=== PATIENT | male | born 1935 | race Caucasian/White ===

== ENCOUNTER 2017-07-21 12:06 | Emergency (ER) | payer MEDICARE, OTHER ==
[2017-07-21 12:19] VITALS: RESP 18
[2017-07-21] MEDS ORDERED: hydrALAZINE HCL 20 MG/ML 1 ML VIAL IVP STA (13:50)
[2017-07-21 14:04] LABS: Basophils % (A) 1 %; Eosinophils # (A) 0.1 k/uL (0-0.7); Eosinophils % (A) 2 %; HGB 14.9 gm/dL (13.0-17.5); Lymphocytes # (A) 2.1 k/uL (1.0-4.8); Lymphocytes % (A) 34 %; MCH 32.5 pg (25.0-35.0); MCHC 34.6 g/dL (31.0-37.0); MCV 94.1 fL (80.0-100.0); Mean Platelet Volume 6.5; Monocytes # (A) 0.4 k/uL (0-1.0); Monocytes % (A) 7 %; Neutrophils # (A) 3.2 k/uL (1.3-7.7); Neutrophils % (A) 52 %; Platelet Count 203 k/uL (150-450); RBC 4.57 m/uL (4.30-5.90); RDW 13.6 % (11.5-15.5); WBC 6.2 k/uL (3.8-10.6)
[2017-07-21 14:16] LABS: Anion Gap 11 mmol/L; Blood Urea Nitrogen 19 mg/dL (9-20); Calcium 9.4 mg/dL (8.4-10.2); Carbon Dioxide 26 mmol/L (22-30); Chloride 101 mmol/L (98-107); Glucose 150 mg/dL (74-99); Potassium 4.1 mmol/L (3.5-5.1); Sodium 138 mmol/L (137-145)
--- NOTE | 2017-07-21 15:14 | ED ---
General Adult HPI - General Chief complaint: Recheck/Abnormal Lab/Rx Stated complaint: High Blood Pressure Time Seen by Provider: 07/21/17 13:27 Source: patient Mode of arrival: ambulatory Limitations: no limitations - History of Present Illness Initial comments: This 82-year-old white male presents with a complaint of high blood pressure. He states that he noticed it being high this morning. He took it on several occasions with the highest being 200/104. He essentially has been asymptomatic otherwise. He does have a history of long-standing hypertension. He did take an extra Norvasc this morning. He states that he has been under a fair amount of stress recently due to his 's illnesses. He denies any other complaints or modifying factors. There is no chest pain, shortness of breath, lower extremity edema, or fevers. He called his primary care physician's office and they sent him to the ER. - Related Data Home Medications Medication Instructions Recorded Confirmed Wolsey-3 Fatty Acids/Fish Oil [Fish 1,000 mg PO DAILY 02/18/15 07/21/17 Oil 1,000 mg Softgel] amLODIPine BESYLATE [Norvasc] 5 mg PO BID 02/18/15 07/21/17 ALPRAZolam [Xanax] 0.25 mg PO DAILY PRN 05/22/16 07/21/17 Levothyroxine Sodium [Synthroid] 88 mcg PO DAILY 05/22/16 07/21/17 Acetaminophen Tab [Tylenol Tab] 500 mg PO HS 07/21/17 07/21/17 Ascorbic Acid [Vitamin C] 500 mg PO DAILY 07/21/17 07/21/17 Aspirin EC [Ecotrin Low Dose] 81 mg PO DAILY 07/21/17 07/21/17 Mirabegron [Myrbetriq] 50 mg PO DAILY 07/21/17 07/21/17 Multivit-Min/FA/Lycopen/Lutein 1 tab PO DAILY 07/21/17 07/21/17 [Centrum Silver Tablet] hydrOXYzine PAMOATE 25 mg PO BID 07/21/17 07/21/17 Previous Rx's Medication Instructions Recorded cloNIDine HCL [Catapres] 0.1 mg PO BID #60 tab 07/21/17 Allergies Allergy/AdvReac Type Severity Reaction Status Date / Time Frupifo-Mqg-Ali Reductase Allergy Unknown Verified 07/21/17 13:35 Inhibitor Review of Systems ROS Statement: Those systems with pertinent positive or pertinent negative responses have been documented in the HPI. ROS Other: All systems not noted in ROS Statement are negative. Past Medical History Past Medical History: Hypertension History of Any Multi-Drug Resistant Organisms: None Reported Past Surgical History: Appendectomy, Cholecystectomy, Tonsillectomy Additional Past Surgical History / Comment(s): shoulder Past Psychological History: No Psychological Hx Reported Smoking Status: Never smoker Past Alcohol Use History: None Reported Past Drug Use History: None Reported General Exam - General Exam Comments Initial Comments: GENERAL: The patient is well nourished and well hydrated. VITAL SIGNS: Heart rate, blood pressure, respiratory rate reviewed as recorded in nurse's notes. EYES: Pupils are round and reactive. Extraocular movements are intact. No conjunctival / lid redness or swelling. ENT: No external evidence of injury, swelling, or ecchymosis. Airway is patent. Throat is clear. NECK: Nontender. No swelling or evidence of injury. No subcutaneous emphysema. Trachea is midline. No thyroid mass. HEART: Regular rate and rhythm. Good peripheral pulses. LUNGS/CHEST: Breath sounds clear and equal bilaterally. No rales, rhonchi, or wheezes. No ecchymosis, subcutaneous emphysema, or tenderness. ABDOMEN: Abdomen soft without tenderness. No palpable masses or organomegaly. No peritoneal signs. No abdominal wall swelling or ecchymosis. EXTREMITIES: No extremity tenderness. Normal muscle tone and function. No thoracolumbar tenderness. NEUROLOGIC: Sensation is grossly intact. Cranial nerve exam reveals face is symmetrical, tongue is midline, speech is clear. SKIN: No abrasions or ecchymosis is noted. No induration or masses noted. PSYCHIATRIC: Alert and oriented. Appropriate behavior and judgment. Limitations: no limitations Course Vital Signs 07/21/17 07/21/17 07/21/17 12:14 13:49 14:52 Temperature 97.0 F L Pulse Rate 63 73 Respiratory 18 18 Rate Blood Pressure 164/77 178/85 141/91 O2 Sat by Pulse 94 L 100 Oximetry Medical Decision Making - Medical Decision Making The patient was seen and examined. All diagnostics were reviewed. EKG shows a normal sinus rhythm at a rate of 61 with a first-degree AV block. There is diffuse T-wave inversion noted throughout EKG. The OH intervals 220, QRS duration is 144, and the QTc interval is 426. The old EKG does show similar T- wave inversions. Patient also has a right bundle-branch block which is been persistent. An IV is started and he has a dose of hydralazine given intravenously. His blood pressure is only minimally elevated initially and this improved on recheck. It is felt as though he is stable for discharge. He does show me his blood pressure log over the last 5 days and it appears to be persistently elevated. It is felt as though he would benefit from another blood pressure medication being added. - Lab Data Result diagrams: 07/21/17 13:54 07/21/17 13:54 Lab Results 07/21/17 07/21/17 Range/Units 13:54 13:54 WBC 6.2 (3.8-10.6) k/uL RBC 4.57 (4.30-5.90) m/uL Hgb 14.9 (13.0-17.5) gm/dL Hct 43.0 (39.0-53.0) % MCV 94.1 (80.0-100.0) fL MCH 32.5 (25.0-35.0) pg MCHC 34.6 (31.0-37.0) g/dL RDW 13.6 (11.5-15.5) % Plt Count 203 (150-450) k/uL Neutrophils % 52 % Lymphocytes % 34 % Monocytes % 7 % Eosinophils % 2 % Basophils % 1 % Neutrophils # 3.2 (1.3-7.7) k/uL Lymphocytes # 2.1 (1.0-4.8) k/uL Monocytes # 0.4 (0-1.0) k/uL Eosinophils # 0.1 (0-0.7) k/uL Basophils # 0.0 (0-0.2) k/uL Sodium 138 (137-145) mmol/L Potassium 4.1 (3.5-5.1) mmol/L Chloride 101 (98-107) mmol/L Carbon Dioxide 26 (22-30) mmol/L Anion Gap 11 mmol/L BUN 19 (9-20) mg/dL Creatinine 0.70 (0.66-1.25) mg/dL Est GFR (MDRD) Af Amer >60 (>60 ml/min/1.73 sqM) Est GFR (MDRD) Non-Af >60 (>60 ml/min/1.73 sqM) Glucose 150 H (74-99) mg/dL Calcium 9.4 (8.4-10.2) mg/dL Disposition Clinical Impression: Hypertension Disposition: HOME SELF-CARE Condition: Good Instructions: Hypertension (ED) Prescriptions: cloNIDine HCL [Catapres] 0.1 mg PO BID #60 tab Referrals: Maggie Joya MD [Primary Care Provider] - 1-2 days Time of Disposition: 15:32
[2017-07-21 15:58] VITALS: BP 167/82; PULSE 66; TEMP 97.4
== END 2017-07-21 15:58 | disposition home or self-care (01) ==
LOC: EC 12:06
DX: I10 Essential (primary) hypertension (principal); I44.0 Atrioventricular block, first degree; I45.10 Unspecified right bundle-branch block; Z79.82 Long term (current) use of aspirin; Z79.899 Other long term (current) drug therapy; Z88.8 Allergy status to other drugs, medicaments and biological substances
CPT/HCPCS: 36415; 93005; 80048; 85025; 99283; 96374; J0360

== ENCOUNTER 2017-12-12 22:55 | Emergency (ER) | payer MEDICARE ==
[2017-12-12 23:01] VITALS: RESP 18; TEMP 97
[2017-12-12] MEDS ORDERED: METOCLOPRAMIDE 5 MG/ML 2 ML VIAL IVP STA (23:20)
[2017-12-12] MEDS ORDERED: HYDROmorphone 0.5 MG/0.5 ML SYRINGE IVP STA (23:20)
[2017-12-12] MEDS ORDERED: SODIUM CHLORIDE 0.9% 1,000 ML IV STA (23:20)
[2017-12-12] MEDS ORDERED: DEXAMETHASONE SOD PHOSPHATE 4 MG/ML 1 ML VIAL IV STA (23:21)
--- NOTE | 2017-12-12 23:36 | ED ---
Headache HPI - General Chief Complaint: Headache Stated Complaint: Headache Time Seen by Provider: 12/12/17 23:04 Mode of arrival: EMS Limitations: no limitations - History of Present Illness Initial Comments: 82 years old male presents with a headache ongoing for 2 days he's had headaches gets worse when he lays flat it was called yesterday but then he came back also complaining about discomfort over the frontal sinuses and over the right temporal area as well his vision is fine he denies any fever no chills he denies any signs of meningitis or meningeal irritation. Has headache no neck stiffness no chest pain or shortness of breath no abdominal pain no frequency urgency dysuria - Related Data Home Medications Medication Instructions Recorded Confirmed [place]-3 Fatty Acids/Fish Oil [Fish 1,000 mg PO DAILY 02/18/15 07/21/17 Oil 1,000 mg Softgel] amLODIPine BESYLATE [Norvasc] 5 mg PO BID 02/18/15 07/21/17 ALPRAZolam [Xanax] 0.25 mg PO DAILY PRN 05/22/16 07/21/17 Levothyroxine Sodium [Synthroid] 88 mcg PO DAILY 05/22/16 07/21/17 Acetaminophen Tab [Tylenol Tab] 500 mg PO HS 07/21/17 07/21/17 Ascorbic Acid [Vitamin C] 500 mg PO DAILY 07/21/17 07/21/17 Aspirin EC [Ecotrin Low Dose] 81 mg PO DAILY 07/21/17 07/21/17 Mirabegron [Myrbetriq] 50 mg PO DAILY 07/21/17 07/21/17 Multivit-Min/FA/Lycopen/Lutein 1 tab PO DAILY 07/21/17 07/21/17 [Centrum Silver Tablet] hydrOXYzine PAMOATE 25 mg PO BID 07/21/17 07/21/17 Previous Rx's Medication Instructions Recorded cloNIDine HCL [Catapres] 0.1 mg PO BID #60 tab 07/21/17 Allergies Allergy/AdvReac Type Severity Reaction Status Date / Time Pogvpva-Wsg-Jqi Reductase Allergy Unknown Verified 12/12/17 23:01 Inhibitor Review of Systems ROS Statement: Those systems with pertinent positive or pertinent negative responses have been documented in the HPI. ROS Other: All systems not noted in ROS Statement are negative. Past Medical History Past Medical History: GERD/Reflux, Hypertension, Thyroid Disorder History of Any Multi-Drug Resistant Organisms: None Reported Past Surgical History: Appendectomy, Cholecystectomy, Tonsillectomy Additional Past Surgical History / Comment(s): shoulder Past Psychological History: No Psychological Hx Reported Smoking Status: Never smoker Past Alcohol Use History: None Reported Past Drug Use History: None Reported General Exam - General Exam Comments Initial Comments: General: The patient is awake and alert, in no distress, and does not appear acutely ill. GCS is 15 Skin: Skin is warm and dry and no rashes or lesions are noted. Eye: Pupils are equal, round and reactive to light, extra-ocular movements are intact; there is normal conjunctiva bilaterally. Ears, nose, mouth and throat: There are moist mucous membranes and no oral lesions. Neck: The neck is supple, there is no tenderness , no signs of meningitis Cardiovascular: There is a regular rate and rhythm. No murmur, rub or gallop is appreciated. Respiratory: To auscultation bilateral decreased breath sounds bilateral Gastrointestinal: Soft, non-distended, non-tender abdomen without masses or organomegaly noted. There is no rebound or guarding present. Bowel sounds are unremarkable. Back: There is no tenderness to palpation in the midline. There is no obvious deformity. Musculoskeletal: Normal ROM, no tenderness, There is no pedal edema. There is no calf tenderness or swelling. No cords were appreciated. Neurological: CN II-XII intact, Cranial nerves III through XII are intact. There are no obvious motor or sensory deficits. Coordination appears grossly intact. Speech is normal. Psychiatric: Cooperative, appropriate mood & affect, normal judgment. Limitations: no limitations Course Vital Signs 12/12/17 12/12/17 12/13/17 22:56 23:09 00:32 Temperature 97.0 F L Pulse Rate 60 62 Pulse Rate [ 54 L Application Support Intern ] Respiratory 18 18 Rate Blood Pressure 174/83 183/76 O2 Sat by Pulse 93 L 96 Oximetry EKG is sinus bradycardia ventricular rate is 59 MT interval interval is to 46 QRS duration is 144 QT/QTc is 476/471 review of this EKG reveals right bundle branch block noticed some mom T-wave inversions in now lead V3 this EKG was compared with the old EKG no significant changes were noticed CT of the head and then numb sinuses were reviewed noticed a large tumor probably arising from the staff noted sinus with extension into cellular region or suprasellar region into the nasopharynx and the right maxillary sinus him at this large tumor at the skull base involving the sesamoid bone and SL C, 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 these findings were discussed with the patient, recommended we need to transfer him to the [facility] where they have a more advanced neurosurgical as well as ENT team patient [facility] to [facility] was contacted to [facility] accepted him in their care Medical Decision Making - Lab Data Result diagrams: 12/12/17 23:10 12/12/17 23:10 Lab Results 12/12/17 12/12/17 12/12/17 Range/Units 23:10 23:10 23:10 WBC 5.7 (3.8-10.6) k/uL RBC 4.71 (4.30-5.90) m/uL Hgb 14.8 (13.0-17.5) gm/dL Hct 42.1 (39.0-53.0) % MCV 89.5 (80.0-100.0) fL MCH 31.4 (25.0-35.0) pg MCHC 35.1 (31.0-37.0) g/dL RDW 13.4 (11.5-15.5) % Plt Count 200 (150-450) k/uL Neutrophils % 44 % Lymphocytes % 41 % Monocytes % 8 % Eosinophils % 3 % Basophils % 1 % Neutrophils # 2.5 (1.3-7.7) k/uL Lymphocytes # 2.3 (1.0-4.8) k/uL Monocytes # 0.4 (0-1.0) k/uL Eosinophils # 0.2 (0-0.7) k/uL Basophils # 0.0 (0-0.2) k/uL ESR 77 H (0-15) mm/hr Sodium 138 (137-145) mmol/L Potassium 3.8 (3.5-5.1) mmol/L Chloride 99 (98-107) mmol/L Carbon Dioxide 26 (22-30) mmol/L Anion Gap 13 mmol/L BUN 16 (9-20) mg/dL Creatinine 0.70 (0.66-1.25) mg/dL Est GFR (CKD-EPI)AfAm >90 (>60 ml/min/1.73 sqM) Est GFR (CKD-EPI)NonAf 89 (>60 ml/min/1.73 sqM) Glucose 120 H (74-99) mg/dL Calcium 9.1 (8.4-10.2) mg/dL Total Bilirubin 0.5 (0.2-1.3) mg/dL AST 47 (17-59) U/L ALT 40 (21-72) U/L Alkaline Phosphatase 91 (38-126) U/L Troponin I <0.012 (0.000-0.034) ng/mL Total Protein 7.4 (6.3-8.2) g/dL Albumin 4.4 (3.5-5.0) g/dL 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 Specs Out of Hospital Transfer - Requested Specifics: Other Emergency Center (Dr. grider accepted his care and transfer)
[2017-12-12 23:45] LABS: Basophils % (A) 1 %; Eosinophils # (A) 0.2 k/uL (0-0.7); Eosinophils % (A) 3 %; HCT 42.1 % (39.0-53.0); HGB 14.8 gm/dL (13.0-17.5); Lymphocytes # (A) 2.3 k/uL (1.0-4.8); Lymphocytes % (A) 41 %; MCH 31.4 pg (25.0-35.0); MCHC 35.1 g/dL (31.0-37.0); MCV 89.5 fL (80.0-100.0); Mean Platelet Volume 7.2; Monocytes # (A) 0.4 k/uL (0-1.0); Monocytes % (A) 8 %; Neutrophils # (A) 2.5 k/uL (1.3-7.7); Neutrophils % (A) 44 %; Platelet Count 200 k/uL (150-450); RBC 4.71 m/uL (4.30-5.90); RDW 13.4 % (11.5-15.5); WBC 5.7 k/uL (3.8-10.6)
[2017-12-12 23:56] LABS: ALT 40 U/L (21-72); AST 47 U/L (17-59); Albumin 4.4 g/dL (3.5-5.0); Alkaline Phosphatase 91 U/L (38-126); Anion Gap 13 mmol/L; Blood Urea Nitrogen 16 mg/dL (9-20); Calcium 9.1 mg/dL (8.4-10.2); Carbon Dioxide 26 mmol/L (22-30); Chloride 99 mmol/L (98-107); Glucose 120 mg/dL (74-99); Potassium 3.8 mmol/L (3.5-5.1); Sodium 138 mmol/L (137-145); Total Bilirubin 0.5 mg/dL (0.2-1.3); Total Protein 7.4 g/dL (6.3-8.2)
[2017-12-13 00:21] LABS: Erythrocyte Sedimentation Rate 77 mm/hr (0-15)
--- NOTE | 2017-12-13 00:28 | CT ---
EXAMINATION TYPE: CT brain wo con DATE OF EXAM: 12/13/2017 COMPARISON: NONE HISTORY: pt. c/o severe headache X2 days. CT DLP: 1405 mGycm Automated exposure control for dose reduction was used. FINDINGS: There is a mixed density mass involving the sphenoid bone and sphenoid sinus extending into the sella turcica and suprasellar region. This measures overall 4.6 x 6.1 x 3.9 cm. There is expansion through the floor of the sphenoid sinus into the posterior nasopharynx. There is significant displacement of the optic chiasm. There is superior extension of the mass 2 cm above the clinoid process.. There is no midline shift. There is no intracranial hemorrhage. There is cerebral cortical atrophy. IMPRESSION: LARGE TUMOR MASS AT THE SKULL BASE INVOLVING SPHENOID BONE AND SELLA TURCICA. 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
--- NOTE | 2017-12-13 00:32 | CT ---
EXAMINATION TYPE: CT sinus wo con DATE OF EXAM: 12/13/2017 COMPARISON: NONE HISTORY: pt. c/o severe headache X2 days. CT DLP: 1405 mGycm. Automated Exposure Control for Dose Reduction was Utilized. TECHNIQUE: CT scan of the sinuses is performed without contrast, axial images are obtained, coronal r eformatted images are also reviewed. FINDINGS: There is a large 5 x 6 cm mass centered at the sella turcica and sphenoid sinus. This measu res 6 x 5 cm. Mass has intermediate to high density. There is adjacent bone destruction. Mass extends through the floor of the sphenoid sinus into the nasopharynx. There is 1.5 cm area of mu cosal thickening in the right anterior ethmoid sinus. There is no evidence of orbital mass. Frontal s inuses appear normal. There is tumor mass extension into the posterior right maxillary sinus. 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
[2017-12-13 02:30] VITALS: BP 174/76; PULSE 61
== END 2017-12-13 02:55 | disposition other institution (70) ==
LOC: EC 22:55
DX: D49.1 Neoplasm of unspecified behavior of respiratory system (principal); I10 Essential (primary) hypertension; Z79.899 Other long term (current) drug therapy; Z79.82 Long term (current) use of aspirin; Z79.891 Long term (current) use of opiate analgesic; Z88.8 Allergy status to other drugs, medicaments and biological substances; Z90.49 Acquired absence of other specified parts of digestive tract; Z90.89 Acquired absence of other organs
CPT/HCPCS: 36415; 93005; 80053; 85652; 84484; 85025; 70450; 70486; 99285; 96374; 96375 ×2; 96361 ×3; J1100; J2765; J1170

== ENCOUNTER → 2017-12-21 | Outpatient (CLI) | payer MEDICARE ==
[2017-12-21 16:17] LABS: Basophils # (A) 0.1 k/uL (0-0.2); Basophils % (A) 1 %; Eosinophils # (A) 0.3 k/uL (0-0.7); Eosinophils % (A) 4 %; HCT 43.5 % (39.0-53.0); Lymphocytes # (A) 2.2 k/uL (1.0-4.8); Lymphocytes % (A) 30 %; MCH 31.1 pg (25.0-35.0); MCHC 34.6 g/dL (31.0-37.0); MCV 89.8 fL (80.0-100.0); Mean Platelet Volume 6.2; Monocytes # (A) 0.5 k/uL (0-1.0); Monocytes % (A) 7 %; Neutrophils # (A) 4.1 k/uL (1.3-7.7); Neutrophils % (A) 57 %; Platelet Count 236 k/uL (150-450); RBC 4.84 m/uL (4.30-5.90); RDW 13.9 % (11.5-15.5); WBC 7.3 k/uL (3.8-10.6)
[2017-12-21 16:35] LABS: ALT 55 U/L (21-72); AST 48 U/L (17-59); Albumin 4.1 g/dL (3.5-5.0); Alkaline Phosphatase 80 U/L (38-126); Anion Gap 12 mmol/L; Blood Urea Nitrogen 19 mg/dL (9-20); Carbon Dioxide 25 mmol/L (22-30); Chloride 98 mmol/L (98-107); Glucose 90 mg/dL (74-99); Potassium 4.1 mmol/L (3.5-5.1); Sodium 135 mmol/L (137-145); Total Bilirubin 0.6 mg/dL (0.2-1.3); Total Protein 6.9 g/dL (6.3-8.2)
== END | disposition home or self-care (01) ==
LOC: LABWHC1 15:54
PROVIDERS: ATTEND Internal Medicine
DX: I10 Essential (primary) hypertension (principal); R22.0 Localized swelling, mass and lump, head
CPT/HCPCS: 36415; 80053; 85025

== ENCOUNTER → 2018-01-25 | Outpatient (CLI) | payer MEDICARE ==
[~2018-01-25] MED LIST: REGADENOSON 0.4 MG/5 ML SYRINGE IV ONE
--- NOTE | 2018-01-25 08:45 | XR ---
EXAMINATION TYPE: XR chest 2V DATE OF EXAM: 01/25/2018 COMPARISON: 05/22/2016 HISTORY: Shortness of breath TECHNIQUE: Frontal and lateral views of the chest are obtained. FINDINGS: Scattered senescent parenchymal changes noted. Hyperinflation compatible with COPD. No evidence for infiltrate. No evidence for atelectasis. Heart size is stable. Mediastinal structures are stable and grossly unremarkable. No evidence for hilar prominence. Degenerative changes dorsal spine. IMPRESSION: 1. No evidence for acute pulmonary disease.
--- NOTE | 2018-01-25 11:34 | EST ---
EXERCISE STRESS DATE OF SERVICE: 01/25/2018 AGE: 82 SEX: Male HT: 6'1" WT: 220 pounds PROTOCOL: Lexiscan Cardiolite STAGE: DURATION OF EXERCISE: HEART RATE REST: 61 BLOOD PRESSURE REST: 135/72 MAXIMUM HEART RATE ACHIEVED: 71 MAXIMUM BLOOD PRESSURE: 135/72 85% MPHR: 100% MPHR: METS: INDICATIONS: Chest pain. CLINICAL INFORMATION: STRESS DATA: Pretesting physical examination showed a heart rate of 61, pressure is 135/72 mmHg. Baseline EKG showed sinus rhythm. A 0.4 mg of Lexiscan was given over 15 seconds per protocol. The max heart rate was 71 beats per minute and maximum pressure was 135/72. Clinically the patient did not have any symptoms of chest pain or discomfort. The EKG did not show any significant ST or T-wave abnormalities. CONCLUSION: 1. Nondiagnostic electrocardiogram stress testing in response to Lexiscan. 2. Please follow up on the Cardiolite portion on a separate report from the radiology department. MMODL / IJN: [id number] /
--- NOTE | 2018-01-25 11:36 | NM ---
EXAMINATION TYPE: NM stress lexiscan cardiolite DATE OF EXAM: 01/25/2018 COMPARISON: NONE HISTORY: Precordial chest pain and EKG TECHNIQUE: After the intravenous administration of 10.4 mCi Tc 99m Sestamibi - Cardiolite resting SP ECT images acquired 40 minutes post injection. The patient received 0.4mg Lexiscan, 24.7 mCi Tc 99m Sestamibi - Stress images obtained [address] injection FINDINGS: Review of stress and rest SPECT images demonstrates no distinct perfusion abnormality. Gated analysi s shows normal wall motion with an estimated left ventricular ejection fraction of 67 %. IMPRESSION: No scintigraphic evidence for reversible ischemia.
== END | disposition home or self-care (01) ==
LOC: RADNMMAIN 07:46
PROVIDERS: ATTEND Internal Medicine
DX: Z01.818 Encounter for other preprocedural examination (principal); D43.2 Neoplasm of uncertain behavior of brain, unspecified
CPT/HCPCS: 93017; 71046; 78452; A9500; J2785

== ENCOUNTER 2018-02-15 10:59 | Observation (INO) | payer MEDICARE ==
--- NOTE | 2018-02-15 11:31 | ED ---
General Adult HPI - General Stated complaint: Fatigue Time Seen by Provider: 02/15/18 11:16 Source: patient, RN notes reviewed Limitations: no limitations - History of Present Illness Initial comments: Patient is a pleasant 82-year-old male presenting to the emergency department with fatigue. Onset of symptoms was around 3 days ago. Symptoms have progressed since that time. Patient is fatigued and having difficulty sleeping as well. Patient feels weak all over however there is no isolated area of weakness. No confusion. No speech problems. No visual changes. 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 Patient states he has been urinating more than normal. - Related Data Home Medications Medication Instructions Recorded Confirmed amLODIPine BESYLATE [Norvasc] 5 mg PO DAILY 02/18/15 02/15/18 ALPRAZolam [Xanax] 0.25 mg PO DAILY PRN 05/22/16 02/15/18 Ascorbic Acid [Vitamin C] 500 mg PO DAILY 07/21/17 02/15/18 Aspirin EC [Ecotrin Low Dose] 81 mg PO DAILY 07/21/17 02/15/18 Latanoprost [Xalatan 0.005%] 1 drop BOTH EYES HS 02/15/18 02/15/18 Levothyroxine Sodium [Synthroid] 100 mcg PO DAILY 02/15/18 02/15/18 Lisinopril [Prinivil] 10 mg PO DAILY 02/15/18 02/15/18 Tamsulosin [Flomax] 0.4 mg PO DAILY 02/15/18 02/15/18 traZODone HCL 50 mg PO HS 02/15/18 02/15/18 Allergies Allergy/AdvReac Type Severity Reaction Status Date / Time [id number] Reductase Allergy Unknown Verified 02/15/18 12:05 Inhibitor Review of Systems ROS Statement: Those systems with pertinent positive or pertinent negative responses have been documented in the HPI. ROS Other: All systems not noted in ROS Statement are negative. Constitutional: Denies: fever Eyes: Denies: eye pain ENT: Denies: ear pain Respiratory: Denies: cough, dyspnea Cardiovascular: Denies: chest pain Endocrine: Reports: fatigue Gastrointestinal: Denies: vomiting Genitourinary: Reports: frequency. Denies: dysuria, hematuria Musculoskeletal: Denies: back pain Skin: Denies: rash Neurological: Denies: headache, confusion Past Medical History Past Medical History: GERD/Reflux, Hypertension, Thyroid Disorder History of Any Multi-Drug Resistant Organisms: None Reported Past Surgical History: Appendectomy, Cholecystectomy, Tonsillectomy Additional Past Surgical History / Comment(s): shoulder Past Psychological History: No Psychological Hx Reported Smoking Status: Never smoker Past Alcohol Use History: None Reported Past Drug Use History: None Reported General Exam Limitations: no limitations General appearance: alert, in no apparent distress Head exam: Present: atraumatic Eye exam: Present: normal appearance, PERRL, EOMI ENT exam: Present: normal oropharynx Neck exam: Present: normal inspection Respiratory exam: Present: normal lung sounds bilaterally Cardiovascular Exam: Present: regular rate, normal rhythm GI/Abdominal exam: Present: soft. Absent: tenderness Extremities exam: Present: normal inspection. Absent: pedal edema, calf tenderness Neurological exam: Present: alert, CN II-XII intact. Absent: motor sensory deficit Expanded Neurological exam: Present: protecting the airway Speech: Present: fluid speech Cranial nerves: EOM's Intact: Normal, Facial Sensation: Normal Sensory exam: Upper Extremity Light Touch: Normal, Lower Extremity Light Touch: Normal Motor strength exam: RUE: 5, LUE: 5, RLE: 5, LLE: 5 Eye Response: (4) open spontaneously Motor Response: (6) obeys commands Verbal Response: (5) oriented Psychiatric exam: Present: normal affect, normal mood Skin exam: Present: normal color Course Vital Signs 02/15/18 02/15/18 02/15/18 11:34 12:20 13:18 Temperature 98.5 F 97.3 F L Pulse Rate 77 62 72 Respiratory 16 17 18 Rate Blood Pressure 117/55 113/56 110/50 O2 Sat by Pulse 98 97 97 Oximetry 02/15/18 14:15 Temperature Pulse Rate 76 Respiratory 18 Rate Blood Pressure 125/81 O2 Sat by Pulse 96 Oximetry EKG Findings - EKG Comments: EKG Findings:: Sinus rhythm at 70. First 3 AV block OR of 220. QRS 138. QT 444. QTC 479. Right axis. Right bundle branch block. No acute ST change. Medical Decision Making - Medical Decision Making Patient reevaluated and resting comfortably in bed. Case was discussed in detail with Dr. March, who did talk with Dr. Joya. Secondary to rapid drop in lobe and they do request patient to be admitted. They do request consult with GI or EGD as well as tonics and repeat hemoglobin. - Lab Data Result diagrams: 02/15/18 11:15 02/15/18 11:15 Lab Results 02/15/18 02/15/18 02/15/18 Range/Units 11:15 11:15 11:15 WBC 5.2 (3.8-10.6) k/uL RBC 2.45 L (4.30-5.90) m/uL Hgb 7.7 L D (13.0-17.5) gm/dL Hct 22.9 L (39.0-53.0) % MCV 93.3 (80.0-100.0) fL MCH 31.3 (25.0-35.0) pg MCHC 33.6 (31.0-37.0) g/dL RDW 13.7 (11.5-15.5) % Plt Count 213 (150-450) k/uL Neutrophils % 41 % Lymphocytes % 41 % Monocytes % 9 % Eosinophils % 5 % Basophils % 1 % Neutrophils # 2.1 (1.3-7.7) k/uL Lymphocytes # 2.1 (1.0-4.8) k/uL Monocytes # 0.5 (0-1.0) k/uL Eosinophils # 0.2 (0-0.7) k/uL Basophils # 0.0 (0-0.2) k/uL PT (9.0-12.0) sec INR (<1.2) APTT (22.0-30.0) sec Sodium 137 (137-145) mmol/L Potassium 4.5 (3.5-5.1) mmol/L Chloride 106 (98-107) mmol/L Carbon Dioxide 22 (22-30) mmol/L Anion Gap 9 mmol/L BUN 17 (9-20) mg/dL Creatinine 1.10 (0.66-1.25) mg/dL Est GFR (CKD-EPI)AfAm 73 (>60 ml/min/1.73 sqM) Est GFR (CKD-EPI)NonAf 63 (>60 ml/min/1.73 sqM) Glucose 183 H (74-99) mg/dL Osmolality 292 (280-301) mosm/kg Calcium 8.8 (8.4-10.2) mg/dL Ionized Calcium [place] 5.2 (4.5-5.3) mg/dL Phosphorus 4.2 (2.5-4.5) mg/dL Magnesium 1.6 (1.6-2.3) mg/dL Total Bilirubin 0.9 (0.2-1.3) mg/dL AST 53 (17-59) U/L ALT 52 (21-72) U/L Alkaline Phosphatase 76 (38-126) U/L Total Creatine Kinase 53 L (55-170) U/L CK-MB (CK-2) 0.8 (0.0-2.4) ng/mL CK-MB (CK-2) Rel Index 1.5 Troponin I <0.012 (0.000-0.034) ng/mL Total Protein 6.1 L (6.3-8.2) g/dL Albumin 3.3 L (3.5-5.0) g/dL TSH <0.015 L (0.465-4.680) mIU/L Free T4 1.24 (0.78-2.19) ng/dL Free T3 pg/mL 4.0 (2.8-5.3) pg/ml Urine Color Urine Appearance (Clear) Urine pH (5.0-8.0) Ur Specific [place] (1.001-1.035) Urine Protein (Negative) Urine Glucose (UA) (Negative) Urine Ketones (Negative) Urine Blood (Negative) Urine Nitrite (Negative) Urine Bilirubin (Negative) Urine Urobilinogen (<2.0) mg/dL Ur Leukocyte Esterase (Negative) Urine Osmolality (50-1400) mosm/kg Stool Occult Blood (Negative) 02/15/18 02/15/18 02/15/18 Range/Units 11:15 12:57 12:58 WBC (3.8-10.6) k/uL RBC (4.30-5.90) m/uL Hgb (13.0-17.5) gm/dL Hct (39.0-53.0) % MCV (80.0-100.0) fL MCH (25.0-35.0) pg MCHC (31.0-37.0) g/dL RDW (11.5-15.5) % Plt Count (150-450) k/uL Neutrophils % % Lymphocytes % % Monocytes % % Eosinophils % % Basophils % % Neutrophils # (1.3-7.7) k/uL Lymphocytes # (1.0-4.8) k/uL Monocytes # (0-1.0) k/uL Eosinophils # (0-0.7) k/uL Basophils # (0-0.2) k/uL PT 10.8 (9.0-12.0) sec INR 1.1 (<1.2) APTT 25.1 (22.0-30.0) sec Sodium (137-145) mmol/L Potassium (3.5-5.1) mmol/L Chloride (98-107) mmol/L Carbon Dioxide (22-30) mmol/L Anion Gap mmol/L BUN (9-20) mg/dL Creatinine (0.66-1.25) mg/dL Est GFR (CKD-EPI)AfAm (>60 ml/min/1.73 sqM) Est GFR (CKD-EPI)NonAf (>60 ml/min/1.73 sqM) Glucose (74-99) mg/dL Osmolality (280-301) mosm/kg Calcium (8.4-10.2) mg/dL Ionized Calcium Iman (4.5-5.3) mg/dL Phosphorus (2.5-4.5) mg/dL Magnesium (1.6-2.3) mg/dL Total Bilirubin (0.2-1.3) mg/dL AST (17-59) U/L ALT (21-72) U/L Alkaline Phosphatase (38-126) U/L Total Creatine Kinase (55-170) U/L CK-MB (CK-2) (0.0-2.4) ng/mL CK-MB (CK-2) Rel Index Troponin I (0.000-0.034) ng/mL Total Protein (6.3-8.2) g/dL Albumin (3.5-5.0) g/dL TSH (0.465-4.680) mIU/L Free T4 (0.78-2.19) ng/dL Free T3 pg/mL (2.8-5.3) pg/ml Urine Color Urine Appearance (Clear) Urine pH (5.0-8.0) Ur Specific [place] (1.001-1.035) Urine Protein (Negative) Urine Glucose (UA) (Negative) Urine Ketones (Negative) Urine Blood (Negative) Urine Nitrite (Negative) Urine Bilirubin (Negative) Urine Urobilinogen (<2.0) mg/dL Ur Leukocyte Esterase (Negative) Urine Osmolality 468 (50-1400) mosm/kg Stool Occult Blood Negative (Negative) 02/15/18 Range/Units 12:58 WBC (3.8-10.6) k/uL RBC (4.30-5.90) m/uL Hgb (13.0-17.5) gm/dL Hct (39.0-53.0) % MCV (80.0-100.0) fL MCH (25.0-35.0) pg MCHC (31.0-37.0) g/dL RDW (11.5-15.5) % Plt Count (150-450) k/uL Neutrophils % % Lymphocytes % % Monocytes % % Eosinophils % % Basophils % % Neutrophils # (1.3-7.7) k/uL Lymphocytes # (1.0-4.8) k/uL Monocytes # (0-1.0) k/uL Eosinophils # (0-0.7) k/uL Basophils # (0-0.2) k/uL PT (9.0-12.0) sec INR (<1.2) APTT (22.0-30.0) sec Sodium (137-145) mmol/L Potassium (3.5-5.1) mmol/L Chloride (98-107) mmol/L Carbon Dioxide (22-30) mmol/L Anion Gap mmol/L BUN (9-20) mg/dL Creatinine (0.66-1.25) mg/dL Est GFR (CKD-EPI)AfAm (>60 ml/min/1.73 sqM) Est GFR (CKD-EPI)NonAf (>60 ml/min/1.73 sqM) Glucose (74-99) mg/dL Osmolality (280-301) mosm/kg Calcium (8.4-10.2) mg/dL Ionized Calcium Iman (4.5-5.3) mg/dL Phosphorus (2.5-4.5) mg/dL Magnesium (1.6-2.3) mg/dL Total Bilirubin (0.2-1.3) mg/dL AST (17-59) U/L ALT (21-72) U/L Alkaline Phosphatase (38-126) U/L Total Creatine Kinase (55-170) U/L CK-MB (CK-2) (0.0-2.4) ng/mL CK-MB (CK-2) Rel Index Troponin I (0.000-0.034) ng/mL Total Protein (6.3-8.2) g/dL Albumin (3.5-5.0) g/dL TSH (0.465-4.680) mIU/L Free T4 (0.78-2.19) ng/dL Free T3 pg/mL (2.8-5.3) pg/ml Urine Color Yellow Urine Appearance Clear (Clear) Urine pH 5.5 (5.0-8.0) Ur Specific [place] 1.012 (1.001-1.035) Urine Protein Negative (Negative) Urine Glucose (UA) Negative (Negative) Urine Ketones Negative (Negative) Urine Blood Negative (Negative) Urine Nitrite Negative (Negative) Urine Bilirubin Negative (Negative) Urine Urobilinogen <2.0 (<2.0) mg/dL Ur Leukocyte Esterase Negative (Negative) Urine Osmolality (50-1400) mosm/kg Stool Occult Blood (Negative) - Radiology Data Radiology results: image reviewed (Chest x-ray shows no acute process) Disposition Clinical Impression: Anemia Disposition: ADMITTED IP TO THIS HOSP Is patient prescribed a controlled substance at d/c from ED?: No Referrals: Maggie Joya MD [Primary Care Provider] - 1-2 days Decision Time: 15:27
[2018-02-15 11:45] LABS: Basophils % (A) 1 %; Eosinophils # (A) 0.2 k/uL (0-0.7); Eosinophils % (A) 5 %; HCT 22.9 % (39.0-53.0); Lymphocytes # (A) 2.1 k/uL (1.0-4.8); Lymphocytes % (A) 41 %; MCH 31.3 pg (25.0-35.0); MCHC 33.6 g/dL (31.0-37.0); MCV 93.3 fL (80.0-100.0); Mean Platelet Volume 7.3; Monocytes # (A) 0.5 k/uL (0-1.0); Monocytes % (A) 9 %; Neutrophils # (A) 2.1 k/uL (1.3-7.7); Neutrophils % (A) 41 %; Platelet Count 213 k/uL (150-450); RBC 2.45 m/uL (4.30-5.90); RDW 13.7 % (11.5-15.5); WBC 5.2 k/uL (3.8-10.6)
[2018-02-15 11:51] LABS: HGB 7.7 gm/dL (13.0-17.5)
[2018-02-15 11:55] LABS: Ionized Calcium 5.2 mg/dL (4.5-5.3)
[2018-02-15 11:57] LABS: INR 1.1 (<1.2); Partial Thromboplastin Time 25.1 sec (22.0-30.0); Prothrombin Time 10.8 sec (9.0-12.0)
[2018-02-15 12:05] LABS: Creatine Kinase 53 U/L (55-170)
[2018-02-15 12:08] LABS: ALT 52 U/L (21-72); AST 53 U/L (17-59); Albumin 3.3 g/dL (3.5-5.0); Alkaline Phosphatase 76 U/L (38-126); Anion Gap 9 mmol/L; Blood Urea Nitrogen 17 mg/dL (9-20); Calcium 8.8 mg/dL (8.4-10.2); Carbon Dioxide 22 mmol/L (22-30); Chloride 106 mmol/L (98-107); Glucose 183 mg/dL (74-99); Magnesium 1.6 mg/dL (1.6-2.3); Phosphorus 4.2 mg/dL (2.5-4.5); Potassium 4.5 mmol/L (3.5-5.1); Sodium 137 mmol/L (137-145); Total Bilirubin 0.9 mg/dL (0.2-1.3); Total Protein 6.1 g/dL (6.3-8.2)
--- NOTE | 2018-02-15 12:09 | XR ---
EXAMINATION TYPE: XR chest 2V DATE OF EXAM: 02/15/2018 COMPARISON: 01/25/2018 INDICATION: Weakness TECHNIQUE: Frontal and lateral views of the chest are obtained. FINDINGS: The heart size is normal. The pulmonary vasculature is normal. The lungs are clear. IMPRESSION: 1. No acute pulmonary process.
[2018-02-15 12:18] LABS: Creatine Kinase MB 0.8 ng/mL (0.0-2.4); Troponin I <0.012 ng/mL (0.000-0.034)
[2018-02-15 12:24] LABS: T4, Free (Free Thyroxine) 1.24 ng/dL (0.78-2.19)
[2018-02-15 13:32] LABS: Appearance,Urine Clear (Clear); Bilirubin,Urine Negative (Negative); Blood,Urine Negative (Negative); Color,Urine Yellow; Glucose,Urine (UA) Negative (Negative); Ketones,Urine Negative (Negative); Leukocyte Esterase,Urine Negative (Negative); Nitrite,Urine Negative (Negative); PH, Urine 5.5 (5.0-8.0); Protein,Urine Negative (Negative); Specific Gravity,Urine 1.012 (1.001-1.035); Urobilinogen,Urine <2.0 mg/dL (<2.0)
[2018-02-15] MEDS ORDERED: NALOXONE 0.4 MG/ML 1 ML VIAL IV PRN (15:27)
[2018-02-15] MEDS ORDERED: SODIUM CHLORIDE 0.9% 1,000 ML IV SCH (15:30)
[2018-02-15] MEDS ORDERED: ALPRAZolam 0.25 MG TAB PO PRN (17:58)
[2018-02-15 18:10] LABS: Reticulocyte % 3.6 % (0.5-2.0)
[2018-02-15] MEDS ORDERED: LATANOPROST 0.005% OPHTH DROPS 2.5 ML BTL BOTH EYES SCH (21:00)
[2018-02-15] MEDS ORDERED: traZODone HCL 50 MG TAB PO SCH (21:00)
[2018-02-15] MEDS: PANTOPRAZOLE 40 MG/10 ML VIAL IV SCH (21:54)
[2018-02-15 23:46] LABS: Basophils % (A) 1 %; Eosinophils # (A) 0.2 k/uL (0-0.7); Eosinophils % (A) 4 %; HCT 35.9 % (39.0-53.0); Lymphocytes # (A) 1.9 k/uL (1.0-4.8); Lymphocytes % (A) 44 %; MCH 31.3 pg (25.0-35.0); MCHC 32.4 g/dL (31.0-37.0); MCV 96.4 fL (80.0-100.0); Mean Platelet Volume 7.9; Monocytes # (A) 0.4 k/uL (0-1.0); Monocytes % (A) 9 %; Neutrophils # (A) 1.7 k/uL (1.3-7.7); Neutrophils % (A) 38 %; Platelet Count 158 k/uL (150-450); RBC 3.72 m/uL (4.30-5.90); RDW 14.1 % (11.5-15.5); WBC 4.4 k/uL (3.8-10.6)
[2018-02-15 23:50] LABS: HGB 11.7 gm/dL (13.0-17.5)
[2018-02-16 06:03] LABS: Iron Saturation 33.6 (15.00-50.00)
[2018-02-16] MEDS ORDERED: LEVOTHYROXINE 75 MCG TAB PO SCH (06:30)
[2018-02-16] MEDS ORDERED: LISINOPRIL 10 MG TAB PO SCH (09:00)
[2018-02-16] MEDS ORDERED: amLODIPine 5 MG TAB PO SCH (09:00)
[2018-02-16] MEDS ORDERED: TAMSULOSIN 0.4 MG CAP.ER.24H PO SCH (09:00)
[2018-02-16] MEDS: PANTOPRAZOLE 40 MG/10 ML VIAL IV SCH (09:30)
[2018-02-16 10:12] LABS: Basophils % (A) 1 %; Eosinophils # (A) 0.2 k/uL (0-0.7); Eosinophils % (A) 6 %; HCT 35.5 % (39.0-53.0); HGB 11.8 gm/dL (13.0-17.5); Lymphocytes # (A) 1.5 k/uL (1.0-4.8); Lymphocytes % (A) 45 %; MCH 31.2 pg (25.0-35.0); MCHC 33.2 g/dL (31.0-37.0); Mean Platelet Volume 7.7; Monocytes # (A) 0.2 k/uL (0-1.0); Monocytes % (A) 7 %; Neutrophils # (A) 1.3 k/uL (1.3-7.7); Neutrophils % (A) 38 %; Platelet Count 164 k/uL (150-450); RBC 3.78 m/uL (4.30-5.90); RDW 13.5 % (11.5-15.5); WBC 3.4 k/uL (3.8-10.6)
[2018-02-16 10:47] VITALS: BP 117/72; PULSE 70; RESP 18; TEMP 97.9
--- NOTE | 2018-02-16 10:51 | P.HPIM ---
History of Present Illness H&P Date: 02/16/18 HISTORY AND PHYSICAL AND DISCHARGE SUMMARY: 82 years old male patient of Dr. Joya with past medical history of GERD, hypertension, hypothyroidism with a recent history of removal of a benign pituitary tumor 2 weeks ago at [facility] following which patient was transferred to [facility]. He was just discharged 3 days ago from [facility]. According to patient he comes in to the ER because of generalized weakness and fatigue with daily activities. He was able to conduct his daily activities and [facility] without any difficulty but on discharge she felt he was not his normal self and decided to come to the ER. In the ER vitals were stable including temperature 98.6, pulse rate 76 respiratory rate 18 125/81. Labs obtained suggest a hemoglobin of 7.7 reticulocyte count 3.6, glucose 183, albumin 3.3, TSH 0.015 and urinalysis was clear of any infection. Hemoccult was obtained which is negative for any blood. Patient denies any abdominal pain, nausea or vomiting or hematuria. Review of Systems Constitutional: Denies chills, Denies fever, endorses lethargy, Denies poor appetite, endorses weakness, Denies weight loss Eyes: denies decreased vision, denies diplopia, denies discharge, denies pain Ears: deny: decreased hearing Ears, nose, mouth and throat: Denies dental pain, Denies headache, Denies nasal discharge, Denies nose pain Cardiovascular: Denies chest pain, Denies decreased exercise tolerance, Denies edema, Denies high blood pressure, Denies irregular heart beat, Denies palpitations, Denies paroxysmal nocturnal dyspnea, Denies rapid heart beat, Denies shortness of breath Respiratory: Denies congestion, Denies cough, Denies cough with sputum, Denies dyspnea, Denies home oxygen, Denies wheezing Gastrointestinal: Denies abdominal pain, Denies change in bowel habits, Denies coffee ground emesis, Denies early satiety, Denies excessive gas, Denies heartburn, Denies hematemesis, Denies hematochezia, Denies loss of appetite, Denies nausea, Denies vomiting Genitourinary: Denies dysuria, Denies flank pain, Denies kidney stones, Denies menorrhagia, Denies urgency, Denies urinary frequency Musculoskeletal: Denies gait dysfunction, Denies limitation of motion, Denies morning stiffness, Denies muscle cramps Integumentary: Denies rash, Denies wounds, Denies brittle nails, Denies change in hair/nails, Denies darkening of skin Neurological: Denies balance difficulties, Denies change in speech, Denies double vision, Denies gait dysfunction, Denies loss of vision, Denies motor disturbance, Denies numbness, Denies paralysis, Denies paresthesias, Denies seizures Psychiatric: Denies anxiety, Denies depression Endocrine: Denies excessive sweating, Denies excessive thirst, Denies high blood sugars, Denies palpitations Hematologic/Lymphatic: Denies easy bruising, Denies lymphadenopathy Past Medical History Past Medical History: GERD/Reflux, Hypertension, Thyroid Disorder History of Any Multi-Drug Resistant Organisms: None Reported Past Surgical History: Appendectomy, Cholecystectomy, Tonsillectomy Additional Past Surgical History / Comment(s): yelitza shoulder arthroscopy, eye sx for glaucoma. pt stated 2 weeks ago had a benign pituitary tumor removed at [facility]. pt stated he has had a pne vaccine but not sure of date. technical document writer unable to verify date at time of this admit. Past Anesthesia/Blood Transfusion Reactions: No Reported Reaction Smoking Status: Never smoker - Past Family History Mother Family Medical History: Congestive Heart Failure (CHF) Additional Family Medical History / Comment(s): age 95 Father Family Medical History: No Reported History Additional Family Medical History / Comment(s): " from old age at age 90 Medications and Allergies Home Medications Medication Instructions Recorded Confirmed Type amLODIPine BESYLATE [Norvasc] 5 mg PO DAILY 02/18/15 02/15/18 History ALPRAZolam [Xanax] 0.25 mg PO DAILY PRN 05/22/16 02/15/18 History Ascorbic Acid [Vitamin C] 500 mg PO DAILY 07/21/17 02/15/18 History Aspirin EC [Ecotrin Low Dose] 81 mg PO DAILY 07/21/17 02/15/18 History Latanoprost [Xalatan 0.005%] 1 drop BOTH EYES HS 02/15/18 02/15/18 History Lisinopril [Prinivil] 10 mg PO DAILY 02/15/18 02/15/18 History Tamsulosin [Flomax] 0.4 mg PO DAILY 02/15/18 02/15/18 History traZODone HCL 50 mg PO HS 02/15/18 02/15/18 History Ferrous Sulfate [Feosol] 325 mg PO DAILY #30 tab 02/16/18 Rx Levothyroxine Sodium [Synthroid] 75 mcg PO DAILY@0630 #30 tab 02/16/18 Rx Allergies Allergy/AdvReac Type Severity Reaction Status Date / Time [id number]-Gdo-[id number] Reductase Allergy Unknown Verified 02/15/18 12:05 Inhibitor Physical Exam Vitals: Vital Signs Temp Pulse Pulse Resp BP BP Pulse Ox 02/16/18 00:00 99 F 74 20 111/66 93 L 02/15/18 18:14 97.8 F 67 16 91/53 94 L 02/15/18 16:11 98.6 F 71 18 100/60 96 02/15/18 14:15 76 18 125/81 96 02/15/18 13:18 72 18 110/50 97 02/15/18 12:20 97.3 F L 62 17 113/56 97 02/15/18 11:34 98.5 F 77 16 117/55 98 Intake and Output 02/15/18 02/16/18 02/16/18 22:59 06:59 14:59 Intake Total 200 100 Balance 200 100 Intake: Oral 200 100 Other: Voiding Method Urinal # Voids 1 1 - Constitutional General appearance: cooperative, no acute distress, obese - EENT Eyes: anicteric sclerae, PERRLA, normal appearance ENT: hearing grossly normal - Neck Neck: no lymphadenopathy, normal ROM, no other, no rigidity, no stridor, no thyromegaly - Respiratory Respiratory: bilateral: CTA, negative: diminished, dullness, rales, rhonchi - Cardiovascular Rhythm: regular Heart sounds: normal: S1, S2 Abnormal Heart Sounds: no systolic murmur, no diastolic murmur, no rub, no S3 Gallop, no S4 Gallop, no click, no other - Gastrointestinal General gastrointestinal: normal bowel sounds, soft - Integumentary Integumentary: no rash - Neurologic Neurologic: CNII-XII intact - Musculoskeletal Musculoskeletal: gait normal, strength equal bilaterally - Psychiatric Psychiatric: A&O x's 3, appropriate affect Results CBC & Chem 7: 02/16/18 09:16 02/15/18 11:15 Labs: Abnormal Lab Results - Last 24 Hours (Table) 02/15/18 02/15/18 02/15/18 Range/Units 11:15 11:15 11:15 WBC (3.8-10.6) k/uL RBC 2.45 L (4.30-5.90) m/uL Hgb 7.7 L D (13.0-17.5) gm/dL Hct 22.9 L (39.0-53.0) % Retic Count (0.5-2.0) % Glucose 183 H (74-99) mg/dL Ferritin (22.0-322.0) ng/mL Total Creatine Kinase 53 L (55-170) U/L Total Protein 6.1 L (6.3-8.2) g/dL Albumin 3.3 L (3.5-5.0) g/dL TSH <0.015 L (0.465-4.680) mIU/L 02/15/18 02/15/18 02/15/18 Range/Units 11:15 20:53 20:53 WBC (3.8-10.6) k/uL RBC 3.72 L (4.30-5.90) m/uL Hgb 11.7 L D (13.0-17.5) gm/dL Hct 35.9 L (39.0-53.0) % Retic Count 3.6 H (0.5-2.0) % Glucose (74-99) mg/dL Ferritin 331.8 H (22.0-322.0) ng/mL Total Creatine Kinase (55-170) U/L Total Protein (6.3-8.2) g/dL Albumin (3.5-5.0) g/dL TSH (0.465-4.680) mIU/L 02/16/18 Range/Units 09:16 WBC 3.4 L (3.8-10.6) k/uL RBC 3.78 L (4.30-5.90) m/uL Hgb 11.8 L (13.0-17.5) gm/dL Hct 35.5 L (39.0-53.0) % Retic Count (0.5-2.0) % Glucose (74-99) mg/dL Ferritin (22.0-322.0) ng/mL Total Creatine Kinase (55-170) U/L Total Protein (6.3-8.2) g/dL Albumin (3.5-5.0) g/dL TSH (0.465-4.680) mIU/L Thrombosis Risk Factor Assmnt - DVT/VTE Prophylaxis DVT/VTE Prophylaxis: Mechanical Prophylaxis ordered - Choose All That Apply Any of the Below Risk Factors Present?: Yes Each Factor Represents 1 point: Obesity (BMI >25) Other Risk Factors: Yes Each Risk Factor Represents 3 Points: Age 75 years or older Other congenital or acquired thrombophilia - If yes, enter type in comment: No Thrombosis Risk Factor Assessment Total Risk Factor Score: 4 Thrombosis Risk Factor Assessment Level: Moderate Risk Assessment and Plan Plan: #1 acute iron deficiency anemia hemoglobin 7.7 was a lab error as repeat hemoglobin was 11 without any transfusion or intervention. Repeat hemoglobin this morning is 11.8. Hemoccult is negative. Iron sulfate 325 mg by mouth daily #2 generalized weakness likely secondary to hormone deficiency from recent surgery of pituitary tumor. 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 Follow up with Dr. 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 TSH is low #3 hypothyroidism TSH low with normal T3-T4. Levothyroxine dose decreased to 75 g #4 hypertension continue Norvasc 5 mg by mouth daily #5 DVT prophylaxis with SCDs Disposition home today \\ CC a copy of discharge to Dr. Le and Dr. Joya
--- NOTE | 2018-02-16 13:44 | P.CONS ---
History of Present Illness - Reason for Consult Consult date: 02/16/18 low hemoglobin Requesting physician: Eva Cheung - Chief Complaint Fatigue weakness - History of Present Illness 82-year-old gentleman patient Dr. 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 Patient presents with feelings of weakness fatigue 1-2 weeks since completing his rehab after surgery. Denies fever chills weight loss hematemesis hematochezia or melena. He lost 20 pounds of weight prior to surgery secondary to decreased appetite gained about 7-10 pounds back. He now reports and proven in appetite. Admission hemoglobin 7.7. MCV 93. Platelet 213. Fecal occult blood negative. Reticulocyte count 3.6. INR 1.1. BUN 17. Creatinine 1.1. Repeat hemoglobin was 11.7 without transfusion in this morning remains stable at 11.8. No history of peptic ulcer disease or GI bleeding. Last colonoscopy to his memory close to 20 years ago. No history of EGD. No excessive usage of NSAIDs or aspirin products. No alcohol. Denies abdominal pain. No history of gastric or bowel surgeries. Upon review of medical records average hemoglobin ranges between 13-14.9 over the last 3 years. Review of Systems Constitutional: Denies fever, chills, sweats, weight gain, or loss. Increased fatigue weakness 1-2 weeks. HEENT: Negative for migraines, blurred vision or loss, earaches, drainage, tinnitus, oral mucosal lesions, dysphagia, or odynophagia. Cardiac: Negative for chest pain, arrhythmias, or palpitation. Respiratory: Negative for shortness of breath, hemoptysis, cough, or sputum production. Gastrointestinal: See HPI for pertinent findings. Genitourinary: Negative for hematuria, urgency, frequency, polyuria, dysuria, or penile discharge. Musculoskeletal: Negative for muscle aches, swelling, arthritis, and arthralgias. Neurologic: Negative for stroke or TIA. Endocrine: Negative for thyroid problems. Skin: Negative for rash or itching. Psychiatric: Negative history for depression and anxiety Past Medical History Past Medical History: GERD/Reflux, Hypertension, Thyroid Disorder History of Any Multi-Drug Resistant Organisms: None Reported Past Surgical History: Appendectomy, Cholecystectomy, Tonsillectomy Additional Past Surgical History / Comment(s): yelitza shoulder arthroscopy, eye sx for glaucoma. pt stated 2 weeks ago had a benign pituitary tumor removed at [facility]. pt stated he has had a pne vaccine but not sure of date. senior writer unable to verify date at time of this admit. Past Anesthesia/Blood Transfusion Reactions: No Reported Reaction Smoking Status: Never smoker - Past Family History Mother Family Medical History: Congestive Heart Failure (CHF) Additional Family Medical History / Comment(s): age 95 Father Family Medical History: No Reported History Additional Family Medical History / Comment(s): " from old age at age 90 Medications and Allergies Home Medications Medication Instructions Recorded Confirmed Type amLODIPine BESYLATE [Norvasc] 5 mg PO DAILY 02/18/15 02/15/18 History ALPRAZolam [Xanax] 0.25 mg PO DAILY PRN 05/22/16 02/15/18 History Ascorbic Acid [Vitamin C] 500 mg PO DAILY 07/21/17 02/15/18 History Aspirin EC [Ecotrin Low Dose] 81 mg PO DAILY 07/21/17 02/15/18 History Latanoprost [Xalatan 0.005%] 1 drop BOTH EYES HS 02/15/18 02/15/18 History Lisinopril [Prinivil] 10 mg PO DAILY 02/15/18 02/15/18 History Tamsulosin [Flomax] 0.4 mg PO DAILY 02/15/18 02/15/18 History traZODone HCL 50 mg PO HS 02/15/18 02/15/18 History Ferrous Sulfate [Feosol] 325 mg PO DAILY #30 tab 02/16/18 Rx Levothyroxine Sodium [Synthroid] 75 mcg PO DAILY@0630 #30 tab 02/16/18 Rx Allergies Allergy/AdvReac Type Severity Reaction Status Date / Time Zgzbwmt-Ahz-Sir Reductase Allergy Unknown Verified 02/15/18 12:05 Inhibitor Physical Exam Vitals: Vital Signs Temp Pulse Pulse Resp BP BP Pulse Ox 02/16/18 00:00 99 F 74 20 111/66 93 L 02/15/18 18:14 97.8 F 67 16 91/53 94 L 02/15/18 16:11 98.6 F 71 18 100/60 96 02/15/18 14:15 76 18 125/81 96 02/15/18 13:18 72 18 110/50 97 02/15/18 12:20 97.3 F L 62 17 113/56 97 02/15/18 11:34 98.5 F 77 16 117/55 98 Intake and Output 02/15/18 02/16/18 02/16/18 22:59 06:59 14:59 Intake Total 200 100 Balance 200 100 Intake: Oral 200 100 Other: Voiding Method Urinal # Voids 1 1 General appearance: The patient is alert, oriented, in no acute distress. HET: Head is normocephalic and atraumatic. Pupils are equal and reactive. Oropharynx is clear without lesions. Neck: Supple without lymphadenopathy. Trachea midline. Heart: S1 S2. Regular rate and rhythm. Lungs: No crackles or wheezes are heard. Abdomen: Soft, nontender, nondistended with bowel sounds. No peritoneal signs. No palpable organomegaly or masses. Extremities: Normal skin color and turgor. No cyanosis, rash, ulceration, clubbing, or edema. Radial and pedal pulses are 2/4 bilaterally. Neurological: No focal deficits. Strength and sensation are grossly intact. Results CBC & Chem 7: 02/16/18 09:16 02/15/18 11:15 Labs: Abnormal Lab Results - Last 24 Hours (Table) 02/15/18 02/15/18 02/15/18 Range/Units 11:15 11:15 11:15 WBC (3.8-10.6) k/uL RBC 2.45 L (4.30-5.90) m/uL Hgb 7.7 L D (13.0-17.5) gm/dL Hct 22.9 L (39.0-53.0) % Retic Count (0.5-2.0) % Glucose 183 H (74-99) mg/dL Ferritin (22.0-322.0) ng/mL Total Creatine Kinase 53 L (55-170) U/L Total Protein 6.1 L (6.3-8.2) g/dL Albumin 3.3 L (3.5-5.0) g/dL TSH <0.015 L (0.465-4.680) mIU/L 02/15/18 02/15/18 02/15/18 Range/Units 11:15 20:53 20:53 WBC (3.8-10.6) k/uL RBC 3.72 L (4.30-5.90) m/uL Hgb 11.7 L D (13.0-17.5) gm/dL Hct 35.9 L (39.0-53.0) % Retic Count 3.6 H (0.5-2.0) % Glucose (74-99) mg/dL Ferritin 331.8 H (22.0-322.0) ng/mL Total Creatine Kinase (55-170) U/L Total Protein (6.3-8.2) g/dL Albumin (3.5-5.0) g/dL TSH (0.465-4.680) mIU/L 02/16/18 Range/Units 09:16 WBC 3.4 L (3.8-10.6) k/uL RBC 3.78 L (4.30-5.90) m/uL Hgb 11.8 L (13.0-17.5) gm/dL Hct 35.5 L (39.0-53.0) % Retic Count (0.5-2.0) % Glucose (74-99) mg/dL Ferritin (22.0-322.0) ng/mL Total Creatine Kinase (55-170) U/L Total Protein (6.3-8.2) g/dL Albumin (3.5-5.0) g/dL TSH (0.465-4.680) mIU/L Assessment and Plan Assessment: Impression: 1. 82-year-old gentleman recently underwent transsphenoidal approach removal of pituitary tumor admitted with increased fatigue weakness 1-2 weeks after completing rehabilitation after surgery with initial hemoglobin of 7.7 normocytic normochromic with repeat draw indicating and a mild normocytic normochromic hemoglobin between 11.7-11.8 without overt signs of bleeding such as hematemesis hematochezia or melena. Fecal occult blood negative. Recommendations: 1. Considering hemoglobin has remained stable over the last 24 hours without abdominal pain, overt GI bleeding and negative fecal occult blood testing inpatient endoscopic exams not planned at this time. 2. Repeat CBC in 5-7 days; if worsened follow up in GI office for discussion of outpatient endoscopy. 3. Regular diet. Thank you for this kind referral and the opportunity to participate in the care of your patient. This consultation was discussed with Dr. Gardner. The impression and plan of care have been directed as dictated.
== END 2018-02-16 12:25 | disposition home or self-care (01) ==
LOC: EC 10:59 → 4MS4W 15:27
PROVIDERS: ADMIT Internal Medicine; ATTEND Internal Medicine
DX: D50.9 Iron deficiency anemia, unspecified (principal); R53.1 Weakness; I10 Essential (primary) hypertension; K21.9 Gastro-esophageal reflux disease without esophagitis; E03.9 Hypothyroidism, unspecified; E66.9 Obesity, unspecified; Z68.29 Body mass index [BMI] 29.0-29.9, adult; Z79.82 Long term (current) use of aspirin; Z79.890 Hormone replacement therapy; Z79.899 Other long term (current) drug therapy; Z88.8 Allergy status to other drugs, medicaments and biological substances; Z86.018 Personal history of other benign neoplasm; Z98.890 Other specified postprocedural states; Z90.49 Acquired absence of other specified parts of digestive tract; Z90.89 Acquired absence of other organs; Z82.49 Family history of ischemic heart disease and other diseases of the circulatory system
CPT/HCPCS: 99285 ×2; 96376; 96374; 36415; 93005; 84439; 83930; 84481; 80053; 82330; 82728; 82550; 82553; 83540; 83550; 83735; 84100; 84443; 84484; 85025 ×2; 85610; 85045; 85730; 82272; 81003; 83935; 71046; G0378 ×2; C9113 ×2

== ENCOUNTER 2018-06-12 15:36 | Inpatient (IN) | payer MEDICARE ==
[2018-06-12] MEDS ORDERED: SODIUM CHLORIDE 0.9% 1,000 ML IV ONE (16:10)
--- NOTE | 2018-06-12 16:12 | ED ---
General Adult HPI - General Chief complaint: Weakness Stated complaint: Flu Time Seen by Provider: 06/12/18 16:01 Source: patient Mode of arrival: wheelchair Limitations: no limitations - History of Present Illness Initial comments: 83-year-old male presenting with generalized weakness 2 days after his was diagnosed with influenza. He was not formally seen or diagnosed. He is not sure if he was started on Tamiflu. Patient denies any chest pain, shortness of breath, nausea vomiting or diarrhea. He states that he has a harsh nonproductive cough and low appetite but this resulted in him not eating or drinking much. He has overall generalized weakness which is making it difficult to move around and care for his . - Related Data Home Medications Medication Instructions Recorded Confirmed amLODIPine BESYLATE [Norvasc] 5 mg PO DAILY 02/18/15 06/12/18 ALPRAZolam [Xanax] 0.25 mg PO DAILY PRN 05/22/16 06/12/18 Aspirin EC [Ecotrin Low Dose] 81 mg PO DAILY 07/21/17 06/12/18 Latanoprost [Xalatan 0.005%] 1 drop BOTH EYES HS 02/15/18 06/12/18 Lisinopril [Prinivil] 10 mg PO DAILY 02/15/18 06/12/18 Tamsulosin [Flomax] 0.4 mg PO DAILY 02/15/18 06/12/18 traZODone HCL 50 mg PO HS 02/15/18 06/12/18 Acetaminophen Tab [Tylenol] 500 mg PO DAILY PRN 06/12/18 06/12/18 Ascorbic Acid [Vitamin C] 1,000 mg PO DAILY 06/12/18 06/12/18 Carboxymethylcellulose Sodium 1 drop BOTH EYES QID PRN 06/12/18 06/12/18 [Refresh Tears] Hydrocortisone [Cortef] 10 mg PO DAILY@1400 06/12/18 06/12/18 Hydrocortisone [Cortef] 15 mg PO DAILY 06/12/18 06/12/18 Krill/Om-3/Dha/Epa/Phospho/Ast 1 cap PO DAILY 06/12/18 06/12/18 [Mesa-3 Krill Oil 300 mg Sfgl] Levothyroxine Sodium [Synthroid] 100 mcg PO AC-BRKFST 06/12/18 06/12/18 Mirabegron [Myrbetriq] 25 mg PO HS 06/12/18 06/12/18 Multivitamins, Thera [Multivitamin 1 tab PO DAILY 06/12/18 06/12/18 (formulary)] Testosterone Cypionate 100 mg IM Q14D 06/12/18 06/12/18 [Depo-Testosterone] Previous Rx's Medication Instructions Recorded Ferrous Sulfate [Feosol] 325 mg PO DAILY #30 tab 02/16/18 Allergies Allergy/AdvReac Type Severity Reaction Status Date / Time Qxzjphl-Npf-Lyw Reductase Allergy Unknown Verified 06/12/18 16:29 Inhibitor Review of Systems ROS Statement: Those systems with pertinent positive or pertinent negative responses have been documented in the HPI. Review of Systems Constitutional: Positive generalized weakness Eyes: Denies change in vision, Denies pain Ears, nose, mouth, throat: Denies headaches, Denies sore throat Cardiovascular: Denies chest pain. Denies palpitations Respiratory: Denies shortness of breath, Positive cough Gastrointestinal: Denies abdominal pain. Denies nausea, vomiting, diarrhea. Genitourinary: Denies hematuria, Denies infections Musculoskeletal: Denies pain, Denies swelling Integumentary: Denies rash Neurological: Denies headache, focal weakness, focal numbness Psychiatric: Denies anxiety, Denies depression Hematologic/Lymphatic: Denies easy bleeding or bruising ROS Other: All systems not noted in ROS Statement are negative. Past Medical History Past Medical History: GERD/Reflux, Hypertension, Thyroid Disorder History of Any Multi-Drug Resistant Organisms: None Reported Past Surgical History: Appendectomy, Cholecystectomy, Tonsillectomy Additional Past Surgical History / Comment(s): yelitza shoulder arthroscopy, eye sx for glaucoma. pt stated 2 weeks ago had a benign pituitary tumor removed at [facility]. pt stated he has had a pne vaccine but not sure of date. junior technical writer unable to verify date at time of this admit. Past Anesthesia/Blood Transfusion Reactions: No Reported Reaction Past Psychological History: No Psychological Hx Reported Smoking Status: Never smoker Past Alcohol Use History: None Reported Past Drug Use History: None Reported - Past Family History Mother Family Medical History: Congestive Heart Failure (CHF) Additional Family Medical History / Comment(s): age 95 Father Family Medical History: No Reported History Additional Family Medical History / Comment(s): " from old age at age 90 General Exam - General Exam Comments Initial Comments: General: Awake, alert, No acute Distress HENT: Normocephalic. Atraumatic Eyes: PERRL. EOMI. No scleral icterus. No injected conjunctiva Neck: Full ROM Chest/Lungs: Clear to auscultation bilaterally. No wheezing, rhonchi, or rales. Harsh cough Cardiac: Regular rate, rhythm. No murmurs or rubs Abdomen/GI: Soft, nontender, nondistended. No rebound, guarding, or rigidity. Musculoskeletal: Full ROM Skin: Warm, dry, intact Neurologic: A/Ox3, no weakness, no sensory deficit, no abnormal gait, no coordination deficit Limitations: no limitations Course Vital Signs 06/12/18 06/12/18 06/12/18 15:48 20:30 23:22 Temperature 98.5 F 99.3 F Pulse Rate 65 64 88 Respiratory 16 17 18 Rate Blood Pressure 91/52 163/66 139/94 O2 Sat by Pulse 91 L 94 L 98 Oximetry EKG Findings - EKG Comments: EKG Findings:: EKG shows normal sinus rhythm at a rate of 64 bpm with a right bundle branch block. This is similar to EKG from 02/15/2018. CA interval 208 ms, QRS duration 136 ms, QT/QTc 428/441 ms. Medical Decision Making - Medical Decision Making 83-year-old male presenting with generalized weakness and cough. Initial exam the patient is awake, alert, no acute distress. His oxygen is 91% on room air. Patient has no conversational dyspnea or tachypnea. Patient's influenza was negative here however with his having influenza A, and concern that this could be a false negative. Patient was having episodes of desaturation while in the emergency department on the 84% on room air. He denies any history of COPD or CHF. He is in no respiratory distress. Placed on 4 L of oxygen with resolution of his hypoxia. Chest x-ray negative for acute process. CTPE was negative for acute process. Patient wears admission for generalized weakness and hypoxia. I spoke with Dr. Monzon who was agreeable to admission and recommended re-swabbing the patient for influenza. His second swab was positive for influenza A. He was started on Tamiflu. Patient currently stable for transfer to floor. - Lab Data Result diagrams: 06/12/18 17:21 06/12/18 17:21 Lab Results 06/12/18 06/12/18 06/12/18 Range/Units 17:15 17:21 17:21 WBC 5.8 (3.8-10.6) k/uL RBC 4.50 (4.30-5.90) m/uL Hgb 13.9 (13.0-17.5) gm/dL Hct 40.5 (39.0-53.0) % MCV 89.9 (80.0-100.0) fL MCH 30.9 (25.0-35.0) pg MCHC 34.4 (31.0-37.0) g/dL RDW 14.5 (11.5-15.5) % Plt Count 166 (150-450) k/uL Neutrophils % 37 % Lymphocytes % 35 % Monocytes % 15 % Eosinophils % 8 % Basophils % 1 % Neutrophils # 2.2 (1.3-7.7) k/uL Lymphocytes # 2.1 (1.0-4.8) k/uL Monocytes # 0.8 (0-1.0) k/uL Eosinophils # 0.4 (0-0.7) k/uL Basophils # 0.1 (0-0.2) k/uL Sodium 136 L (137-145) mmol/L Potassium 4.3 (3.5-5.1) mmol/L Chloride 100 (98-107) mmol/L Carbon Dioxide 26 (22-30) mmol/L Anion Gap 10 mmol/L BUN 27 H (9-20) mg/dL Creatinine 1.26 H (0.66-1.25) mg/dL Est GFR (CKD-EPI)AfAm 61 (>60 ml/min/1.73 sqM) Est GFR (CKD-EPI)NonAf 53 (>60 ml/min/1.73 sqM) Glucose 115 H (74-99) mg/dL Calcium 8.7 (8.4-10.2) mg/dL Troponin I (0.000-0.034) ng/mL Influenza Type A RNA Not Detected (Not Detectd) Influenza Type B (PCR) Not Detected (Not Detectd) 06/12/18 Range/Units 17:21 WBC (3.8-10.6) k/uL RBC (4.30-5.90) m/uL Hgb (13.0-17.5) gm/dL Hct (39.0-53.0) % MCV (80.0-100.0) fL MCH (25.0-35.0) pg MCHC (31.0-37.0) g/dL RDW (11.5-15.5) % Plt Count (150-450) k/uL Neutrophils % % Lymphocytes % % Monocytes % % Eosinophils % % Basophils % % Neutrophils # (1.3-7.7) k/uL Lymphocytes # (1.0-4.8) k/uL Monocytes # (0-1.0) k/uL Eosinophils # (0-0.7) k/uL Basophils # (0-0.2) k/uL Sodium (137-145) mmol/L Potassium (3.5-5.1) mmol/L Chloride (98-107) mmol/L Carbon Dioxide (22-30) mmol/L Anion Gap mmol/L BUN (9-20) mg/dL Creatinine (0.66-1.25) mg/dL Est GFR (CKD-EPI)AfAm (>60 ml/min/1.73 sqM) Est GFR (CKD-EPI)NonAf (>60 ml/min/1.73 sqM) Glucose (74-99) mg/dL Calcium (8.4-10.2) mg/dL Troponin I <0.012 (0.000-0.034) ng/mL Influenza Type A RNA (Not Detectd) Influenza Type B (PCR) (Not Detectd) Disposition Clinical Impression: Hypoxia, Viral respiratory illness, Generalized weakness, CKD (chronic kidney disease), Influenza A Disposition: ADMITTED IP TO THIS HOSP Condition: Good Decision to Admit Reason: Admit from EC Decision Date: 06/12/18 Decision Time: 20:59
--- NOTE | 2018-06-12 17:51 | XR ---
EXAMINATION TYPE: XR chest 2V DATE OF EXAM: 06/12/2018 COMPARISON: 02/15/2018 HISTORY: Cough and weakness TECHNIQUE: Frontal and lateral views of the chest are obtained. FINDINGS: There is no heart failure nor confluent pneumonic infiltrate. Costophrenic angles are gena r. Bony thorax is intact. IMPRESSION: No cardiopulmonary disease. No change.
[2018-06-12 17:55] LABS: Basophils # (A) 0.1 k/uL (0-0.2); Basophils % (A) 1 %; Eosinophils # (A) 0.4 k/uL (0-0.7); Eosinophils % (A) 8 %; HCT 40.5 % (39.0-53.0); HGB 13.9 gm/dL (13.0-17.5); Lymphocytes # (A) 2.1 k/uL (1.0-4.8); Lymphocytes % (A) 35 %; MCH 30.9 pg (25.0-35.0); MCHC 34.4 g/dL (31.0-37.0); MCV 89.9 fL (80.0-100.0); Mean Platelet Volume 7.4; Monocytes # (A) 0.8 k/uL (0-1.0); Monocytes % (A) 15 %; Neutrophils # (A) 2.2 k/uL (1.3-7.7); Neutrophils % (A) 37 %; Platelet Count 166 k/uL (150-450); RDW 14.5 % (11.5-15.5); WBC 5.8 k/uL (3.8-10.6)
[2018-06-12 18:07] LABS: Calcium 8.7 mg/dL (8.4-10.2); Potassium 4.3 mmol/L (3.5-5.1)
--- NOTE | 2018-06-12 20:16 | CT ---
EXAMINATION TYPE: CT angio chest DATE OF EXAM: 06/12/2018 7:55 PM COMPARISON: None HISTORY: DIAGNOSED W/FLU [address] DLP: 489.8 mGycm Automated exposure control for dose reduction was used. CONTRAST: CTA scan of the thorax is performed with IV Contrast, patient injected with 80 mL of Isovue 370, pulm onary embolism protocol. There are 3-D post processed images.. FINDINGS: There is subsegmental atelectasis at the lung bases. There is no evidence of a pulmonary mass. There is no pleural effusion. There is an enlarged subcarinal lymph node that measures 3 x 1.5 cm. There ar e small right tracheal lymph nodes less than 1 cm. There are small bronchial lymph nodes up to 1 cm. There is no pericardial effusion. Heart size is normal. There is normal contrast opacification of the pulmonary arteries. I see no filling defect. Thoracic aorta shows no evidence of aneurysm or dissection. Thoracic vertebra have normal alignment. Posterior elements appear intact. There is no compression fr acture. There is spurring of the endplates. I see no bony destructive process. IMPRESSION: SUBSEGMENTAL ATELECTASIS AND SCARRING AT THE LUNG BASES. NO EVIDENCE OF PULMONARY EMBOLISM. NORMAL HE ART. There are mediastinal and bronchial lymph nodes that are increased compared to old CT scan of of uncertain significance.
[2018-06-12] MEDS ORDERED: BENZONATATE 100 MG CAP PO STA (20:30)
[2018-06-12] MEDS ORDERED: BISACODYL 5 MG TABLET.DR PO PRN (20:55)
[2018-06-12] MEDS ORDERED: HYDROcodone/APAP 5-325MG 1 EACH TAB PO PRN (20:55)
[2018-06-12] MEDS ORDERED: ACETAMINOPHEN TAB 325 MG TAB PO PRN (20:55)
[2018-06-12] MEDS ORDERED: IBUPROFEN 400 MG TAB PO PRN (20:55)
[2018-06-12] MEDS ORDERED: NALOXONE 0.4 MG/ML 1 ML VIAL IV PRN (20:55)
[2018-06-12] MEDS ORDERED: SODIUM CHLORIDE 0.9% 1,000 ML IV STA (20:55)
[2018-06-12] MEDS ORDERED: ONDANSETRON 4 MG/2 ML VIAL IVP PRN (20:55)
[2018-06-12] MEDS ORDERED: ALPRAZolam 0.25 MG TAB PO PRN (20:57)
[2018-06-13] MEDS: Mirabegron [Myrbetriq] 25 MG PO SCH ×2 (00:15→21:11)
[2018-06-13] MEDS: traZODone HCL 50 MG TAB PO SCH ×2 (00:31→21:11)
[2018-06-13] MEDS: OSELTAMIVIR 75 MG CAP PO SCH ×3 (00:31→22:49)
[2018-06-13 06:47] LABS: HCT 42.3 % (39.0-53.0); MCH 29.8 pg (25.0-35.0); MCV 90.2 fL (80.0-100.0); Mean Platelet Volume 6.4; Platelet Count 182 k/uL (150-450); RBC 4.69 m/uL (4.30-5.90); RDW 14.5 % (11.5-15.5); WBC 5.4 k/uL (3.8-10.6)
[2018-06-13 07:26] LABS: Calcium 8.6 mg/dL (8.4-10.2); Potassium 4.5 mmol/L (3.5-5.1)
[2018-06-13 08:32] LABS: Eosinophils # (M) 0.49 k/uL (0-0.7); Monocytes # (M) 0.65 k/uL (0-1.0); Neutrophils # (M) 2.27 k/uL (1.3-7.7); Neutrophils % (M) 42 %; Nucleated Red Blood Cells 0 /100 WBC (0-0); Total Cells Counted 100
[2018-06-13] MEDS: LISINOPRIL 10 MG TAB PO SCH (09:14)
[2018-06-13] MEDS: FERROUS SULFATE 325 MG TAB PO SCH (09:15)
[2018-06-13] MEDS: amLODIPine 5 MG TAB PO SCH (09:15)
[2018-06-13] MEDS: TAMSULOSIN 0.4 MG CAP.ER.24H PO SCH (09:15)
[2018-06-13] MEDS: LEVOTHYROXINE 100 MCG TAB PO SCH (09:15)
[2018-06-13] MEDS ORDERED: HYDROCORTISONE 10 MG TAB PO SCH (14:00)
--- NOTE | 2018-06-13 14:05 | P.HPIM ---
History of Present Illness H&P Date: 06/13/18 Chief Complaint: Weakness This 83-year-old male presented to the emergency room with general weakness for 2 days. Patient's was diagnosed with influenza. Patient states that he has had a harsh nonproductive cough and low appetite. And generalized weakness that is making difficult to move around and care for his . Patient's past medical history of GERD, hypertension, thyroid disorder, anxiety, BPH, depression. At this time patient is resting comfortably in bed. He is able to tolerate oral intake without any nausea or vomiting. Patient has been up and around in the room with some weakness however he is able to tolerate well. Patient denies any chest pain or difficulty breathing at this time. Repeat influenza PCR swab was positive for influenza type a. Patient was started on Tamiflu. Chest x-ray showed no cardiopulmonary disease and no change. Chest CTA shows subsegmental atelectasis and scarring of the left lung bases. No evidence of pulmonary embolism. Normal heart. EKG showed normal sinus rhythm with a right bundle branch block. Review of Systems Constitutional: Reports fatigue, Reports fever, Reports poor appetite, Reports weakness, Denies chills Eyes: denies blurred vision, denies pain Ears, nose, mouth and throat: Reports nasal congestion, Reports nasal discharge , Denies headache, Denies sore throat Cardiovascular: Denies chest pain, Denies shortness of breath Respiratory: Reports cough, Denies cough with sputum, Denies dyspnea Gastrointestinal: Denies abdominal pain, Denies diarrhea, Denies nausea, Denies vomiting Musculoskeletal: Denies myalgias Integumentary: Denies pruritus, Denies rash Neurological: Denies numbness, Denies weakness Psychiatric: Denies anxiety, Denies depression Endocrine: Denies fatigue, Denies weight change Past Medical History Past Medical History: GERD/Reflux, Hypertension, Thyroid Disorder History of Any Multi-Drug Resistant Organisms: None Reported Past Surgical History: Appendectomy, Cholecystectomy, Tonsillectomy Additional Past Surgical History / Comment(s): yelitza shoulder arthroscopy, eye sx for glaucoma. pt stated 2 weeks ago had a benign pituitary tumor removed at [facility]. pt stated he has had a pne vaccine but not sure of date. mortgage underwriter unable to verify date at time of this admit. Past Anesthesia/Blood Transfusion Reactions: No Reported Reaction Past Psychological History: No Psychological Hx Reported Smoking Status: Never smoker Past Alcohol Use History: None Reported Past Drug Use History: None Reported - Past Family History Mother Family Medical History: Congestive Heart Failure (CHF) Additional Family Medical History / Comment(s): age 95 Father Family Medical History: No Reported History Additional Family Medical History / Comment(s): " from old age at age 90 Medications and Allergies Home Medications Medication Instructions Recorded Confirmed Type amLODIPine BESYLATE [Norvasc] 5 mg PO DAILY 02/18/15 06/12/18 History ALPRAZolam [Xanax] 0.25 mg PO DAILY PRN 05/22/16 06/12/18 History Aspirin EC [Ecotrin Low Dose] 81 mg PO DAILY 07/21/17 06/12/18 History Latanoprost [Xalatan 0.005%] 1 drop BOTH EYES HS 02/15/18 06/12/18 History Lisinopril [Prinivil] 10 mg PO DAILY 02/15/18 06/12/18 History Tamsulosin [Flomax] 0.4 mg PO DAILY 02/15/18 06/12/18 History traZODone HCL 50 mg PO HS 02/15/18 06/12/18 History Ferrous Sulfate [Feosol] 325 mg PO DAILY #30 tab 02/16/18 06/12/18 Rx Acetaminophen Tab [Tylenol] 500 mg PO DAILY PRN 06/12/18 06/12/18 History Ascorbic Acid [Vitamin C] 1,000 mg PO DAILY 06/12/18 06/12/18 History Carboxymethylcellulose Sodium 1 drop BOTH EYES QID PRN 06/12/18 06/12/18 History [Refresh Tears] Hydrocortisone [Cortef] 10 mg PO DAILY@1400 06/12/18 06/12/18 History Hydrocortisone [Cortef] 15 mg PO DAILY 06/12/18 06/12/18 History Krill/Om-3/Dha/Epa/Phospho/Ast 1 cap PO DAILY 06/12/18 06/12/18 History [[place]-3 Krill Oil 300 mg Sfgl] Levothyroxine Sodium [Synthroid] 100 mcg PO AC-BRKFST 06/12/18 06/12/18 History Mirabegron [Myrbetriq] 25 mg PO HS 06/12/18 06/12/18 History Multivitamins, Thera [Multivitamin 1 tab PO DAILY 06/12/18 06/12/18 History (formulary)] Testosterone Cypionate 100 mg IM Q14D 06/12/18 06/12/18 History [Depo-Testosterone] Allergies Allergy/AdvReac Type Severity Reaction Status Date / Time Iialdgf-Hbr-Nmz Reductase Allergy Unknown Verified 06/12/18 16:29 Inhibitor Physical Exam Vitals: Vital Signs Temp Pulse Pulse Pulse Resp BP BP 06/13/18 06:42 98.0 F 61 14 157/78 06/13/18 06:15 143/65 06/12/18 23:37 98.9 F 68 14 164/70 06/12/18 23:22 99.3 F 88 18 139/94 06/12/18 20:30 64 17 163/66 06/12/18 15:48 98.5 F 65 16 91/52 Pulse Ox 06/13/18 06:42 95 06/13/18 06:15 06/12/18 23:37 93 L 06/12/18 23:22 98 06/12/18 20:30 94 L 06/12/18 15:48 91 L Intake and Output 06/12/18 06/13/18 06/13/18 22:59 06:59 14:59 Intake Total 690 Balance 690 Intake: Intake, IV Titration 150 Amount Sodium Chloride 0.9% 1, 150 000 ml @ 75 mls/hr IV . [id number] STA Rx#:[id number] Oral 540 Other: Voiding Method Urinal Urinal Diaper Diaper # Voids 3 Weight 108.862 kg 108.862 kg - Constitutional General appearance: cooperative, no acute distress, obese - EENT Eyes: anicteric sclerae, EOMI, PERRLA ENT: hearing grossly normal, NA/AT - Neck Neck: no lymphadenopathy, normal ROM - Respiratory Respiratory: bilateral: CTA, negative: diminished, dullness, rales, rhonchi, wheezing, prolonged expiration, prolonged inspiration, other - Cardiovascular Rhythm: regular Heart sounds: normal: S1, S2 Abnormal Heart Sounds: no systolic murmur, no diastolic murmur, no rub, no S3 Gallop, no S4 Gallop, no click, no other - Gastrointestinal General gastrointestinal: normal bowel sounds, no organomegaly, soft, no tenderness - Integumentary Integumentary: pale - Neurologic Neurologic: CNII-XII intact - Musculoskeletal Musculoskeletal: generalized weakness - Psychiatric Psychiatric: A&O x's 3, appropriate affect, intact judgment & insight Results CBC & Chem 7: 06/13/18 06:26 06/13/18 06:26 Labs: Abnormal Lab Results - Last 24 Hours (Table) 06/12/18 06/12/18 Range/Units 17:21 21:36 Sodium 136 L (137-145) mmol/L BUN 27 H (9-20) mg/dL Creatinine 1.26 H (0.66-1.25) mg/dL Glucose 115 H (74-99) mg/dL Influenza Type A RNA Detected H (Not Detectd) Thrombosis Risk Factor Assmnt - Choose All That Apply Each Risk Factor Represents 3 Points: Age 75 years or older Thrombosis Risk Factor Assessment Total Risk Factor Score: 3 Thrombosis Risk Factor Assessment Level: Moderate Risk Assessment and Plan Plan: #1 influenza A. We'll start Tamiflu 75 mg twice a day for the next 5 days. Encouraged oral hydration. #2 weakness. Tamiflu 75 mg twice a day for 5 days #3 hypertension. Continue Norvasc 5 mg by mouth daily, lisinopril 10 mg by mouth daily #4 GERD Pepcid 20 mg by mouth daily as needed #5 hypothyroidism. Levothyroxine 100 MCG's by mouth at breakfast, #6 BPH. Atenolol 70.4 mg by mouth daily #7 depression. myberriq 25 mg po #8 anxiety. Xanax 0.25 mg by mouth daily needed Discharge plan: Home today Impression and plan of care have been directed as dictated by the signing physician. Jessica Miranda nurse practitioner acting as scribe for signing physician.
--- NOTE | 2018-06-13 14:09 | P.DS ---
Providers Date of admission: 06/12/18 20:56 Attending physician: He Fernandez Primary care physician: [facility] Course: This 83-year-old male presented to the emergency room with general weakness for 2 days. Patient's was diagnosed with influenza. Patient states that he has had a harsh nonproductive cough and low appetite. And generalized weakness that is making difficult to move around and care for his . Patient's past medical history of GERD, hypertension, thyroid disorder, anxiety, BPH, depression. At this time patient is resting comfortably in bed. He is able to tolerate oral intake without any nausea or vomiting. Patient has been up and around in the room with some weakness however he is able to tolerate well. Patient denies any chest pain or difficulty breathing at this time. Repeat influenza PCR swab was positive for influenza type a. Patient was started on Tamiflu. Chest x-ray showed no cardiopulmonary disease and no change. Chest CTA shows subsegmental atelectasis and scarring of the left lung bases. No evidence of pulmonary embolism. Normal heart. EKG showed normal sinus rhythm with a right bundle branch block #1 influenza A. #2 weakness. #3 hypertension. #4 GERD #5 hypothyroidism. , #6 BPH. #7 depression. #8 anxiety. Disposition: Home today Impression and plan of care have been directed as dictated by the signing physician. Jessica Miranda nurse practitioner acting as scribe for signing physician. Patient Condition at Discharge: Good Plan - Discharge Summary Discharge Rx Participant: No New Discharge Prescriptions: New Acetaminophen Tab [Tylenol] 650 mg PO Q6HR PRN tab PRN Reason: Mild Pain Or Fever > 100.5 Ibuprofen [Motrin] 400 mg PO Q6HR PRN tab PRN Reason: Mild Pain Or Fever > 100.5 Oseltamivir [Tamiflu] 75 mg PO Q12HR 4 Days #8 cap Continue amLODIPine BESYLATE [Norvasc] 5 mg PO DAILY ALPRAZolam [Xanax] 0.25 mg PO DAILY PRN PRN Reason: Anxiety Aspirin EC [Ecotrin Low Dose] 81 mg PO DAILY traZODone HCL 50 mg PO HS Lisinopril [Prinivil] 10 mg PO DAILY Latanoprost [Xalatan 0.005%] 1 drop BOTH EYES HS Tamsulosin [Flomax] 0.4 mg PO DAILY Ferrous Sulfate [Feosol] 325 mg PO DAILY #30 tab Testosterone Cypionate [Depo-Testosterone] 100 mg IM Q14D Acetaminophen Tab [Tylenol] 500 mg PO DAILY PRN PRN Reason: Pain Mirabegron [Myrbetriq] 25 mg PO HS Multivitamins, Thera [Multivitamin (formulary)] 1 tab PO DAILY Krill/Om-3/Dha/Epa/Phospho/Ast [[place]-3 Krill Oil 300 mg Sfgl] 1 cap PO DAILY Hydrocortisone [Cortef] 10 mg PO DAILY@1400 Hydrocortisone [Cortef] 15 mg PO DAILY Levothyroxine Sodium [Synthroid] 100 mcg PO AC-BRKFST Ascorbic Acid [Vitamin C] 1,000 mg PO DAILY Carboxymethylcellulose Sodium [Refresh Tears] 1 drop BOTH EYES QID PRN PRN Reason: dry eyes Discharge Medication List amLODIPine BESYLATE [Norvasc] 5 mg PO DAILY 02/18/15 [History] ALPRAZolam [Xanax] 0.25 mg PO DAILY PRN 05/22/16 [History] Aspirin EC [Ecotrin Low Dose] 81 mg PO DAILY 07/21/17 [History] Latanoprost [Xalatan 0.005%] 1 drop BOTH EYES HS 02/15/18 [History] Lisinopril [Prinivil] 10 mg PO DAILY 02/15/18 [History] Tamsulosin [Flomax] 0.4 mg PO DAILY 02/15/18 [History] traZODone HCL 50 mg PO HS 02/15/18 [History] Ferrous Sulfate [Feosol] 325 mg PO DAILY #30 tab 02/16/18 [Rx] Acetaminophen Tab [Tylenol] 500 mg PO DAILY PRN 06/12/18 [History] Ascorbic Acid [Vitamin C] 1,000 mg PO DAILY 06/12/18 [History] Carboxymethylcellulose Sodium [Refresh Tears] 1 drop BOTH EYES QID PRN 06/12/18 [History] Hydrocortisone [Cortef] 10 mg PO DAILY@1400 06/12/18 [History] Hydrocortisone [Cortef] 15 mg PO DAILY 06/12/18 [History] Krill/Om-3/Dha/Epa/Phospho/Ast [[place]-3 Krill Oil 300 mg Sfgl] 1 cap PO DAILY [History] Levothyroxine Sodium [Synthroid] 100 mcg PO AC-BRKFST 06/12/18 [History] Mirabegron [Myrbetriq] 25 mg PO HS 06/12/18 [History] Multivitamins, Thera [Multivitamin (formulary)] 1 tab PO DAILY 06/12/18 [History ] Testosterone Cypionate [Depo-Testosterone] 100 mg IM Q14D 06/12/18 [History] Acetaminophen Tab [Tylenol] 650 mg PO Q6HR PRN tab 06/13/18 [Rx] Ibuprofen [Motrin] 400 mg PO Q6HR PRN tab 06/13/18 [Rx] Oseltamivir [Tamiflu] 75 mg PO Q12HR 4 Days #8 cap 06/13/18 [Rx] Follow up Appointment(s)/Referral(s): Maggie Joya MD [Primary Care Provider] - 1-2 days
[2018-06-14] MEDS: BENZOCAINE/MENTHOL LOZENG 1 EACH LOZENGE MUCOUS MEM PRN ×2 (04:51→11:12)
[2018-06-14 09:30] VITALS: BP 125/68; PULSE 72; RESP 16; TEMP 98.8
[2018-06-14] MEDS: OSELTAMIVIR 75 MG CAP PO SCH (09:31)
[2018-06-14] MEDS: amLODIPine 5 MG TAB PO SCH (09:31)
[2018-06-14] MEDS: FERROUS SULFATE 325 MG TAB PO SCH (09:31)
[2018-06-14] MEDS: LISINOPRIL 10 MG TAB PO SCH (09:31)
[2018-06-14] MEDS: LEVOTHYROXINE 100 MCG TAB PO SCH (09:31)
[2018-06-14] MEDS ORDERED: PROMETHAZ-COD 6.25-10 MG/5 ML 5 ML CUP PO PRN (11:00)
--- NOTE | 2018-06-14 11:08 | P.PN ---
Subjective Progress Note Date: 06/14/18 This 83-year-old male presented to the emergency room with general weakness for 2 days. Patient's was diagnosed with influenza. Patient states that he has had a harsh nonproductive cough and low appetite. And generalized weakness that is making difficult to move around and care for his . Patient's past medical history of GERD, hypertension, thyroid disorder, anxiety, BPH, depression. At this time patient is resting comfortably in bed. He is able to tolerate oral intake without any nausea or vomiting. Patient has been up and around in the room with some weakness however he is able to tolerate well. Patient denies any chest pain or difficulty breathing at this time. Repeat influenza PCR swab was positive for influenza type a. Patient was started on Tamiflu. Chest x-ray showed no cardiopulmonary disease and no change. Chest CTA shows subsegmental atelectasis and scarring of the left lung bases. No evidence of pulmonary embolism. Normal heart. EKG showed normal sinus rhythm with a right bundle branch block. 06/14/18: Patient is resting in bed at this time with complaints of sore throat and cough. Patient was unable to obtain a ride and is concerned about the cough and sore throat. Patient denies shortness of breath, chest pain, nausea or vomiting. Patient is able to tolerate oral intake without any difficulties. He is set up in his room in granulation without any difficulties. Patient does complain of some weakness and fatigue. Discussed with patient that he is able to go home and we will add a cough suppressant since his cough is nonproductive. And also lozenges for his sore throat. Patient has been afebrile. Review Of Systems: Constitutional: No fever, no chills, no night sweats. No weight change. Reports weakness, reports fatigue denies lethargy. No daytime sleepiness. EENT: No headache. No blurred vision or double vision, no loss of vision. No loss of Hearing, no ringing in the ears, no dizziness. No nasal drainage or congestion. No epistaxis. No sore throat. Lungs: Reports cough No shortness of breath, no sputum production. No wheezing. Cardiovascular: No chest pain, no lower extremity edema. No palpitations. No paroxysmal nocturnal dyspnea. No orthopnea. No lightheadedness or dizziness. No syncopal episodes. Abdominal: no abdominal discomfort. No nausea, vomiting. no diarrhea. No constipation. No bloody or tarry stools. improved loss of appetite. Genitourinary: No dysuria, increased frequency, urgency. No urinary retention. Musculoskeletal: No myalgias. No muscle weakness, no gait dysfunction, no frequent falls. No back pain. No neck pain. Integumentary: No wounds, no lesions. No rash or pruritus. No unusual bruising. No change in hair or nails. Neurologic: No aphasia. No facial droop. No change in mentation. No head injury. No headache. No paralysis. No paresthesia. Psychiatric: No depression. No anxiety. No mood swings. Endocrine: No abnormal blood sugars. No weight change. No excessive sweating or thirst. Objective - Vital Signs Vital signs: Vital Signs Temp 98.8 F 06/14/18 09:29 Pulse 72 06/14/18 09:43 Resp 16 06/14/18 09:29 BP 125/68 06/14/18 09:29 Pulse Ox 94 L 06/14/18 09:29 Intake & Output 06/13/18 06/14/18 06/14/18 18:59 06:59 18:59 Intake Total 1100 236 Balance 1100 236 Weight 108.862 kg Intake: Intake, IV Titration 300 Amount Sodium Chloride 0.9% 1, 300 000 ml @ 75 mls/hr IV . [id number] STA Rx#:[id number] Oral 800 236 Other: Voiding Method Urinal Diaper # Voids 1 - Constitutional General appearance: Present: cooperative, no acute distress, obese - EENT Eyes: Present: anicteric sclerae, EOMI, PERRLA ENT: Present: hearing grossly normal, NA/AT. Absent: pharyngeal erythema, tonsillar exudates, tonsillar swelling - Neck Neck: Present: normal ROM. Absent: lymphadenopathy - Respiratory Respiratory: bilateral: CTA, negative: diminished, dullness, rales, rhonchi, wheezing, prolonged expiration, prolonged inspiration, other - Cardiovascular Rhythm: regular Heart sounds: normal: S1, S2 Abnormal Heart Sounds: Absent: systolic murmur, diastolic murmur, rub, S3 Gallop , S4 Gallop, click, other - Gastrointestinal General gastrointestinal: Present: normal bowel sounds, soft. Absent: tenderness - Integumentary Integumentary: Present: normal turgor, pale - Neurologic Neurologic: Present: CNII-XII intact - Musculoskeletal Musculoskeletal: Present: gait normal, strength equal bilaterally - Psychiatric Psychiatric: Present: A&O x's 3, appropriate affect, intact judgment & insight - Labs CBC & Chem 7: 06/13/18 06:26 06/13/18 06:26 Assessment and Plan Plan: #1 influenza A. We'll start Tamiflu 75 mg twice a day for the next 5 days. Encouraged oral hydration. #2 weakness. Tamiflu 75 mg twice a day for 5 days #3 hypertension. Continue Norvasc 5 mg by mouth daily, lisinopril 10 mg by mouth daily #4 GERD Pepcid 20 mg by mouth daily as needed #5 hypothyroidism. Levothyroxine 100 MCG's by mouth at breakfast, #6 BPH. Atenolol 70.4 mg by mouth daily #7 depression. myberriq 25 mg po #8 anxiety. Xanax 0.25 mg by mouth daily needed #9 cough. Phenergan with codeine 5 ML's every 4 hours as needed for cough given. The logenze given for pharyngitis. Discharge plan: Home today Impression and plan of care have been directed as dictated by the signing physician. Jessica Miranda nurse practitioner acting as scribe for signing physician.
[2018-06-14] MEDS: TAMSULOSIN 0.4 MG CAP.ER.24H PO SCH (13:29)
[2018-06-14] MEDS ORDERED: TAMSULOSIN 0.4 MG CAP.ER.24H PO SCH (21:00)
== END 2018-06-14 13:11 | disposition home or self-care (01) | DRG 195 ==
LOC: EC 15:36 → 4SSUR 20:56
PROVIDERS: ADMIT Internal Medicine; ATTEND Internal Medicine
DX: J10.1 Influenza due to other identified influenza virus with other respiratory manifestations (principal); E03.9 Hypothyroidism, unspecified; F32.9 Major depressive disorder, single episode, unspecified; F41.9 Anxiety disorder, unspecified; H40.9 Unspecified glaucoma; I12.9 Hypertensive chronic kidney disease with stage 1 through stage 4 chronic kidney disease, or unspecified chronic kidney disease; I45.10 Unspecified right bundle-branch block; J98.4 Other disorders of lung; K21.9 Gastro-esophageal reflux disease without esophagitis; N18.9 Chronic kidney disease, unspecified; N40.0 Benign prostatic hyperplasia without lower urinary tract symptoms; R09.02 Hypoxemia; Z79.899 Other long term (current) drug therapy; Z82.49 Family history of ischemic heart disease and other diseases of the circulatory system; Z79.82 Long term (current) use of aspirin; R05 Cough; Z88.8 Allergy status to other drugs, medicaments and biological substances; Z79.890 Hormone replacement therapy; Z90.49 Acquired absence of other specified parts of digestive tract
CPT/HCPCS: 36415; 71046; 71275; 80048; 83605; 84484; 85025; 87502; 93005; 96360; 99285

== ENCOUNTER 2018-06-15 13:43 | Inpatient (IN) | payer MEDICARE, OTHER ==
--- NOTE | 2018-06-15 14:43 | XR ---
EXAMINATION TYPE: XR chest 2V DATE OF EXAM: 06/15/2018 COMPARISON: 06/12/2018 HISTORY: 83-year-old male difficulty breathing, shortness of breath TECHNIQUE: AP and lateral views FINDINGS: Heart borderline enlarged. Diffuse interstitial prominence. Some more focal patchy right basilar opac ity. No sizable effusion. IMPRESSION: 1. Borderline cardiomegaly. Interstitial changes appear largely chronic. 2. More focal patchy right basilar opacity could represent atelectasis or early pneumonia.
[2018-06-15 14:44] LABS: Basophils # (A) 0.1 k/uL (0-0.2); Basophils % (A) 1 %; Eosinophils # (A) 0.5 k/uL (0-0.7); Eosinophils % (A) 8 %; HCT 40.3 % (39.0-53.0); HGB 13.6 gm/dL (13.0-17.5); Lymphocytes # (A) 1.7 k/uL (1.0-4.8); Lymphocytes % (A) 28 %; MCHC 33.6 g/dL (31.0-37.0); MCV 89.1 fL (80.0-100.0); Mean Platelet Volume 7.6; Monocytes # (A) 0.4 k/uL (0-1.0); Monocytes % (A) 7 %; Neutrophils # (A) 3.3 k/uL (1.3-7.7); Neutrophils % (A) 53 %; Platelet Count 198 k/uL (150-450); RBC 4.53 m/uL (4.30-5.90); RDW 14.7 % (11.5-15.5); WBC 6.2 k/uL (3.8-10.6)
[2018-06-15 14:50] LABS: INR 1.1 (<1.2); Partial Thromboplastin Time 26.7 sec (22.0-30.0); Prothrombin Time 11.2 sec (9.0-12.0)
[2018-06-15 14:51] LABS: Albumin 3.8 g/dL (3.5-5.0); Calcium 8.4 mg/dL (8.4-10.2); Magnesium 1.8 mg/dL (1.6-2.3); Potassium 4.5 mmol/L (3.5-5.1); Total Bilirubin 0.9 mg/dL (0.2-1.3)
[2018-06-15 14:56] LABS: Creatine Kinase 296 U/L (55-170)
[2018-06-15 15:09] LABS: Creatine Kinase MB 1.6 ng/mL (0.0-2.4); Troponin I <0.012 ng/mL (0.000-0.034)
--- NOTE | 2018-06-15 15:18 | ED ---
Fever HPI - General Chief Complaint: Fever Stated Complaint: FLU LIKE SYMPTOMS Time Seen by Provider: 06/15/18 13:43 Source: patient, RN notes reviewed Mode of arrival: EMS Limitations: no limitations - History of Present Illness Initial Comments: This is a 83-year-old male who was brought in by EMS today because of generalized weakness decreased oral intake and basically failure to thrive. He was diagnosed with influenza type A and this is now his third visit in last several days. He states she's unable eat or take care of himself. He's had a cough is a fever. He was placed on medication but apparently he did negative. No nausea vomiting diarrhea or other symptoms he has severe rhinorrhea he states. MD Complaint: fever, malaise, weakness, other - Related Data Home Medications Medication Instructions Recorded Confirmed amLODIPine BESYLATE [Norvasc] 5 mg PO DAILY 02/18/15 06/15/18 ALPRAZolam [Xanax] 0.25 mg PO DAILY PRN 05/22/16 06/15/18 Aspirin EC [Ecotrin Low Dose] 81 mg PO DAILY 07/21/17 06/15/18 Latanoprost [Xalatan 0.005%] 1 drop BOTH EYES HS 02/15/18 06/15/18 Lisinopril [Prinivil] 10 mg PO DAILY 02/15/18 06/15/18 Tamsulosin [Flomax] 0.4 mg PO DAILY 02/15/18 06/15/18 traZODone HCL 50 mg PO HS 02/15/18 06/15/18 Acetaminophen Tab [Tylenol] 500 mg PO DAILY PRN 06/12/18 06/15/18 Ascorbic Acid [Vitamin C] 1,000 mg PO DAILY 06/12/18 06/15/18 Carboxymethylcellulose Sodium 1 drop BOTH EYES QID PRN 06/12/18 06/15/18 [Refresh Tears] Hydrocortisone [Cortef] 10 mg PO DAILY@1400 06/12/18 06/15/18 Hydrocortisone [Cortef] 15 mg PO DAILY 06/12/18 06/15/18 Krill/Om-3/Dha/Epa/Phospho/Ast 1 cap PO DAILY 06/12/18 06/15/18 [[place]-3 Krill Oil 300 mg Sfgl] Levothyroxine Sodium [Synthroid] 100 mcg PO AC-BRKFST 06/12/18 06/15/18 Mirabegron [Myrbetriq] 25 mg PO HS 06/12/18 06/15/18 Multivitamins, Thera [Multivitamin 1 tab PO DAILY 06/12/18 06/15/18 (formulary)] Testosterone Cypionate 100 mg IM Q14D 06/12/18 06/15/18 [Depo-Testosterone] Previous Rx's Medication Instructions Recorded Ferrous Sulfate [Feosol] 325 mg PO DAILY #30 tab 02/16/18 Ibuprofen [Motrin] 400 mg PO Q6HR PRN tab 06/13/18 Oseltamivir [Tamiflu] 75 mg PO Q12HR 4 Days #8 cap 06/13/18 Promethazine HCl [Promethazine HCl 6.25 mg PO Q6HR PRN #280 ml 06/14/18 Oral Elixir] Allergies Allergy/AdvReac Type Severity Reaction Status Date / Time Kqcyniz-Bqz-Zfx Reductase Allergy Unknown Verified 06/15/18 14:18 Inhibitor Review of Systems ROS Statement: Those systems with pertinent positive or pertinent negative responses have been documented in the HPI. ROS Other: All systems not noted in ROS Statement are negative. Past Medical History Past Medical History: GERD/Reflux, Hypertension, Thyroid Disorder History of Any Multi-Drug Resistant Organisms: None Reported Past Surgical History: Appendectomy, Cholecystectomy, Tonsillectomy Additional Past Surgical History / Comment(s): yelitza shoulder arthroscopy, eye sx for glaucoma. pt stated 2 weeks ago had a benign pituitary tumor removed at [facility]. pt stated he has had a pne vaccine but not sure of date. rfp writer unable to verify date at time of this admit. Past Anesthesia/Blood Transfusion Reactions: No Reported Reaction Past Psychological History: No Psychological Hx Reported Smoking Status: Never smoker Past Alcohol Use History: None Reported Past Drug Use History: None Reported - Past Family History Mother Family Medical History: Congestive Heart Failure (CHF) Additional Family Medical History / Comment(s): age 95 Father Family Medical History: No Reported History Additional Family Medical History / Comment(s): " from old age at age 90 General Exam - General Exam Comments Initial Comments: This is a well-developed well-nourished awake alert oriented 3 male Limitations: no limitations General appearance: alert, lethargic Head exam: Present: atraumatic, normocephalic, normal inspection Eye exam: Present: normal appearance, PERRL, EOMI. Absent: scleral icterus, conjunctival injection, periorbital swelling ENT exam: Present: mucous membranes dry (Rhinorrhea noted clear discharge) Neck exam: Present: normal inspection, full ROM. Absent: tenderness, meningismus, lymphadenopathy Respiratory exam: Present: decreased breath sounds Cardiovascular Exam: Present: regular rate, normal rhythm, normal heart sounds. Absent: systolic murmur, diastolic murmur, rubs, gallop, clicks GI/Abdominal exam: Present: soft, normal bowel sounds. Absent: distended, tenderness, guarding, rebound, rigid Extremities exam: Present: normal inspection, full ROM, normal capillary refill. Absent: tenderness, pedal edema, joint swelling, calf tenderness Back exam: Present: normal inspection Neurological exam: Present: alert, oriented X3, CN II-XII intact Psychiatric exam: Present: normal affect, normal mood Skin exam: Present: warm, dry, intact, normal color. Absent: rash Course Vital Signs 06/15/18 06/15/18 13:54 15:05 Temperature 101.9 F H Pulse Rate 84 76 Respiratory 20 22 Rate Blood Pressure 139/74 106/66 O2 Sat by Pulse 93 L 95 Oximetry Medical Decision Making - Medical Decision Making Did discuss the findings with the patient as well as with Dr. Fernandez. Patient be admitted for pneumonia IV an RS will be started he will be continued with antiviral medication. - Lab Data Result diagrams: 06/15/18 14:10 06/15/18 14:10 Lab Results 06/15/18 06/15/18 06/15/18 Range/Units 14:10 14:10 14:10 WBC 6.2 (3.8-10.6) k/uL RBC 4.53 (4.30-5.90) m/uL Hgb 13.6 (13.0-17.5) gm/dL Hct 40.3 (39.0-53.0) % MCV 89.1 (80.0-100.0) fL MCH 30.0 (25.0-35.0) pg MCHC 33.6 (31.0-37.0) g/dL RDW 14.7 (11.5-15.5) % Plt Count 198 (150-450) k/uL Neutrophils % 53 % Lymphocytes % 28 % Monocytes % 7 % Eosinophils % 8 % Basophils % 1 % Neutrophils # 3.3 (1.3-7.7) k/uL Lymphocytes # 1.7 (1.0-4.8) k/uL Monocytes # 0.4 (0-1.0) k/uL Eosinophils # 0.5 (0-0.7) k/uL Basophils # 0.1 (0-0.2) k/uL PT (9.0-12.0) sec INR (<1.2) APTT (22.0-30.0) sec Sodium 136 L (137-145) mmol/L Potassium 4.5 (3.5-5.1) mmol/L Chloride 101 (98-107) mmol/L Carbon Dioxide 27 (22-30) mmol/L Anion Gap 8 mmol/L BUN 18 (9-20) mg/dL Creatinine 1.20 (0.66-1.25) mg/dL Est GFR (CKD-EPI)AfAm 65 (>60 ml/min/1.73 sqM) Est GFR (CKD-EPI)NonAf 56 (>60 ml/min/1.73 sqM) Glucose 93 (74-99) mg/dL Plasma Lactic Acid Yosef (0.7-2.0) mmol/L Calcium 8.4 (8.4-10.2) mg/dL Magnesium 1.8 (1.6-2.3) mg/dL Total Bilirubin 0.9 (0.2-1.3) mg/dL AST 50 (17-59) U/L ALT 36 (21-72) U/L Alkaline Phosphatase 47 (38-126) U/L Total Creatine Kinase 296 H (55-170) U/L CK-MB (CK-2) 1.6 (0.0-2.4) ng/mL CK-MB (CK-2) Rel Index 0.5 Troponin I <0.012 (0.000-0.034) ng/mL NT-Pro-B Natriuret Pep pg/mL Total Protein 7.0 (6.3-8.2) g/dL Albumin 3.8 (3.5-5.0) g/dL 06/15/18 06/15/18 06/15/18 Range/Units 14:10 14:10 14:10 WBC (3.8-10.6) k/uL RBC (4.30-5.90) m/uL Hgb (13.0-17.5) gm/dL Hct (39.0-53.0) % MCV (80.0-100.0) fL MCH (25.0-35.0) pg MCHC (31.0-37.0) g/dL RDW (11.5-15.5) % Plt Count (150-450) k/uL Neutrophils % % Lymphocytes % % Monocytes % % Eosinophils % % Basophils % % Neutrophils # (1.3-7.7) k/uL Lymphocytes # (1.0-4.8) k/uL Monocytes # (0-1.0) k/uL Eosinophils # (0-0.7) k/uL Basophils # (0-0.2) k/uL PT 11.2 (9.0-12.0) sec INR 1.1 (<1.2) APTT 26.7 (22.0-30.0) sec Sodium (137-145) mmol/L Potassium (3.5-5.1) mmol/L Chloride (98-107) mmol/L Carbon Dioxide (22-30) mmol/L Anion Gap mmol/L BUN (9-20) mg/dL Creatinine (0.66-1.25) mg/dL Est GFR (CKD-EPI)AfAm (>60 ml/min/1.73 sqM) Est GFR (CKD-EPI)NonAf (>60 ml/min/1.73 sqM) Glucose (74-99) mg/dL Plasma Lactic Acid Yosef 1.2 (0.7-2.0) mmol/L Calcium (8.4-10.2) mg/dL Magnesium (1.6-2.3) mg/dL Total Bilirubin (0.2-1.3) mg/dL AST (17-59) U/L ALT (21-72) U/L Alkaline Phosphatase (38-126) U/L Total Creatine Kinase (55-170) U/L CK-MB (CK-2) (0.0-2.4) ng/mL CK-MB (CK-2) Rel Index Troponin I (0.000-0.034) ng/mL NT-Pro-B Natriuret Pep 95 pg/mL Total Protein (6.3-8.2) g/dL Albumin (3.5-5.0) g/dL - EKG Data -: EKG Interpreted by Me EKG shows normal: sinus rhythm (Sinus rhythm with first-degree AV block right bundle branch block left posterior fascicular block rate was 79. Interval 214 QRS duration 142 QT since QTC 406/465) - Radiology Data Radiology results: report reviewed (I did review the imaging there is evidence of a right lower lobe infiltrate.), image reviewed Disposition Clinical Impression: Influenza, Pneumonia, Febrile illness, acute, Failure to thrive Disposition: ADMITTED IP TO THIS [facility] Condition: Stable Referrals: Maggie Joya MD [Primary Care Provider] - 1-2 days
[2018-06-15] MEDS ORDERED: PNEUMONIA PROTOCOL UTILIZED 1 EACH MISC PO PRN (15:53)
[2018-06-15] MEDS ORDERED: ALPRAZolam 0.25 MG TAB PO PRN (15:55)
[2018-06-15] MEDS ORDERED: ARTIFICIAL TEARS-HYPROMELLOSE DROPS 15 ML BTL BOTH EYES PRN (15:55)
[2018-06-15] MEDS ORDERED: PROMETHAZINE HCL 6.25 MG/5 ML CUP PO PRN (15:55)
[2018-06-15] MEDS ORDERED: IBUPROFEN 400 MG TAB PO PRN (15:55)
[2018-06-15] MEDS ORDERED: AZITHROMYCIN 500 MG in SODIUM CHLORIDE 0.9% 250 ML IVPB STA (16:01)
[2018-06-15] MEDS: SODIUM CHLORIDE 0.9% 1,000 ML IV SCH (16:45)
[2018-06-15] MEDS: ACETAMINOPHEN TAB 500 MG TAB PO PRN (16:47)
[2018-06-15] MEDS: traZODone HCL 50 MG TAB PO SCH (23:10)
[2018-06-15] MEDS: LATANOPROST 0.005% OPHTH DROPS 2.5 ML BTL BOTH EYES SCH (23:10)
[2018-06-15] MEDS: OSELTAMIVIR 75 MG CAP PO SCH (23:10)
[2018-06-15] MEDS: PATIENT'S OWN (Mirabegron [Myrbetriq] 25 MG) PO SCH (23:30)
[2018-06-16] MEDS: ACETAMINOPHEN TAB 500 MG TAB PO PRN (03:51)
[2018-06-16] MEDS: LEVOTHYROXINE 100 MCG TAB PO SCH (06:16)
[2018-06-16] MEDS: SODIUM CHLORIDE 0.9% 1,000 ML IV SCH ×3 (06:19→22:12)
[2018-06-16] MEDS: FERROUS SULFATE 325 MG TAB PO SCH (08:15)
[2018-06-16] MEDS: MULTIVITAMINS, THERA 1 EACH TAB PO SCH (08:15)
[2018-06-16] MEDS: TAMSULOSIN 0.4 MG CAP.ER.24H PO SCH (08:15)
[2018-06-16] MEDS: HYDROCORTISONE 10 MG TAB PO SCH (08:16)
[2018-06-16] MEDS: ASCORBIC ACID 500 MG TAB PO SCH (08:16)
[2018-06-16] MEDS: amLODIPine 5 MG TAB PO SCH (08:16)
[2018-06-16] MEDS: ASPIRIN 81 MG PO SCH (08:16)
[2018-06-16] MEDS: LISINOPRIL 10 MG TAB PO SCH (08:16)
[2018-06-16] MEDS: OSELTAMIVIR 75 MG CAP PO SCH ×2 (08:16→22:11)
[2018-06-16] MEDS ORDERED: NON-FORMULARY DRUG (Krill/Om-3/Dha/Epa/Phospho/Ast [Omega-3 Krill Oil 300 Mg Sfgl] 1 CAP) PO SCH (09:00)
--- NOTE | 2018-06-16 10:51 | XR ---
EXAMINATION TYPE: XR chest 2V DATE OF EXAM: 06/16/2018 COMPARISON: June 15, 2018 HISTORY: Shortness of breath TECHNIQUE: Frontal and lateral views of the chest are obtained. FINDINGS: Scattered senescent parenchymal changes noted. Hyperinflation compatible with COPD. No evidence for infiltrate. No evidence for atelectasis. Heart size is stable. Mediastinal structures are stable and grossly unremarkable. No evidence for hilar prominence. Degenerative changes dorsal spine. IMPRESSION: 1. No evidence for acute pulmonary disease.
[2018-06-16] MEDS: AZITHROMYCIN 500 MG TAB PO SCH (11:23)
[2018-06-16] MEDS ORDERED: HYDROCORTISONE 10 MG TAB PO SCH (14:00)
--- NOTE | 2018-06-16 14:45 | P.HPIM ---
History of Present Illness H&P Date: 06/16/18 Chief Complaint: generalized weakness This 83-year-old male patient of Dr. Joya with past nuchal history of gastroesophageal reflux disease, hypertension, hypothyroidism, benign pituitary tumor removal in January at [facility]. Patient was recently hospitalized and discharged on June 14 and was hospitalized for influenza a. Patient return to the hospital complaining of generalized weakness and states that he was sent home to quickly. Patient states that he was supposed have caregivers in the home which apparently are not available. Patient was brought into [facility] emergency center by ambulance complaining of cough and fever and runny nose. Temperature was 101.9. White count was normal at 6.2, BUN 18 creatinine 1.2. Lactic acid was 1.2, proBNP 95. EKG was a sinus rhythm with a first-degree AV block and left posterior fascicular block. Chest x-ray shows borderline cardiomegaly. Interstitial changes appear chronic. More focal patchy right basilar opacities could represent atelectasis or early pneumonia. Patient was admitted to the [facility] floor and continued on Tamiflu with droplet isolation. Review of Systems All systems: negative Constitutional: Reports chills, Reports fatigue, Reports fever, Reports poor appetite, Reports weakness Eyes: denies blurred vision, denies pain Ears, nose, mouth and throat: Reports nasal congestion, Reports nasal discharge , Denies dental pain, Denies dysphagia, Denies headache, Denies mouth pain, Denies sore throat, Denies vertigo Cardiovascular: Reports dyspnea on exertion, Denies chest pain, Denies edema, Denies leg edema, Denies paroxysmal nocturnal dyspnea, Denies shortness of breath, Denies syncope Respiratory: Reports cough, Reports dyspnea, Denies cough with sputum, Denies excessive sputum, Denies hemoptysis, Denies home oxygen, Denies wheezing Gastrointestinal: Reports loss of appetite, Denies abdominal pain, Denies diarrhea, Denies melena, Denies nausea, Denies vomiting Genitourinary: Denies dysuria Musculoskeletal: Denies frequent falls, Denies gait dysfunction, Denies myalgias Integumentary: Denies pruritus, Denies rash, Denies wounds Neurological: Denies aphasia, Denies change in mentation, Denies confusion, Denies convulsions, Denies gait dysfunction, Denies head injury, Denies headaches, Denies numbness, Denies seizures, Denies syncope, Denies vertigo, Denies weakness Psychiatric: Denies anxiety, Denies depression Endocrine: Denies fatigue, Denies weight change Past Medical History Past Medical History: GERD/Reflux, Hypertension, Osteoarthritis (OA), Thyroid Disorder Additional Past Medical History / Comment(s): glaucoma yelitza eyes History of Any Multi-Drug Resistant Organisms: None Reported Past Surgical History: Appendectomy, Cholecystectomy, Tonsillectomy Additional Past Surgical History / Comment(s): yelitza shoulder arthroscopy, eye sx for glaucoma. pt stated 2 weeks ago had a benign pituitary tumor removed at [facility]. pt stated he has had a pne vaccine but not sure of date. commercial insurance underwriter unable to verify date at time of this admit. Past Anesthesia/Blood Transfusion Reactions: No Reported Reaction Smoking Status: Never smoker - Past Family History Mother Family Medical History: Congestive Heart Failure (CHF) Additional Family Medical History / Comment(s): age 95 Father Family Medical History: No Reported History Additional Family Medical History / Comment(s): " from old age at age 90 Medications and Allergies Home Medications Medication Instructions Recorded Confirmed Type amLODIPine BESYLATE [Norvasc] 5 mg PO DAILY 02/18/15 06/15/18 History ALPRAZolam [Xanax] 0.25 mg PO DAILY PRN 05/22/16 06/15/18 History Aspirin EC [Ecotrin Low Dose] 81 mg PO DAILY 07/21/17 06/15/18 History Latanoprost [Xalatan 0.005%] 1 drop BOTH EYES HS 02/15/18 06/15/18 History Lisinopril [Prinivil] 10 mg PO DAILY 02/15/18 06/15/18 History Tamsulosin [Flomax] 0.4 mg PO DAILY 02/15/18 06/15/18 History traZODone HCL 50 mg PO HS 02/15/18 06/15/18 History Ferrous Sulfate [Feosol] 325 mg PO DAILY #30 tab 02/16/18 06/15/18 Rx Acetaminophen Tab [Tylenol] 500 mg PO DAILY PRN 06/12/18 06/15/18 History Ascorbic Acid [Vitamin C] 1,000 mg PO DAILY 06/12/18 06/15/18 History Carboxymethylcellulose Sodium 1 drop BOTH EYES QID PRN 06/12/18 06/15/18 History [Refresh Tears] Hydrocortisone [Cortef] 10 mg PO DAILY@1400 06/12/18 06/15/18 History Hydrocortisone [Cortef] 15 mg PO DAILY 06/12/18 06/15/18 History Krill/Om-3/Dha/Epa/Phospho/Ast 1 cap PO DAILY 06/12/18 06/15/18 History [[place]-3 Krill Oil 300 mg Sfgl] Levothyroxine Sodium [Synthroid] 100 mcg PO AC-BRKFST 06/12/18 06/15/18 History Mirabegron [Myrbetriq] 25 mg PO HS 06/12/18 06/15/18 History Multivitamins, Thera [Multivitamin 1 tab PO DAILY 06/12/18 06/15/18 History (formulary)] Testosterone Cypionate 100 mg IM Q14D 06/12/18 06/15/18 History [Depo-Testosterone] Ibuprofen [Motrin] 400 mg PO Q6HR PRN tab 06/13/18 06/15/18 Rx Oseltamivir [Tamiflu] 75 mg PO Q12HR 4 Days #8 cap 06/13/18 06/15/18 Rx Promethazine HCl [Promethazine HCl 6.25 mg PO Q6HR PRN #280 ml 06/14/18 Rx Oral Elixir] Allergies Allergy/AdvReac Type Severity Reaction Status Date / Time Kjqmbkz-Oyr-Vip Reductase Allergy Unknown Verified 06/15/18 14:18 Inhibitor Physical Exam Vitals: Vital Signs Temp Pulse Pulse Resp BP BP Pulse Ox 06/16/18 06:40 97.4 F L 56 L 18 111/56 94 L 06/16/18 00:15 62 06/15/18 23:00 97.7 F 62 18 129/67 94 L 06/15/18 20:20 97.2 F L 72 18 131/86 92 L 06/15/18 18:39 99 F 68 18 116/62 95 06/15/18 15:05 76 22 106/66 95 06/15/18 13:54 101.9 F H 84 20 139/74 93 L Intake and Output 06/15/18 06/16/18 06/16/18 22:59 06:59 14:59 Intake Total 250 500 Output Total 900 Balance 250 -400 Intake: Oral 250 500 Output: Urine 900 Other: # Voids 0 General appearance: cooperative, no acute distress, obese - EENT Eyes: anicteric sclerae, EOMI, PERRLA ENT: hearing grossly normal, NA/AT - Neck Neck: no lymphadenopathy, normal ROM - Respiratory Respiratory: bilateral: CTA, negative: diminished, dullness, rales, rhonchi, wheezing, prolonged expiration, prolonged inspiration, other - Cardiovascular Rhythm: regular Heart sounds: normal: S1, S2 Abnormal Heart Sounds: no systolic murmur, no diastolic murmur, no rub, no S3 Gallop, no S4 Gallop, no click, no other - Gastrointestinal General gastrointestinal: normal bowel sounds, no organomegaly, soft, no tenderness - Integumentary Integumentary: pale - Neurologic Neurologic: CNII-XII intact - Musculoskeletal Musculoskeletal: generalized weakness - Psychiatric Psychiatric: A&O x's 3, appropriate affect, intact judgment & insight Results CBC & Chem 7: 06/15/18 14:10 06/15/18 14:10 Labs: Abnormal Lab Results - Last 24 Hours (Table) 06/15/18 06/15/18 Range/Units 14:10 14:10 Sodium 136 L (137-145) mmol/L Total Creatine Kinase 296 H (55-170) U/L Thrombosis Risk Factor Assmnt - DVT/VTE Prophylaxis DVT/VTE Prophylaxis: Pharmacologic Prophylaxis ordered - Choose All That Apply Any of the Below Risk Factors Present?: Yes Each Factor Represents 1 point: Medical pt on bed rest, Obesity (BMI >25) Other Risk Factors: Yes Each Risk Factor Represents 3 Points: Age 75 years or older Other congenital or acquired thrombophilia - If yes, enter type in comment: No Thrombosis Risk Factor Assessment Total Risk Factor Score: 5 Thrombosis Risk Factor Assessment Level: High Risk Assessment and Plan Plan: 1. Influenza a with possible pneumonia. Patient will be continued on Tamiflu 75 g twice daily, azithromycin and ceftriaxone. 2. Hypertension. Continue Norvasc 5 mg daily, lisinopril 10 mg daily. 3. Hypothyroidism. Continue levothyroxine 100 g daily. 4. History of pituitary tumor. Continue Cortef 15 mg daily and 10 mg at 2 PM. 5. Insomnia. Continue trazodone 50 mg at bedtime. 6. Benign prostatic hypertrophy. Continue Flomax 0.4 mg daily. 7. Generalized anxiety disorder. Continue Xanax as needed. 8. Anemia of chronic disease. Continue ferrous sulfate. 9. DVT prophylaxis. Heparin subcu. 10. GI prophylaxis. Pepcid. Patient will be admitted to the hospital for a minimum of 2 night stay. Discharge plan: To be determined. Impression and plan of care have been directed as dictated by the signing physician. Amy Lemos nurse practitioner acting as scribe for signing physician.
[2018-06-16] MEDS: traZODone HCL 50 MG TAB PO SCH (22:11)
[2018-06-16] MEDS: HEPARIN SODIUM,PORCINE 5,000 UNIT/ML 1 ML VIAL SQ SCH (22:11)
[2018-06-16] MEDS: LATANOPROST 0.005% OPHTH DROPS 2.5 ML BTL BOTH EYES SCH (22:12)
[2018-06-16] MEDS: PATIENT'S OWN (Mirabegron [Myrbetriq] 25 MG) PO SCH (22:12)
[2018-06-17] MEDS: HEPARIN SODIUM,PORCINE 5,000 UNIT/ML 1 ML VIAL SQ SCH ×2 (09:03→21:24)
[2018-06-17] MEDS: AZITHROMYCIN 500 MG TAB PO SCH (09:03)
[2018-06-17] MEDS: amLODIPine 5 MG TAB PO SCH (09:03)
[2018-06-17] MEDS: ASCORBIC ACID 500 MG TAB PO SCH (09:03)
[2018-06-17] MEDS: ASPIRIN 81 MG PO SCH (09:03)
[2018-06-17] MEDS: LISINOPRIL 10 MG TAB PO SCH (09:03)
[2018-06-17] MEDS: OSELTAMIVIR 75 MG CAP PO SCH (09:03)
[2018-06-17] MEDS: FERROUS SULFATE 325 MG TAB PO SCH (09:04)
[2018-06-17] MEDS: TAMSULOSIN 0.4 MG CAP.ER.24H PO SCH (09:04)
[2018-06-17] MEDS: MULTIVITAMINS, THERA 1 EACH TAB PO SCH (09:04)
[2018-06-17] MEDS: FAMOTIDINE 20 MG TAB PO SCH (09:04)
[2018-06-17] MEDS: ACETAMINOPHEN TAB 500 MG TAB PO PRN (09:05)
[2018-06-17] MEDS: HYDROCORTISONE 10 MG TAB PO SCH (09:07)
[2018-06-17] MEDS: SODIUM CHLORIDE 0.9% 1,000 ML IV SCH (09:08)
[2018-06-17] MEDS: LEVOTHYROXINE 100 MCG TAB PO SCH (09:08)
--- NOTE | 2018-06-17 14:14 | P.PN ---
Subjective Progress Note Date: 06/17/18 This 83-year-old male patient of Dr. Joya with past nuchal history of gastroesophageal reflux disease, hypertension, hypothyroidism, benign pituitary tumor removal in January at [facility]. Patient was recently hospitalized and discharged on June 14 and was hospitalized for influenza a. Patient return to the hospital complaining of generalized weakness and states that he was sent home to [facility]. Patient states that he was supposed have caregivers in the home which apparently are not available. Patient was brought into [facility] emergency center by ambulance complaining of cough and fever and runny nose. Temperature was 101.9. White count was normal at 6.2, BUN 18 creatinine 1.2. Lactic acid was 1.2, proBNP 95. EKG was a sinus rhythm with a first-degree AV block and left posterior fascicular block. Chest x-ray shows borderline cardiomegaly. Interstitial changes appear chronic. More focal patchy right basilar opacities could represent atelectasis or early pneumonia. Patient was admitted to the [facility] floor and continued on Tamiflu with droplet isolation. 06/17: Patient denies any new complaints. He has been working with physical therapy. He will be completing course of Tamiflu this evening. He has been afebrile, pulse ox 94% on room air. He is planning for discharge to [facility] which will occur tomorrow. Patient's is also being discharged [place] tomorrow. Review of Systems All systems: negative Constitutional: Reports chills, Reports fatigue, Reports fever, Reports weakness Eyes: denies blurred vision, denies pain Ears, nose, mouth and throat: Reports nasal congestion, Reports nasal discharge , Denies dental pain, Denies dysphagia, Denies headache, Denies mouth pain, Denies sore throat, Denies vertigo Cardiovascular: Reports dyspnea on exertion, Denies chest pain, Denies edema, Denies leg edema, Denies paroxysmal nocturnal dyspnea, Denies shortness of breath, Denies syncope Respiratory: Reports cough, Reports dyspnea, Denies cough with sputum, Denies excessive sputum, Denies hemoptysis, Denies home oxygen, Denies wheezing Gastrointestinal: Reports loss of appetite, Denies abdominal pain, Denies diarrhea, Denies melena, Denies nausea, Denies vomiting Genitourinary: Denies dysuria Musculoskeletal: Denies frequent falls, Denies gait dysfunction, Denies myalgias Integumentary: Denies pruritus, Denies rash, Denies wounds Neurological: Denies aphasia, Denies change in mentation, Denies confusion, Denies convulsions, Denies gait dysfunction, Denies head injury, Denies headaches, Denies numbness, Denies seizures, Denies syncope, Denies vertigo, Denies weakness Psychiatric: Denies anxiety, Denies depression Endocrine: Denies fatigue, Denies weight change Objective - Vital Signs Vital signs: Vital Signs Temp 97.4 F L 06/17/18 07:00 Pulse 70 06/17/18 07:00 Resp 18 06/17/18 07:00 BP 162/89 06/17/18 07:00 Pulse Ox 94 L 06/17/18 07:00 Intake & Output 06/16/18 06/17/18 06/17/18 18:59 06:59 18:59 Intake Total 850 750 500 Output Total 600 750 Balance 850 150 -250 Weight 108.862 kg Intake: IV 850 Sodium Chloride 0.9% 1, 800 000 ml @ 100 mls/hr IV . Q10H NICOLE Rx#:[id number] cefTRIAXone 1,000 mg In 50 Sodium Chloride 0.9% 50 ml @ 100 mls/hr IVPB Q24HR NICOLE Rx#:[id number] Oral 750 500 Output: Urine 600 750 Other: Voiding Method Urinal # Voids 3 4 # Bowel Movements 1 2 - Exam General appearance: cooperative, no acute distress, obese - EENT Eyes: anicteric sclerae, EOMI, PERRLA ENT: hearing grossly normal, NA/AT - Neck Neck: no lymphadenopathy, normal ROM - Respiratory Respiratory: bilateral: CTA, negative: diminished, dullness, rales, rhonchi, wheezing, prolonged expiration, prolonged inspiration, other - Cardiovascular Rhythm: regular Heart sounds: normal: S1, S2 Abnormal Heart Sounds: no systolic murmur, no diastolic murmur, no rub, no S3 Gallop, no S4 Gallop, no click, no other - Gastrointestinal General gastrointestinal: normal bowel sounds, no organomegaly, soft, no tenderness - Integumentary Integumentary: pale - Neurologic Neurologic: CNII-XII intact - Musculoskeletal Musculoskeletal: generalized weakness - Psychiatric Psychiatric: A&O x's 3, appropriate affect, intact judgment & insight - Labs CBC & Chem 7: 06/15/18 14:10 06/15/18 14:10 Labs: Microbiology - Last 24 Hours (Table) 06/15/18 14:10 Blood Culture - Preliminary Blood No Growth after 24 hours Assessment and Plan Plan: 1. Influenza a with possible pneumonia. Patient will be continued on Tamiflu 75 g twice daily, azithromycin and ceftriaxone. Tamiflu course will be completed today. 2. Hypertension. Continue Norvasc 5 mg daily, lisinopril 10 mg daily. 3. Hypothyroidism. Continue levothyroxine 100 g daily. 4. History of pituitary tumor. Continue Cortef 15 mg daily and 10 mg at 2 PM. 5. Insomnia. Continue trazodone 50 mg at bedtime. 6. Benign prostatic hypertrophy. Continue Flomax 0.4 mg daily. 7. Generalized anxiety disorder. Continue Xanax as needed. 8. Anemia of chronic disease. Continue ferrous sulfate. 9. DVT prophylaxis. Heparin subcu. 10. GI prophylaxis. Pepcid. Discharge plan: [facility] tomorrow under the care of Dr. Joya Impression and plan of care have been directed as dictated by the signing physician. Amy Lemos nurse practitioner acting as scribe for signing physician.
--- NOTE | 2018-06-17 14:18 | P.DS ---
Providers Date of admission: 06/15/18 15:53 Expected date of discharge: 06/17/18 Attending physician: He Fernandez Primary care physician: Maggie Joya [place] [facility] Course: This 83-year-old male patient of Dr. 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 Patient was recently hospitalized and discharged on June 14 and was hospitalized for influenza a. Patient return to the hospital complaining of generalized weakness and states that he was sent home to [facility]. Patient states that he was supposed have caregivers in the home which apparently are not available. Patient was brought into [facility] emergency center by ambulance complaining of cough and fever and runny nose. Temperature was 101.9. White count was normal at 6.2, BUN 18 creatinine 1.2. Lactic acid was 1.2, proBNP 95. EKG was a sinus rhythm with a first-degree AV block and left posterior fascicular block. Chest x-ray shows borderline cardiomegaly. Interstitial changes appear chronic. More focal patchy right basilar opacities could represent atelectasis or early pneumonia. Patient [facility] floor and continued on Tamiflu with droplet isolation. 06/17: Patient denies any new complaints. He has been working with physical therapy. He will be completing course of Tamiflu this evening. He has been afebrile, pulse ox 94% on room air. He is planning for discharge to [facility] which will occur tomorrow. Patient's is also being discharged [place] tomorrow. Discharge diagnoses: 1. Influenza a with possible pneumonia. Tamiflu course completed. 2. Hypertension. 3. Hypothyroidism. 4. History of pituitary tumor. 5. Insomnia. 6. Benign prostatic hypertrophy. 7. Generalized anxiety disorder. 8. Anemia of chronic disease. Discharge plan: Wednesday under the care of Dr. Joya Impression and plan of care have been directed as dictated by the signing physician. Amy Lemos nurse practitioner acting as scribe for signing physician. Patient Condition at Discharge: Stable Plan - Discharge Summary Discharge Rx Participant: No New Discharge Prescriptions: New Azithromycin [Zithromax] 500 mg PO DAILY #5 tab Famotidine [Pepcid] 20 mg PO DAILY tab Continue amLODIPine BESYLATE [Norvasc] 5 mg PO DAILY Aspirin EC [Ecotrin Low Dose] 81 mg PO DAILY traZODone HCL 50 mg PO HS Lisinopril [Prinivil] 10 mg PO DAILY Latanoprost [Xalatan 0.005%] 1 drop BOTH EYES HS Tamsulosin [Flomax] 0.4 mg PO DAILY Ferrous Sulfate [Feosol] 325 mg PO DAILY #30 tab Testosterone Cypionate [Depo-Testosterone] 100 mg IM Q14D Acetaminophen Tab [Tylenol] 500 mg PO DAILY PRN PRN Reason: Pain Mirabegron [Myrbetriq] 25 mg PO HS Multivitamins, Thera [Multivitamin (formulary)] 1 tab PO DAILY Krill/Om-3/Dha/Epa/Phospho/Ast [[place]-3 Krill Oil 300 mg Sfgl] 1 cap PO DAILY Hydrocortisone [Cortef] 10 mg PO DAILY@1400 Hydrocortisone [Cortef] 15 mg PO DAILY Levothyroxine Sodium [Synthroid] 100 mcg PO AC-BRKFST Ascorbic Acid [Vitamin C] 1,000 mg PO DAILY Carboxymethylcellulose Sodium [Refresh Tears] 1 drop BOTH EYES QID PRN PRN Reason: dry eyes Ibuprofen [Motrin] 400 mg PO Q6HR PRN tab PRN Reason: Mild Pain Or Fever > 100.5 Promethazine HCl [Promethazine HCl Oral Elixir] 6.25 mg PO Q6HR PRN #280 ml PRN Reason: Cough ALPRAZolam [Xanax] 0.25 mg PO DAILY PRN #3 tab PRN Reason: Anxiety Discontinued Oseltamivir [Tamiflu] 75 mg PO Q12HR 4 Days #8 cap Discharge Medication List amLODIPine BESYLATE [Norvasc] 5 mg PO DAILY 02/18/15 [History] Aspirin EC [Ecotrin Low Dose] 81 mg PO DAILY 07/21/17 [History] Latanoprost [Xalatan 0.005%] 1 drop BOTH EYES HS 02/15/18 [History] Lisinopril [Prinivil] 10 mg PO DAILY 02/15/18 [History] Tamsulosin [Flomax] 0.4 mg PO DAILY 02/15/18 [History] traZODone HCL 50 mg PO HS 02/15/18 [History] Ferrous Sulfate [Feosol] 325 mg PO DAILY #30 tab 02/16/18 [Rx] Acetaminophen Tab [Tylenol] 500 mg PO DAILY PRN 06/12/18 [History] Ascorbic Acid [Vitamin C] 1,000 mg PO DAILY 06/12/18 [History] Carboxymethylcellulose Sodium [Refresh Tears] 1 drop BOTH EYES QID PRN 06/12/18 [History] Hydrocortisone [Cortef] 10 mg PO DAILY@1400 06/12/18 [History] Hydrocortisone [Cortef] 15 mg PO DAILY 06/12/18 [History] Krill/Om-3/Dha/Epa/Phospho/Ast [[place]-3 Krill Oil 300 mg Sfgl] 1 cap PO DAILY [History] Levothyroxine Sodium [Synthroid] 100 mcg PO AC-BRKFST 06/12/18 [History] Mirabegron [Myrbetriq] 25 mg PO HS 06/12/18 [History] Multivitamins, Thera [Multivitamin (formulary)] 1 tab PO DAILY 06/12/18 [History ] Testosterone Cypionate [Depo-Testosterone] 100 mg IM Q14D 06/12/18 [History] Ibuprofen [Motrin] 400 mg PO Q6HR PRN tab 06/13/18 [Rx] Promethazine HCl [Promethazine HCl Oral Elixir] 6.25 mg PO Q6HR PRN #280 ml 07/02 [Rx] ALPRAZolam [Xanax] 0.25 mg PO DAILY PRN #3 tab 06/17/18 [Rx] Azithromycin [Zithromax] 500 mg PO DAILY #5 tab 06/17/18 [Rx] Famotidine [Pepcid] 20 mg PO DAILY tab 06/17/18 [Rx] Follow up Appointment(s)/Referral(s): [facility], [NON-STAFF] - Maggie Joya MD [Primary Care Provider] - 1 Week (at [facility]) Discharge Disposition: TRANSFER TO SNF/ECF
[2018-06-17] MEDS ORDERED: HYDROCORTISONE 10 MG TAB PO SCH (21:00)
[2018-06-17] MEDS ORDERED: OSELTAMIVIR 60 MG/10 ML ORAL SYRINGE PO SCH (21:00)
[2018-06-17] MEDS: LATANOPROST 0.005% OPHTH DROPS 2.5 ML BTL BOTH EYES SCH (21:24)
[2018-06-17] MEDS: traZODone HCL 50 MG TAB PO SCH (21:24)
[2018-06-17] MEDS: PATIENT'S OWN (Mirabegron [Myrbetriq] 25 MG) PO SCH (21:25)
[2018-06-18] MEDS: LEVOTHYROXINE 100 MCG TAB PO SCH (06:30)
[2018-06-18 07:38] VITALS: BP 133/79; PULSE 65; RESP 16; TEMP 97.4
[2018-06-18] MEDS: AZITHROMYCIN 500 MG TAB PO SCH (09:21)
[2018-06-18] MEDS: MULTIVITAMINS, THERA 1 EACH TAB PO SCH (09:21)
[2018-06-18] MEDS: ASPIRIN 81 MG PO SCH (09:21)
[2018-06-18] MEDS: LISINOPRIL 10 MG TAB PO SCH (09:21)
[2018-06-18] MEDS: HEPARIN SODIUM,PORCINE 5,000 UNIT/ML 1 ML VIAL SQ SCH (09:21)
[2018-06-18] MEDS: FAMOTIDINE 20 MG TAB PO SCH (09:21)
[2018-06-18] MEDS: FERROUS SULFATE 325 MG TAB PO SCH (09:22)
[2018-06-18] MEDS: amLODIPine 5 MG TAB PO SCH (09:22)
[2018-06-18] MEDS: ASCORBIC ACID 500 MG TAB PO SCH (09:22)
[2018-06-18] MEDS: HYDROCORTISONE 10 MG TAB PO SCH (09:22)
[2018-06-18] MEDS: TAMSULOSIN 0.4 MG CAP.ER.24H PO SCH (09:22)
== END 2018-06-18 13:43 | DRG 195 ==
LOC: EC 13:43 → 4MS4W 15:53 → 4SSUR 16:11 → 4MS4W 18:19
PROVIDERS: ADMIT Internal Medicine; ATTEND Internal Medicine
DX: J10.00 Influenza due to other identified influenza virus with unspecified type of pneumonia (principal); D63.8 Anemia in other chronic diseases classified elsewhere; I11.9 Hypertensive heart disease without heart failure; E03.9 Hypothyroidism, unspecified; F41.1 Generalized anxiety disorder; G47.00 Insomnia, unspecified; I44.0 Atrioventricular block, first degree; I44.5 Left posterior fascicular block; K21.9 Gastro-esophageal reflux disease without esophagitis; N40.0 Benign prostatic hyperplasia without lower urinary tract symptoms; R62.7 Adult failure to thrive; E66.9 Obesity, unspecified; Z68.31 Body mass index [BMI] 31.0-31.9, adult; Z79.82 Long term (current) use of aspirin; Z79.899 Other long term (current) drug therapy; Z88.8 Allergy status to other drugs, medicaments and biological substances; Z90.49 Acquired absence of other specified parts of digestive tract; Z82.49 Family history of ischemic heart disease and other diseases of the circulatory system
CPT/HCPCS: 36415; 71046; 80053; 82550; 82553; 83605; 83735; 83880; 84484; 85025; 85610; 85730; 87040; 93005; 96365; 99285

== ENCOUNTER → 2018-07-11 | Outpatient (CLI) | payer MEDICARE, OTHER ==
--- NOTE | 2018-07-11 22:35 | MR ---
EXAMINATION TYPE: MR brain wo/w con DATE OF EXAM: 07/11/2018 COMPARISON: NONE HISTORY: Benign neoplasm pituitary gland per order. History of pituitary gland neoplasm removed 6 mon ths ago. TECHNIQUE: Multiplanar, multisequence images of the brain and brainstem is performed without and with IV contras t, utilizing 10 mL intravenous Gadavist . FINDINGS: Diffusion weighted images demonstrate no evidence of a recent infarct or other diffusion ab normality. There is no worrisome extra-axial fluid collection or significant white matter changes. T here is ventricular and sulcal prominence consistent with moderate diffuse cerebral atrophy. Midline structures demonstrate enhancement of the pituitary stalk extending just left of midline and coronal images. Somewhat empty sella appearance is seen after pituitary surgery. No obvious suspiciou s residual enhancing mass identified. Evaluation slightly suboptimal as dedicated pituitary imaging o r pituitary protocol is not performed. The craniocervical junction appears within normal limits. Post contrast images demonstrate no abnorm al enhancement. The dural venous sinuses appear patent. There is mild lobulated mucosal thickening in bilateral maxillary sinuses otherwise paranasal sinuses are fairly clear. The globes are intact bila terally. IMPRESSION: Suboptimal study without enhancing sellar mass clearly identified to suggest neoplastic r ecurrence.
== END ==
LOC: RADMRIMAIN 16:18
PROVIDERS: ATTEND Neurological Surgery
DX: D35.2 Benign neoplasm of pituitary gland (principal)
CPT/HCPCS: 70553; A9585

== ENCOUNTER → 2018-07-18 | Outpatient (CLI) | payer MEDICARE, OTHER ==
--- NOTE | 2018-07-18 12:49 | XR ---
EXAMINATION TYPE: XR shoulder complete RT DATE OF EXAM: 07/18/2018 CLINICAL HISTORY: Popping injury one week ago with pain. History of rotator cuff tears 30 years ago p er patient. TECHNIQUE: Three views of the right shoulder are obtained. COMPARISON: None. FINDINGS: Demineralization is present. There is no acute fracture/dislocation evident in the right s houlder. Moderate to severe narrowing at acromioclavicular joint is present. There is subchondral cys tic change superolateral humeral head. Glenohumeral joint is maintained. Soft tissue calcifications s uperior to humeral head could reflect product of calcific tendinitis or bursitis. The visualized ribs are intact and unremarkable. IMPRESSION: There is no acute fracture or dislocation in the right shoulder.
== END | disposition home or self-care (01) ==
LOC: RADXRMAIN 12:04
PROVIDERS: ATTEND Internal Medicine
DX: M25.511 Pain in right shoulder (principal)

== ENCOUNTER → 2018-11-12 | Outpatient (CLI) | payer MEDICARE, OTHER ==
--- NOTE | 2018-11-12 08:01 | MR ---
EXAMINATION TYPE: MR brain wo/w con DATE OF EXAM: 11/12/2018 7:49 AM COMPARISON: Previous study dated 07/11/2018. HISTORY: Benign neoplasm of pituitary gland, resection Jan 2018 TECHNIQUE: Multiplanar, multiecho imaging of the brain was obtained with and without intravenous adm inistration of 11 mL intravenous Gadavist. FINDINGS: The study is compromised by patient motion artifact. There are generalized changes of sulcal prominence and ventriculomegaly compatible with atrophic garrido ge. Echoplanar diffusion imaging is normal. There are normal vascular flow voids. The orbits appear unremarkable. There is no evidence of a CP angle mass lesion. The pituitary stalk is mildly deviated towards the left, unchanged from previous. No enhancing pituit jesusita mass is seen. There is mild, diffuse and occasional punctate FLAIR lesions in the deep white matter tracts of the c erebral hemispheres most compatible with a combination of small vessel disease and chronic ischemic c hange. There is no mass effect, midline shift or intracranial blood. IMPRESSION: SUBOPTIMAL EXAMINATION WITHOUT DEMONSTRATION OF A RECURRENT PITUITARY MASS.
== END | disposition home or self-care (01) ==
LOC: RADMRIMAIN 06:57
PROVIDERS: ATTEND Neurological Surgery
DX: D35.2 Benign neoplasm of pituitary gland (principal)
CPT/HCPCS: 70553; A9585

== ENCOUNTER 2018-12-11 15:03 | Emergency (ER) | payer MEDICARE, OTHER ==
[2018-12-11 15:11] VITALS: RESP 18
--- NOTE | 2018-12-11 16:41 | ED ---
General Adult HPI - General Chief complaint: Shortness of Breath Stated complaint: ROXANNE Time Seen by Provider: 12/11/18 15:57 Source: patient Mode of arrival: ambulatory Limitations: no limitations, physical limitation - History of Present Illness Initial comments: 83-year-old male presenting with shortness of breath that begins in the morning. Patient states this is been ongoing for 1 month. He notices the shortness of breath as soon as he awakes, it lasts for one hour, and is unaccompanied by any chest pain or anginal equivalents, and resolved spontaneously. He denies any cough or constitutional symptoms, history of [place], DVT/PE, active cancer, hormone use. He does admit to a pituitary tumor that was removed 6 months prior. He states he's been following closely with an tenter frame operator for chronic fatigue since that time. His last stress test was over 10 years prior. He denies any history of tobacco abuse, COPD, asthma. The patient admits to recent life stress. He states his spouse of over 20 years had a stroke that paralyzed her 10 years prior, and he is having trouble affording her home care. He's been trying to get them both into a care home, but nobody will take him with her because he is able to care for himself. States he is unable to afford transportation to see his if he does place her in a care home care home. He states he has been using multiple resources in [place], including an personal injury attorney to assist with this. He is concerned that his symptoms could be due to stress and anxiety related to this. - Related Data Home Medications Medication Instructions Recorded Confirmed amLODIPine BESYLATE [Norvasc] 5 mg PO DAILY 02/18/15 12/11/18 Aspirin EC [Ecotrin Low Dose] 81 mg PO DAILY 07/21/17 12/11/18 Lisinopril [Prinivil] 10 mg PO DAILY 02/15/18 12/11/18 traZODone HCL 50 mg PO HS 02/15/18 12/11/18 Ascorbic Acid [Vitamin C] 1,000 mg PO DAILY 06/12/18 12/11/18 Hydrocortisone [Cortef] 20 mg PO DAILY 06/12/18 12/11/18 Krill/Om-3/Dha/Epa/Phospho/Ast 1 cap PO DAILY 06/12/18 12/11/18 [[place]-3 Krill Oil 300 mg Sfgl] Multivitamins, Thera [Multivitamin 1 tab PO DAILY 06/12/18 12/11/18 (formulary)] Testosterone Cypionate 100 mg IM Q14D 06/12/18 12/11/18 [Depo-Testosterone] Mirabegron [Myrbetriq] 50 mg PO DAILY 12/11/18 12/11/18 metFORMIN HCL [Glucophage] 500 mg PO DAILY 12/11/18 12/11/18 Allergies Allergy/AdvReac Type Severity Reaction Status Date / Time Wysssmd-Oir-Etq Reductase Allergy Unknown Verified 12/11/18 16:46 Inhibitor Review of Systems ROS Statement: Those systems with pertinent positive or pertinent negative responses have been documented in the HPI. Review of Systems Constitutional: Denies fever, chills Eyes: Denies change in vision, Denies pain Ears, nose, mouth, throat: Denies headaches, Denies sore throat Cardiovascular: Denies chest pain. Denies palpitations Respiratory: Positive shortness of breath, Denies cough Gastrointestinal: Denies abdominal pain. Denies nausea, vomiting, diarrhea. Genitourinary: Denies hematuria, Denies infections Musculoskeletal: Denies pain, Denies swelling Integumentary: Denies rash Neurological: Denies headache, focal weakness, focal numbness Psychiatric: Denies anxiety, Denies depression Hematologic/Lymphatic: Denies easy bleeding or bruising ROS Other: All systems not noted in ROS Statement are negative. Past Medical History Past Medical History: GERD/Reflux, Hypertension, Osteoarthritis (OA), Thyroid Disorder Additional Past Medical History / Comment(s): glaucoma yelitza eyes, left rotator cuff torn, back pain History of Any Multi-Drug Resistant Organisms: None Reported Past Surgical History: Appendectomy, Cholecystectomy, Tonsillectomy Additional Past Surgical History / Comment(s): yelitza shoulder arthroscopy, eye sx for glaucoma. pt stated 2 weeks ago had a benign pituitary tumor removed at [facility]. Past Anesthesia/Blood Transfusion Reactions: No Reported Reaction Past Psychological History: No Psychological Hx Reported Smoking Status: Never smoker Past Alcohol Use History: None Reported Past Drug Use History: None Reported - Past Family History Mother Family Medical History: Congestive Heart Failure (CHF) Additional Family Medical History / Comment(s): age 95 Father Family Medical History: No Reported History Additional Family Medical History / Comment(s): " from old age at age 90 General Exam - General Exam Comments Initial Comments: General: Awake, alert, No acute Distress HENT: Normocephalic. Atraumatic Eyes: PERRL. EOMI. No scleral icterus. No injected conjunctiva Neck: Full ROM Chest/Lungs: Clear to auscultation bilaterally. No wheezing, rhonchi, or rales Cardiac: Regular rate, rhythm. No murmurs or rubs. No edema. No abdominal bruit. Abdomen/GI: Soft, nontender, nondistended. No rebound, guarding, or rigidity. Musculoskeletal: Full ROM Skin: Warm, dry, intact. Bruising to anterior aspect of right chest. Excoriation and healed abrasion to right lower extremity without erythema purulent drainage. Neurologic: A/Ox3, no weakness, no sensory deficit, no abnormal gait, no coordination deficit Limitations: no limitations, physical limitation Course Vital Signs 12/11/18 12/11/18 12/11/18 15:08 15:10 16:10 Temperature 97.8 F 97.9 F 98 F Pulse Rate 64 88 80 Respiratory 18 18 18 Rate Blood Pressure 123/61 132/78 132/76 O2 Sat by Pulse 96 99 98 Oximetry 12/11/18 17:17 Temperature 97.8 F Pulse Rate 88 Respiratory 18 Rate Blood Pressure 126/74 O2 Sat by Pulse 98 Oximetry EKG Findings - EKG Comments: EKG Findings:: EKG shows sinus rhythm with a first-degree AV block and a right bundle branch block. This is similar to an EKG from 06/15/2018. Rate 62 bpm, NJ interval 226 ms, QRS duration 144 ms, QT/QTc 436/442 ms. Medical Decision Making - Medical Decision Making 83-year-old male presenting with shortness of breath in the morning for 1 month. Initial exam the patient is awake, alert, no acute distress. VSS. He is currently asymptomatic. He shows sinus rhythm with first-degree AV block and right bundle branch block.No ST segment elevation, depression. No prolonged QT/QTc or NJ interval. No dysrythmia noted. His laboratory work appears unremarkable. His d-dimer is negative. The symptoms the patient are describing do not sound anginal in nature. He has not had the symptoms while he's been here. I discussed with the patient observation for stress testing in the morning versus discharge home. Patient states he would like to be discharged home and he will call his doctor in the morning for follow-up. The patient's imaging showed an ectatic aorta, however this is unchanged from previous imaging. Patient has equal pulses in his extremities and is not having any chest pain or abdominal pain. I do not feel his symptoms are aortic in nature. - Lab Data Result diagrams: 12/11/18 15:51 12/11/18 15:51 Lab Results 12/11/18 12/11/18 12/11/18 Range/Units 15:51 15:51 15:51 WBC 7.6 (3.8-10.6) k/uL RBC 4.77 (4.30-5.90) m/uL Hgb 14.4 (13.0-17.5) gm/dL Hct 42.7 (39.0-53.0) % MCV 89.5 (80.0-100.0) fL MCH 30.2 (25.0-35.0) pg MCHC 33.8 (31.0-37.0) g/dL RDW 15.9 H (11.5-15.5) % Plt Count 221 (150-450) k/uL Neutrophils % 65 % Lymphocytes % 21 % Monocytes % 8 % Eosinophils % 3 % Basophils % 1 % Neutrophils # 4.9 (1.3-7.7) k/uL Lymphocytes # 1.6 (1.0-4.8) k/uL Monocytes # 0.6 (0-1.0) k/uL Eosinophils # 0.2 (0-0.7) k/uL Basophils # 0.1 (0-0.2) k/uL D-Dimer 0.48 (<0.60) mg/L FEU Sodium 136 L (137-145) mmol/L Potassium 4.5 (3.5-5.1) mmol/L Chloride 101 (98-107) mmol/L Carbon Dioxide 24 (22-30) mmol/L Anion Gap 11 mmol/L BUN 19 (9-20) mg/dL Creatinine 1.08 (0.66-1.25) mg/dL Est GFR (CKD-EPI)AfAm 74 (>60 ml/min/1.73 sqM) Est GFR (CKD-EPI)NonAf 64 (>60 ml/min/1.73 sqM) Glucose 111 H (74-99) mg/dL Calcium 8.9 (8.4-10.2) mg/dL Magnesium 1.9 (1.6-2.3) mg/dL Total Bilirubin 0.7 (0.2-1.3) mg/dL Conjugated Bilirubin 0.0 (0.0-0.3) mg/dL Unconjugated Bilirubin 0.6 (0.0-1.1) mg/dL Delta Bilirubin 0.1 (0.0-0.2) mg/dL AST 47 (17-59) U/L ALT 33 (21-72) U/L Alkaline Phosphatase 53 (38-126) U/L Troponin I (0.000-0.034) ng/mL NT-Pro-B Natriuret Pep pg/mL Total Protein 7.3 (6.3-8.2) g/dL Albumin 4.2 (3.5-5.0) g/dL 12/11/18 12/11/18 Range/Units 15:51 15:51 WBC (3.8-10.6) k/uL RBC (4.30-5.90) m/uL Hgb (13.0-17.5) gm/dL Hct (39.0-53.0) % MCV (80.0-100.0) fL MCH (25.0-35.0) pg MCHC (31.0-37.0) g/dL RDW (11.5-15.5) % Plt Count (150-450) k/uL Neutrophils % % Lymphocytes % % Monocytes % % Eosinophils % % Basophils % % Neutrophils # (1.3-7.7) k/uL Lymphocytes # (1.0-4.8) k/uL Monocytes # (0-1.0) k/uL Eosinophils # (0-0.7) k/uL Basophils # (0-0.2) k/uL D-Dimer (<0.60) mg/L FEU Sodium (137-145) mmol/L Potassium (3.5-5.1) mmol/L Chloride (98-107) mmol/L Carbon Dioxide (22-30) mmol/L Anion Gap mmol/L BUN (9-20) mg/dL Creatinine (0.66-1.25) mg/dL Est GFR (CKD-EPI)AfAm (>60 ml/min/1.73 sqM) Est GFR (CKD-EPI)NonAf (>60 ml/min/1.73 sqM) Glucose (74-99) mg/dL Calcium (8.4-10.2) mg/dL Magnesium (1.6-2.3) mg/dL Total Bilirubin (0.2-1.3) mg/dL Conjugated Bilirubin (0.0-0.3) mg/dL Unconjugated Bilirubin (0.0-1.1) mg/dL Delta Bilirubin (0.0-0.2) mg/dL AST (17-59) U/L ALT (21-72) U/L Alkaline Phosphatase (38-126) U/L Troponin I <0.012 (0.000-0.034) ng/mL NT-Pro-B Natriuret Pep 97 pg/mL Total Protein (6.3-8.2) g/dL Albumin (3.5-5.0) g/dL Disposition Clinical Impression: Shortness of breath Disposition: HOME SELF-CARE Condition: Good Additional Instructions: Please see your doctor this week. Discuss a sleep study. Return if your symptoms worsen. Is patient prescribed a controlled substance at d/c from ED?: No Referrals: Maggie Joya MD [Primary Care Provider] - 1-2 days
[2018-12-11 17:04] LABS: Basophils # (A) 0.1 k/uL (0-0.2); Basophils % (A) 1 %; Eosinophils # (A) 0.2 k/uL (0-0.7); Eosinophils % (A) 3 %; HCT 42.7 % (39.0-53.0); HGB 14.4 gm/dL (13.0-17.5); Lymphocytes # (A) 1.6 k/uL (1.0-4.8); Lymphocytes % (A) 21 %; MCH 30.2 pg (25.0-35.0); MCHC 33.8 g/dL (31.0-37.0); MCV 89.5 fL (80.0-100.0); Mean Platelet Volume 8.9; Monocytes # (A) 0.6 k/uL (0-1.0); Monocytes % (A) 8 %; Neutrophils # (A) 4.9 k/uL (1.3-7.7); Neutrophils % (A) 65 %; Platelet Count 221 k/uL (150-450); RBC 4.77 m/uL (4.30-5.90); RDW 15.9 % (11.5-15.5); WBC 7.6 k/uL (3.8-10.6)
[2018-12-11 17:13] LABS: Albumin 4.2 g/dL (3.5-5.0); Bilirubin, Delta 0.1 mg/dL (0.0-0.2); Bilirubin,Unconjugated 0.6 mg/dL (0.0-1.1); Calcium 8.9 mg/dL (8.4-10.2); Magnesium 1.9 mg/dL (1.6-2.3); Potassium 4.5 mmol/L (3.5-5.1); Total Bilirubin 0.7 mg/dL (0.2-1.3); Total Protein 7.3 g/dL (6.3-8.2)
[2018-12-11 17:18] VITALS: TEMP 97.8
--- NOTE | 2018-12-11 17:47 | XR ---
EXAMINATION TYPE: XR chest 2V DATE OF EXAM: 12/11/2018 COMPARISON: 06/16/2018 HISTORY: 83-year-old male with chest pain TECHNIQUE: PA and lateral views FINDINGS: Rightward patient rotation ultrasound normal cardiac and mediastinal contours. Heart normal size. Melany ngation/ectasia of the thoracic aorta. Mild diffuse interstitial prominence and stable stringy atelec tasis at both lung bases. No consolidation or pleural effusion seen. IMPRESSION: Rotated exam. Chronic appearing changes without definite acute process.
[2018-12-11 18:50] VITALS: BP 149/75; PULSE 70
== END 2018-12-11 18:55 | disposition home or self-care (01) ==
LOC: EC 15:03
DX: R06.02 Shortness of breath (principal); I44.0 Atrioventricular block, first degree; I45.10 Unspecified right bundle-branch block; I77.819 Aortic ectasia, unspecified site; S20.211A Contusion of right front wall of thorax, initial encounter; I10 Essential (primary) hypertension; M19.90 Unspecified osteoarthritis, unspecified site; Z88.8 Allergy status to other drugs, medicaments and biological substances; Z79.52 Long term (current) use of systemic steroids; Z79.82 Long term (current) use of aspirin; Z79.84 Long term (current) use of oral hypoglycemic drugs; Z79.890 Hormone replacement therapy; Z79.899 Other long term (current) drug therapy; Z87.828 Personal history of other (healed) physical injury and trauma; Z86.39 Personal history of other endocrine, nutritional and metabolic disease; Z98.890 Other specified postprocedural states; X58.XXXA Exposure to other specified factors, initial encounter
CPT/HCPCS: 36415; 71046; 80048; 80076; 83735; 83880; 84484; 85025; 85379; 93005; 99285

== ENCOUNTER → 2019-03-06 | Outpatient (CLI) | payer MEDICARE, OTHER ==
--- NOTE | 2019-03-06 20:25 | MR ---
EXAMINATION TYPE: MR brain wo/w con DATE OF EXAM: 03/06/2019 COMPARISON: 07/11/2018 HISTORY: Benign neoplasm of pituitary gland, dizziness TECHNIQUE: Multiplanar, multisequence images of the brain and brainstem is performed without and with IV contras t, utilizing 10 mL intravenous Gadavist . FINDINGS: There is diffuse cerebral cortical atrophy. There is no mass effect nor midline shift. There is no si gn of intracranial hemorrhage. There is thinning of the corpus callosum. There is mild enlargement of the ventricles. There is mild increased signal in the subependymal white matter around the lateral ventricles probably related to pulsation phenomenon. There is no evidence of a cortical infarct. Ther e is mild mucosal thickening in the maxillary sinuses. There is no evidence of a mass of the sella tu rcica. I see no pathologic enhancement. There is normal contrast opacification of the venous sinuses. There is mucosal thickening in the sphenoid sinus. There is no pathologic enhancement. IMPRESSION: Cerebral atrophy. Mild hydrocephalus probably due to atrophy. No evidence of cortical inf arct. No evidence of pituitary mass. No adverse change compared to old exam. Maxillary and sphenoid sinusitis unchanged.
== END | disposition home or self-care (01) ==
LOC: RADMRIMAIN 16:38
PROVIDERS: ATTEND Neurological Surgery
DX: G31.9 Degenerative disease of nervous system, unspecified (principal); G91.9 Hydrocephalus, unspecified
CPT/HCPCS: 70553; A9585

== ENCOUNTER 2019-04-10 16:08 | Emergency (ER) | payer MEDICARE, OTHER ==
[2019-04-10 16:15] VITALS: TEMP 97.8
[2019-04-10] MEDS ORDERED: SODIUM CHLORIDE 0.9% 1,000 ML IV STA (17:00)
[2019-04-10 17:23] LABS: Amorphous Sediment,Urine Rare /hpf; Appearance,Urine Clear (Clear); Bilirubin,Urine Negative (Negative); Blood,Urine Trace (Negative); Color,Urine Yellow; Glucose,Urine (UA) Negative (Negative); Ketones,Urine Negative (Negative); Leukocyte Esterase,Urine Negative (Negative); Mucus,Urine Rare /hpf; Nitrite,Urine Negative (Negative); Protein,Urine Negative (Negative); RBC,Urine 3 /hpf (0-5); Specific Gravity,Urine 1.015 (1.001-1.035); Urobilinogen,Urine <2.0 mg/dL (<2.0)
[2019-04-10 17:25] LABS: Basophils # (A) 0.2 k/uL (0-0.2); Basophils % (A) 2 %; Eosinophils # (A) 0.2 k/uL (0-0.7); Eosinophils % (A) 3 %; HCT 47.2 % (39.0-53.0); HGB 16.5 gm/dL (13.0-17.5); Lymphocytes # (A) 2.3 k/uL (1.0-4.8); Lymphocytes % (A) 32 %; MCH 31.5 pg (25.0-35.0); MCHC 34.9 g/dL (31.0-37.0); MCV 90.4 fL (80.0-100.0); Mean Platelet Volume 5.8; Monocytes # (A) 0.6 k/uL (0-1.0); Monocytes % (A) 8 %; Neutrophils # (A) 3.6 k/uL (1.3-7.7); Neutrophils % (A) 50 %; Platelet Count 180 k/uL (150-450); RBC 5.22 m/uL (4.30-5.90); RDW 13.1 % (11.5-15.5); WBC 7.2 k/uL (3.8-10.6)
[2019-04-10 17:32] LABS: Albumin 4.2 g/dL (3.5-5.0); Calcium 9.2 mg/dL (8.4-10.2); Magnesium 1.8 mg/dL (1.6-2.3); Phosphorus 4.2 mg/dL (2.5-4.5); Total Protein 7.6 g/dL (6.3-8.2)
--- NOTE | 2019-04-10 17:37 | ED ---
Abdominal Pain HPI - General Chief Complaint: Abdominal Pain Stated Complaint: Abd.pain Time Seen by Provider: 04/10/19 16:12 Source: EMS, RN notes reviewed, old records reviewed Mode of arrival: EMS Limitations: no limitations - History of Present Illness Initial Comments: This is a 4-year-old male who presents today for evaluation regards to abdominal pain right lower quadrant abdominal pain. Patient states pain started last night and has continued today. He went to visit his and was speaking with nurses at staff and they told her to return to the ER to take both will likely causing his abdominal pain. Patient has no nausea vomiting diarrhea or fevers. Follow with her normal urination is normal. No prior surgical history. He states he does have tenderness to his right lower quadrant. No prior history of similar complaint MD Complaint: abdominal pain (Lower quadrant) -: days(s) Location: RLQ Radiation: RLQ Migration to: suprapubic Severity: moderate Severity scale (1-10): 7 Quality: aching Consistency: constant Improves With: eating Worsens With: nothing Associated Symptoms: denies other symptoms - Related Data Home Medications Medication Instructions Recorded Confirmed amLODIPine BESYLATE [Norvasc] 5 mg PO W/BRKFST 02/18/15 04/10/19 Aspirin EC [Ecotrin Low Dose] 81 mg PO HS 07/21/17 04/10/19 Lisinopril [Prinivil] 10 mg PO W/BRKFST 02/15/18 04/10/19 traZODone HCL 50 mg PO HS 02/15/18 04/10/19 Hydrocortisone [Cortef] 15 mg PO W/BRKFST 06/12/18 04/10/19 Krill/Om-3/Dha/Epa/Phospho/Ast 1 cap PO W/LUNCH 06/12/18 04/10/19 [Henderson-3 Krill Oil 300 mg Sfgl] Testosterone Cypionate 100 mg IM Q14D 06/12/18 04/10/19 [Depo-Testosterone] Mirabegron [Myrbetriq] 50 mg PO HS 12/11/18 04/10/19 metFORMIN HCL [Glucophage] 500 mg PO W/BRKFST 12/11/18 04/10/19 Ascorbic Acid [Vitamin C] 500 mg PO W/LUNCH 04/10/19 04/10/19 Ferrous Sulfate [Iron] 325 mg PO W/LUNCH 04/10/19 04/10/19 Hydrocortisone [Cortef] 5 mg PO DAILY@1600 04/10/19 04/10/19 Levothyroxine Sodium [Synthroid] 150 mcg PO W/BRKFST 04/10/19 04/10/19 Multivit-Min/FA/Lycopen/Lutein 1 tab PO W/LUNCH 04/10/19 04/10/19 [Centrum Silver Tablet] Allergies Allergy/AdvReac Type Severity Reaction Status Date / Time Vkwecio-Vcw-Yio Reductase Allergy Unknown Verified 04/10/19 16:37 Inhibitor Review of Systems ROS Statement: Those systems with pertinent positive or pertinent negative responses have been documented in the HPI. ROS Other: All systems not noted in ROS Statement are negative. Past Medical History Past Medical History: GERD/Reflux, Hypertension, Osteoarthritis (OA), Thyroid Disorder Additional Past Medical History / Comment(s): glaucoma yelitza eyes, left rotator cuff torn, back pain History of Any Multi-Drug Resistant Organisms: None Reported Past Surgical History: Appendectomy, Cholecystectomy, Tonsillectomy Additional Past Surgical History / Comment(s): yelitza shoulder arthroscopy, eye sx for glaucoma. pt stated 2 weeks ago had a benign pituitary tumor removed at [facility]. Past Anesthesia/Blood Transfusion Reactions: No Reported Reaction Past Psychological History: No Psychological Hx Reported Smoking Status: Never smoker Past Alcohol Use History: None Reported Past Drug Use History: None Reported - Past Family History Mother Family Medical History: Congestive Heart Failure (CHF) Additional Family Medical History / Comment(s): age 95 Father Family Medical History: No Reported History Additional Family Medical History / Comment(s): " from old age at age 90 General Exam Limitations: no limitations General appearance: alert, in no apparent distress Head exam: Present: atraumatic, normocephalic, normal inspection Eye exam: Present: normal appearance, PERRL, EOMI. Absent: scleral icterus, conjunctival injection, periorbital swelling ENT exam: Present: normal exam, mucous membranes moist Neck exam: Present: normal inspection. Absent: tenderness, meningismus, lymphadenopathy Respiratory exam: Present: normal lung sounds bilaterally. Absent: respiratory distress, wheezes, rales, rhonchi, stridor Cardiovascular Exam: Present: regular rate, normal rhythm, normal heart sounds. Absent: systolic murmur, diastolic murmur, rubs, gallop, clicks GI/Abdominal exam: Present: soft, tenderness (Right lower quadrant tenderness), normal bowel sounds. Absent: distended, guarding, rebound, rigid Extremities exam: Present: normal inspection, full ROM, normal capillary refill. Absent: tenderness, pedal edema, joint swelling, calf tenderness Back exam: Present: normal inspection Neurological exam: Present: alert, oriented X3, CN II-XII intact Psychiatric exam: Present: normal affect, normal mood Skin exam: Present: warm, dry, intact, normal color. Absent: rash Course Vital Signs 04/10/19 16:11 Temperature 97.8 F Pulse Rate 75 Respiratory 16 Rate Blood Pressure 158/61 O2 Sat by Pulse 96 Oximetry - Reevaluation(s) Reevaluation #1: 04/10/19 17:37 Medical records reviewed Reevaluation #2: 04/10/19 17:37 Pain control Reevaluation #3: 04/10/19 19:05 Patient not requiring anything for pain. Will be discharged home Medical Decision Making - Medical Decision Making Female patient will be discharged home, patient is nonspecific right lower quadrant abdominal pain labwork urine and CT are negative. - Lab Data Result diagrams: 04/10/19 17:10 04/10/19 17:10 Lab Results 04/10/19 04/10/19 04/10/19 Range/Units 17:10 17:10 17:10 WBC 7.2 (3.8-10.6) k/uL RBC 5.22 (4.30-5.90) m/uL Hgb 16.5 (13.0-17.5) gm/dL Hct 47.2 (39.0-53.0) % MCV 90.4 (80.0-100.0) fL MCH 31.5 (25.0-35.0) pg MCHC 34.9 (31.0-37.0) g/dL RDW 13.1 (11.5-15.5) % Plt Count 180 (150-450) k/uL Neutrophils % 50 % Lymphocytes % 32 % Monocytes % 8 % Eosinophils % 3 % Basophils % 2 % Neutrophils # 3.6 (1.3-7.7) k/uL Lymphocytes # 2.3 (1.0-4.8) k/uL Monocytes # 0.6 (0-1.0) k/uL Eosinophils # 0.2 (0-0.7) k/uL Basophils # 0.2 (0-0.2) k/uL Sodium 137 (137-145) mmol/L Potassium 4.6 (3.5-5.1) mmol/L Chloride 102 (98-107) mmol/L Carbon Dioxide 25 (22-30) mmol/L Anion Gap 10 mmol/L BUN 20 (9-20) mg/dL Creatinine 1.01 (0.66-1.25) mg/dL Est GFR (CKD-EPI)AfAm 79 (>60 ml/min/1.73 sqM) Est GFR (CKD-EPI)NonAf 69 (>60 ml/min/1.73 sqM) Glucose 100 H (74-99) mg/dL Plasma Lactic Acid Yosef 1.4 (0.7-2.0) mmol/L Calcium 9.2 (8.4-10.2) mg/dL Phosphorus 4.2 (2.5-4.5) mg/dL Magnesium 1.8 (1.6-2.3) mg/dL Total Bilirubin 1.0 (0.2-1.3) mg/dL AST 64 H (17-59) U/L ALT 60 (21-72) U/L Alkaline Phosphatase 69 (38-126) U/L Creatine Kinase 115 (55-170) U/L Total Protein 7.6 (6.3-8.2) g/dL Albumin 4.2 (3.5-5.0) g/dL Amylase 38 (30-110) U/L Lipase 35 (23-300) U/L Urine Color Urine Appearance (Clear) Urine pH (5.0-8.0) Ur Specific [place] (1.001-1.035) Urine Protein (Negative) Urine Glucose (UA) (Negative) Urine Ketones (Negative) Urine Blood (Negative) Urine Nitrite (Negative) Urine Bilirubin (Negative) Urine Urobilinogen (<2.0) mg/dL Ur Leukocyte Esterase (Negative) Urine RBC (0-5) /hpf Urine WBC (0-5) /hpf Amorphous Sediment (None) /hpf Urine Mucus (None) /hpf 04/10/19 Range/Units 17:10 WBC (3.8-10.6) k/uL RBC (4.30-5.90) m/uL Hgb (13.0-17.5) gm/dL Hct (39.0-53.0) % MCV (80.0-100.0) fL MCH (25.0-35.0) pg MCHC (31.0-37.0) g/dL RDW (11.5-15.5) % Plt Count (150-450) k/uL Neutrophils % % Lymphocytes % % Monocytes % % Eosinophils % % Basophils % % Neutrophils # (1.3-7.7) k/uL Lymphocytes # (1.0-4.8) k/uL Monocytes # (0-1.0) k/uL Eosinophils # (0-0.7) k/uL Basophils # (0-0.2) k/uL Sodium (137-145) mmol/L Potassium (3.5-5.1) mmol/L Chloride (98-107) mmol/L Carbon Dioxide (22-30) mmol/L Anion Gap mmol/L BUN (9-20) mg/dL Creatinine (0.66-1.25) mg/dL Est GFR (CKD-EPI)AfAm (>60 ml/min/1.73 sqM) Est GFR (CKD-EPI)NonAf (>60 ml/min/1.73 sqM) Glucose (74-99) mg/dL Plasma Lactic Acid Yosef (0.7-2.0) mmol/L Calcium (8.4-10.2) mg/dL Phosphorus (2.5-4.5) mg/dL Magnesium (1.6-2.3) mg/dL Total Bilirubin (0.2-1.3) mg/dL AST (17-59) U/L ALT (21-72) U/L Alkaline Phosphatase (38-126) U/L Creatine Kinase (55-170) U/L Total Protein (6.3-8.2) g/dL Albumin (3.5-5.0) g/dL Amylase (30-110) U/L Lipase (23-300) U/L Urine Color Yellow Urine Appearance Clear (Clear) Urine pH 6.0 (5.0-8.0) Ur Specific [place] 1.015 (1.001-1.035) Urine Protein Negative (Negative) Urine Glucose (UA) Negative (Negative) Urine Ketones Negative (Negative) Urine Blood Trace H (Negative) Urine Nitrite Negative (Negative) Urine Bilirubin Negative (Negative) Urine Urobilinogen <2.0 (<2.0) mg/dL Ur Leukocyte Esterase Negative (Negative) Urine RBC 3 (0-5) /hpf Urine WBC <1 (0-5) /hpf Amorphous Sediment Rare H (None) /hpf Urine Mucus Rare H (None) /hpf - Radiology Data Radiology results: report reviewed (CT head and pelvis negative for acute disease), image reviewed Disposition Clinical Impression: Abdominal pain Disposition: HOME SELF-CARE Condition: Good Instructions (If sedation given, give patient instructions): Abdominal Pain (ED) Is patient prescribed a controlled substance at d/c from ED?: No Referrals: Maggie Joya MD [Primary Care Provider] - 1-2 days
[2019-04-10 17:40] LABS: Potassium 4.6 mmol/L (3.5-5.1)
--- NOTE | 2019-04-10 18:27 | CT ---
EXAMINATION TYPE: CT abdomen pelvis w con DATE OF EXAM: 04/10/2019 COMPARISON: 08/03/2011 HISTORY: Right sided Mid to Pelvic pain. CT DLP: 2246.4 mGycm Automated exposure control for dose reduction was used. TECHNIQUE: Helical acquisition of images was performed from the lung bases through the pelvis. CONTRAST: Performed without Oral Contrast and with IV Contrast, patient injected with 100 mL of Isovue 300. FINDINGS: Lung bases are clear. There is no pleural effusion. Heart size is normal. There is no pericardial eff usion. Liver shows no focal defect. There are clips from cholecystectomy. Spleen is intact. There is no evidence of pancreatic mass. Exam limited slightly by motion. There is no adrenal mass. There is small hiatal hernia. Kidneys show satisfactory contrast opacificat ion. There is no hydronephrosis. Ureters are not dilated. There is no retroperitoneal adenopathy. Chadd dder distends smoothly. There is no intestinal wall thickening. There are no dilated loops. There is no sign of mesenteric edema. There is no ascites or free air. There is no inguinal hernia. There are some spondylotic changes in the lumbar spine. I see no bony de structive process. Bony pelvis is intact. Appendix is not definitely seen. There is no sign of thicke mone appendix. IMPRESSION: NEGATIVE CT SCAN ABDOMEN AND PELVIS. I DO NOT SEE A CAUSE FOR ABDOMINAL PAIN.
[2019-04-10 19:16] VITALS: BP 136/82; PULSE 77; RESP 18
== END 2019-04-10 19:16 | disposition home or self-care (01) ==
LOC: EC 16:08
DX: R10.31 Right lower quadrant pain (principal); I10 Essential (primary) hypertension; E07.9 Disorder of thyroid, unspecified; M19.90 Unspecified osteoarthritis, unspecified site; Z90.49 Acquired absence of other specified parts of digestive tract; Z79.82 Long term (current) use of aspirin; Z79.52 Long term (current) use of systemic steroids; Z79.890 Hormone replacement therapy; Z79.84 Long term (current) use of oral hypoglycemic drugs; Z79.899 Other long term (current) drug therapy; Z88.8 Allergy status to other drugs, medicaments and biological substances
CPT/HCPCS: 99285; 96360; 36415; 80053; 82150; 82550; 83605; 83690; 83735; 84100; 85025; 81001; 74177; Q9967

== ENCOUNTER → 2019-04-26 | Outpatient (CLI) | payer MEDICARE, OTHER ==
--- NOTE | 2019-04-26 15:34 | XR ---
EXAMINATION TYPE: XR knee complete bilateral DATE OF EXAM: 04/26/2019 CLINICAL HISTORY: Bilateral knee pain TECHNIQUE: Three views of the bilateral knees were obtained. COMPARISON: None. FINDINGS: There is no acute fracture/dislocation evident in either knee. The tri-compartment joint spaces appear aligned. Small medial compartment and patellofemoral compartment osteophytes are seen o n the right. Subcortical cyst is seen of the right medial tibial plateau. Very small osteophytes of t he medial and patellofemoral compartment are seen on the left. Patellofemoral compartment joint space narrowing bilaterally. Moderate atherosclerosis. Suspected small joint effusions bilaterally. The ov erlying soft tissue appears unremarkable. IMPRESSION: 1. No acute fracture or dislocation of either knee. 2. Mild bicompartmental arthropathy, right greater than left. 3. Suspected small bilateral joint effusions.
--- NOTE | 2019-04-26 15:45 | XR ---
EXAMINATION TYPE: XR lumbar spine 2 or 3V DATE OF EXAM: 04/26/2019 CLINICAL HISTORY: Low back pain for 2 days TECHNIQUE: Frontal and lateral images of the lumbar spine are obtained. COMPARISON: 12/07/2018 FINDINGS: There are 5 lumbar type vertebral bodies identified. The lumbar spine shows satisfactory alignment without evidence of acute fracture or dislocation. Vertebral body heights and disk space he ights are within normal limits. Multilevel facet arthropathy is seen of the lumbar spine throughout. The overlying soft tissue appears unremarkable. Advanced atherosclerosis of the abdominal aorta and its branches. IMPRESSION: No acute fracture or malalignment is seen in the lumbar spine. Moderate multilevel degen erative disc disease with multilevel facet arthropathy.
== END | disposition home or self-care (01) ==
LOC: RADXRMAIN 14:49
PROVIDERS: ATTEND Internal Medicine
DX: M51.36 Other intervertebral disc degeneration, lumbar region (principal); M46.96 Unspecified inflammatory spondylopathy, lumbar region; M17.0 Bilateral primary osteoarthritis of knee
CPT/HCPCS: 72100

== ENCOUNTER 2019-06-07 02:29 | Observation (INO) | payer MEDICARE, OTHER ==
[2019-06-07 03:15] LABS: Basophils # (A) 0.1 k/uL (0-0.2); Basophils % (A) 1 %; Eosinophils # (A) 0.8 k/uL (0-0.7); Eosinophils % (A) 6 %; HCT 49.3 % (39.0-53.0); HGB 17.2 gm/dL (13.0-17.5); Lymphocytes # (A) 2.7 k/uL (1.0-4.8); Lymphocytes % (A) 20 %; MCHC 34.8 g/dL (31.0-37.0); MCV 91.8 fL (80.0-100.0); Mean Platelet Volume 8.5; Monocytes # (A) 0.9 k/uL (0-1.0); Monocytes % (A) 6 %; Neutrophils # (A) 8.8 k/uL (1.3-7.7); Neutrophils % (A) 65 %; Platelet Count 236 k/uL (150-450); RBC 5.37 m/uL (4.30-5.90); WBC 13.5 k/uL (3.8-10.6)
--- NOTE | 2019-06-07 03:17 | XR ---
EXAMINATION TYPE: XR chest 2V DATE OF EXAM: 06/07/2019 COMPARISON: 12/11/2018 HISTORY: Chest pain TECHNIQUE: 2 views FINDINGS: There is no heart failure nor confluent pneumonic infiltrate. Costophrenic angles are clear . There are chest leads. IMPRESSION: No active cardiopulmonary disease. Minimal fibrotic changes. No adverse change compared t o old exam.
[2019-06-07 03:23] LABS: Albumin 4.8 g/dL (3.5-5.0); Calcium 9.9 mg/dL (8.4-10.2); Magnesium 1.9 mg/dL (1.6-2.3); Total Protein 8.7 g/dL (6.3-8.2)
[2019-06-07 03:39] LABS: Partial Thromboplastin Time 26.4 sec (22.0-30.0); Potassium 4.9 mmol/L (3.5-5.1)
--- NOTE | 2019-06-07 04:29 | ED ---
Chest Pain HPI - General Source: patient Mode of arrival: EMS Limitations: no limitations <Clayton Rodriguez - Last Filed: 06/07/19 04:24> <Susana Chinchilla - Last Filed: 06/07/19 23:01> - General Chief Complaint: Chest Pain Stated Complaint: Chest Pain Time Seen by Provider: 06/07/19 02:56 - History of Present Illness Initial Comments: patient is a 4-year-old male presenting to emergency Department with a chief complaint of chest pain. Patient reports he does get occasional chest pain that he is able to alleviate with amlodipine. He reports this time the amlodipine did not work. He reports substernal chest pain that is dull in nature without any radiation to the jaw or left upper extremity. Denies any dizziness, light headedness, headache or any episodes of diaphoresis. Denies any shortness breath or dyspnea. Patient states the pain is not reproducible with palpation. patient took aspirin prior to ED arrival. Patient does have hypertension and hyperlipidemia. (Clayton Rodriguez) - Related Data Home Medications Medication Instructions Recorded Confirmed amLODIPine BESYLATE [Norvasc] 5 mg PO W/BRKFST 02/18/15 06/07/19 Lisinopril [Prinivil] 10 mg PO HS 02/15/18 06/07/19 metFORMIN HCL [Glucophage] 500 mg PO W/BRKFST 12/11/18 06/07/19 Cetirizine HCl 10 mg PO DAILY 06/07/19 06/07/19 Fenofibrate Nanocrystallized 145 mg PO DAILY 06/07/19 06/07/19 [Fenofibrate] Latanoprost/Pf [Latanoprost 0.005% 1 drop BOTH EYES HS 06/07/19 06/07/19 Eye Drop] Loratadine 10 mg PO DAILY 06/07/19 06/07/19 Mirabegron [Myrbetriq] 25 mg PO HS 06/07/19 06/07/19 hydrOXYzine HCL 10 mg PO HS 06/07/19 06/07/19 Allergies Allergy/AdvReac Type Severity Reaction Status Date / Time Djuuebd-Fos-Xmf Reductase Allergy Unknown Verified 06/07/19 02:41 Inhibitor Review of Systems ROS Other: All systems not noted in ROS Statement are negative. <Clayton Rodriguez - Last Filed: 06/07/19 04:24> ROS Other: All systems not noted in ROS Statement are negative. <Susana Chinchilla - Last Filed: 06/07/19 23:01> ROS Statement: Those systems with pertinent positive or pertinent negative responses have been documented in the HPI. Past Medical History Past Medical History: GERD/Reflux, Hypertension, Osteoarthritis (OA), Thyroid Disorder Additional Past Medical History / Comment(s): glaucoma yelitza eyes, left rotator cuff torn, back pain History of Any Multi-Drug Resistant Organisms: None Reported Past Surgical History: Appendectomy, Cholecystectomy, Tonsillectomy Additional Past Surgical History / Comment(s): yelitza shoulder arthroscopy, eye sx for glaucoma. pt stated 2 weeks ago had a benign pituitary tumor removed at [facility]. Past Anesthesia/Blood Transfusion Reactions: No Reported Reaction Past Psychological History: No Psychological Hx Reported Smoking Status: Never smoker Past Alcohol Use History: None Reported Past Drug Use History: None Reported - Past Family History Mother Family Medical History: Congestive Heart Failure (CHF) Additional Family Medical History / Comment(s): age 95 Father Family Medical History: No Reported History Additional Family Medical History / Comment(s): " from old age at age 90 <Clayton Rodriguez - Last Filed: 06/07/19 04:24> General Exam Limitations: no limitations General appearance: alert, in no apparent distress, obese Head exam: Present: atraumatic, normocephalic, normal inspection Eye exam: Present: normal appearance, PERRL, EOMI Pupils: Present: normal accommodation ENT exam: Present: normal exam, mucous membranes moist Neck exam: Present: normal inspection Respiratory exam: Present: normal lung sounds bilaterally. Absent: chest wall tenderness Cardiovascular Exam: Present: regular rate, normal rhythm, normal heart sounds Extremities exam: Present: normal inspection, full ROM Back exam: Present: normal inspection, full ROM Neurological exam: Present: alert, oriented X3 Psychiatric exam: Present: normal affect, normal mood Skin exam: Present: warm, dry, intact, normal color <Clayton Rodriguez - Last Filed: 06/07/19 04:24> Course Vital Signs 06/07/19 06/07/19 06/07/19 02:39 03:03 05:42 Temperature 98.1 F Pulse Rate 92 82 80 Respiratory 20 18 18 Rate Blood Pressure 190/92 148/74 137/56 O2 Sat by Pulse 99 96 95 Oximetry Chest Pain MDM - Differential Diagnosis ACS <Clayton Rodriguez - Last Filed: 06/07/19 04:24> <Susana Chinchilla - Last Filed: 06/07/19 23:01> - MDM patient is a 4-year-old male presenting to emergency Department with a chief complaint of chest pain. On initial evaluation patient reports the pain typically comes on and off but he could not alleviated with amlodipine. There is no pain at this time. Patient is completely asymptomatic. He reports feeling much better after warm leg. Initial troponin is negative. EKG shows a right bundle-branch block. This appears to be similar to his most recent EKG. Chest x-ray unremarkable. Patient does have mild leukocytosis. Heart score of 5. She will be admitted for observation and serial troponins. Strict return parameters were thoroughly discussed the patient is a nursing agreeable. Case discussed with physician. (Clayton Rodriguez) I saw and evaluated the patient. I agree with plan for admission to the hospital for further evaluation by cardiology. Multiple attempts are made to contact the admitting team overnight with no success. Admission orders were placed, patient will be placed on the admitting team's patient list. (Susana Chinchilla) Disposition Is patient prescribed a controlled substance at d/c from ED?: No Time of Disposition: 04:29 <Clayton Rodriguez - Last Filed: 06/07/19 04:24> <Susana Chinchilla - Last Filed: 06/07/19 23:01> Clinical Impression: Chest pain Disposition: ADMITTED IP TO THIS HOSP Condition: Stable
[2019-06-07] MEDS ORDERED: NITROGLYCERIN SL TABS 0.4 MG TAB SUBLINGUAL PRN (04:47)
--- NOTE | 2019-06-07 12:34 | P.CRDCN ---
History of Present Illness Consult date: 06/07/19 History of present illness: This is a 74-year-old gentleman with history of hypertension, thyroid disorder, GERD and reflux disease and also osteoarthritis was admitted to the hospital for complaints of epigastric and lower sternal chest discomfort. He claims that he had this discomfort for several months. The most of the time these symptoms occur at night. Patient was taking amlodipine with relief of symptoms. Last night the symptoms did not go away after taking amlodipine. Patient finally came to the emergency room. This symptom is not associated with any nausea vomiting or sweating. No history of any previous myocardial infarction or cardiac disease. His EKG showed sinus rhythm with evidence of right bundle- branch block pattern and nonspecific ST-T changes. White count of 13,000. His electrolytes are within normal limits. The liver enzymes are mildly elevated. His chest pains could represent atypical angina. The possible Gallbladder disease to be considered because of abnormal liver enzymes. I'm going to schedule her legs scan stress test. He is also going to repeat liver enzymes and possibly ultrasound of the gallbladder. Further condition depend upon the findings on the about tests. Review of Systems As per the chart Past Medical History Past Medical History: GERD/Reflux, Hypertension, Osteoarthritis (OA), Thyroid Disorder Additional Past Medical History / Comment(s): glaucoma yelitza eyes, left rotator cuff torn, back pain History of Any Multi-Drug Resistant Organisms: None Reported Past Surgical History: Appendectomy, Cholecystectomy, Tonsillectomy Additional Past Surgical History / Comment(s): yelitza shoulder arthroscopy, eye sx for glaucoma. pt stated 2 weeks ago had a benign pituitary tumor removed at [facility]. Past Anesthesia/Blood Transfusion Reactions: No Reported Reaction Past Psychological History: No Psychological Hx Reported Smoking Status: Never smoker Past Alcohol Use History: None Reported Past Drug Use History: None Reported - Past Family History Mother Family Medical History: Congestive Heart Failure (CHF) Additional Family Medical History / Comment(s): age 95 Father Family Medical History: No Reported History Additional Family Medical History / Comment(s): " from old age at age 90 Medications and Allergies Home Medications Medication Instructions Recorded Confirmed Type amLODIPine BESYLATE [Norvasc] 5 mg PO W/BRKFST 02/18/15 06/07/19 History Lisinopril [Prinivil] 10 mg PO HS 02/15/18 06/07/19 History metFORMIN HCL [Glucophage] 500 mg PO W/BRKFST 12/11/18 06/07/19 History Cetirizine HCl 10 mg PO DAILY 06/07/19 06/07/19 History Fenofibrate Nanocrystallized 145 mg PO DAILY 06/07/19 06/07/19 History [Fenofibrate] Latanoprost/Pf [Latanoprost 0.005% 1 drop BOTH EYES HS 06/07/19 06/07/19 History Eye Drop] Loratadine 10 mg PO DAILY 06/07/19 06/07/19 History Mirabegron [Myrbetriq] 25 mg PO HS 06/07/19 06/07/19 History hydrOXYzine HCL 10 mg PO HS 06/07/19 06/07/19 History Allergies Allergy/AdvReac Type Severity Reaction Status Date / Time Adbjlue-Xbc-Kfi Reductase Allergy Unknown Verified 06/07/19 02:41 Inhibitor Physical Exam Vitals: Vital Signs Temp Pulse Pulse Resp BP BP Pulse Ox 06/07/19 07:15 97.7 F 74 16 139/67 94 L 06/07/19 06:49 98.3 F 82 16 131/64 94 L 06/07/19 05:42 80 18 137/56 95 06/07/19 03:03 82 18 148/74 96 06/07/19 02:39 98.1 F 92 20 190/92 99 Intake and Output 06/06/19 06/07/19 06/07/19 22:59 06:59 14:59 Intake Total 20 Balance 20 Intake: IV 20 Invasive Line 1 20 Other: Weight 113.398 kg GENERAL EXAM: Patient is alert and oriented and doesn't appear to be in any acute distress HEENT: Normocephalic. Normal reaction of pupils, equal size, normal range of extraocular motion. No erythema or exudates in the throat. NECK: No masses, no nuchal rigidity. CHEST: No chest wall deformity. LUNGS: Equal air entry with no crackles or wheeze. HEART: S1 and S2 normal with no audible mumurs or gallops. Regular rhythm, femorals equal on both sides.. ABDOMEN: No hepatosplenomegaly, normal bowel sounds, no guarding or rigidity. SKIN: No rashes CENTRAL NERVOUS SYSTEM: No focal deficits. EXTREMITIES: No cyanosis, clubbing or edema. Results 06/07/19 02:41 06/07/19 02:41 Cardiac Enzymes 06/07/19 06/07/19 12 Range/Units 02:41 02:41 08:16 AST 83 H (17-59) U/L Troponin I <0.012 0.012 (0.000-0.034) ng/mL Coagulation 06/07/19 Range/Units 02:41 PT 11.0 (9.0-12.0) sec APTT 26.4 (22.0-30.0) sec CBC 06/07/19 Range/Units 02:41 WBC 13.5 H (3.8-10.6) k/uL RBC 5.37 (4.30-5.90) m/uL Hgb 17.2 (13.0-17.5) gm/dL Hct 49.3 (39.0-53.0) % Plt Count 236 (150-450) k/uL Comprehensive Metabolic Panel 06/07/19 Range/Units 02:41 Sodium 138 (137-145) mmol/L Potassium 4.9 (3.5-5.1) mmol/L Chloride 100 (98-107) mmol/L Carbon Dioxide 26 (22-30) mmol/L BUN 22 H (9-20) mg/dL Creatinine 1.10 (0.66-1.25) mg/dL Glucose 127 H (74-99) mg/dL Calcium 9.9 (8.4-10.2) mg/dL AST 83 H (17-59) U/L ALT 85 H (4-49) U/L Alkaline Phosphatase 104 (38-126) U/L Total Protein 8.7 H (6.3-8.2) g/dL Albumin 4.8 (3.5-5.0) g/dL Current Medications Generic Name Dose Route Start Last Admin Trade Name Freq PRN Reason Stop Dose Admin Amlodipine Besylate 5 mg 06/07/19 12:15 Norvasc PO W/BRKFST NICOLE Aspirin 325 mg 06/08/19 09:00 Aspirin PO DAILY NICOLE Fenofibrate 160 mg 06/07/19 12:15 Lofibra PO DAILY NICOLE Hydroxyzine HCl 10 mg 06/07/19 21:00 Atarax PO HS NICOLE Latanoprost 1 drops 06/07/19 21:00 Xalatan 0.005% BOTH EYES HS NICOLE Lisinopril 10 mg 06/07/19 21:00 Zestril PO HS NICOLE Metformin HCl 500 mg 06/08/19 07:30 Glucophage PO W/BRKFST NICOLE Nitroglycerin 0.4 mg 06/07/19 04:47 Nitrostat SUBLINGUAL Q5M PRN Chest Pain Non-Formulary Medication 25 mg 06/07/19 21:00 Mirabegron [Myrbetriq] PO HS NICOLE Intake and Output 06/06/19 06/07/19 06/07/19 22:59 06:59 14:59 Intake Total 20 Balance 20 Intake: IV 20 Invasive Line 1 20 Other: Weight 113.398 kg 06/07/19 02:41 06/07/19 02:41 EKG Interpretations (text) Sinus rhythm with right bundle branch block Assessment and Plan (1) Essential hypertension Current Visit: Yes Status: Acute Code(s): I10 - ESSENTIAL (PRIMARY) HYPERTENSION SNOMED Code(s): 72054385 (2) Chest pain Current Visit: Yes Status: Acute Code(s): R07.9 - CHEST PAIN, UNSPECIFIED SNOMED Code(s): 81043889 (3) Diabetes mellitus Current Visit: Yes Status: Acute Code(s): E11.9 - TYPE 2 DIABETES MELLITUS WITHOUT COMPLICATIONS SNOMED Code(s): 04628220 (4) Abnormal liver enzymes Current Visit: Yes Status: Acute Code(s): R74.8 - ABNORMAL LEVELS OF OTHER SERUM ENZYMES SNOMED Code(s): 750903970 Plan: Will proceed with the Lexiscan stress test and echocardiogram. He will follow serial liver enzymes may consider ultrasound of the gallbladder. Further comminution depend upon the clinical course
[2019-06-07] MEDS ORDERED: REGADENOSON 0.4 MG/5 ML SYRINGE IV ONE (12:35)
[2019-06-07] MEDS: FENOFIBRATE 160 MG TAB PO SCH (12:49)
[2019-06-07] MEDS: amLODIPine 5 MG TAB PO SCH (12:49)
[2019-06-07 12:59] LABS: ALT 74 U/L (4-49); AST 70 U/L (17-59)
--- NOTE | 2019-06-07 14:01 | P.HPIM ---
History of Present Illness H&P Date: 06/07/19 Chief Complaint: Chest pain This 84-year-old male patient of Dr. Joya with past history of gastroesophageal reflux disease, hypertension, hypothyroidism, benign pituitary tumor removal in January at [facility]. Diabetes mellitus type 2, testicular hypofunction, hypothyroidism, chronic pruritus follows with Dr. Mario Talbert, and chronic hydrocortisone for adrenal insufficiency. He presents to the emergency room secondary to chest pain that woke him up from his sleep, located in central sternum region, without any regurgitation, patient denies any dyspepsia or odynophagia, no fever no cough no chills no pleurisy, normally amlodipine works for him, however this pain persisted requiring his visit to the emergency room. 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 Patient never smoked, no alcohol intake, patient does not have any bleeding ulcers or gastritis the past, Emergency room, WBC count of 13, creatinine 1.1, electrolytes normal, glucose 127 and PEEP proBNP normal, no lipases done, EKG shows normal sinus rhythm heart rate 88, right bundle, patient has mild transaminitis without elevation of alkaline phosphatase, consult with cardiology, serial troponins, lipase to be done, echocardiogram, most likely would need a Lexiscan stress test, an abdominal ultrasound. Pain was resolved on my evaluation today Review of Systems Constitutional: Reports as per HPI, Denies anorexia, Denies chills, Denies chronic headaches, Denies chronic pain, Denies daytime sleepiness, Denies fatigue, Denies fever, Denies lethargy, Denies malaise, Denies night sweats, Denies poor appetite, Denies sweats, Denies weakness, Denies weight gain, Denies weight loss Ears, nose, mouth and throat: Reports as per HPI, Denies ant. neck pain, Denies bleeding gums, Denies dental pain, Denies dysphagia, Denies epistaxis, Denies headache, Denies hoarseness, Denies mouth pain, Denies nasal congestion, Denies nasal discharge, Denies neck fullness/pressure, Denies neck lump, Denies nose pain, Denies odynophagia, Denies post-nasal drip, Denies sinus pain, Denies sinu s pressure, Denies swelling in mouth, Denies swelling in throat, Denies sore throat, Denies vertigo, Denies voice changes Cardiovascular: Reports as per HPI, Reports chest pain Respiratory: Reports as per HPI, Denies congestion, Denies cough, Denies cough with sputum, Denies dyspnea, Denies excessive sputum, Denies hemoptysis, Denies home oxygen, Denies pain, Denies pain on inspiration, Denies pleurisy, Denies respiratory infections, Denies sleep apnea, Denies snoring, Denies wheezing Genitourinary: Reports as per HPI, Denies difficulties fathering child, Denies discharge, Denies dysuria, Denies erectile dysfunction, Denies flank pain, Denies genital pain, Denies genital sores, Denies hematuria, Denies impotence, Denies incontinence, Denies kidney stones, Denies nocturia, Denies polyuria, Denies testicular lump, Denies testicular pain, Denies urinary frequency, Denies urinary hesitancy, Denies urinary retention Musculoskeletal: Reports as per HPI, Denies arm numbness/tingling, Denies a trophy, Denies fractures, Denies frequent falls, Denies gait dysfunction, Denies hot joints, Denies leg numbness/tingling, Denies limitation of motion, Denies loss of height, Denies low back pain, Denies morning stiffness, Denies muscle cramps, Denies muscle weakness, Denies myalgias, Denies neck pain, Denies neck stiffness, Denies prior amputations, Denies redness of joints, Denies shooting arm pain, Denies shooting leg pain Integumentary: Reports as per HPI, Reports lesions, Reports pruritus, Reports rash Neurological: Reports as per HPI Psychiatric: Reports as per HPI, Denies anhedonia, Denies anxiety, Denies anxie ty attacks, Denies change in appetite, Denies change in libido, Denies change in sleep habits, Denies confusion, Denies depression, Denies difficulty concentrating, Denies disorientation, Denies hallucinations, Denies hopelessness, Denies hypersomnia, Denies insomnia, Denies irritability, Denies memory loss, Denies mood swings, Denies paranoia, Denies sadness/tearfulness, Denies sleep disturbances, Denies suicidal ideation Endocrine: Reports as per HPI, Denies cold intolerance, Denies deepening of the voice, Denies excessive sweating, Denies excessive thirst, Denies fatigue, Denies flushing, Denies heat intolerance, Denies high blood sugars, Denies increase in ring/shoe/hat size, Denies low blood sugars, Denies nocturia, Denies palpitations, Denies polydipsia, Denies polyphagia, Denies polyuria, Denies proptosis, Denies recent glucocorticoid use, Denies thyroid mass, Denies weight change Hematologic/Lymphatic: Reports as per HPI, Denies easy bleeding, Denies easy bruising, Denies lymphadenopathy, Denies lymphedema, Denies thrombophilia Allergic/Immunologic: Reports as per HPI, Denies allergic rhinitis, Denies anaphylaxis, Denies angioedema, Denies gluten intolerance, Denies persistent infections, Denies seasonal allergies, Denies urticaria, Denies wheezing Past Medical History Past Medical History: GERD/Reflux, Hypertension, Osteoarthritis (OA), Thyroid Disorder Additional Past Medical History / Comment(s): glaucoma yelitza eyes, left rotator cuff torn, back pain History of Any Multi-Drug Resistant Organisms: None Reported Past Surgical History: Appendectomy, Cholecystectomy, Tonsillectomy Additional Past Surgical History / Comment(s): yelitza shoulder arthroscopy, eye sx for glaucoma. pt stated 2 weeks ago had a benign pituitary tumor removed at [facility]. Past Anesthesia/Blood Transfusion Reactions: No Reported Reaction Past Psychological History: No Psychological Hx Reported Smoking Status: Never smoker Past Alcohol Use History: None Reported Past Drug Use History: None Reported - Past Family History Mother Family Medical History: Congestive Heart Failure (CHF) Additional Family Medical History / Comment(s): age 95 Father Family Medical History: No Reported History Additional Family Medical History / Comment(s): " from old age at age 90 Medications and Allergies Home Medications Medication Instructions Recorded Confirmed Type amLODIPine BESYLATE [Norvasc] 5 mg PO W/BRKFST 02/18/15 06/07/19 History Lisinopril [Prinivil] 10 mg PO HS 02/15/18 06/07/19 History metFORMIN HCL [Glucophage] 500 mg PO W/BRKFST 12/11/18 06/07/19 History Cetirizine HCl 10 mg PO DAILY 06/07/19 06/07/19 History Fenofibrate Nanocrystallized 145 mg PO DAILY 06/07/19 06/07/19 History [Fenofibrate] Latanoprost/Pf [Latanoprost 0.005% 1 drop BOTH EYES HS 06/07/19 06/07/19 History Eye Drop] Loratadine 10 mg PO DAILY 06/07/19 06/07/19 History Mirabegron [Myrbetriq] 25 mg PO HS 06/07/19 06/07/19 History hydrOXYzine HCL 10 mg PO HS 06/07/19 06/07/19 History Allergies Allergy/AdvReac Type Severity Reaction Status Date / Time Ktvenci-Gze-Ngl Reductase Allergy Unknown Verified 06/07/19 02:41 Inhibitor Physical Exam Vitals: Vital Signs Temp Pulse Pulse Resp BP BP Pulse Ox 06/07/19 07:15 97.7 F 74 16 139/67 94 L 06/07/19 06:49 98.3 F 82 16 131/64 94 L 06/07/19 05:42 80 18 137/56 95 06/07/19 03:03 82 18 148/74 96 06/07/19 02:39 98.1 F 92 20 190/92 99 Intake and Output 06/06/19 06/07/19 06/07/19 22:59 06:59 14:59 Intake Total 20 Balance 20 Intake: IV 20 Invasive Line 1 20 Other: Weight 113.398 kg - Constitutional General appearance: cooperative, no acute distress - EENT Eyes: anicteric sclerae ENT: NA/AT, normal oropharynx - Neck Neck: normal ROM - Respiratory Respiratory: bilateral: CTA, negative: diminished, dullness, rhonchi - Cardiovascular Rhythm: regular Heart sounds: normal: S1, S2 Abnormal Heart Sounds: no systolic murmur, no diastolic murmur, no rub, no S3 Gallop, no S4 Gallop, no click, no other - Gastrointestinal General gastrointestinal: normal bowel sounds, soft - Integumentary Rash in the lower legs, slightly scaly, some follicular eruption, without any infection, not typical of scabies, no shingles rash Integumentary: normal - Neurologic Neurologic: CNII-XII intact - Musculoskeletal Musculoskeletal: gait normal - Psychiatric Psychiatric: A&O x's 3, appropriate affect, intact judgment & insight Results CBC & Chem 7: 06/07/19 02:41 06/07/19 02:41 Labs: Abnormal Lab Results - Last 24 Hours (Table) 06/07/19 06/07/19 Range/Units 02:41 02:41 WBC 13.5 H (3.8-10.6) k/uL Neutrophils # 8.8 H (1.3-7.7) k/uL Eosinophils # 0.8 H (0-0.7) k/uL BUN 22 H (9-20) mg/dL Glucose 127 H (74-99) mg/dL AST 83 H (17-59) U/L ALT 85 H (4-49) U/L Total Protein 8.7 H (6.3-8.2) g/dL Laboratory Results WBC 13.5 k/uL (3.8-10.6) H 06/07/19 02:41 RBC 5.37 m/uL (4.30-5.90) 06/07/19 02:41 Hgb 17.2 gm/dL (13.0-17.5) 06/07/19 02:41 Hct 49.3 % (39.0-53.0) 06/07/19 02:41 MCV 91.8 fL (80.0-100.0) 06/07/19 02:41 MCH 32.0 pg (25.0-35.0) 06/07/19 02:41 MCHC 34.8 g/dL (31.0-37.0) 06/07/19 02:41 RDW 14.0 % (11.5-15.5) 06/07/19 02:41 Plt Count 236 k/uL (150-450) 06/07/19 02:41 Neutrophils % 65 % 06/07/19 02:41 Lymphocytes % 20 % 06/07/19 02:41 Monocytes % 6 % 06/07/19 02:41 Eosinophils % 6 % 06/07/19 02:41 Basophils % 1 % 06/07/19 02:41 Neutrophils # 8.8 k/uL (1.3-7.7) H 06/07/19 02:41 Lymphocytes # 2.7 k/uL (1.0-4.8) 06/07/19 02:41 Monocytes # 0.9 k/uL (0-1.0) 06/07/19 02:41 Eosinophils # 0.8 k/uL (0-0.7) H 06/07/19 02:41 Basophils # 0.1 k/uL (0-0.2) 06/07/19 02:41 PT 11.0 sec (9.0-12.0) 06/07/19 02:41 INR 1.0 (<1.2) 06/07/19 02:41 APTT 26.4 sec (22.0-30.0) 06/07/19 02:41 Sodium 138 mmol/L (137-145) 06/07/19 02:41 Potassium 4.9 mmol/L (3.5-5.1) 06/07/19 02:41 Chloride 100 mmol/L (98-107) 06/07/19 02:41 Carbon Dioxide 26 mmol/L (22-30) 06/07/19 02:41 Anion Gap 12 mmol/L 06/07/19 02:41 BUN 22 mg/dL (9-20) H 06/07/19 02:41 Creatinine 1.10 mg/dL (0.66-1.25) 06/07/19 02:41 Est GFR (CKD-EPI)AfAm 72 (>60 ml/min/1.73 sqM) 06/07/19 02:41 Est GFR (CKD-EPI)NonAf 62 (>60 ml/min/1.73 sqM) 06/07/19 02:41 Glucose 127 mg/dL (74-99) H 06/07/19 02:41 Calcium 9.9 mg/dL (8.4-10.2) 06/07/19 02:41 Magnesium 1.9 mg/dL (1.6-2.3) 06/07/19 02:41 Total Bilirubin 1.0 mg/dL (0.2-1.3) 06/07/19 02:41 AST 70 U/L (17-59) H 06/07/19 08:16 ALT 74 U/L (4-49) H 06/07/19 08:16 Alkaline Phosphatase 104 U/L (38-126) 06/07/19 02:41 Troponin I 0.012 ng/mL (0.000-0.034) 06/07/19 08:16 Total Protein 8.7 g/dL (6.3-8.2) H 06/07/19 02:41 Albumin 4.8 g/dL (3.5-5.0) 06/07/19 02:41 Assessment and Plan Plan: 1. Atypical chest pain, resolved, no previous workup in the past for cardiovascular status, troponins are negative during this current admission, cardiology consultation, patient would need a stress test, lifestyle modification, add Zantac, might need EGD as an outpatient. Prior history of cholecystectomy 2. Mild transaminitis, could be related to Herman, hepatitis panel to be done, liver ultrasound, lipase to be obtained 3 Hypertension. Continue Norvasc 5 mg daily, lisinopril 10 mg daily. 4 Hypothyroidism. Continue levothyroxine 100 g daily. 5 History of pituitary tumor. Continue Cortef 15 mg daily and 10 mg at 2 PM. 6 Insomnia. Continue trazodone 50 mg at bedtime. 6. Benign prostatic hypertrophy. Continue Flomax 0.4 mg daily. 7. Generalized anxiety disorder. Continue Xanax as needed. 8. Anemia of chronic disease. Continue ferrous sulfate. 9Adrenal insufficiency on hydrocortisone 5 mg twice a day breakfast and lunch and 10 mg at dinner 10 Chronic pruritus, follows w/dermatology, obtain TSH level, rash not typical of scabies, add Pramosone cream, Zantac 150 twice a day continue on Zyrtec Dr. Stephens as op 9. DVT prophylaxis. Heparin subcu. 10. GI prophylaxis. Pepcid.
[2019-06-07] MEDS: PRAMOX-CALAMINE 1-8% LOTION 1 APPLIC/5 ML LOTION TOPICAL SCH ×2 (14:50→20:35)
[2019-06-07] MEDS: FAMOTIDINE 20 MG TAB PO SCH (14:50)
[2019-06-07] MEDS ORDERED: NON FORMULARY DRUG (Mirabegron [Myrbetriq] 25 MG) PO SCH (21:00)
[2019-06-07] MEDS ORDERED: LATANOPROST 0.005% OPHTH DROPS 2.5 ML BTL BOTH EYES SCH (21:00)
[2019-06-07] MEDS ORDERED: LISINOPRIL 10 MG TAB PO SCH (21:00)
[2019-06-07] MEDS ORDERED: hydrOXYzine HCL 10 MG TAB PO SCH (21:00)
[2019-06-08] MEDS: FAMOTIDINE 20 MG TAB PO SCH ×2 (00:13→13:12)
[2019-06-08 06:28] LABS: Glucose,Whole Blood 110 mg/dL (75-99)
[2019-06-08] MEDS ORDERED: metFORMIN 500 MG TAB PO SCH (07:30)
[2019-06-08] MEDS ORDERED: DIPYRIDAMOLE IV ONE (08:00)
[2019-06-08] MEDS ORDERED: CAFFEINE CITRATE 60 MG/3 ML VIAL IV PRN (08:00)
[2019-06-08] MEDS ORDERED: AMINOPHYLLINE 500 MG/20 ML VIAL IV PRN (08:00)
[2019-06-08] MEDS ORDERED: SODIUM CHLORIDE 0.9% IV ONE (08:00)
[2019-06-08] MEDS: PRAMOX-CALAMINE 1-8% LOTION 1 APPLIC/5 ML LOTION TOPICAL SCH (08:16)
[2019-06-08] MEDS ORDERED: ASPIRIN 325 MG TAB PO SCH (09:00)
--- NOTE | 2019-06-08 09:30 | US ---
EXAMINATION TYPE: US abdomen complete DATE OF EXAM: 06/08/2019 COMPARISON: Previous ultrasound 09/22/2012, CT 04/10/2019 CLINICAL HISTORY: elevated liver function test. Pruritis x 6 months per patient; gallbladder removed; on meds for B/P and chronic skin itching, etc. EXAM MEASUREMENTS: Liver Length: 14.3 cm Gallbladder Wall: surgically removed CBD: 0.7 cm Spleen: 12.4 cm Right Kidney: 11.2 x 5.2 x 5.3 cm Left Kidney: 12.7 x 7.4 x 6.1 cm Pancreas: hyperechoic Liver: overall heterogeneous, nodular borders with appearance of cirrhotic liver Gallbladder: surgically removed Evidence for sonographic Haynes's sign: no CBD: wnl Spleen: wnl Right Kidney: inferior pole cortical cyst = 0.8 x 0.9 x 0.8cm Left Kidney: No hydronephrosis or masses seen Upper IVC: wnl Abd Aorta: intimal thickening is noted mid aorta, size is wnl, distal aorta is gassed out There is no evident ascites. IMPRESSION: Postop changes. Correlate for possible cirrhosis, hepatocellular disease.
[2019-06-08 09:59] VITALS: TEMP 97.5
[2019-06-08] MEDS ORDERED: AMINOPHYLLINE 500 MG/20 ML VIAL IV ONE (12:05)
[2019-06-08 12:31] LABS: Hepatitis A Antibody IgM Non-Reactive (Non-Reactive); Hepatitis B Core IgM Non-Reactive (Non-Reactive); Hepatitis B Surface Antigen Non-Reactive (Non-Reactive); Hepatitis C IgG Antibody Non-Reactive (Non-Reactive)
[2019-06-08 13:46] VITALS: BP 110/53; PULSE 56; RESP 20
--- NOTE | 2019-06-08 14:05 | NM ---
EXAMINATION TYPE: NM stress persantine cardiolit DATE OF EXAM: 06/08/2019 COMPARISON: NONE HISTORY: Chest pain TECHNIQUE: After the intravenous administration of 10.59 mCi Tc 99m Sestamibi - Cardiolite resting S PECT images acquired 60 minutes post injection. The patient received 65 mg Persantine, 26.4 mCi Tc 99m Sestamibi - Stress images obtained 45 minutes post injection FINDINGS: Review of stress and rest SPECT images demonstrates no distinct perfusion abnormality. Gated analysi s shows question paradoxical apical wall motion with an estimated left ventricular ejection fraction of 68 %. IMPRESSION: No scintigraphic evidence for reversible ischemia. Consider echocardiographic correlation for elevate d ejection fraction and question paradoxical wall motion
[2019-06-08] MEDS: amLODIPine 5 MG TAB PO SCH (14:11)
[2019-06-08] MEDS: FENOFIBRATE 160 MG TAB PO SCH (14:12)
--- NOTE | 2019-06-08 15:09 | P.DS ---
Providers Date of admission: 06/07/19 05:56 Expected date of discharge: 06/08/19 Attending physician: Maggie Joya Consults: 06/07/19 04:47 Consult Physician Urgent Consulting Provider: Gilda Burger Consult Reason/Comments: chest pain Do you want consulting provider notified?: Yes Primary care physician: Maggie Joya [facility] Course: This 84-year-old male patient of Dr. Joya with past history of gastroesophageal reflux disease, hypertension, hypothyroidism, benign pituitary tumor removal in January at [facility]. Diabetes mellitus type 2, testicular hypofunction, hypothyroidism, chronic pruritus follows with Dr. Mario Talbert, and chronic hydrocortisone for adrenal insufficiency. He presents to the emergency room secondary to chest pain that woke him up from his sleep, located in central sternum region, without any regurgitation, patient denies any dyspepsia or odynophagia, no fever no cough no chills no pleurisy, normally amlodipine works for him, however this pain persisted requiring his visit to the emergency room. Patient does not follow up with any charcoal unloader, and no stress test studies for him. Patient never smoked, no alcohol intake, patient does not have any bleeding ulcers or gastritis the past, Emergency room, WBC count of 13, creatinine 1.1, electrolytes normal, glucose 127 and PEEP proBNP normal, no lipases done, EKG shows normal sinus rhythm heart rate 88, right bundle, patient has mild transaminitis without elevation of alkaline phosphatase, consult with cardiology, serial troponins, lipase to be done, echocardiogram, most likely would need a Lexiscan stress test, an abdominal ultrasound. Pain was resolved on my evaluation today 06/08, ultrasound shows absence of gallbladder, possible portal hypertension AAa 3.2 cm, patient without epigastric or chest pain, no dysphagia, has negative lexiscan stress test today, will set up with gi dr MADDEN OP for eval cirrhosis non alcohol induced, and pruritus, will continue on pramoxone, add zantac, cardiology ffup with dr Burger FINAL DIAGNOSIS Plan: 1. Atypical chest pain, resolved, no previous workup in the past for car diovascular status, troponins are negative during this current admission, cardiology consultation, patient would need a stress test, lifestyle modification, add Zantac, might need EGD as an outpatient. stress lexiscan negative for stress induced ischemia Prior history of cholecystectomy 2. Mild transaminitis, poss cirrhosis, could be related to Herman, hepatitis panel to be done, liver ultrasound, lipase. dietarary modification, has no alcohol exposure for years 3 Hypertension. Continue Norvasc 5 mg daily, lisinopril 10 mg daily. 4 Hypothyroidism. Continue levothyroxine 100 g daily. 5 History of pituitary tumor. Continue Cortef 15 mg daily and 10 mg at 2 PM. 6 Insomnia. Continue trazodone 50 mg at bedtime. 6. Benign prostatic hypertrophy. Continue Flomax 0.4 mg daily. 7. Generalized anxiety disorder. Continue Xanax as needed. 8. Anemia of chronic disease. Continue ferrous sulfate. 9Adrenal insufficiency on hydrocortisone 5 mg twice a day breakfast and lunch and 10 mg at dinner 10 Chronic pruritus, follows w/dermatology, obtain TSH level, rash not typical of scabies, add Pramosone cream, Zantac 150 twice a day continue on Zyrtec Dr. Stephens as op 9. DVT prophylaxis. Heparin subcu. 10. GI prophylaxis. Pepcid Discharge Medication List amLODIPine BESYLATE [Norvasc] 5 mg PO W/BRKFST 02/18/15 [History] Lisinopril [Prinivil] 10 mg PO HS 02/15/18 [History] metFORMIN HCL [Glucophage] 500 mg PO W/BRKFST 12/11/18 [History] Cetirizine HCl 10 mg PO DAILY 06/07/19 [History] Fenofibrate Nanocrystallized [Fenofibrate] 145 mg PO DAILY 06/07/19 [History] Latanoprost/Pf [Latanoprost 0.005% Eye Drop] 1 drop BOTH EYES HS 06/07/19 [History] Mirabegron [Myrbetriq] 25 mg PO HS 06/07/19 [History] hydrOXYzine HCL 10 mg PO HS 06/07/19 [History] Aspirin 325 mg PO DAILY tab 06/08/19 [Rx] Pramox-Calamine 1-8% Lotion [Caladryl] 1 applic TOPICAL TID #250 lotion 06/08/19 [Rx] Ranitidine HCl [Zantac] 150 mg PO AC-BID #60 tablet 06/08/19 [Rx] Patient Condition at Discharge: Stable Plan - Discharge Summary Discharge Rx Participant: No New Discharge Prescriptions: New Aspirin 325 mg PO DAILY tab Pramox-Calamine 1-8% Lotion [Caladryl] 1 applic TOPICAL TID #250 lotion Ranitidine HCl [Zantac] 150 mg PO AC-BID #60 tablet Continue amLODIPine BESYLATE [Norvasc] 5 mg PO W/BRKFST Lisinopril [Prinivil] 10 mg PO HS metFORMIN HCL [Glucophage] 500 mg PO W/BRKFST Mirabegron [Myrbetriq] 25 mg PO HS hydrOXYzine HCL 10 mg PO HS Latanoprost/Pf [Latanoprost 0.005% Eye Drop] 1 drop BOTH EYES HS Fenofibrate Nanocrystallized [Fenofibrate] 145 mg PO DAILY Cetirizine HCl 10 mg PO DAILY Discontinued Loratadine 10 mg PO DAILY Discharge Medication List amLODIPine BESYLATE [Norvasc] 5 mg PO W/BRKFST 02/18/15 [History] Lisinopril [Prinivil] 10 mg PO HS 02/15/18 [History] metFORMIN HCL [Glucophage] 500 mg PO W/BRKFST 12/11/18 [History] Cetirizine HCl 10 mg PO DAILY 06/07/19 [History] Fenofibrate Nanocrystallized [Fenofibrate] 145 mg PO DAILY 06/07/19 [History] Latanoprost/Pf [Latanoprost 0.005% Eye Drop] 1 drop BOTH EYES HS 06/07/19 [History] Mirabegron [Myrbetriq] 25 mg PO HS 06/07/19 [History] hydrOXYzine HCL 10 mg PO HS 06/07/19 [History] Aspirin 325 mg PO DAILY tab 06/08/19 [Rx] Pramox-Calamine 1-8% Lotion [Caladryl] 1 applic TOPICAL TID #250 lotion 06/08/19 [Rx] Ranitidine HCl [Zantac] 150 mg PO AC-BID #60 tablet 06/08/19 [Rx] Follow up Appointment(s)/Referral(s): [facility] [Provider Group] - 1 Week Maggie Joya MD [Primary Care Provider] - 1-2 days Patient Instructions/Handouts: Chest Pain (ED), Nuclear Stress Test (DC) Discharge Disposition: HOME SELF-CARE
--- NOTE | 2019-06-08 16:23 | P.PN ---
Subjective Progress Note Date: 06/08/19 Principal diagnosis: Chest pain This is a 83-year-old gentleman with history of hypertension who was admitted with complaints of chest pain. Had a Persantine stress test which did not reveal any inducible ischemia. Echocardiogram was normal. Ultrasound of the abdomen is normal. Patient is feeling better without any recurrence of chest pain. He is being discharged home. Follow-up as an outpatient Objective - Vital Signs Vital signs: Vital Signs Temp 97.5 F L 06/08/19 08:00 Pulse 56 L 06/08/19 13:44 Resp 20 06/08/19 13:44 BP 110/53 06/08/19 13:44 Pulse Ox 96 06/08/19 13:44 Intake & Output 06/07/19 06/08/19 06/08/19 18:59 06:59 18:59 Intake Total 450 20 0 Output Total 600 200 Balance -150 20 -200 Weight 111.5 kg 111.5 kg Intake: IV 50 20 Invasive Line 1 50 20 Oral 400 0 Output: Urine 600 200 Other: Voiding Method Urinal Urinal Urinal # Voids 3 1 2 - Exam GENERAL EXAM: Patient is alert and oriented and doesn't appear to be in any acute distress HEENT: Normocephalic. Normal reaction of pupils, equal size, normal range of extraocular motion. No erythema or exudates in the throat. NECK: No masses, no nuchal rigidity. CHEST: No chest wall deformity. LUNGS: Equal air entry with no crackles or wheeze. HEART: S1 and S2 normal with no audible mumurs or gallops. Regular rhythm, fe morals equal on both sides.. ABDOMEN: No hepatosplenomegaly, normal bowel sounds, no guarding or rigidity. SKIN: No rashes CENTRAL NERVOUS SYSTEM: No focal deficits. EXTREMITIES: No cyanosis, clubbing or edema. - Labs CBC & Chem 7: 06/07/19 02:41 06/07/19 02:41 Labs: Abnormal Lab Results - Last 24 Hours (Table) 06/08/19 Range/Units 06:26 POC Glucose (mg/dL) 110 H (75-99) mg/dL Assessment and Plan (1) Essential hypertension Status: Acute Code(s): I10 - ESSENTIAL (PRIMARY) HYPERTENSION SNOMED Code(s): 96774097 (2) Chest pain Status: Acute Code(s): R07.9 - CHEST PAIN, UNSPECIFIED SNOMED Code(s): 47100997 (3) Diabetes mellitus Status: Acute Code(s): E11.9 - TYPE 2 DIABETES MELLITUS WITHOUT COMPLICATIONS SNOMED Code(s): 31787294 (4) Abnormal liver enzymes Status: Acute Code(s): R74.8 - ABNORMAL LEVELS OF OTHER SERUM ENZYMES SNOMED Code(s): 529014226 Plan: Stress test is negative for ischemia. Echocardiogram is normal. Patient is being discharged home. Follow-up as an outpatient
--- NOTE | 2019-06-08 16:53 | ECHOF ---
Referral Reason:Chest pain and cardiomyopathy MEASUREMENTS -------- HEIGHT: 182.9 cm WEIGHT: 113.4 kg BP: 119/57 RVIDd: 3.8 cm (< 3.3) IVSd: 1.4 cm (0.6 - 1.1) LVIDd: 3.7 cm (3.9 - 5.3) LVPWd: 1.6 cm (0.6 - 1.1) IVSs: 1.5 cm LVIDs: 2.1 cm LVPWs: 1.8 cm Ao Diam: 3.5 cm (2.0 - 3.7) AV Cusp: 1.1 cm (1.5 - 2.6) LA Diam: 4.1 cm (2.7 - 3.8) MV EXCURSION: 21.388 mm (> 18.000) MV EF SLOPE: 61 mm/s (70 - 150) EPSS: 0.3 cm MV E David: 0.70 m/s MV DecT: 301 ms MV A David: 1.20 m/s MV E/A Ratio: 0.58 AV maxP.85 mmHg AV meanP.86 mmHg RAP: 5.00 mmHg RVSP: 23.57 mmHg FINDINGS -------- The left ventricular size is normal. There is mild concentric left ventricular hypertrophy. Overa ll left ventricular systolic function is low-normal with, an EF between 50 - 55 %. The right ventricle is mild to moderately enlarged. The left atrial size is normal. The right atrial size is normal. 5.0mg OF Lumason UTLIZED: 2 OR MORE WALL SEGMENTS NOT VISUALIZED. There is mild aortic stenosis present. Peak/mean gradient across the Aortic Valve is 20.85mmHg / 9. 86mmHg. Mild mitral annular calcification present. Mild mitral regurgitation is present. No regurgitation noted Right ventricular systolic pressure is normal at < 35 mmHg. There is mild pulmonary hypertension. There is no pulmonic regurgitation present. Echo free space represents a pericardial fat pad. CONCLUSIONS -------- 1. The left ventricular size is normal. 2. There is mild concentric left ventricular hypertrophy. 3. Overall left ventricular systolic function is low-normal with, an EF between 50 - 55 %. 4. The right ventricle is mild to moderately enlarged. 5. The left atrial size is normal. 6. The right atrial size is normal. 7. 5.0mg OF Lumason UTLIZED: 2 OR MORE WALL SEGMENTS NOT VISUALIZED. 8. There is mild aortic stenosis present. 9. Peak/mean gradient across the Aortic Valve is 20.85mmHg / 9.86mmHg. 10. Mild mitral annular calcification present. 11. Mild mitral regurgitation is present. 12. No regurgitation noted 13. Right ventricular systolic pressure is normal at < 35 mmHg. 14. There is mild pulmonary hypertension. 15. There is no pulmonic regurgitation present. 16. Echo free space represents a pericardial fat pad. CIGAR MAKER: Philomena Aranda RDCS
--- NOTE | 2019-06-09 21:53 | EST ---
EXERCISE STRESS AGE: 84 SEX: Male HT: 74" WT: 245 PROTOCOL: Persantine Cardiolite STAGE: DURATION OF EXERCISE: HEART RATE REST: 58 BLOOD PRESSURE REST: 130/49 MAXIMUM HEART RATE ACHIEVED: 67 MAXIMUM BLOOD PRESSURE: 130/49 85% MPHR: 116 100% MPHR: 137 METS: INDICATIONS: Chest pain. CLINICAL INFORMATION: Baseline rhythm is sinus mechanism, rate of 58, right bundle branch block, nonspecific ST-T wave changes. Baseline blood pressure 130/49 mmHg. Patient received an infusion of dipyridamole. Electrocardiograph monitoring revealed no evidence of diagnostic ischemic ST deviation. Cardiolite was injected per protocol. CONCLUSION: 1. Nondiagnostic electrocardiograph stress testing. 2. Nuclear images will be reported separately. MMODL / IJN: [id number] /
== END 2019-06-08 16:00 | disposition home or self-care (01) ==
LOC: EC 02:29 → 3SCARD 05:56
PROVIDERS: ADMIT Internal Medicine; ATTEND Internal Medicine
DX: R07.89 Other chest pain (principal); R74.0 Nonspecific elevation of levels of transaminase and lactic acid dehydrogenase [LDH]; R74.8 Abnormal levels of other serum enzymes; I10 Essential (primary) hypertension; E03.9 Hypothyroidism, unspecified; G47.00 Insomnia, unspecified; N40.0 Benign prostatic hyperplasia without lower urinary tract symptoms; F41.1 Generalized anxiety disorder; D63.8 Anemia in other chronic diseases classified elsewhere; E27.40 Unspecified adrenocortical insufficiency; L29.9 Pruritus, unspecified; I45.10 Unspecified right bundle-branch block; D72.829 Elevated white blood cell count, unspecified; E78.5 Hyperlipidemia, unspecified; K21.9 Gastro-esophageal reflux disease without esophagitis; M19.90 Unspecified osteoarthritis, unspecified site; E11.9 Type 2 diabetes mellitus without complications; E29.1 Testicular hypofunction; J84.10 Pulmonary fibrosis, unspecified; Z79.899 Other long term (current) drug therapy; Z79.84 Long term (current) use of oral hypoglycemic drugs; Z79.890 Hormone replacement therapy; Z88.8 Allergy status to other drugs, medicaments and biological substances; Z87.39 Personal history of other diseases of the musculoskeletal system and connective tissue; Z86.69 Personal history of other diseases of the nervous system and sense organs; Z90.49 Acquired absence of other specified parts of digestive tract; Z90.89 Acquired absence of other organs; Z82.49 Family history of ischemic heart disease and other diseases of the circulatory system; Z79.52 Long term (current) use of systemic steroids
CPT/HCPCS: 93005 ×3; 99285; 36415; 93017; 80061; 80053; 80074; 84443; 83690 ×2; 83735; 84450; 84460; 84484; 85025; 85610; 85730; 71046; 76700; 78452; G0378 ×2; C8929; A9500; J0280; J1245; Q9950; 93306

== ENCOUNTER 2019-07-31 04:01 | Emergency (ER) | payer MEDICARE, OTHER ==
[2019-07-31 04:13] VITALS: RESP 18
--- NOTE | 2019-07-31 04:54 | XR ---
EXAMINATION TYPE: XR chest 2V DATE OF EXAM: 07/31/2019 COMPARISON: 06/07/2019 HISTORY: Chest pain TECHNIQUE: FINDINGS: There is poor inspiration. There is no heart failure nor confluent pneumonic infiltrate. Th ere is widening of the left AC joint consistent with old injury. There is no evidence of pleural effu jennifer. Thoracic aorta is atheromatous. IMPRESSION: Point inspiration decreased compared to last exam. No heart failure.
[2019-07-31 05:36] LABS: ALT 90 U/L (4-49); AST 58 U/L (17-59); African American GFR (CKD) >90 (>60 ml/min/1.73 sqM); Albumin 3.5 g/dL (3.5-5.0); Alkaline Phosphatase 99 U/L (38-126); Anion Gap 5 mmol/L; Blood Urea Nitrogen 30 mg/dL (9-20); Calcium 8.6 mg/dL (8.4-10.2); Carbon Dioxide 27 mmol/L (22-30); Chloride 100 mmol/L (98-107); Glucose 109 mg/dL (74-99); Magnesium 2.1 mg/dL (1.6-2.3); Non-African American GFR(CKD) 79 (>60 ml/min/1.73 sqM); Potassium 4.6 mmol/L (3.5-5.1); Sodium 132 mmol/L (137-145); Total Bilirubin 0.6 mg/dL (0.2-1.3); Total Protein 6.4 g/dL (6.3-8.2)
[2019-07-31 05:44] LABS: INR 1.1 (<1.2); Partial Thromboplastin Time 22.7 sec (22.0-30.0)
[2019-07-31 05:46] LABS: Basophils % (A) 0 %; Eosinophils # (A) 0.2 k/uL (0-0.7); Eosinophils % (A) 3 %; HGB 15.2 gm/dL (13.0-17.5); Lymphocytes # (A) 1.8 k/uL (1.0-4.8); Lymphocytes % (A) 21 %; MCH 31.8 pg (25.0-35.0); MCHC 33.7 g/dL (31.0-37.0); MCV 94.2 fL (80.0-100.0); Monocytes # (A) 0.6 k/uL (0-1.0); Monocytes % (A) 8 %; Neutrophils # (A) 5.5 k/uL (1.3-7.7); Neutrophils % (A) 66 %; Platelet Count 221 k/uL (150-450); RBC 4.77 m/uL (4.30-5.90); RDW 13.9 % (11.5-15.5); WBC 8.3 k/uL (3.8-10.6)
--- NOTE | 2019-07-31 06:15 | ED ---
Chest Pain HPI - General Chief Complaint: Chest Pain Stated Complaint: Chest Pain Time Seen by Provider: 07/31/19 04:10 Source: patient, EMS Mode of arrival: EMS Limitations: no limitations - History of Present Illness Initial Comments: Adonis is an 84-year-old gentleman who presents the ER today via ambulance for evaluation of chest pain. Patient reports his woken tonight feeling of epigastric discomfort radiating to her chest, he took an extra dose of amlodipine with no improvement at which time he decided to call the ambulance for further evaluation. Patient was admitted on for chest pain, during his admission he underwent a cardiac stress test and echocardiogram with no acute findings. He was advised to follow-up outpatient with cardiology however he does not have a vehicle and he takes the bus everyday to visit his who is in a [place] [facility] therefore he has been unable to establish a follow-up visit. Patient reports he was told by his doctor that if he has chest pain he should take extra blood pressure medicine so he's been doing that for a month. Patient states that he gets chest pain almost every day a lot of night that wakes him up most the time he just aches and amlodipine he feels better. He doesn't know if the pain is associated with eating, pain tends to be burning in nature and epigastric. Not Associated with diaphoresis shortness of breath or lightheadedness. - Related Data Home Medications Medication Instructions Recorded Confirmed amLODIPine BESYLATE [Norvasc] 5 mg PO W/BRKFST 02/18/15 06/07/19 Lisinopril [Prinivil] 10 mg PO HS 02/15/18 06/07/19 metFORMIN HCL [Glucophage] 500 mg PO W/BRKFST 12/11/18 06/07/19 Cetirizine HCl 10 mg PO DAILY 06/07/19 06/07/19 Fenofibrate Nanocrystallized 145 mg PO DAILY 06/07/19 06/07/19 [Fenofibrate] Latanoprost/Pf [Latanoprost 0.005% 1 drop BOTH EYES HS 06/07/19 06/07/19 Eye Drop] Mirabegron [Myrbetriq] 25 mg PO HS 06/07/19 06/07/19 hydrOXYzine HCL 10 mg PO HS 06/07/19 06/07/19 Previous Rx's Medication Instructions Recorded Aspirin 325 mg PO DAILY tab 06/08/19 Pramox-Calamine 1-8% Lotion 1 applic TOPICAL TID #250 lotion 06/08/19 [Caladryl] Ranitidine HCl [Zantac] 150 mg PO AC-BID #60 tablet 06/08/19 Allergies Allergy/AdvReac Type Severity Reaction Status Date / Time Ulffnik-Euy-Lhj Reductase Allergy Unknown Verified 07/31/19 04:13 Inhibitor Review of Systems ROS Statement: Those systems with pertinent positive or pertinent negative responses have been documented in the HPI. ROS Other: All systems not noted in ROS Statement are negative. EKG Findings - EKG Comments: EKG Findings:: EKG was obtained due to complaint of chest pain, EKG was obtained at 4:10 AM, rate is 55 rhythm sinus bradycardia there is normal axis, right bundle-branch block, AZ 206, QRS 136, QTC [address] elevations or depressions no evidence of acute ischemia or infarction. Past Medical History Past Medical History: GERD/Reflux, Hypertension, Osteoarthritis (OA), Thyroid Disorder Additional Past Medical History / Comment(s): glaucoma yelitza eyes, left rotator cuff torn, back pain History of Any Multi-Drug Resistant Organisms: None Reported Past Surgical History: Appendectomy, Cholecystectomy, Tonsillectomy Additional Past Surgical History / Comment(s): yelitza shoulder arthroscopy, eye sx for glaucoma. pt stated 2 weeks ago had a benign pituitary tumor removed at [facility]. Past Anesthesia/Blood Transfusion Reactions: No Reported Reaction Past Psychological History: No Psychological Hx Reported Smoking Status: Never smoker Past Alcohol Use History: None Reported Past Drug Use History: None Reported - Past Family History Mother Family Medical History: Congestive Heart Failure (CHF) Additional Family Medical History / Comment(s): age 95 Father Family Medical History: No Reported History Additional Family Medical History / Comment(s): " from old age at age 90 General Exam - General Exam Comments Initial Comments: Physical Exam GENERAL: Patient is well-developed and well-nourished. Patient is nontoxic and well- hydrated and is in no distress. HENT: Normocephalic, Atraumatic. EYES: PERRL, EOMI PULMONARY: Unlabored respirations. No audible rales rhonchi or wheezing was noted. CARDIOVASCULAR: There is a regular rate and rhythm without any murmurs gallops or rubs. ABDOMEN: Soft and nontender with normal bowel sounds. SKIN: Skin is clear with no lesions or rashes and otherwise unremarkable. : Deferred NEUROLOGIC: Patient is alert and oriented x3. Moving all extremities spontaneously MUSCULOSKELETAL: Normal extremities with adequate strength and full range of motion. No lower extremity swelling or edema. No calf tenderness. PSYCHIATRIC: Normal psychiatric evaluation. Limitations: no limitations Course Vital Signs 07/31/19 07/31/19 04:09 05:36 Temperature 98.1 F Pulse Rate 58 L 54 L Respiratory 18 18 Rate Blood Pressure 151/76 122/69 O2 Sat by Pulse 98 95 Oximetry Chest Pain [facility] The patient was seen and evaluated history is obtained from patient is an 84-year-old gentleman with no known history of coronary artery disease, patient was admitted 6 weeks ago and had a full cardiac workup at that time there is no acute findings, patient's been experiencing nearly daily intermittent burning epigastric pain that he refers to his chest pain. This seems very atypical in nature. Upon arrival patient bradycardic, but pressure stable. EKG nonischemic Chest x-ray unremarkable Labs resulted with no acute abnormalities. Upon reevaluation patient is sleeping comfortably. I discussed with patient I do not think he should take extra amlodipine when he is feeling chest pain. He needs to follow up with cardiology. All questions pertaining care were answered return parameters were discussed at this time patient's comfortable plan for discharge home and outpatient follow-up. Disposition Clinical Impression: Atypical chest pain Disposition: HOME SELF-CARE Condition: Stable Additional Instructions: Contact [facility] office today to establish a follow-up visit Contact [facility] insurance to see if they can establish transport to and from your doctor's appointments Return to the emergency department for any worsening chest pain Follow-up with her primary care physician this week for reevaluation Take the amlodipine as prescribed, do not take extra when you're having chest pain Is patient prescribed a controlled substance at d/c from ED?: No Referrals: Maggie Joya MD [Primary Care Provider] - 1-2 days
[2019-07-31 09:02] VITALS: BP 126/73; PULSE 57; TEMP 98.3
== END 2019-07-31 09:08 | disposition home or self-care (01) ==
LOC: EC 04:01
DX: R07.89 Other chest pain (principal); R10.13 Epigastric pain; R00.1 Bradycardia, unspecified; I10 Essential (primary) hypertension; M19.90 Unspecified osteoarthritis, unspecified site; E07.9 Disorder of thyroid, unspecified; H40.9 Unspecified glaucoma; Z79.899 Other long term (current) drug therapy; Z88.8 Allergy status to other drugs, medicaments and biological substances; Z90.49 Acquired absence of other specified parts of digestive tract; Z82.49 Family history of ischemic heart disease and other diseases of the circulatory system
CPT/HCPCS: 36415; 71046; 80053; 83735; 84484; 85025; 85610; 85730; 93005; 99285

== ENCOUNTER 2019-11-07 13:08 | Emergency (ER) | payer MEDICARE, OTHER ==
[2019-11-07 13:14] VITALS: RESP 18
--- NOTE | 2019-11-07 13:15 | ED ---
General Adult HPI - General Stated complaint: Chest Pain Time Seen by Provider: 11/07/19 13:10 Source: patient, family, RN notes reviewed, old records reviewed - History of Present Illness Initial comments: 84-year-old male presenting with greater than 2 weeks of chest pain. Pain is substernal, intermittent described as a heaviness. Patient has no known history of CAD. He denies associated diaphoresis or vomiting. He's had some increase in fatigue over the past several weeks as well. No cough. No fever. He is a nonsmoker. He does report some bilateral lower extremity edema which is been present for many years. - Related Data Home Medications Medication Instructions Recorded Confirmed amLODIPine BESYLATE [Norvasc] 5 mg PO W/BRKFST 02/18/15 06/07/19 Lisinopril [Prinivil] 10 mg PO HS 02/15/18 06/07/19 metFORMIN HCL [Glucophage] 500 mg PO W/BRKFST 12/11/18 06/07/19 Cetirizine HCl 10 mg PO DAILY 06/07/19 06/07/19 Fenofibrate Nanocrystallized 145 mg PO DAILY 06/07/19 06/07/19 [Fenofibrate] Latanoprost/Pf [Latanoprost 0.005% 1 drop BOTH EYES HS 06/07/19 06/07/19 Eye Drop] Mirabegron [Myrbetriq] 25 mg PO HS 06/07/19 06/07/19 hydrOXYzine HCL 10 mg PO HS 06/07/19 06/07/19 Previous Rx's Medication Instructions Recorded Aspirin 325 mg PO DAILY tab 06/08/19 Pramox-Calamine 1-8% Lotion 1 applic TOPICAL TID #250 lotion 06/08/19 [Caladryl] Ranitidine HCl [Zantac] 150 mg PO AC-BID #60 tablet 06/08/19 Allergies Allergy/AdvReac Type Severity Reaction Status Date / Time Pfotllg-Cnp-Usm Reductase Allergy Unknown Verified 07/31/19 04:13 Inhibitor Review of Systems ROS Statement: Those systems with pertinent positive or pertinent negative responses have been documented in the HPI. ROS Other: All systems not noted in ROS Statement are negative. Past Medical History Past Medical History: GERD/Reflux, Hypertension, Osteoarthritis (OA), Thyroid Disorder Additional Past Medical History / Comment(s): glaucoma yelitza eyes, left rotator cuff torn, back pain History of Any Multi-Drug Resistant Organisms: None Reported Past Surgical History: Appendectomy, Cholecystectomy, Tonsillectomy Additional Past Surgical History / Comment(s): yelitza shoulder arthroscopy, eye sx for glaucoma. pt stated 2 weeks ago had a benign pituitary tumor removed at [facility]. Past Anesthesia/Blood Transfusion Reactions: No Reported Reaction Past Psychological History: No Psychological Hx Reported Smoking Status: Never smoker Past Alcohol Use History: None Reported Past Drug Use History: None Reported - Past Family History Mother Family Medical History: Congestive Heart Failure (CHF) Additional Family Medical History / Comment(s): age 95 Father Family Medical History: No Reported History Additional Family Medical History / Comment(s): " from old age at age 90 General Exam General appearance: alert, in no apparent distress Head exam: Present: atraumatic, normocephalic Eye exam: Present: normal appearance, PERRL ENT exam: Present: normal exam Neck exam: Present: normal inspection. Absent: tenderness, meningismus Respiratory exam: Present: normal lung sounds bilaterally. Absent: respiratory distress, wheezes Cardiovascular Exam: Present: regular rate. Absent: normal rhythm, bradycardia, tachycardia GI/Abdominal exam: Present: soft. Absent: distended, tenderness, guarding Extremities exam: Present: pedal edema Back exam: Present: normal inspection, full ROM Psychiatric exam: Present: normal affect, normal mood Skin exam: Present: warm, dry, intact. Absent: cyanosis, diaphoretic Course Vital Signs 11/07/19 13:10 Temperature 98.0 F Pulse Rate 70 Respiratory 18 Rate Blood Pressure 114/65 O2 Sat by Pulse 98 Oximetry EKG Findings - EKG Comments: EKG Findings:: EKG: Sinus rhythm with first-degree AV block, rightward axis, widened QRS with nonspecific intraventricular block, no ST segment elevation, T- wave inversion in V3, rate of 68, FL interval 216, QRS duration 1:30, QTC 425, similar compared to previous EKG. Medical Decision Making - Medical Decision Making 84-year-old male presenting with chest tightness over the past several weeks. No pain, no radiation, no vomiting or diaphoresis. EKG showing sinus rhythm with no ST segment elevation. Chest x-ray showing concern for pulmonary hypertension, no acute findings. He has a normal CBC, CMP showing hyperglycemia with no other acute abdomen on these. Negative troponin. I did prefer that this patient would stay for serial cardiac enzymes and cardiology consultation. He declines, he prefers outpatient follow-up. He will return with worsening or changing symptoms. Patient is aware of the risks and is eager for discharge. - Lab Data Result diagrams: 11/07/19 13:15 11/07/19 13:15 Lab Results 11/07/19 11/07/19 11/07/19 Range/Units 13:15 13:15 13:15 WBC 7.5 (3.8-10.6) k/uL RBC 4.55 (4.30-5.90) m/uL Hgb 14.1 (13.0-17.5) gm/dL Hct 43.6 (39.0-53.0) % MCV 96.0 (80.0-100.0) fL MCH 30.9 (25.0-35.0) pg MCHC 32.2 (31.0-37.0) g/dL RDW 12.8 (11.5-15.5) % Plt Count 225 (150-450) k/uL Neutrophils % 69 % Lymphocytes % 19 % Monocytes % 7 % Eosinophils % 2 % Basophils % 1 % Neutrophils # 5.1 (1.3-7.7) k/uL Lymphocytes # 1.5 (1.0-4.8) k/uL Monocytes # 0.5 (0-1.0) k/uL Eosinophils # 0.1 (0-0.7) k/uL Basophils # 0.1 (0-0.2) k/uL PT 11.0 (9.0-12.0) sec INR 1.1 (<1.2) APTT 23.5 (22.0-30.0) sec Sodium 133 L (137-145) mmol/L Potassium 4.5 (3.5-5.1) mmol/L Chloride 100 (98-107) mmol/L Carbon Dioxide 24 (22-30) mmol/L Anion Gap 9 mmol/L BUN 24 H (9-20) mg/dL Creatinine 0.88 (0.66-1.25) mg/dL Est GFR (CKD-EPI)AfAm >90 (>60 ml/min/1.73 sqM) Est GFR (CKD-EPI)NonAf 80 (>60 ml/min/1.73 sqM) Glucose 208 H (74-99) mg/dL Calcium 9.2 (8.4-10.2) mg/dL Magnesium 1.9 (1.6-2.3) mg/dL Total Bilirubin 0.5 (0.2-1.3) mg/dL AST 46 (17-59) U/L ALT 43 (4-49) U/L Alkaline Phosphatase 76 (38-126) U/L Troponin I (0.000-0.034) ng/mL NT-Pro-B Natriuret Pep pg/mL Total Protein 7.1 (6.3-8.2) g/dL Albumin 3.9 (3.5-5.0) g/dL 11/07/19 11/07/19 Range/Units 13:15 13:15 WBC (3.8-10.6) k/uL RBC (4.30-5.90) m/uL Hgb (13.0-17.5) gm/dL Hct (39.0-53.0) % MCV (80.0-100.0) fL MCH (25.0-35.0) pg MCHC (31.0-37.0) g/dL RDW (11.5-15.5) % Plt Count (150-450) k/uL Neutrophils % % Lymphocytes % % Monocytes % % Eosinophils % % Basophils % % Neutrophils # (1.3-7.7) k/uL Lymphocytes # (1.0-4.8) k/uL Monocytes # (0-1.0) k/uL Eosinophils # (0-0.7) k/uL Basophils # (0-0.2) k/uL PT (9.0-12.0) sec INR (<1.2) APTT (22.0-30.0) sec Sodium (137-145) mmol/L Potassium (3.5-5.1) mmol/L Chloride (98-107) mmol/L Carbon Dioxide (22-30) mmol/L Anion Gap mmol/L BUN (9-20) mg/dL Creatinine (0.66-1.25) mg/dL Est GFR (CKD-EPI)AfAm (>60 ml/min/1.73 sqM) Est GFR (CKD-EPI)NonAf (>60 ml/min/1.73 sqM) Glucose (74-99) mg/dL Calcium (8.4-10.2) mg/dL Magnesium (1.6-2.3) mg/dL Total Bilirubin (0.2-1.3) mg/dL AST (17-59) U/L ALT (4-49) U/L Alkaline Phosphatase (38-126) U/L Troponin I <0.012 (0.000-0.034) ng/mL NT-Pro-B Natriuret Pep 91 pg/mL Total Protein (6.3-8.2) g/dL Albumin (3.5-5.0) g/dL Disposition Clinical Impression: Chest pain Disposition: HOME SELF-CARE Condition: Fair Instructions (If sedation given, give patient instructions): Chest Pain (ED) Is patient prescribed a controlled substance at d/c from ED?: No Referrals: Maggie Joya MD [Primary Care Provider] - 1-2 days Time of Disposition: 14:49
[2019-11-07 13:41] LABS: Basophils # (A) 0.1 k/uL (0-0.2); Basophils % (A) 1 %; Eosinophils # (A) 0.1 k/uL (0-0.7); Eosinophils % (A) 2 %; HCT 43.6 % (39.0-53.0); HGB 14.1 gm/dL (13.0-17.5); Lymphocytes # (A) 1.5 k/uL (1.0-4.8); Lymphocytes % (A) 19 %; MCH 30.9 pg (25.0-35.0); MCHC 32.2 g/dL (31.0-37.0); Mean Platelet Volume 8.1; Monocytes # (A) 0.5 k/uL (0-1.0); Monocytes % (A) 7 %; Neutrophils # (A) 5.1 k/uL (1.3-7.7); Neutrophils % (A) 69 %; Platelet Count 225 k/uL (150-450); RBC 4.55 m/uL (4.30-5.90); RDW 12.8 % (11.5-15.5); WBC 7.5 k/uL (3.8-10.6)
[2019-11-07 13:43] LABS: ALT 43 U/L (4-49); AST 46 U/L (17-59); African American GFR (CKD) >90 (>60 ml/min/1.73 sqM); Albumin 3.9 g/dL (3.5-5.0); Alkaline Phosphatase 76 U/L (38-126); Anion Gap 9 mmol/L; Blood Urea Nitrogen 24 mg/dL (9-20); Calcium 9.2 mg/dL (8.4-10.2); Carbon Dioxide 24 mmol/L (22-30); Chloride 100 mmol/L (98-107); Glucose 208 mg/dL (74-99); Magnesium 1.9 mg/dL (1.6-2.3); Non-African American GFR(CKD) 80 (>60 ml/min/1.73 sqM); Potassium 4.5 mmol/L (3.5-5.1); Sodium 133 mmol/L (137-145); Total Bilirubin 0.5 mg/dL (0.2-1.3); Total Protein 7.1 g/dL (6.3-8.2)
[2019-11-07 13:46] LABS: INR 1.1 (<1.2); Partial Thromboplastin Time 23.5 sec (22.0-30.0)
--- NOTE | 2019-11-07 14:36 | XR ---
EXAMINATION TYPE: XR chest 2V DATE OF EXAM: 11/07/2019 COMPARISON: Prior chest 07/31/2019 HISTORY: Chest pain and shortness of breath TECHNIQUE: Frontal and lateral views of the chest are obtained. FINDINGS: There is no focal air space opacity, pleural effusion, or pneumothorax seen. The cardiac silhouette size is within normal limits. There are overlying cardiac leads and the patient is rotate d. Prominent pulmonary arteries are present. The osseous structures are intact. IMPRESSION: No acute cardiopulmonary process. Correlate for possible pulmonary artery hypertension.
[2019-11-07 15:01] VITALS: BP 120/87; PULSE 78; TEMP 98.7
== END 2019-11-07 15:01 | disposition home or self-care (01) ==
LOC: EC 13:08
DX: R07.89 Other chest pain (principal); R60.0 Localized edema; R73.9 Hyperglycemia, unspecified; I10 Essential (primary) hypertension; Z79.84 Long term (current) use of oral hypoglycemic drugs; Z79.899 Other long term (current) drug therapy; Z88.8 Allergy status to other drugs, medicaments and biological substances
CPT/HCPCS: 36415; 71046; 80053; 83735; 83880; 84484; 85025; 85610; 85730; 93005; 99285

== ENCOUNTER → 2020-03-09 | Outpatient (CLI) | payer MEDICARE, OTHER | END | disposition home or self-care (01) | LOC: RADMRIMAIN 13:42 | PROVIDERS: ATTEND Internal Medicine | DX: Z53.9 Procedure and treatment not carried out, unspecified reason (principal) ==

== ENCOUNTER 2020-06-03 14:37 | Emergency (ER) | payer MEDICARE, OTHER ==
[2020-06-03 14:51] VITALS: RESP 18
[2020-06-03] MEDS ORDERED: HYDROmorphone 1 MG/ML 1 ML SYRINGE IM STA (16:18)
[2020-06-03] MEDS ORDERED: ACET/COD 300 MG/30 MG STARTER PACK 6 TAB BTL PO STA (16:24)
--- NOTE | 2020-06-03 16:24 | ED ---
General Adult HPI - General Chief complaint: Extremity Injury, Upper Stated complaint: L Shoulder pain Time Seen by Provider: 06/03/20 15:04 Source: patient, RN notes reviewed Mode of arrival: ambulatory Limitations: no limitations - History of Present Illness Initial comments: Patient is a pleasant 85-year-old male presenting to the emergency Department with complaints of left shoulder pain. Patient has had chronic pain for years. Patient had surgery 14 years ago however that has never been right since then. Patient did have MRI done just over a month ago. Patient did see his orthopedic doctor as well as primary care physician. Primary care physician is attempting to get him into a new orthopedic doctor as patient is not currently happy with his orthopedic doctor. Patient states pain is not present at rest however severe with movement. No chest pain or dyspnea. No change in symptoms. No fever. No weakness. Patient does not take any medication for pain. - Related Data Home Medications Medication Instructions Recorded Confirmed amLODIPine BESYLATE [Norvasc] 5 mg PO W/BRKFST 02/18/15 06/07/19 Lisinopril [Prinivil] 10 mg PO HS 02/15/18 06/07/19 metFORMIN HCL [Glucophage] 500 mg PO W/BRKFST 12/11/18 06/07/19 Cetirizine HCl 10 mg PO DAILY 06/07/19 06/07/19 Fenofibrate Nanocrystallized 145 mg PO DAILY 06/07/19 06/07/19 [Fenofibrate] Latanoprost/Pf [Latanoprost 0.005% 1 drop BOTH EYES HS 06/07/19 06/07/19 Eye Drop] Mirabegron [Myrbetriq] 25 mg PO HS 06/07/19 06/07/19 hydrOXYzine HCL 10 mg PO HS 06/07/19 06/07/19 Previous Rx's Medication Instructions Recorded Aspirin 325 mg PO DAILY tab 06/08/19 Pramox-Calamine 1-8% Lotion 1 applic TOPICAL TID #250 lotion 06/08/19 [Caladryl] raNITIdine HCL [Zantac] 150 mg PO AC-BID #60 tablet 06/08/19 Allergies Allergy/AdvReac Type Severity Reaction Status Date / Time [place]-Bim-Ltu Reductase Allergy Unknown Verified 06/03/20 16:19 Inhibitor Review of Systems ROS Statement: Those systems with pertinent positive or pertinent negative responses have been documented in the HPI. ROS Other: All systems not noted in ROS Statement are negative. Constitutional: Denies: fever Eyes: Denies: eye pain ENT: Denies: ear pain Respiratory: Denies: cough, dyspnea Cardiovascular: Denies: chest pain Endocrine: Denies: fatigue Gastrointestinal: Denies: abdominal pain Genitourinary: Denies: dysuria Musculoskeletal: Reports: as per HPI, arthralgia. Denies: back pain Skin: Denies: rash Neurological: Denies: headache, weakness Past Medical History Past Medical History: GERD/Reflux, Hypertension, Osteoarthritis (OA), Thyroid Disorder Additional Past Medical History / Comment(s): glaucoma yelitza eyes, left rotator cuff torn, back pain History of Any Multi-Drug Resistant Organisms: None Reported Past Surgical History: Appendectomy, Cholecystectomy, Tonsillectomy Additional Past Surgical History / Comment(s): yelitza shoulder arthroscopy, eye sx for glaucoma. pt stated 2 weeks ago had a benign pituitary tumor removed at [facility]. Past Anesthesia/Blood Transfusion Reactions: No Reported Reaction Past Psychological History: No Psychological Hx Reported Smoking Status: Never smoker Past Alcohol Use History: None Reported Past Drug Use History: None Reported - Past Family History Mother Family Medical History: Congestive Heart Failure (CHF) Additional Family Medical History / Comment(s): age 95 Father Family Medical History: No Reported History Additional Family Medical History / Comment(s): " from old age at age 90 General Exam Limitations: no limitations General appearance: alert, in no apparent distress Head exam: Present: normocephalic Eye exam: Present: normal appearance Respiratory exam: Present: normal lung sounds bilaterally Cardiovascular Exam: Present: regular rate, normal rhythm GI/Abdominal exam: Present: soft. Absent: tenderness Extremities exam: Present: normal inspection, other (Pain with range of motion left shoulder. Distally the extremity is neurovascular intact. Cap refill less than 2 seconds. Radial pulse intact.). Absent: tenderness Neurological exam: Present: alert Psychiatric exam: Present: normal affect, normal mood Skin exam: Present: normal color Course Vital Signs 06/03/20 14:44 Temperature 98.0 F Pulse Rate 70 Respiratory 18 Rate Blood Pressure 132/63 O2 Sat by Pulse 90 L Oximetry Medical Decision Making - Medical Decision Making Repeat pulse ox 95% on room air. Discussion had with patient regarding pain control and discharge and patient is agreeable with this. Patient refuses x-ray and does not feel further workup is needed. Case was discussed with Dr. Joya who will follow up with patient tomorrow. Disposition Clinical Impression: Chronic left shoulder pain Disposition: HOME SELF-CARE Condition: Stable Instructions (If sedation given, give patient instructions): Shoulder Pain (ED) Additional Instructions: Please follow-up with Dr. Joya tomorrow, he is expecting you. Call first. Return for difficulty breathing, chest pain, weakness, worsening or changing symptoms or other concerns. Is patient prescribed a controlled substance at d/c from ED?: No Referrals: Maggie Joya MD [Primary Care Provider] - 1-2 days Time of Disposition: 16:24
[2020-06-03 17:16] VITALS: BP 132/88; PULSE 76; TEMP 98.1
== END 2020-06-03 19:00 | disposition home or self-care (01) ==
LOC: EC 14:37
DX: G89.29 Other chronic pain (principal); M25.512 Pain in left shoulder; I10 Essential (primary) hypertension; H40.9 Unspecified glaucoma; M54.9 Dorsalgia, unspecified; Z79.899 Other long term (current) drug therapy; Z79.84 Long term (current) use of oral hypoglycemic drugs; Z88.8 Allergy status to other drugs, medicaments and biological substances
CPT/HCPCS: 99283 ×2; 96372 ×2; J1170

== ENCOUNTER 2020-10-22 06:32 | Observation (INO) | payer MEDICARE, OTHER ==
[2020-10-22] MEDS ORDERED: ASPIRIN 81 MG PO STA (07:07)
--- NOTE | 2020-10-22 07:11 | ED ---
General Adult HPI - General Chief complaint: Chest Pain Stated complaint: Chest Pain Time Seen by Provider: 10/22/20 06:34 Source: EMS Mode of arrival: EMS Limitations: no limitations - History of Present Illness Initial comments: 85-year-old male presents to the emergency room for a chief complaint of chest pain. Patient reports that he has had chest pain for the past 3 weeks on and off. Patient states today he had the pain again. It was a sharp pain in the center of his chest. It lasted for approximately 2-3 minutes before resolving. No shortness of breath. No associated nausea. No radiating pain. Patient did see a account liaison a few weeks ago for this but has not had a chance to follow back up.Patient has no other complaints at this time including shortness of breath, abdominal pain, nausea or vomiting, headache, or visual changes. - Related Data Home Medications Medication Instructions Recorded Confirmed Lisinopril [Prinivil] 10 mg PO HS 02/15/18 10/22/20 metFORMIN HCL [Glucophage] 500 mg PO DAILY@0800 12/11/18 10/22/20 ALPRAZolam [Xanax] 0.25 mg PO TID PRN 06/03/20 10/22/20 Ferrous Sulfate [Feosol] 325 mg PO DAILY@1700 06/03/20 10/22/20 Finasteride [Proscar] 5 mg PO HS 06/03/20 10/22/20 Hydrocortisone [Cortef] 10 mg PO DAILY@1700 06/03/20 10/22/20 Levothyroxine Sodium 150 mcg PO DAILY@0800 06/03/20 10/22/20 Acetaminophen Tab [Tylenol] 650 mg PO Q4H PRN 10/22/20 10/22/20 Chlorhexidine Gluconate [Peridex] 15 ml PO BID@0800,1700 10/22/20 10/22/20 HYDROcodone/APAP 5-325MG [[place] 1 tab PO Q4H PRN 10/22/20 10/22/20 5-325] Midodrine [ProAmatine] 5 mg PO BID PRN 10/22/20 10/22/20 Mometasone Furoate [[place]] 1 applic TOPICAL DAILY 10/22/20 10/22/20 Na Phos,M-B/Na Phos,Di-Ba [[place] 133 ml RECTAL DAILY PRN 10/22/20 10/22/20 Adult] Tamsulosin [Flomax] 0.4 mg PO HS 10/22/20 10/22/20 Allergies Allergy/AdvReac Type Severity Reaction Status Date / Time Sjkwzlr-Eoq-Tiw Reductase Allergy Unknown Verified 06/03/20 16:19 Inhibitor Review of Systems ROS Statement: Those systems with pertinent positive or pertinent negative responses have been documented in the HPI. ROS Other: All systems not noted in ROS Statement are negative. Past Medical History Past Medical History: GERD/Reflux, Hypertension, Osteoarthritis (OA), Thyroid Disorder Additional Past Medical History / Comment(s): glaucoma yelitza eyes, left rotator cuff torn, back pain History of Any Multi-Drug Resistant Organisms: None Reported Past Surgical History: Appendectomy, Cholecystectomy, Orthopedic Surgery, Tonsillectomy Additional Past Surgical History / Comment(s): yelitza shoulder arthroscopy, eye sx for glaucoma. pt stated 2 weeks ago had a benign pituitary tumor removed at [facility]. Past Anesthesia/Blood Transfusion Reactions: No Reported Reaction Past Psychological History: No Psychological Hx Reported Smoking Status: Never smoker Past Alcohol Use History: None Reported Past Drug Use History: None Reported - Past Family History Mother Family Medical History: Congestive Heart Failure (CHF) Additional Family Medical History / Comment(s): age 95 Father Family Medical History: No Reported History Additional Family Medical History / Comment(s): " from old age at age 90 General Exam Limitations: no limitations General appearance: alert, in no apparent distress Head exam: Present: atraumatic Eye exam: Present: normal appearance, PERRL, EOMI. Absent: scleral icterus, conjunctival injection, periorbital swelling ENT exam: Present: normal exam, mucous membranes moist Neck exam: Present: normal inspection, full ROM. Absent: tenderness, meningismus, lymphadenopathy Respiratory exam: Present: normal lung sounds bilaterally. Absent: respiratory distress, wheezes, rales, rhonchi, stridor Cardiovascular Exam: Present: regular rate, normal rhythm, normal heart sounds. Absent: systolic murmur, diastolic murmur, rubs, gallop, clicks GI/Abdominal exam: Present: soft, normal bowel sounds. Absent: distended, tenderness, guarding, rebound, rigid Neurological exam: Present: alert Course Vital Signs 10/22/20 10/22/20 06:33 07:46 Temperature 97.6 F 98 F Pulse Rate 62 72 Respiratory 18 18 Rate Blood Pressure 164/86 156/75 O2 Sat by Pulse 97 94 L Oximetry EKG Findings - EKG Comments: EKG Findings:: Normal sinus rhythm, ventricular rate 60, MS interval 226, QTc is 454 Medical Decision Making - Medical Decision Making Vitals are stable. Patient is well-appearing. He is pain-free at this time. CBC CMP unremarkable. Minimal transaminitis is chronic appearing. Troponin is negative. EKG was compared to previous EKG from 2019 which is similar in nature. Coronavirus is negative. Chest x-ray shows no acute process. Patient has been following with cardiology for this pain. Pt will be admitted for cardiology consultation, turning troponin, chest pain rule out. - Lab Data Result diagrams: 10/22/20 07:10 10/22/20 07:10 Lab Results 10/22/20 10/22/20 10/22/20 Range/Units 07:10 07:10 07:10 WBC 5.9 (3.8-10.6) k/uL RBC 5.40 (4.30-5.90) m/uL Hgb 16.7 (13.0-17.5) gm/dL Hct 49.1 (39.0-53.0) % MCV 90.8 (80.0-100.0) fL MCH 30.9 (25.0-35.0) pg MCHC 34.0 (31.0-37.0) g/dL RDW 14.0 (11.5-15.5) % Plt Count 193 (150-450) k/uL MPV 8.3 Neutrophils % 46 % Lymphocytes % 35 % Monocytes % 9 % Eosinophils % 6 % Basophils % 2 % Neutrophils # 2.7 (1.3-7.7) k/uL Lymphocytes # 2.1 (1.0-4.8) k/uL Monocytes # 0.5 (0-1.0) k/uL Eosinophils # 0.3 (0-0.7) k/uL Basophils # 0.1 (0-0.2) k/uL PT 10.6 (9.0-12.0) sec INR 1.0 (<1.2) APTT 21.8 L (22.0-30.0) sec Sodium 138 (137-145) mmol/L Potassium 4.4 (3.5-5.1) mmol/L Chloride 102 (98-107) mmol/L Carbon Dioxide 27 (22-30) mmol/L Anion Gap 9 mmol/L BUN 20 (9-20) mg/dL Creatinine 0.75 (0.66-1.25) mg/dL Est GFR (CKD-EPI)AfAm >90 (>60 ml/min/1.73 sqM) Est GFR (CKD-EPI)NonAf 84 (>60 ml/min/1.73 sqM) Glucose 100 H (74-99) mg/dL Calcium 9.2 (8.4-10.2) mg/dL Magnesium 2.0 (1.6-2.3) mg/dL Total Bilirubin 0.6 (0.2-1.3) mg/dL AST 53 (17-59) U/L ALT 65 H (4-49) U/L Alkaline Phosphatase 133 H (38-126) U/L Troponin I (0.000-0.034) ng/mL NT-Pro-B Natriuret Pep pg/mL Total Protein 7.5 (6.3-8.2) g/dL Albumin 4.1 (3.5-5.0) g/dL Lipase 53 (23-300) U/L Coronavirus (PCR) (Not Detectd) 10/22/20 10/22/20 10/22/20 Range/Units 07:10 07:10 07:10 WBC (3.8-10.6) k/uL RBC (4.30-5.90) m/uL Hgb (13.0-17.5) gm/dL Hct (39.0-53.0) % MCV (80.0-100.0) fL MCH (25.0-35.0) pg MCHC (31.0-37.0) g/dL RDW (11.5-15.5) % Plt Count (150-450) k/uL MPV Neutrophils % % Lymphocytes % % Monocytes % % Eosinophils % % Basophils % % Neutrophils # (1.3-7.7) k/uL Lymphocytes # (1.0-4.8) k/uL Monocytes # (0-1.0) k/uL Eosinophils # (0-0.7) k/uL Basophils # (0-0.2) k/uL PT (9.0-12.0) sec INR (<1.2) APTT (22.0-30.0) sec Sodium (137-145) mmol/L Potassium (3.5-5.1) mmol/L Chloride (98-107) mmol/L Carbon Dioxide (22-30) mmol/L Anion Gap mmol/L BUN (9-20) mg/dL Creatinine (0.66-1.25) mg/dL Est GFR (CKD-EPI)AfAm (>60 ml/min/1.73 sqM) Est GFR (CKD-EPI)NonAf (>60 ml/min/1.73 sqM) Glucose (74-99) mg/dL Calcium (8.4-10.2) mg/dL Magnesium (1.6-2.3) mg/dL Total Bilirubin (0.2-1.3) mg/dL AST (17-59) U/L ALT (4-49) U/L Alkaline Phosphatase (38-126) U/L Troponin I <0.012 (0.000-0.034) ng/mL NT-Pro-B Natriuret Pep 240 pg/mL Total Protein (6.3-8.2) g/dL Albumin (3.5-5.0) g/dL Lipase (23-300) U/L Coronavirus (PCR) Not Detected (Not Detectd) Disposition Clinical Impression: Chest pain Disposition: ADMITTED IP TO THIS HOSP Is patient prescribed a controlled substance at d/c from ED?: No Referrals: Maggie Joya MD [Primary Care Provider] - 1-2 days Time of Disposition: 08:31
--- NOTE | 2020-10-22 07:29 | XR ---
EXAMINATION TYPE: XR chest 2V DATE OF EXAM: 10/22/2020 COMPARISON: 11/07/2019 TECHNIQUE: PA and lateral views submitted. HISTORY: Chest pain FINDINGS: The lungs are clear and there is no pneumothorax, pleural effusion, or focal pneumonia. Postoperati ve change left shoulder and arthropathy right shoulder. Atherosclerotic change aorta. Heart size norm al. No overt failure. Interstitium is stable. IMPRESSION: 1. No acute process.
[2020-10-22 07:46] LABS: Basophils # (A) 0.1 k/uL (0-0.2); Basophils % (A) 2 %; Eosinophils # (A) 0.3 k/uL (0-0.7); Eosinophils % (A) 6 %; HCT 49.1 % (39.0-53.0); HGB 16.7 gm/dL (13.0-17.5); Lymphocytes # (A) 2.1 k/uL (1.0-4.8); Lymphocytes % (A) 35 %; MCH 30.9 pg (25.0-35.0); MCV 90.8 fL (80.0-100.0); Mean Platelet Volume 8.3; Monocytes # (A) 0.5 k/uL (0-1.0); Monocytes % (A) 9 %; Neutrophils # (A) 2.7 k/uL (1.3-7.7); Neutrophils % (A) 46 %; Platelet Count 193 k/uL (150-450); WBC 5.9 k/uL (3.8-10.6)
[2020-10-22 08:00] LABS: ALT 65 U/L (4-49); AST 53 U/L (17-59); African American GFR (CKD) >90 (>60 ml/min/1.73 sqM); Albumin 4.1 g/dL (3.5-5.0); Alkaline Phosphatase 133 U/L (38-126); Anion Gap 9 mmol/L; Blood Urea Nitrogen 20 mg/dL (9-20); Calcium 9.2 mg/dL (8.4-10.2); Carbon Dioxide 27 mmol/L (22-30); Chloride 102 mmol/L (98-107); Glucose 100 mg/dL (74-99); Lipase 53 U/L (23-300); Non-African American GFR(CKD) 84 (>60 ml/min/1.73 sqM); Potassium 4.4 mmol/L (3.5-5.1); Sodium 138 mmol/L (137-145); Total Bilirubin 0.6 mg/dL (0.2-1.3); Total Protein 7.5 g/dL (6.3-8.2)
[2020-10-22 08:12] LABS: Prothrombin Time 10.6 sec (9.0-12.0)
[2020-10-22 08:15] LABS: Partial Thromboplastin Time 21.8 sec (22.0-30.0)
[2020-10-22] MEDS ORDERED: MIDODRINE 5 MG TAB PO PRN (13:01)
[2020-10-22] MEDS ORDERED: ALPRAZolam 0.25 MG TAB PO PRN (17:21)
[2020-10-22] MEDS ORDERED: ACETAMINOPHEN TAB 325 MG TAB PO PRN (17:21)
[2020-10-22] MEDS: HEPARIN SODIUM,PORCINE/PF 5,000 UNIT/0.5 ML SYRINGE SQ SCH (19:26)
[2020-10-22] MEDS ORDERED: TAMSULOSIN 0.4 MG CAP.ER.24H PO SCH (21:00)
[2020-10-22] MEDS ORDERED: lisinopriL 10 MG TAB PO SCH (21:00)
[2020-10-22] MEDS ORDERED: FINASTERIDE 5 MG TAB PO SCH (21:00)
[2020-10-23 03:38] VITALS: TEMP 97.8
[2020-10-23] MEDS ORDERED: LEVOTHYROXINE 75 MCG TAB PO SCH (06:30)
[2020-10-23 07:01] LABS: Glucose,Whole Blood 105 mg/dL (75-99)
[2020-10-23 08:14] LABS: Cholesterol 173 mg/dL (<200); HDL Cholesterol 43 mg/dL (40-60); LDL Cholesterol,Calculated 88 mg/dL (0-99); Triglycerides 209 mg/dL (<150)
[2020-10-23] MEDS ORDERED: ISOSORBIDE MONONITRATE ER 15 MG TAB PO SCH (09:00)
[2020-10-23] MEDS ORDERED: CLOPIDOGREL 75 MG TAB PO SCH (09:00)
[2020-10-23] MEDS ORDERED: ASPIRIN 325 MG TAB PO SCH (09:00)
[2020-10-23] MEDS ORDERED: metFORMIN 500 MG TAB PO SCH (09:00)
[2020-10-23] MEDS ORDERED: METOPROLOL TARTRATE 25 MG TAB PO SCH (09:00)
[2020-10-23] MEDS ORDERED: ASPIRIN 81 MG PO SCH (09:00)
[2020-10-23] MEDS: HEPARIN SODIUM,PORCINE/PF 5,000 UNIT/0.5 ML SYRINGE SQ SCH ×2 (09:24→16:24)
--- NOTE | 2020-10-23 10:38 | P.CRDCN ---
History of Present Illness Consult date: 10/22/20 History of present illness: HISTORY OF PRESENT ILLNESS: This is a 85-year-old male with a past medical history significant for GERD, hypertension, osteoarthritis, and hypothyroidism. Patient follows in the office with Dr. Burger. We have been asked to see the patient in consultation for chest pain. Patient examined at the bedside. Patient states he woke up yesterday morning with chest pain in the middle of his chest. He states it lasted about 5- 10 minutes and then went away on its own. He denied any radiation of the pain. He denied shortness of breath. He denies any further chest pain or pressure. EKG reveals sinus mechanism with 1st degree AV block. Right bundle branch block. Chest xray negative for acute process Laboratory data: WBC 5.9. Hemoglobin 16.7. Platelet count 193. Sodium 138. Potassium 4.4. BUN 20. Creatinine 0.75. Magnesium 2.0. BNP 240. Troponin negative 3. Current home cardiac medications include lisinopril 10 mg at night and Midodrine 5mg BID PRN. Most recent echocardiogram obtained in May 2018 revealed ejection fraction 50-55%, mild aortic stenosis, mild mitral regurgitation, mild pulmonary hypertension Patient underwent Cardiolite stress test in May 2019 which was negative for reversible ischemia Echocardiogram performed at the office on 10/10/2020 revealed ejection fraction 60%, mild mitral regurgitation, [id number] aortic regurgitation REVIEW OF SYSTEMS: At the time of my exam: CONSTITUTIONAL: Denies fever or chills. HEENT: Denies blurred vision, vision changes, or eye pain. Denies hemoptysis CARDIOVASCULAR: Denies chest pain. Denies orthopnea. Denies PND. Denies palpitations RESPIRATORY: Denies shortness of breath. GASTROINTESTINAL: Denies abdominal pain. Denies nausea or vomiting. HEMATOLOGIC: Denies bleeding disorders. GENITOURINARY: Denies any blood in urine. SKIN: Denies pruitis. Denies rash. PHYSICAL EXAM: VITAL SIGNS: Reviewed. GENERAL: Well-developed in no acute distress. HEENT: Head is normocephalic. Pupils are equal, round. Sclerae anicteric. Mucous membranes of the mouth are moist. Neck supple. No JVD or thyromegaly LUNGS: Respirations even and unlabored. Lungs essentially clear to auscultation bilaterally. HEART: Regular rate and rhythm. S1 and S2 heard. Systolic murmur noted. ABDOMEN: Soft. Nondistended. Nontender. EXTREMITIES: Normal range of motion. No clubbing or cyanosis. Peripheral pulses intact. No lower extremity edema NEUROLOGIC: Awake and alert. Oriented x 3. ASSESSMENT: Chest pain Hypertension Valvular heart disease GERD Osteoarthritis Hypothyroidism PLAN: An acute coronary event has been ruled out Dr. Burger discussed possible cardiac cath with patient who is declining to have any procedures performed at this time Patient would like to proceed with medical management at this time Continue home cardiac medications Add plavix, imdur, and metoprolol No further inpatient recommendations as patient does not want further testing or procedures performed. We will sign off. Please reconsult if needed Nurse practitioner note has been reviewed by physician. Signing provider agrees with the documented findings, assessment, and plan of care. Past Medical History Past Medical History: GERD/Reflux, Hypertension, Osteoarthritis (OA), Thyroid Disorder Additional Past Medical History / Comment(s): glaucoma yelitza eyes, left rotator cuff torn, back pain History of Any Multi-Drug Resistant Organisms: None Reported Past Surgical History: Appendectomy, Cholecystectomy, Orthopedic Surgery, Tonsillectomy Additional Past Surgical History / Comment(s): yelitza shoulder arthroscopy, eye sx for glaucoma. pt stated 2 weeks ago had a benign pituitary tumor removed at [facility]. Past Anesthesia/Blood Transfusion Reactions: No Reported Reaction Past Psychological History: No Psychological Hx Reported Smoking Status: Never smoker Past Alcohol Use History: None Reported Past Drug Use History: None Reported - Past Family History Mother Family Medical History: Congestive Heart Failure (CHF) Additional Family Medical History / Comment(s): age 95 Father Family Medical History: No Reported History Additional Family Medical History / Comment(s): " from old age at age 90 Medications and Allergies Home Medications Medication Instructions Recorded Confirmed Type Lisinopril [Prinivil] 10 mg PO HS 02/15/18 10/22/20 History metFORMIN HCL [Glucophage] 500 mg PO DAILY@0800 12/11/18 10/22/20 History ALPRAZolam [Xanax] 0.25 mg PO TID PRN 06/03/20 10/22/20 History Ferrous Sulfate [Feosol] 325 mg PO DAILY@1700 06/03/20 10/22/20 History Finasteride [Proscar] 5 mg PO HS 06/03/20 10/22/20 History Hydrocortisone [Cortef] 10 mg PO DAILY@1700 06/03/20 10/22/20 History Levothyroxine Sodium 150 mcg PO DAILY@0800 06/03/20 10/22/20 History Acetaminophen Tab [Tylenol] 650 mg PO Q4H PRN 10/22/20 10/22/20 History Chlorhexidine Gluconate [Peridex] 15 ml PO BID@0800,1700 10/22/20 10/22/20 History HYDROcodone/APAP 5-325MG [[place] 1 tab PO Q4H PRN 10/22/20 10/22/20 History 5-325] Midodrine [ProAmatine] 5 mg PO BID PRN 10/22/20 10/22/20 History Mometasone Furoate [Elocon] 1 applic TOPICAL DAILY 10/22/20 10/22/20 History Na Phos,M-B/Na Phos,Di-Ba [Fleet 133 ml RECTAL DAILY PRN 10/22/20 10/22/20 History Adult] Tamsulosin [Flomax] 0.4 mg PO HS 10/22/20 10/22/20 History Allergies Allergy/AdvReac Type Severity Reaction Status Date / Time Bxamomp-Eav-Qdo Reductase Allergy Unknown Verified 06/03/20 16:19 Inhibitor Physical Exam Vitals: Vital Signs Temp Pulse Resp BP Pulse Ox 10/22/20 11:35 97.4 F L 10/22/20 10:57 71 18 134/71 93 L 10/22/20 07:46 98 F 72 18 156/75 94 L 10/22/20 06:33 97.6 F 62 18 164/86 97 Intake and Output 10/21/20 10/22/20 10/22/20 22:59 06:59 14:59 Other: # Voids 1 Weight 102.058 kg Results 10/22/20 07:10 10/22/20 07:10 Cardiac Enzymes 10/22/20 10/22/20 10/22/20 Range/Units 07:10 07:10 10:05 AST 53 (17-59) U/L Troponin I <0.012 <0.012 (0.000-0.034) ng/mL Coagulation 10/22/20 Range/Units 07:10 PT 10.6 (9.0-12.0) sec APTT 21.8 L (22.0-30.0) sec CBC 10/22/20 Range/Units 07:10 WBC 5.9 (3.8-10.6) k/uL RBC 5.40 (4.30-5.90) m/uL Hgb 16.7 (13.0-17.5) gm/dL Hct 49.1 (39.0-53.0) % Plt Count 193 (150-450) k/uL Comprehensive Metabolic Panel 10/22/20 Range/Units 07:10 Sodium 138 (137-145) mmol/L Potassium 4.4 (3.5-5.1) mmol/L Chloride 102 (98-107) mmol/L Carbon Dioxide 27 (22-30) mmol/L BUN 20 (9-20) mg/dL Creatinine 0.75 (0.66-1.25) mg/dL Glucose 100 H (74-99) mg/dL Calcium 9.2 (8.4-10.2) mg/dL AST 53 (17-59) U/L ALT 65 H (4-49) U/L Alkaline Phosphatase 133 H (38-126) U/L Total Protein 7.5 (6.3-8.2) g/dL Albumin 4.1 (3.5-5.0) g/dL Current Medications Generic Name Dose Route Start Last Admin Trade Name Freq PRN Reason Stop Dose Admin Aspirin 325 mg 10/23/20 09:00 Aspirin 325 Mg Tab PO DAILY NICOLE Intake and Output 10/21/20 10/22/20 10/22/20 22:59 06:59 14:59 Other: # Voids 1 Weight 102.058 kg 10/22/20 07:10 10/22/20 07:10
[2020-10-23 11:20] LABS: Glucose,Whole Blood 161 mg/dL (75-99)
--- NOTE | 2020-10-23 14:13 | P.HPIM ---
History of Present Illness H&P Date: 10/22/20 Chief Complaint: Chest pain. 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, hypothyroidism, insomnia due to medical illnesses, osteoarthritis, patient developed to have left-sided chest pain while he was sleeping at night and woke up at around 4:00 in the morning with severe chest pain/heaviness associated with minimal shortness breath, patient stated that he has been having chest pain on and off for the past few weeks, he underwent a stress test back in May 2019 was negative for stress-induced ischemia, also had an echocardiogram back in September 2020 and that showed normal ejection fraction with moderate aortic regurgitation and mild mitral regurgitation, he follows up with cardiology on a regular basis, he was supposed to have a video conference with Dr. Burger about a week ago while he was at [facility], so the patient was recommended to go to the ER for evaluation and further recommendation after cardiology evaluation again REVIEW OF SYSTEMS: Constitutional: No documented fever, no chills, no night sweats. No weight change. Positive for weakness, positive for fatigue no lethargy. No daytime sleepiness. EENT: No headache. No blurred vision or double vision, no loss of vision. No loss of Hearing, no ringing in the ears, no dizziness. No nasal drainage or congestion. No epistaxis. No sore throat. Lungs: Positive for shortness of breath, no cough, no sputum production. No wheezing. Reports dyspnea with activity. Cardiovascular: Positive for chest pain, no lower extremity edema. No palpitations. No paroxysmal nocturnal dyspnea. No orthopnea. No lightheade dness or dizziness. No syncopal episodes. Abdominal: Reports no abdominal pain. No nausea, vomiting. No diarrhea. No constipation. No bloody or tarry stools reports loss of appetite. Genitourinary: No dysuria, increased frequency, urgency. No urinary retention. Musculoskeletal: No myalgias. No muscle weakness, no gait dysfunction, no frequent falls. No back pain. No neck pain. Integumentary: No wounds, no lesions. No rash or pruritus. No unusual bruising. No change in hair or nails. Neurologic: No aphasia. No facial droop. No change in mentation. No head injury. No headache. No paralysis. No paresthesia. Psychiatric: No depression. Positive for anxiety. No mood swings. Endocrine: No abnormal blood sugars. No weight change. PAST MEDICAL HISTORY: Hypertension and hypertensive cardiovascular disease. Hyperlipidemia. Diabetes mellitus type 2. Hypothyroidism. Osteoarthritis. Insomnia Pituitary macroadenoma Enlarged prostate. Adrenal insufficiency. PAST SURGICAL HISTORY: Appendectomy Cholecystectomy Transphenoidal pituitary tumor resection 2019. Bilateral shoulder arthroscopic surgery. Left shoulder rotator cuff tear repair Left total shoulder recerse arthroplasty. Glaucoma surgery. SOCIAL HISTORY: patient denies any history of smoking, no history of drinking, no history of drug use or abuse, currently resides at [facility] with his . FAMILY HISTORY: father at the age of 90 from old age, mother at age of 95 from congestive heart failure, patient has one brother who in a car accident and he has 2 sons no major medical problems. PHYSICAL EXAMINATION: General: This is an 85-year-old male who is laying down in bed in no apparent distress HEENT: Head is atraumatic, normocephalic, pupils were equal round reactive to light and recommendation, extraocular muscle movement were intact, sclera nonicteric, conjunctivae were pale, mucous membranes of the mouth are somewhat dry. Neck: Supple, no JVP, normal carotid upstroke bilaterally, no lymphadenopathy. Chest: Decreased breath sounds at the bases, few rhonchi, no extremity wheezes, no chest wall tenderness, no intercostal retractions. Heart: First heart sound is normal, second heart sounds normal there is systolic ejection murmur 2/6 located in the left sternal border. Abdomen: Soft, nontender, nondistended, positive bowel sounds. Extremities: There is no edema no calf tenderness DP +2 bilaterally. Neurologic examination: Patient is awake alert and oriented X3 , cranial nerves II-12 appear grossly intact, muscle power were 5 out of 5 in upper extremities and 5 out of 5 in bilateral lower extremities, deep tendon reflexes normal bilaterally. ASSESSMENT AND PLAN: 1. Chest pain of unclear etiology. Patient did have an echocardiogram a month ago that showed normal ejection fraction with moderate mitral and aortic regurgitation, he did have a stress test done back in May 2019 that was negative for stress-induced ischemia, patient will be seen in consultation record ALLERGY cardiac enzymes so far are negative acute coronary syndrome has been ruled out, continue patient on aspirin 81 mg once every day, added Plavix 75 mg once every day, may need to add Imdur as well as beta blockers , patient may need to go for left heart catheterization for further evaluation of his coronary anatomy . 2. Hypertension and hypertensive cardiovascular disease. Continue patient on lisinopril 10 mg orally once every day, monitor the patient blood pressure very closely . 3. Diabetes mellitus type 2 continue patient on metformin 500 mg orally once every day, patient did agree restarted back on Farxiga 5 mg orally once every day as well as Rybelsus 3 mg once every day. 4. Mixed hyperlipidemia. Patient is intolerant to statins in general, monitor the patien lipid panel, keep LDL cholesterol 55-70, he may need to go on [facility] 9- INH. 5. 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 Continue Cortef 20 mg in the morning to milligram afternoon. 6. Hypothyroidism. Continue Synthroid 150 MCG orally once every day. 7. Insomnia. Continue the current treatment plan. 8. Enlarged prostate. Continue Flomax 0.4 mg orally once every day and finasteride 5 minute gram orally once every day. 9. Anxiety. Continue patient on Xanax 0.25 mg orally twice every day as needed. 10. DVT prophylaxis. Continue heparin 5000 units subcutaneous every 8 hours. 11. GI prophylaxis. Continue patient on Protonix 40 mg orally once every day. 12. Observation. 13. Patient is full code Past Medical History Past Medical History: GERD/Reflux, Hypertension, Osteoarthritis (OA), Thyroid Disorder Additional Past Medical History / Comment(s): glaucoma yelitza eyes, left rotator cuff torn, back pain History of Any Multi-Drug Resistant Organisms: None Reported Past Surgical History: Appendectomy, Cholecystectomy, Orthopedic Surgery, Tonsillectomy Additional Past Surgical History / Comment(s): yelitza shoulder arthroscopy, eye sx for glaucoma. pt stated 2 weeks ago had a benign pituitary tumor removed at [facility]. Past Anesthesia/Blood Transfusion Reactions: No Reported Reaction Past Psychological History: No Psychological Hx Reported Smoking Status: Never smoker Past Alcohol Use History: None Reported Past Drug Use History: None Reported - Past Family History Mother Family Medical History: Congestive Heart Failure (CHF) Additional Family Medical History / Comment(s): age 95 Father Family Medical History: No Reported History Additional Family Medical History / Comment(s): " from old age at age 90 Medications and Allergies Home Medications Medication Instructions Recorded Confirmed Type Lisinopril [Prinivil] 10 mg PO HS 02/15/18 10/22/20 History metFORMIN HCL [Glucophage] 500 mg PO DAILY@0800 12/11/18 10/22/20 History ALPRAZolam [Xanax] 0.25 mg PO TID PRN 06/03/20 10/22/20 History Ferrous Sulfate [Feosol] 325 mg PO DAILY@1700 06/03/20 10/22/20 History Finasteride [Proscar] 5 mg PO HS 06/03/20 10/22/20 History Hydrocortisone [Cortef] 10 mg PO DAILY@1700 06/03/20 10/22/20 History Levothyroxine Sodium 150 mcg PO DAILY@0800 06/03/20 10/22/20 History Acetaminophen Tab [Tylenol] 650 mg PO Q4H PRN 10/22/20 10/22/20 History Chlorhexidine Gluconate [Peridex] 15 ml PO BID@0800,1700 10/22/20 10/22/20 History HYDROcodone/APAP 5-325MG [[place] 1 tab PO Q4H PRN 10/22/20 10/22/20 History 5-325] Midodrine [ProAmatine] 5 mg PO BID PRN 10/22/20 10/22/20 History Mometasone Furoate [Elocon] 1 applic TOPICAL DAILY 10/22/20 10/22/20 History Na Phos,M-B/Na Phos,Di-Ba [Fleet 133 ml RECTAL DAILY PRN 10/22/20 10/22/20 History Adult] Tamsulosin [Flomax] 0.4 mg PO HS 10/22/20 10/22/20 History Allergies Allergy/AdvReac Type Severity Reaction Status Date / Time Lhdvjeu-Eco-Qmi Reductase Allergy Unknown Verified 06/03/20 16:19 Inhibitor Physical Exam Vitals: Vital Signs Temp Pulse Resp BP Pulse Ox 10/22/20 11:35 97.4 F L 10/22/20 10:57 71 18 134/71 93 L 10/22/20 07:46 98 F 72 18 156/75 94 L 10/22/20 06:33 97.6 F 62 18 164/86 97 Intake and Output 10/21/20 10/22/20 10/22/20 22:59 06:59 14:59 Other: # Voids 1 Weight 102.058 kg Results CBC & Chem 7: 10/22/20 07:10 10/22/20 07:10 Labs: Abnormal Lab Results - Last 24 Hours (Table) 10/22/20 10/22/20 Range/Units 07:10 07:10 APTT 21.8 L (22.0-30.0) sec Glucose 100 H (74-99) mg/dL ALT 65 H (4-49) U/L Alkaline Phosphatase 133 H (38-126) U/L
[2020-10-23 14:52] VITALS: BP 129/72; PULSE 60; RESP 16
--- NOTE | 2020-10-23 15:04 | P.DS ---
Providers Date of admission: 10/22/20 08:33 Expected date of discharge: 10/23/20 Attending physician: Maggie Joya Consults: 10/22/20 08:33 Consult Physician Routine Consulting Provider: [facility] Consult Reason/Comments: chest pain Do you want consulting provider notified?: Yes Primary care physician: Maggie Joya Hospital Course: HISTORY OF PRESENT ILLNESS: This is an 85 year old male with a previous medical history significant for hypertension and hypertensive cardiovascular disease, hyperlipidemia, diabetes mellitus type 2, insomnia, pituitary macroadenoma status post transsphenoidal resection with resultant adrenal insufficiency, hypothyroidism, insomnia due to medical illnesses, osteoarthritis, patient developed to have left-sided chest pain while he was sleeping at night and woke up at around 4:00 in the morning with severe chest pain/heaviness associated with minimal shortness breath, patient stated that he has been having chest pain on and off for the past few weeks, he underwent a stress test back in May 2019 was negative for stress-induced ischemia, also had an echocardiogram back in September 2020 and that showed normal ejection fraction with moderate aortic regurgitation and mild mitral regurgitation, he follows up with cardiology on a regular basis, he was supposed to have a video conference with Dr. Burger about a week ago while he was at [facility], so the patient was recommended to go to the ER for evaluation and further recommendation after cardiology evaluation again. 10/23: Patient was seen in consultation by cardiology was recommended for the patient to go for left heart catheter physician however the patient declined any surgical intervention at this time, he wanted to be treated medically, it was recommended for the patient to be started on aspirin, Plavix, Imdur, along with beta blockers , Patient will follow-up with them as an outpatient, patient is ready for discharge back to [facility] today. PHYSICAL EXAMINATION: General: This is an 85-year-old male who is laying down in bed in no apparent distress HEENT: Head is atraumatic, normocephalic, pupils were equal round reactive to light and recommendation, extraocular muscle movement were intact, sclera nonicteric, conjunctivae were pale, mucous membranes of the mouth are somewhat dry. Neck: Supple, no JVP, normal carotid upstroke bilaterally, no lymphadenopathy. Chest: Decreased breath sounds at the bases, few rhonchi, no extremity wheezes, no chest wall tenderness, no intercostal retractions. Heart: First heart sound is normal, second heart sounds normal there is systolic ejection murmur 2/6 located in the left sternal border. Abdomen: Soft, nontender, nondistended, positive bowel sounds. Extremities: There is no edema no calf tenderness DP +2 bilaterally. Neurologic examination: Patient is awake alert and oriented X3 , cranial nerves II-12 appear grossly intact, muscle power were 5 out of 5 in upper extremities and 5 out of 5 in bilateral lower extremities, deep tendon reflexes normal bilaterally. ASSESSMENT AND PLAN: 1. Chest pain of unclear etiology possible cardiac. 2. Hypertension and hypertensive cardiovascular disease. 3. Diabetes mellitus type 2. 4. Mixed hyperlipidemia. 5. History of the pituitary macroadenoma status post transsphenoidal resection with adrenal insufficiency . 6. Hypothyroidism. 7. Insomnia. 8. Enlarged prostate. 9. Anxiety. Patient Condition at Discharge: Good Plan - Discharge Summary New Discharge Prescriptions: No Action Lisinopril [Prinivil] 10 mg PO HS metFORMIN HCL [Glucophage] 500 mg PO DAILY@0800 ALPRAZolam [Xanax] 0.25 mg PO TID PRN PRN Reason: Anxiety Ferrous Sulfate [Feosol] 325 mg PO DAILY@1700 Finasteride [Proscar] 5 mg PO HS Hydrocortisone [Cortef] 10 mg PO DAILY@1700 Levothyroxine Sodium 150 mcg PO DAILY@0800 Mometasone Furoate [Elocon] 1 applic TOPICAL DAILY Na Phos,M-B/Na Phos,Di-Ba [Fleet Adult] 133 ml RECTAL DAILY PRN PRN Reason: Constipation Tamsulosin [Flomax] 0.4 mg PO HS Acetaminophen Tab [Tylenol] 650 mg PO Q4H PRN PRN Reason: Fever And/ Or Pain Chlorhexidine Gluconate [Peridex] 15 ml PO BID@0800,1700 HYDROcodone/APAP 5-325MG [[place] 5-325] 1 tab PO Q4H PRN PRN Reason: Pain Midodrine [ProAmatine] 5 mg PO BID PRN PRN Reason: SBP LESS THAN 100 Discharge Medication List Lisinopril [Prinivil] 10 mg PO HS 02/15/18 [History] metFORMIN HCL [Glucophage] 500 mg PO DAILY@0800 12/11/18 [History] ALPRAZolam [Xanax] 0.25 mg PO TID PRN 06/03/20 [History] Ferrous Sulfate [Feosol] 325 mg PO DAILY@1700 06/03/20 [History] Finasteride [Proscar] 5 mg PO HS 06/03/20 [History] Hydrocortisone [Cortef] 10 mg PO DAILY@1700 06/03/20 [History] Levothyroxine Sodium 150 mcg PO DAILY@0800 06/03/20 [History] Acetaminophen Tab [Tylenol] 650 mg PO Q4H PRN 10/22/20 [History] Chlorhexidine Gluconate [Peridex] 15 ml PO BID@0800,1700 10/22/20 [History] HYDROcodone/APAP 5-325MG [[place] 5-325] 1 tab PO Q4H PRN 10/22/20 [History] Midodrine [ProAmatine] 5 mg PO BID PRN 10/22/20 [History] Mometasone Furoate [Elocon] 1 applic TOPICAL DAILY 10/22/20 [History] Na Phos,M-B/Na Phos,Di-Ba [Fleet Adult] 133 ml RECTAL DAILY PRN 10/22/20 [History] Tamsulosin [Flomax] 0.4 mg PO HS 10/22/20 [History] Follow up Appointment(s)/Referral(s): Maggie Joya MD [Primary Care Provider] - 1-2 days Gilda Burger MD [STAFF PHYSICIAN] - 11/08/20 1:30 pm Patient Instructions/Handouts: Chest Pain (DC)
[2020-10-23] MEDS ORDERED: HYDROCORTISONE 10 MG TAB PO SCH (17:00)
== END 2020-10-23 18:38 ==
LOC: EC 06:32 → 6NMEDSUR 08:33
PROVIDERS: ADMIT Internal Medicine; ATTEND Internal Medicine
DX: R07.89 Other chest pain (principal); I11.9 Hypertensive heart disease without heart failure; E11.9 Type 2 diabetes mellitus without complications; I08.0 Rheumatic disorders of both mitral and aortic valves; I44.0 Atrioventricular block, first degree; I45.10 Unspecified right bundle-branch block; E78.2 Mixed hyperlipidemia; E03.9 Hypothyroidism, unspecified; M19.90 Unspecified osteoarthritis, unspecified site; G47.00 Insomnia, unspecified; K21.9 Gastro-esophageal reflux disease without esophagitis; N40.0 Benign prostatic hyperplasia without lower urinary tract symptoms; E27.40 Unspecified adrenocortical insufficiency; H40.9 Unspecified glaucoma; F41.9 Anxiety disorder, unspecified; Z20.822 Contact with and (suspected) exposure to COVID-19; Z79.890 Hormone replacement therapy; Z79.84 Long term (current) use of oral hypoglycemic drugs; Z79.899 Other long term (current) drug therapy; Z88.8 Allergy status to other drugs, medicaments and biological substances; Z86.011 Personal history of benign neoplasm of the brain; Z90.49 Acquired absence of other specified parts of digestive tract; Z96.612 Presence of left artificial shoulder joint; Z82.49 Family history of ischemic heart disease and other diseases of the circulatory system
CPT/HCPCS: 96372 ×2; 93005 ×2; 99285; 36415; 83880; 80061; 80053; 83690; 83735; 84484; 85025; 85610; 85730; 87635 ×2; 71046; G0378 ×2; S0138; J1644 ×2

== ENCOUNTER 2020-11-02 11:14 | Inpatient (IN) | payer MEDICARE, OTHER ==
[2020-11-02] MEDS ORDERED: ASPIRIN 81 MG PO STA (11:19)
[2020-11-02] MEDS ORDERED: NITROGLYCERIN OINT 1 INCH/GM PACKET TOPICAL STA (11:19)
--- NOTE | 2020-11-02 11:23 | ED ---
General Adult HPI - General Stated complaint: Chest pain Time Seen by Provider: 11/02/20 11:14 Source: patient, RN notes reviewed, old records reviewed - History of Present Illness Initial comments: This is an 85-year-old male who presents emergency Department complaining of chest pain that started earlier today. Patient was [facility]in [facility] when he feels considerably better. Patient states he also had shortness of breath that time. Patient states most of symptoms have subsided at this time. Patient is diabetic with high blood pressure high cholesterol. Patient states she was here about a week ago and they told him that he was going to get a catheterization but then he did not get a cardiac catheterization because the pain had subsided. Patient denies any fever chills or cough. Patient denies any lightheadedness or dizziness. Patient denies abdominal pain patient denies nausea vomiting diarrhea. - Related Data Home Medications Medication Instructions Recorded Confirmed Lisinopril [Prinivil] 10 mg PO HS 02/15/18 10/22/20 metFORMIN HCL [Glucophage] 500 mg PO DAILY@0800 12/11/18 10/22/20 Ferrous Sulfate [Iron (65 MG 325 mg PO DAILY@1700 06/03/20 10/22/20 Elemental)] Finasteride [Proscar] 5 mg PO HS 06/03/20 10/22/20 Hydrocortisone [Cortef] 10 mg PO DAILY@1700 06/03/20 10/22/20 Levothyroxine Sodium 150 mcg PO DAILY@0800 06/03/20 10/22/20 Acetaminophen Tab [Tylenol] 650 mg PO Q4H PRN 10/22/20 10/22/20 Chlorhexidine Gluconate [Peridex] 15 ml PO BID@0800,1700 10/22/20 10/22/20 HYDROcodone/APAP 5-325MG [[place] 1 tab PO Q4H PRN 10/22/20 10/22/20 5-325] Midodrine [ProAmatine] 5 mg PO BID PRN 10/22/20 10/22/20 Mometasone Furoate [Elocon] 1 applic TOPICAL DAILY 10/22/20 10/22/20 Na Phos,M-B/Na Phos,Di-Ba [Fleet 133 ml RECTAL DAILY PRN 10/22/20 10/22/20 Adult] Tamsulosin [Flomax] 0.4 mg PO HS 10/22/20 10/22/20 Previous Rx's Medication Instructions Recorded ALPRAZolam [Xanax] 0.25 mg PO TID PRN #9 tab 10/23/20 Aspirin 81 mg PO DAILY chew 10/23/20 Clopidogrel [Plavix] 75 mg PO DAILY tab 10/23/20 Isosorbide Mononitrate ER [Imdur] 15 mg PO DAILY dose 10/23/20 Metoprolol Tartrate [Lopressor] 25 mg PO BID tab 10/23/20 Allergies Allergy/AdvReac Type Severity Reaction Status Date / Time Bqkihrc-Sgn-Hkx Reductase Allergy Unknown Verified 11/02/20 11:21 Inhibitor Review of Systems ROS Statement: Those systems with pertinent positive or pertinent negative responses have been documented in the HPI. ROS Other: All systems not noted in ROS Statement are negative. Past Medical History Past Medical History: GERD/Reflux, Hypertension, Osteoarthritis (OA), Thyroid Disorder Additional Past Medical History / Comment(s): glaucoma yelitza eyes, left rotator cuff torn, back pain History of Any Multi-Drug Resistant Organisms: None Reported Past Surgical History: Appendectomy, Cholecystectomy, Orthopedic Surgery, Tonsillectomy Additional Past Surgical History / Comment(s): yelitza shoulder arthroscopy, eye sx for glaucoma. pt stated 2 weeks ago had a benign pituitary tumor removed at [facility]. Past Anesthesia/Blood Transfusion Reactions: No Reported Reaction Past Psychological History: No Psychological Hx Reported Smoking Status: Never smoker Past Alcohol Use History: None Reported Past Drug Use History: None Reported - Past Family History Mother Family Medical History: Congestive Heart Failure (CHF) Additional Family Medical History / Comment(s): age 95 Father Family Medical History: No Reported History Additional Family Medical History / Comment(s): " from old age at age 90 General Exam - General Exam Comments Initial Comments: GENERAL: Patient is well-developed and well-nourished. Patient is nontoxic and well- hydrated and is in mild distress. ENT: Neck is soft and supple. No significant lymphadenopathy is noted. Oropharynx is clear. Moist mucous membranes. Neck has full range of motion without eliciting any pain. EYES: The sclera were anicteric and conjunctiva were pink and moist. Extraocular movements were intact and pupils were equal round and reactive to light. Eyelids were unremarkable. PULMONARY: Unlabored respirations. Good breath sounds bilaterally. No audible rales rhonchi or wheezing was noted. CARDIOVASCULAR: There is a regular rate and rhythm without any murmurs gallops or rubs. ABDOMEN: Soft and nontender with normal bowel sounds. SKIN: Skin is clear with no lesions or rashes and otherwise unremarkable. NEUROLOGIC: Patient is alert and oriented x3. Cranial nerves II through XII are grossly intact. Motor and sensory are also intact. Normal speech, volume and content. Symmetrical smile. Cerebellar exam grossly intact. MUSCULOSKELETAL: Normal extremities with adequate strength and full range of motion. LYMPHATICS: No significant lymphadenopathy is noted PSYCHIATRIC: Normal psychiatric evaluation. Course Vital Signs 11/02/20 11/02/20 11:15 12:27 Temperature 98.0 F Pulse Rate 85 90 Respiratory 20 20 Rate Blood Pressure 130/63 103/63 O2 Sat by Pulse 94 L 93 L Oximetry Medical Decision Making - Medical Decision Making EKG shows normal sinus rhythm at 85 bpm MO interval is 208 QRSs 138 QT interval 398 QTC is 473. Patient's EKG shows a right bundle branch block. There is no ST segment elevation or depression. Patient's chest x-ray shows no acute abnormality. Patient had no chest pain when I revisited the patient. I spoke with Dr. Joya he agreed to admit the patient admitted the patient and I wrote admitting orders. I consult to cardiology. I started the patient on heparin and continued heparin and aspirin and Nitropaste on the floor. - Lab Data Result diagrams: 11/02/20 11:41 11/02/20 11:41 Lab Results 11/02/20 11/02/20 11/02/20 Range/Units 11:41 11:41 11:41 WBC 6.1 (3.8-10.6) k/uL RBC 5.05 (4.30-5.90) m/uL Hgb 15.5 (13.0-17.5) gm/dL Hct 44.6 (39.0-53.0) % MCV 88.2 (80.0-100.0) fL MCH 30.7 (25.0-35.0) pg MCHC 34.8 (31.0-37.0) g/dL RDW 13.8 (11.5-15.5) % Plt Count 211 (150-450) k/uL MPV 6.8 Neutrophils % 51 % Lymphocytes % 29 % Monocytes % 9 % Eosinophils % 8 % Basophils % 1 % Neutrophils # 3.1 (1.3-7.7) k/uL Lymphocytes # 1.8 (1.0-4.8) k/uL Monocytes # 0.5 (0-1.0) k/uL Eosinophils # 0.5 (0-0.7) k/uL Basophils # 0.1 (0-0.2) k/uL PT 11.8 (9.0-12.0) sec INR 1.1 (<1.2) APTT 25.0 (22.0-30.0) sec Sodium 137 (137-145) mmol/L Potassium 4.3 (3.5-5.1) mmol/L Chloride 102 (98-107) mmol/L Carbon Dioxide 27 (22-30) mmol/L Anion Gap 8 mmol/L BUN 22 H (9-20) mg/dL Creatinine 0.92 (0.66-1.25) mg/dL Est GFR (CKD-EPI)AfAm 88 (>60 ml/min/1.73 sqM) Est GFR (CKD-EPI)NonAf 76 (>60 ml/min/1.73 sqM) Glucose 233 H (74-99) mg/dL Calcium 8.9 (8.4-10.2) mg/dL Magnesium 1.6 (1.6-2.3) mg/dL Total Bilirubin 0.8 (0.2-1.3) mg/dL AST 42 (17-59) U/L ALT 28 (4-49) U/L Alkaline Phosphatase 96 (38-126) U/L Troponin I (0.000-0.034) ng/mL Total Protein 6.8 (6.3-8.2) g/dL Albumin 3.7 (3.5-5.0) g/dL 11/02/20 Range/Units 11:41 WBC (3.8-10.6) k/uL RBC (4.30-5.90) m/uL Hgb (13.0-17.5) gm/dL Hct (39.0-53.0) % MCV (80.0-100.0) fL MCH (25.0-35.0) pg MCHC (31.0-37.0) g/dL RDW (11.5-15.5) % Plt Count (150-450) k/uL MPV Neutrophils % % Lymphocytes % % Monocytes % % Eosinophils % % Basophils % % Neutrophils # (1.3-7.7) k/uL Lymphocytes # (1.0-4.8) k/uL Monocytes # (0-1.0) k/uL Eosinophils # (0-0.7) k/uL Basophils # (0-0.2) k/uL PT (9.0-12.0) sec INR (<1.2) APTT (22.0-30.0) sec Sodium (137-145) mmol/L Potassium (3.5-5.1) mmol/L Chloride (98-107) mmol/L Carbon Dioxide (22-30) mmol/L Anion Gap mmol/L BUN (9-20) mg/dL Creatinine (0.66-1.25) mg/dL Est GFR (CKD-EPI)AfAm (>60 ml/min/1.73 sqM) Est GFR (CKD-EPI)NonAf (>60 ml/min/1.73 sqM) Glucose (74-99) mg/dL Calcium (8.4-10.2) mg/dL Magnesium (1.6-2.3) mg/dL Total Bilirubin (0.2-1.3) mg/dL AST (17-59) U/L ALT (4-49) U/L Alkaline Phosphatase (38-126) U/L Troponin I <0.012 (0.000-0.034) ng/mL Total Protein (6.3-8.2) g/dL Albumin (3.5-5.0) g/dL Disposition Clinical Impression: Unstable angina pectoris Disposition: ADMITTED IP TO THIS HOSP Referrals: Maggie Joya MD [Primary Care Provider] - 1-2 days Time of Disposition: 12:35
[2020-11-02 11:50] LABS: Basophils # (A) 0.1 k/uL (0-0.2); Basophils % (A) 1 %; Eosinophils # (A) 0.5 k/uL (0-0.7); Eosinophils % (A) 8 %; HCT 44.6 % (39.0-53.0); HGB 15.5 gm/dL (13.0-17.5); Lymphocytes # (A) 1.8 k/uL (1.0-4.8); Lymphocytes % (A) 29 %; MCH 30.7 pg (25.0-35.0); MCHC 34.8 g/dL (31.0-37.0); MCV 88.2 fL (80.0-100.0); Mean Platelet Volume 6.8; Monocytes # (A) 0.5 k/uL (0-1.0); Monocytes % (A) 9 %; Neutrophils # (A) 3.1 k/uL (1.3-7.7); Neutrophils % (A) 51 %; Platelet Count 211 k/uL (150-450); RBC 5.05 m/uL (4.30-5.90); RDW 13.8 % (11.5-15.5); WBC 6.1 k/uL (3.8-10.6)
[2020-11-02 12:00] LABS: Albumin 3.7 g/dL (3.5-5.0); Calcium 8.9 mg/dL (8.4-10.2); Magnesium 1.6 mg/dL (1.6-2.3); Total Bilirubin 0.8 mg/dL (0.2-1.3); Total Protein 6.8 g/dL (6.3-8.2)
[2020-11-02 12:06] LABS: Potassium 4.3 mmol/L (3.5-5.1)
--- NOTE | 2020-11-02 12:06 | XR ---
EXAMINATION TYPE: XR chest 2V DATE OF EXAM: 11/02/2020 COMPARISON: Chest x-ray 11 days ago. HISTORY: Chest pain. TECHNIQUE: Frontal and lateral views of the chest are obtained. FINDINGS: There is chronic parenchymal changes with elevated left hemidiaphragm. No suspicious new focal airspace opacity or pleural effusion seen bilaterally. The cardiac silhouette size is stable an d within normal limits. Surgical changes left shoulder redemonstrated. IMPRESSION: Chronic changes without acute pulmonary process. No significant change from prior.
[2020-11-02 12:11] LABS: INR 1.1 (<1.2); Prothrombin Time 11.8 sec (9.0-12.0)
[2020-11-02] MEDS ORDERED: HEPARIN SODIUM,PORCINE 5,000 UNIT/ML 1 ML VIAL IV ONE (13:15)
[2020-11-02] MEDS ORDERED: HEPARIN SODIUM 1,000 UN/ML (10ML VL) IV ONE (13:30)
[2020-11-02] MEDS: HEPARIN SOD,PORK IN 0.45% NACL 25,000 UNIT in 0.45% NACL 1 250ML.BAG IV SCH (14:58)
[2020-11-02] MEDS: NITROGLYCERIN SL TABS 0.4 MG TAB SUBLINGUAL PRN ×3 (15:39→16:14)
[2020-11-02] MEDS ORDERED: HYDROmorphone 0.5 MG/0.5 ML SYRINGE IVP STA (16:24)
[2020-11-02 16:40] LABS: Glucose,Whole Blood 184 mg/dL (75-99)
[2020-11-02] MEDS ORDERED: MAGNESIUM HYDROXIDE 2,400 MG/10 ML CUP PO PRN (16:47)
[2020-11-02] MEDS ORDERED: ACETAMINOPHEN TAB 325 MG TAB PO PRN (16:47)
[2020-11-02] MEDS ORDERED: bisacodyL 10 MG SUPP RECTAL PRN (16:47)
[2020-11-02] MEDS ORDERED: MIDODRINE 5 MG TAB PO PRN (16:47)
[2020-11-02] MEDS ORDERED: ALPRAZolam 0.25 MG TAB PO PRN (16:47)
[2020-11-02] MEDS: METOPROLOL TARTRATE 25 MG TAB PO SCH (17:51)
[2020-11-02] MEDS: HYDROCORTISONE 10 MG TAB PO SCH (17:52)
[2020-11-02] MEDS: NITROGLYCERIN OINT 1 INCH/GM PACKET TOPICAL SCH (17:52)
[2020-11-02 19:57] LABS: Glucose,Whole Blood 197 mg/dL (75-99)
[2020-11-02] MEDS: FINASTERIDE 5 MG TAB PO SCH (19:57)
[2020-11-02] MEDS: lisinopriL 10 MG TAB PO SCH (19:57)
[2020-11-02] MEDS: TAMSULOSIN 0.4 MG CAP.ER.24H PO SCH (19:57)
[2020-11-03] MEDS: NITROGLYCERIN OINT 1 INCH/GM PACKET TOPICAL SCH (01:50)
[2020-11-03 07:35] LABS: Glucose,Whole Blood 117 mg/dL (75-99)
[2020-11-03] MEDS ORDERED: FERROUS SULFATE 325 MG TAB PO SCH (08:00)
[2020-11-03] MEDS ORDERED: HEPARIN SODIUM 1,000 UN/ML (10ML VL) IV PRN (08:08)
[2020-11-03] MEDS: ISOSORBIDE MONONITRATE ER 15 MG TAB PO SCH (08:46)
[2020-11-03] MEDS: ASPIRIN 81 MG PO SCH (08:46)
[2020-11-03] MEDS: TRIAMCINOLONE 0.1% CREAM 80 GM TUBE TOPICAL SCH (08:46)
[2020-11-03] MEDS: METOPROLOL TARTRATE 25 MG TAB PO SCH ×2 (08:46→17:16)
[2020-11-03] MEDS: CLOPIDOGREL 75 MG TAB PO SCH (08:47)
[2020-11-03] MEDS: metFORMIN 500 MG TAB PO SCH (08:47)
[2020-11-03] MEDS: LEVOTHYROXINE 75 MCG TAB PO SCH (08:47)
[2020-11-03] MEDS ORDERED: ASPIRIN 325 MG TAB PO SCH (09:00)
--- NOTE | 2020-11-03 09:41 | P.HPIM ---
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, hypothyroidism, insomnia due to medical illnesses, osteoarthritis, patient developed to have left-sided chest painin the morning that the nursing staff at [facility] had to give him 3 nitroglycerin in order for the pain to go away, he was directed to go to the emergency department for evaluation he shouldn't was recently hospitalized at [facility] in 10/22/2020 was seen in consultation by cardiology and it was recommended that time to go for left heart catheterization which the patient declined however this time the patient is agreement to have a left heart catheterization for further evaluation and treatment.patient is complaining of severe itching all over his body, he would be started on hydroxyzine 10 mg orally twice every day, along with mometasone cream 0.1% to be applied once every day as needed. REVIEW OF SYSTEMS: Constitutional: No documented fever, no chills, no night sweats. No weight jessika nge. Positive for weakness, positive for fatigue no lethargy. No daytime sleepiness. EENT: No headache. No blurred vision or double vision, no loss of vision. No loss of Hearing, no ringing in the ears, no dizziness. No nasal drainage or congestion. No epistaxis. No sore throat. Lungs: Positive for shortness of breath, no cough, no sputum production. No wheezing. Reports dyspnea with activity. Cardiovascular: Positive for chest pain, no lower extremity edema. No palpitations. No paroxysmal nocturnal dyspnea. No orthopnea. No lightheadedness or dizziness. No syncopal episodes. Abdominal: Reports no abdominal pain. No nausea, vomiting. No diarrhea. No constipation. No bloody or tarry stools reports loss of appetite. Genitourinary: No dysuria, increased frequency, urgency. No urinary retention. Musculoskeletal: No myalgias. No muscle weakness, no gait dysfunction, no fr equent falls. No back pain. No neck pain. Integumentary: No wounds, no lesions. positive for Proteus. positive for bruising. No change in hair or nails. Neurologic: No aphasia. No facial droop. No change in mentation. No head injury. No headache. No paralysis. No paresthesia. Psychiatric: No depression. Positive for anxiety. No mood swings. Endocrine: No abnormal blood sugars. No weight change. PAST MEDICAL HISTORY: Hypertension and hypertensive cardiovascular disease. Hyperlipidemia. Diabetes mellitus type 2. Hypothyroidism. Osteoarthritis. Insomnia Pituitary macroadenoma Enlarged prostate. Adrenal insufficiency. PAST SURGICAL HISTORY: Appendectomy Cholecystectomy Transphenoidal pituitary tumor resection 2019. Bilateral shoulder arthroscopic surgery. Left shoulder rotator cuff tear repair Left total shoulder recerse arthroplasty. Glaucoma surgery. SOCIAL HISTORY: patient denies any history of smoking, no history of drinking, no history of drug use or abuse, currently resides at [facility] with his . FAMILY HISTORY: father at the age of 90 from old age, mother at age of 95 from congestive heart failure, patient has one brother who in a car accident and he has 2 sons no major medical problems. PHYSICAL EXAMINATION: General: This is an 85-year-old male who is laying down in bed in no apparent distress HEENT: Head is atraumatic, normocephalic, pupils were equal round reactive to light and recommendation, extraocular muscle movement were intact, sclera nonicteric, conjunctivae were pale, mucous membranes of the mouth are somewhat dry. Neck: Supple, no JVP, normal carotid upstroke bilaterally, no lymphadenopathy. Chest: Decreased breath sounds at the bases, few rhonchi, no extremity wheezes, no chest wall tenderness, no intercostal retractions. Heart: First heart sound is normal, second heart sounds normal there is systolic ejection murmur 2/6 located in the left sternal border. Abdomen: Soft, nontender, nondistended, positive bowel sounds. Extremities: There is no edema no calf tenderness DP +2 bilaterally. Neurologic examination: Patient is awake alert and oriented X3 , cranial nerves II-12 appear grossly intact, muscle power were 5 out of 5 in upper extremities and 5 out of 5 in bilateral lower extremities, deep tendon reflexes normal bilaterally. ASSESSMENT AND PLAN: 1. Chest pain possibly CAD. Patient did have an echocardiogram a month ago that showed normal ejection fraction with moderate mitral and aortic regurgitation, he did have a stress test done back in May 2019 that was negative for stress-induced ischemia, patient will be seen in consultation by cardiology, cardiac enzymes so far are negative acute coronary syndrome has been ruled out, continue patient on aspirin 81 mg once every day, Plavix 75 mg once every day, Imdur as well as beta blockers, heparin drip, patient will be sche duled for left heart catheterization hopefully tomorrow morning. 2. Hypertension and hypertensive cardiovascular disease. Continue patient on lisinopril 10 mg orally once every day, monitor the patient blood pressure very closely . 3. Diabetes mellitus type 2 continue patient on metformin 500 mg orally once every day, patient did agree restarted back on Farxiga 5 mg orally once every day as well as Rybelsus 3 mg once every day. 4. Mixed hyperlipidemia. Patient is intolerant to statins in general, monitor the patien lipid panel, keep LDL cholesterol 55-70, he may need to go on [facility] 9-INH. 5. 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 Continue Cortef 20 mg in the morning to milligram afternoon. 6. Hypothyroidism. Continue Synthroid 150 MCG orally once every day. 7. Pruritus. Start the patient on hydroxyzine 10 mg orally twice every day as well as mometasone cream 0.1% to be applied once every day as needed. 8. Enlarged prostate. Continue Flomax 0.4 mg orally once every day and finasteride 5 minute gram orally once every day. 9. Anxiety. Continue patient on Xanax 0.25 mg orally twice every day as needed. 10. DVT prophylaxis. Continue heparin 5000 units subcutaneous every 8 hours. 11. GI prophylaxis. Continue patient on Protonix 40 mg orally once every day. 12. Observation. 13. Patient is full code Past Medical History Past Medical History: GERD/Reflux, Hypertension, Osteoarthritis (OA), Thyroid Disorder Additional Past Medical History / Comment(s): glaucoma yelitza eyes, left rotator cuff torn, back pain History of Any Multi-Drug Resistant Organisms: None Reported Past Surgical History: Appendectomy, Cholecystectomy, Orthopedic Surgery, Tonsillectomy Additional Past Surgical History / Comment(s): yelitza shoulder arthroscopy, eye sx for glaucoma. pt stated 2 weeks ago had a benign pituitary tumor removed at [facility]. Past Anesthesia/Blood Transfusion Reactions: No Reported Reaction Past Psychological History: No Psychological Hx Reported Additional Psychological History / Comment(s): pt lives with his britta.they have vna 3x a week and private hire 3 x a week. Smoking Status: Never smoker Past Alcohol Use History: None Reported Past Drug Use History: None Reported - Past Family History Mother Family Medical History: Congestive Heart Failure (CHF) Additional Family Medical History / Comment(s): age 95 Father Family Medical History: No Reported History Additional Family Medical History / Comment(s): " from old age at age 90 Medications and Allergies Home Medications Medication Instructions Recorded Confirmed Type Lisinopril [Prinivil] 10 mg PO HS 02/15/18 11/02/20 History metFORMIN HCL [Glucophage] 500 mg PO DAILY@0800 12/11/18 11/02/20 History Ferrous Sulfate [Iron (65 MG 325 mg PO DAILY@0800 06/03/20 11/02/20 History Elemental)] Finasteride [Proscar] 5 mg PO HS 06/03/20 11/02/20 History Hydrocortisone [Cortef] 10 mg PO DAILY@1700 06/03/20 11/02/20 History Levothyroxine Sodium 150 mcg PO DAILY@0800 06/03/20 11/02/20 History Acetaminophen Tab [Tylenol] 650 mg PO Q4H PRN 10/22/20 11/02/20 History Chlorhexidine Gluconate [Peridex] 15 ml PO BID@0800,1700 10/22/20 11/02/20 History HYDROcodone/APAP 5-325MG [[place] 1 tab PO Q4H PRN 10/22/20 11/02/20 History 5-325] Midodrine [ProAmatine] 5 mg PO BID PRN 10/22/20 11/02/20 History Mometasone Furoate [Elocon] 1 applic TOPICAL DAILY 10/22/20 11/02/20 History Na Phos,M-B/Na Phos,Di-Ba [Fleet 133 ml RECTAL DAILY PRN 10/22/20 11/02/20 History Adult] Tamsulosin [Flomax] 0.4 mg PO HS 10/22/20 11/02/20 History ALPRAZolam [Xanax] 0.25 mg PO Q8H PRN 11/02/20 11/02/20 History Aspirin EC [Ecotrin Low Dose] 81 mg PO DAILY@0800 11/02/20 11/02/20 History Clopidogrel [Plavix] 75 mg PO DAILY@0800 11/02/20 11/02/20 History Isosorbide Mononitrate ER [Imdur] 15 mg PO DAILY@0800 11/02/20 11/02/20 History Magnesium Hydroxide [Milk of 7,200 mg PO Q48H PRN 11/02/20 11/02/20 History Magnesia Concentrate] Metoprolol Tartrate [Lopressor] 25 mg PO BID@0800,1700 11/02/20 11/02/20 History Nitroglycerin Sl Tabs [Nitrostat] 0.4 mg SL Q5M PRN 11/02/20 11/02/20 History bisacodyL [Bisacodyl] 10 mg RECTAL DAILY PRN 11/02/20 11/02/20 History Allergies Allergy/AdvReac Type Severity Reaction Status Date / Time Ceyyolb-Znl-Wso Reductase Allergy Unknown Verified 11/02/20 14:12 Inhibitor Physical Exam Vitals: Vital Signs Temp Pulse Pulse Resp BP BP Pulse Ox 11/02/20 16:20 98 20 122/71 95 11/02/20 16:10 98 138/72 11/02/20 15:50 96 20 110/68 93 L 11/02/20 15:29 98.2 F 92 20 131/70 95 11/02/20 15:10 82 16 95 11/02/20 13:00 68 20 130/63 94 L 11/02/20 12:27 90 20 103/63 93 L 11/02/20 11:15 98.0 F 85 20 130/63 94 L Intake and Output 11/02/20 11/02/20 11/02/20 06:59 14:59 22:59 Other: Weight 99.79 kg 99.79 kg Results CBC & Chem 7: 11/02/20 11:41 11/02/20 11:41 Labs: Abnormal Lab Results - Last 24 Hours (Table) 11/02/20 11/02/20 Range/Units 11:41 16:11 BUN 22 H (9-20) mg/dL Glucose 233 H (74-99) mg/dL POC Glucose (mg/dL) 184 H (75-99) mg/dL Thrombosis Risk Factor Assmnt - Choose All That Apply Any of the Below Risk Factors Present?: Yes Each Factor Represents 1 point: Medical pt on bed rest, Obesity (BMI >25) Other congenital or acquired thrombophilia - If yes, enter type in comment: No Thrombosis Risk Factor Assessment Total Risk Factor Score: 2 Thrombosis Risk Factor Assessment Level: Low Risk
[2020-11-03 09:56] LABS: African American GFR (CKD) 71.1 (60.0-200.0); Albumin 3.5 g/dL (3.80-4.90); Albumin/Globulin Ratio 1.25 (1.60-3.17); Anion Gap 5.5 mmol/L (4.00-12.00); BUN/Creat Ratio 20.91 Ratio (12.00-20.00); Calcium 8.8 mg/dL (8.7-10.3); Carbon Dioxide 26.5 mmol/L (21.6-31.8); Chol/HDL Ratio 4.4; Globulin 2.8 g/dL (1.6-3.3); Non-African American GFR(CKD) 61.3 (60.0-200.0); Potassium 4.5 mmol/L (3.5-5.5); Total Bilirubin 0.8 mg/dL (0.3-1.2); Total Protein 6.3 g/dL (6.2-8.2)
[2020-11-03 10:06] LABS: Basophils # (A) 0.04 X 10*3/uL (0.00-0.10); Basophils % (A) 0.8 %; Eosinophils # (A) 0.29 X 10*3/uL (0.04-0.35); HGB 14.2 g/dL (13.0-17.0); Lymphocytes # (A) 1.89 X 10*3/uL (0.90-5.00); Lymphocytes % (A) 38.8 %; MCH 29.8 pg (27.0-32.0); MCV 90.3 fL (80.0-97.0); Mean Platelet Volume 11.2 fL (9.5-12.2); Monocytes # (A) 0.72 X 10*3/uL (0.20-1.00); Monocytes % (A) 14.8 %; Neutrophils # (A) 1.91 X 10*3/uL (1.80-7.70); Neutrophils % (A) 39.2 %; Platelet Count 204 X 10*3/uL (140-440); RBC 4.76 X 10*6/uL (4.40-5.60); RDW 13.7 % (11.5-14.5); WBC 4.87 X 10*3/uL (4.50-10.00)
[2020-11-03] MEDS: hydrOXYzine HCL 10 MG TAB PO SCH ×2 (11:23→20:16)
[2020-11-03 11:56] LABS: Glucose,Whole Blood 115 mg/dL (75-99)
--- NOTE | 2020-11-03 12:14 | PN ---
PROGRESS NOTE CHIEF COMPLAINT: Chest pain. This is an 85-year-old gentleman with history of mhr-emnsujz-swrtatppo diabetes, orthostatic hypotension, who is admitted to the hospital with chest pain. He describes it as a precordial chest pressure, moderate intensity that lasted for several minutes, forcing him to come to the emergency room. It was associated with diaphoresis and shortness of breath. The patient was in the hospital 2 weeks ago with similar symptoms and was advised to undergo cardiac catheterization. Since being admitted to the hospital, the patient is chest pain free. He received 1 dose of Dilaudid. He is on nitrates and heparin. He had a stress test that was negative for ischemia in 2018. An EKG on this admission revealed sinus rhythm with right bundle branch block and an echocardiogram in September of 2020 revealed normal LV function with mild mitral and mild- to-moderate aortic regurgitation. The patient is agreeable to undergoing cardiac catheterization now and we will schedule him for a catheterization with Dr. Burger tomorrow. PAST MEDICAL HISTORY: Significant for tnq-otcbseh-enkhtxxhf diabetes, hypertension, hypotension. MEDICATIONS: Medications at home included Glucophage, Flomax, sublingual nitroglycerin, Lopressor 25 b.i.d., Prinivil 10 mg daily, Imdur, [place], Cortef, Plavix, aspirin and Xanax. ALLERGIES: TO STATINS. FAMILY HISTORY: Negative for premature coronary artery disease. SOCIAL HISTORY: Negative for smoking, EtOH abuse, or drug abuse. REVIEW OF SYSTEMS: HEENT is unremarkable. CARDIAC as described above. RESPIRATORY negative. GI negative. : Negative. Derm negative. ALLERGIES none. SKIN negative. Musculoskeletal: Significant for arthritis. Psychosocial negative. Endocrine: Negative. Constitutional negative. Oncological negative. 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 PHYSICAL EXAMINATION: Patient is comfortable at rest. Vital signs are stable. There is no jugular venous distention. There is no carotid bruit. Chest exam reveals good air entry bilaterally. Heart exam reveals first and second heart sounds. A grade 3 x 6 ejection systolic murmur in the aortic area. ABDOMEN: Soft. Exam of extremities did not reveal any edema. Peripheral pulses are felt. LABS: Labs show that 3 sets of troponins are negative. EKG shows sinus rhythm with right bundle branch block. ASSESSMENT: Unstable angina. PLAN: The patient was advised to undergo cardiac catheterization tomorrow. MMODL / IJN: [id number] /
[2020-11-03] MEDS: HEPARIN SOD,PORK IN 0.45% NACL 25,000 UNIT in 0.45% NACL 1 250ML.BAG IV SCH (13:20)
[2020-11-03 17:08] LABS: Glucose,Whole Blood 126 mg/dL (75-99)
[2020-11-03] MEDS: HYDROCORTISONE 10 MG TAB PO SCH (17:16)
[2020-11-03 20:06] LABS: Glucose,Whole Blood 181 mg/dL (75-99)
[2020-11-03] MEDS: FINASTERIDE 5 MG TAB PO SCH (20:16)
[2020-11-03] MEDS: TAMSULOSIN 0.4 MG CAP.ER.24H PO SCH (20:17)
[2020-11-03] MEDS: lisinopriL 10 MG TAB PO SCH (20:17)
[2020-11-04] MEDS: HYDROcodone/APAP 5-325MG 1 EACH TAB PO PRN (05:37)
[2020-11-04 07:08] LABS: Glucose,Whole Blood 101 mg/dL (75-99)
[2020-11-04] MEDS: metFORMIN 500 MG TAB PO SCH (07:38)
[2020-11-04] MEDS: ASPIRIN 81 MG PO SCH (07:42)
[2020-11-04] MEDS: CLOPIDOGREL 75 MG TAB PO SCH (07:42)
[2020-11-04] MEDS: TRIAMCINOLONE 0.1% CREAM 80 GM TUBE TOPICAL SCH (07:42)
[2020-11-04] MEDS: LEVOTHYROXINE 75 MCG TAB PO SCH (07:42)
[2020-11-04] MEDS: ISOSORBIDE MONONITRATE ER 15 MG TAB PO SCH (07:43)
[2020-11-04] MEDS: hydrOXYzine HCL 10 MG TAB PO SCH ×2 (07:43→19:53)
[2020-11-04] MEDS: HEPARIN SOD,PORK IN 0.45% NACL 25,000 UNIT in 0.45% NACL 1 250ML.BAG IV SCH (07:43)
[2020-11-04] MEDS: METOPROLOL TARTRATE 25 MG TAB PO SCH ×2 (07:44→18:00)
[2020-11-04] MEDS ORDERED: DOBUTamine DRIP for NUC MED 500 MG in DEXTROSE/WATER 1 250ML.BAG IV PRN (08:22)
[2020-11-04] MEDS ORDERED: CAFFEINE CITRATE 60 MG/3 ML VIAL IV PRN (08:24)
[2020-11-04] MEDS ORDERED: AMINOPHYLLINE 500 MG/20 ML VIAL IV PRN (08:24)
[2020-11-04] MEDS ORDERED: REGADENOSON 0.4 MG/5 ML SYRINGE IV PRN (08:24)
--- NOTE | 2020-11-04 10:58 | P.PN ---
Subjective This is an 85-year-old male with a history of type 2 diabetes, hypertension, osteoarthritis, hypothyroidism. Patient follows in the office with Dr. Burger. We have been asked to see the patient consultation for chest pain. Troponins were negative 3. EKG on this admission reveals sinus rhythm right bundle branch block, no significant STT wave abnormalities, similar to prior EKGs. Echocardiogram in September 2020 revealed a normal LV function 60% with mild mitral and mild to moderate regurgitation. In October 2020 patient presented with chest pain, Dr. francesco allen discussed possible cardiac cath patient and the patient declined at that time and patient requested to proceed with medical management at that time. Patient seen and examined at bedside, no acute distress. Is no longer having chest pain. Blood pressure 160/84, heart rate 76, afebrile, maintaining oxygen saturation is 97% on room air. Telemetry reviewed patient in sinus mechanism heart rate 50-70s. No new labs this morning to review. Patient currently being maintained on aspirin 81 mg daily, Plavix 75 mg daily, Imdur 15 mg daily, lisinopril 10 mg nightly, metoprolol titrate 25 mg twice a day. GENERAL: Well-appearing, well-nourished and in no acute distress. NECK: Supple without JVD or thyromegaly. LUNGS: Breath sounds clear to auscultation bilaterally. Respiration equal and unlabored. No wheezes, rales or rhonchi. HEART: Regular rate and rhythm Systolic ejection murmur right sternal border noted. No rubs or gallops. S1 and S2 heard. EXTREMITIES: Normal range of motion, no edema. No clubbing or cyanosis. Peripheral pulses intact. ASSESSMENT Chest pain, atypical. Acute coronary syndrome has been ruled out Type 2 diabetes Hypertension Hypothyroidism PLAN An acute coronary event has been ruled out with no EKG evidence of ischemia and negative cardiac enzymes. Perform Lexiscan stress test to assess for stress induced cardiac ischemia. If abnormal will consider coronary angiography. If stress test is negative, okay to discharge from cardiology perspective. In follow up with Dr. Burger Nurse Practitioner note has been reviewed, I agree with a documented findings and plan of care. Patient was seen and examined. Objective - Vital Signs Vital signs: Vital Signs Temp 97.7 F 11/04/20 07:00 Pulse 74 11/04/20 07:28 Resp 24 11/04/20 07:28 BP 160/84 11/04/20 07:00 Pulse Ox 97 11/04/20 07:00 Intake & Output 11/03/20 11/04/20 11/04/20 18:59 06:59 18:59 Intake Total 930.107 220.14 Balance 930.107 220.14 Weight 99.79 kg Intake: IV 95.2 Heparin Sod,Pork in 0.45% 95.2 NaCl 25,000 unit In 0.45 % NaCl 1 250ml.bag @ 10 UNITS/KG/HR 9.979 mls/hr IV .Q24H [facility] Rx#: [id number] Intake, IV Titration 234.907 220.14 Amount Heparin Sod,Pork in 0.45% 234.907 220.14 NaCl 25,000 unit In 0.45 % NaCl 1 250ml.bag @ 10 UNITS/KG/HR 9.979 mls/hr IV .Q24H [facility] Rx#: [id number] Oral 600 Other: Voiding Method Diaper Diaper Diaper # Voids 1 4 # Bowel Movements 1 - Labs CBC & Chem 7: 11/03/20 05:29 11/03/20 05:29 Labs: Abnormal Lab Results - Last 24 Hours (Table) 11/03/20 11/03/20 11/03/20 Range/Units 11:52 13:15 17:05 APTT 41.1 H (22.0-30.0) sec POC Glucose (mg/dL) 115 H 126 H (75-99) mg/dL 11/03/20 11/03/20 11/04/20 Range/Units 20:05 20:22 06:13 APTT 54.8 H 52.6 H (22.0-30.0) sec POC Glucose (mg/dL) 181 H (75-99) mg/dL 11/04/20 Range/Units 07:07 APTT (22.0-30.0) sec POC Glucose (mg/dL) 101 H (75-99) mg/dL
[2020-11-04 11:47] LABS: Glucose,Whole Blood 148 mg/dL (75-99)
--- NOTE | 2020-11-04 12:50 | P.DS ---
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, hypothyroidism, insomnia due to medical illnesses, osteoarthritis, patient developed to have left-sided chest painin the morning that the nursing staff at [facility] had to give him 3 nitroglycerin in order for the pain to go away, he was directed to go to the emergency department for evaluation he shouldn't was recently hospitalized at [facility] in 10/22/2020 was seen in consultation by cardiology and it was recommended that time to go for left heart catheterization which the patient declined however this time the patient is agreement to have a left heart catheterization for further evaluation and treatment.patient is complaining of severe itching all over his body, he would be started on hydroxyzine 10 mg orally twice every day, along with mometasone cream 0.1% to be applied once every day as needed. 11/04: Patient denies any chest pain at rest. No shortness of breath. He is complaining of itching for which Atarax was started and he also has Kenalog cream. Cardiology and plan for heart catheterization which this morning was switched to Lexiscan stress test which came back with a critical reading. Patient's discharge to the [facility] will be held with anticipation that cardiology will do heart catheterization tomorrow. He has been afebrile, heart rate 67, blood pressure 110/65, pulse ox 95% on room air. Blood sugars are running 101-148. Anticipate discharge back to [facility] on Wednesday. 11/05: Anticipate patient will undergo heart catheterization today. Patient is agreeable. He has been nothing by mouth since midnight. He denies having any chest pain at this time. He has been afebrile, heart rate 75, blood pressure 130/60, pulse ox 97% on room air. Discharge plan remains to return to [facility]. 11/06: Yesterday, patient underwent heart catheterization with Dr. Burger which bronchial spike coronary system. Moderate to significant stenosis involving the distal circumflex at 70% and also distal PDA at 90%. Mild aortic stenosis. Plan is to maximize medical therapy. Patient has been afebrile, heart rate 64, blood pressure 128/64, pulse ox 92% on 2 L nasal cannula. desk monitor is sinus rhythm. he has had no chest pain overnight. He continues to have itching without improvement with atarax which will be discontinued. Patient had bowel movement without blood or tarriness. Blood glucose running between 101 and 162. Patient will be discharged back to [facility] in stable condition. DISCHARGE DIAGNOSES: 1. Chest pain possibly CAD. 2. Hypertension and hypertensive cardiovascular disease. 3. Diabetes mellitus type 2. 4. Mixed hyperlipidemia. 5. 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 6. Hypothyroidism. 7. Pruritus. 8. Enlarged prostate. 9. Generalized anxiety disorder. DISCHARGE PLAN: Return to [facility] Impression and plan of care have been directed as dictated by the signing physician. Amy Lemos nurse practitioner acting as scribe for signing physician. Patient Condition at Discharge: Good Plan - Discharge Summary New Discharge Prescriptions: New Empagliflozin [Jardiance] 10 mg PO DAILY #30 tablet Continue Lisinopril [Prinivil] 10 mg PO HS Ferrous Sulfate [Iron (65 MG Elemental)] 325 mg PO DAILY@0800 Finasteride [Proscar] 5 mg PO HS Hydrocortisone [Cortef] 10 mg PO DAILY@1700 Levothyroxine Sodium 150 mcg PO DAILY@0800 Mometasone Furoate [Elocon] 1 applic TOPICAL DAILY Na Phos,M-B/Na Phos,Di-Ba [Fleet Adult] 133 ml RECTAL DAILY PRN PRN Reason: Constipation Tamsulosin [Flomax] 0.4 mg PO HS bisacodyL [Bisacodyl] 10 mg RECTAL DAILY PRN PRN Reason: Constipation Magnesium Hydroxide [Milk of Magnesia Concentrate] 7,200 mg PO Q48H PRN PRN Reason: Constipation Nitroglycerin Sl Tabs [Nitrostat] 0.4 mg SL Q5M PRN PRN Reason: Chest Pain metFORMIN HCL [Glucophage] 500 mg PO DAILY@0800 #0 Acetaminophen Tab [Tylenol] 650 mg PO Q4H PRN PRN Reason: Fever And/ Or Pain Chlorhexidine Gluconate [Peridex] 15 ml PO BID@0800,1700 Midodrine [ProAmatine] 5 mg PO BID PRN PRN Reason: SBP LESS THAN 100 Isosorbide Mononitrate ER [Imdur] 15 mg PO DAILY@0800 Aspirin EC [Ecotrin Low Dose] 81 mg PO DAILY@0800 Clopidogrel [Plavix] 75 mg PO DAILY@0800 Metoprolol Tartrate [Lopressor] 25 mg PO BID@0800,1700 HYDROcodone/APAP 5-325MG [Hume 5-325] 1 tab PO Q4H PRN #18 tab PRN Reason: Pain Changed ALPRAZolam [Xanax] 0.25 mg PO Q8H PRN #9 tab PRN Reason: Anxiety Discharge Medication List Lisinopril [Prinivil] 10 mg PO HS 02/15/18 [History] Ferrous Sulfate [Iron (65 MG Elemental)] 325 mg PO DAILY@0800 06/03/20 [History] Finasteride [Proscar] 5 mg PO HS 06/03/20 [History] Hydrocortisone [Cortef] 10 mg PO DAILY@1700 06/03/20 [History] Levothyroxine Sodium 150 mcg PO DAILY@0800 06/03/20 [History] Acetaminophen Tab [Tylenol] 650 mg PO Q4H PRN 10/22/20 [History] Chlorhexidine Gluconate [Peridex] 15 ml PO BID@0800,1700 10/22/20 [History] Midodrine [ProAmatine] 5 mg PO BID PRN 10/22/20 [History] Mometasone Furoate [Elocon] 1 applic TOPICAL DAILY 10/22/20 [History] Na Phos,M-B/Na Phos,Di-Ba [Fleet Adult] 133 ml RECTAL DAILY PRN 10/22/20 [History] Tamsulosin [Flomax] 0.4 mg PO HS 10/22/20 [History] Aspirin EC [Ecotrin Low Dose] 81 mg PO DAILY@0800 11/02/20 [History] Clopidogrel [Plavix] 75 mg PO DAILY@0800 11/02/20 [History] Isosorbide Mononitrate ER [Imdur] 15 mg PO DAILY@0800 11/02/20 [History] Magnesium Hydroxide [Milk of Magnesia Concentrate] 7,200 mg PO Q48H PRN 11/02/20 [History] Metoprolol Tartrate [Lopressor] 25 mg PO BID@0800,1700 11/02/20 [History] Nitroglycerin Sl Tabs [Nitrostat] 0.4 mg SL Q5M PRN 11/02/20 [History] bisacodyL [Bisacodyl] 10 mg RECTAL DAILY PRN 11/02/20 [History] ALPRAZolam [Xanax] 0.25 mg PO Q8H PRN #9 tab 11/04/20 [Rx] HYDROcodone/APAP 5-325MG [Hume 5-325] 1 tab PO Q4H PRN #18 tab 11/04/20 [Rx] Empagliflozin [Jardiance] 10 mg PO DAILY #30 tablet 11/06/20 [Rx] metFORMIN HCL [Glucophage] 500 mg PO DAILY@0800 #0 11/06/20 [Rx] Follow up Appointment(s)/Referral(s): Maggie Joya MD [Primary Care Provider] - 1 Week (at [facility] ) Gilda Burger MD [STAFF PHYSICIAN] - 2 Weeks
--- NOTE | 2020-11-04 13:20 | P.STRESS ---
- Stress Test Note Stress Test Results/Findings: Exam Performed: NM stress lexiscan cardiolite Exam Date: 11/04/20 Reason for Exam: UNSTABLE ANGINA Height: 6 ft 1 in Weight: 99.79 kg Protocol: LEXISCAN Stage: N/A Duration of Exercise: 5 MINUTES Resting Heart Rate: 54 Resting Blood Pressure: 149/74 Maximum Achieved Heart Rate: 68 Maximum Achieved Blood Pressure: 149/74 85% PMHR: 116 100% PMHR: 136 METS: N/A Technologist Comment: Stress Test Results/Findings: Baseline heart rate 54 beats a minute, Baseline blood pressure 149/74 liters of mercury baseline 12-lead EKG showed sinus rhythm with a right bundle branch block pattern normal ST segments Lexiscan was infused per protocol No ECG changes noted Occasional premature beats noted Nuclear portion will be reported separately
--- NOTE | 2020-11-04 15:59 | NM ---
EXAMINATION TYPE: NM stress lexiscan cardiolite DATE OF EXAM: 11/04/2020 COMPARISON: NONE HISTORY: Chest pain TECHNIQUE: After the intravenous administration of 9.8 mCi Tc 99m Sestamibi - Cardiolite resting SPE CT images acquired 45 minutes post injection. The patient received 0.4mg Lexiscan, 25.0 mCi Tc 99m Sestamibi - Stress images obtained [address] injection FINDINGS: Review of stress and rest SPECT images demonstrates decreased apical activity extending into the infe rior wall on stress as compared to rest images. Gated analysis shows normal wall motion with an yari mated left ventricular ejection fraction of 68 %. IMPRESSION: Pharmacologically induced left ventricular myocardial ischemia. Consider echocardiographic correlatio n for elevated ejection fraction A Yellow level critical message alert has been initiated for Maggie Joya MD via the [employer] Critical Results System on 11/04/2020 3:56 PM. This message alert has been sent to Maggie Joya MD via the preferences provided by the clinician for the receipt of Radiology Critical Findings. Message ID [id number].
--- NOTE | 2020-11-04 16:08 | P.PN ---
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, hypothyroidism, insomnia due to medical illnesses, osteoarthritis, patient developed to have left-sided chest painin the morning that the nursing staff at [facility] had to give him 3 nitroglycerin in order for the pain to go away, he was directed to go to the emergency department for evaluation he shouldn't was recently hospitalized at [facility] in 10/22/2020 was seen in consultation by cardiology and it was recommended that time to go for left heart catheterization which the patient declined however this time the patient is agreement to have a left heart catheterization for further evaluation and treatment.patient is complaining of severe itching all over his body, he would be started on hydroxyzine 10 mg orally twice every day, along with mometasone cream 0.1% to be applied once every day as needed. 11/04: Patient denies any chest pain at rest. No shortness of breath. He is complaining of itching for which Atarax was started and he also has Kenalog cream. Cardiology and plan for heart catheterization which this morning was switched to Lexiscan stress test which came back with a critical reading. Patient's discharge to the retirement will be held with anticipation that cardiology will do heart catheterization tomorrow. He has been afebrile, heart rate 67, blood pressure 110/65, pulse ox 95% on room air. Blood sugars are running 101-148. Anticipate discharge back to [facility] on Wednesday. REVIEW OF SYSTEMS: Constitutional: No documented fever, no chills, no night sweats. No weight change. Positive for weakness, positive for fatigue no lethargy. No daytime sleepiness. EENT: No headache. No blurred vision or double vision, no loss of vision. No loss of Hearing, no ringing in the ears, no dizziness. No nasal drainage or congestion. No epistaxis. No sore throat. Lungs: Positive for shortness of breath, no cough, no sputum production. No wheezing. Reports dyspnea with activity. Cardiovascular: Denies chest pain, no lower extremity edema. No palpitations. No paroxysmal nocturnal dyspnea. No orthopnea. No lightheadedness or dizziness. No syncopal episodes. Abdominal: Reports no abdominal pain. No nausea, vomiting. No diarrhea. No constipation. No bloody or tarry stools reports loss of appetite. Genitourinary: No dysuria, increased frequency, urgency. No urinary retention. Musculoskeletal: No myalgias. No muscle weakness, no gait dysfunction, no frequent falls. No back pain. No neck pain. Integumentary: No wounds, no lesions. positive itching. positive for bruising. No change in hair or nails. Neurologic: No aphasia. No facial droop. No change in mentation. No head injury. No headache. No paralysis. No paresthesia. Psychiatric: No depression. Positive for anxiety. No mood swings. Endocrine: No abnormal blood sugars. No weight change. PHYSICAL EXAMINATION: General: This is an 85-year-old male who is laying down in bed in no apparent distress HEENT: Head is atraumatic, normocephalic, pupils were equal round reactive to light and recommendation, extraocular muscle movement were intact, sclera nonicteric, conjunctivae were pale, mucous membranes of the mouth are somewhat dry. Neck: Supple, no JVP, normal carotid upstroke bilaterally, no lymphadenopathy. Chest: Decreased breath sounds at the bases, few rhonchi, no extremity wheezes, no chest wall tenderness, no intercostal retractions. Heart: First heart sound is normal, second heart sounds normal there is systolic ejection murmur 2/6 located in the left sternal border. Abdomen: Soft, nontender, nondistended, positive bowel sounds. Extremities: There is no edema no calf tenderness DP +2 bilaterally. Neurologic examination: Patient is awake alert and oriented X3 , cranial nerves II-12 appear grossly intact, muscle power were 5 out of 5 in upper extremities and 5 out of 5 in bilateral lower extremities, deep tendon reflexes normal bilaterally. ASSESSMENT AND PLAN: 1. Chest pain possibly CAD. Patient did have an echocardiogram a month ago that showed normal ejection fraction with moderate mitral and aortic r egurgitation, he did have a stress test done back in May 2019 that was negative for stress-induced ischemia, patient will be seen in consultation by cardiology, cardiac enzymes so far are negative acute coronary syndrome has been ruled out, continue patient on aspirin 81 mg once every day, Plavix 75 mg once every day, Imdur as well as beta blockers, heparin drip, patient status post Cardiolite stress test and anticipate need for left heart catheterization hopefully tomorrow morning. 2. Hypertension and hypertensive cardiovascular disease. Continue patient on lisinopril 10 mg orally once every day, monitor the patient blood pressure very closely . 3. Diabetes mellitus type 2. Hold metformin 500 mg orally once every day, plan to continue Farxiga 5 mg orally once every day as well as Rybelsus 3 mg once every day. 4. Mixed hyperlipidemia. Patient is intolerant to statins in general, monitor the patien lipid panel, keep LDL cholesterol 55-70, he may need to go on [facility] 9- INH. 5. 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 Continue Cortef 20 mg in the morning to milligram afternoon. 6. Hypothyroidism. Continue Synthroid 150 MCG orally once every day. 7. Pruritus. Start the patient on hydroxyzine 10 mg orally twice every day as well as mometasone cream 0.1% to be applied once every day as needed. 8. Enlarged prostate. Continue Flomax 0.4 mg orally once every day and finasteride 5 minute gram orally once every day. 9. Anxiety. Continue patient on Xanax 0.25 mg orally twice every day as needed. 10. DVT prophylaxis. Continue heparin 5000 units subcutaneous every 8 hours. 11. GI prophylaxis. Continue patient on Protonix 40 mg orally once every day. 12. Observation. 13. Patient is full code DISCHARGE PLAN: Return to [facility] Impression and plan of care have been directed as dictated by the signing physician. Amy Lemos nurse practitioner acting as scribe for signing shlomo montero. Objective - Vital Signs Vital signs: Vital Signs Temp 97.7 F 11/04/20 07:00 Pulse 74 11/04/20 07:28 Resp 24 11/04/20 07:28 BP 160/84 11/04/20 07:00 Pulse Ox 97 11/04/20 07:00 Intake & Output 11/03/20 11/04/20 11/04/20 18:59 06:59 18:59 Intake Total 930.107 220.14 Balance 930.107 220.14 Intake: IV 95.2 Heparin Sod,Pork in 0.45% 95.2 NaCl 25,000 unit In 0.45 % NaCl 1 250ml.bag @ 10 UNITS/KG/HR 9.979 mls/hr IV .Q24H [facility] Rx#: [id number] Intake, IV Titration 234.907 220.14 Amount Heparin Sod,Pork in 0.45% 234.907 220.14 NaCl 25,000 unit In 0.45 % NaCl 1 250ml.bag @ 10 UNITS/KG/HR 9.979 mls/hr IV .Q24H [facility] Rx#: [id number] Oral 600 Other: Voiding Method Diaper Diaper Diaper # Voids 1 4 # Bowel Movements 1 - Labs CBC & Chem 7: 11/03/20 05:29 11/03/20 05:29 Labs: Abnormal Lab Results - Last 24 Hours (Table) 11/03/20 11/03/20 11/03/20 Range/Units 05:29 11:52 13:15 APTT 41.1 H (22.0-30.0) sec BUN/Creatinine Ratio 20.91 H (12.00-20.00) Ratio Glucose 166 H (70-110) mg/dL POC Glucose (mg/dL) 115 H (75-99) mg/dL Albumin 3.50 L (3.80-4.90) g/dL Albumin/Globulin Ratio 1.25 L (1.60-3.17) g/dL HDL Cholesterol 35.0 L (40.0-60.0) mg/dL 11/03/20 11/03/20 11/03/20 Range/Units 17:05 20:05 20:22 APTT 54.8 H (22.0-30.0) sec BUN/Creatinine Ratio (12.00-20.00) Ratio Glucose (70-110) mg/dL POC Glucose (mg/dL) 126 H 181 H (75-99) mg/dL Albumin (3.80-4.90) g/dL Albumin/Globulin Ratio (1.60-3.17) g/dL HDL Cholesterol (40.0-60.0) mg/dL 11/04/20 11/04/20 Range/Units 06:13 07:07 APTT 52.6 H (22.0-30.0) sec BUN/Creatinine Ratio (12.00-20.00) Ratio Glucose (70-110) mg/dL POC Glucose (mg/dL) 101 H (75-99) mg/dL Albumin (3.80-4.90) g/dL Albumin/Globulin Ratio (1.60-3.17) g/dL HDL Cholesterol (40.0-60.0) mg/dL
[2020-11-04] MEDS: INSULIN ASPART (NovoLOG) 100 UNIT/ML VIAL SQ SCH ×2 (17:18→21:35)
[2020-11-04 17:19] LABS: Glucose,Whole Blood 133 mg/dL (75-99)
[2020-11-04] MEDS: HYDROCORTISONE 10 MG TAB PO SCH (18:00)
[2020-11-04] MEDS: FINASTERIDE 5 MG TAB PO SCH (19:53)
[2020-11-04] MEDS: TAMSULOSIN 0.4 MG CAP.ER.24H PO SCH (19:55)
[2020-11-04] MEDS: lisinopriL 10 MG TAB PO SCH (19:55)
[2020-11-04 21:45] LABS: Glucose,Whole Blood 160 mg/dL (75-99)
[2020-11-05] MEDS: HYDROcodone/APAP 5-325MG 1 EACH TAB PO PRN (05:10)
[2020-11-05 05:44] LABS: African American GFR (CKD) >90 (>60 ml/min/1.73 sqM); Anion Gap 8 mmol/L; Blood Urea Nitrogen 15 mg/dL (9-20); Carbon Dioxide 28 mmol/L (22-30); Chloride 103 mmol/L (98-107); Glucose 114 mg/dL (74-99); Non-African American GFR(CKD) 80 (>60 ml/min/1.73 sqM); Potassium 4.4 mmol/L (3.5-5.1); Sodium 139 mmol/L (137-145)
[2020-11-05 07:20] LABS: Glucose,Whole Blood 99 mg/dL (75-99)
--- NOTE | 2020-11-05 07:49 | P.PN ---
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, hypothyroidism, insomnia due to medical illnesses, osteoarthritis, patient developed to have left-sided chest painin the morning that the nursing staff at [facility] had to give him 3 nitroglycerin in order for the pain to go away, he was directed to go to the emergency department for evaluation he shouldn't was recently hospitalized at [facility] in 10/22/2020 was seen in consultation by cardiology and it was recommended that time to go for left heart catheterization which the patient declined however this time the patient is agreement to have a left heart catheterization for further evaluation and treatment.patient is complaining of severe itching all over his body, he would be started on hydroxyzine 10 mg orally twice every day, along with mometasone cream 0.1% to be applied once every day as needed. 11/04: Patient denies any chest pain at rest. No shortness of breath. He is complaining of itching for which Atarax was started and he also has Kenalog cream. Cardiology and plan for heart catheterization which this morning was switched to Lexiscan stress test which came back with a critical reading. Patient's discharge to the skilled nursing will be held with anticipation that cardiology will do heart catheterization tomorrow. He has been afebrile, heart rate 67, blood pressure 110/65, pulse ox 95% on room air. Blood sugars are running 101-148. Anticipate discharge back to [facility] on Wednesday. 11/05: Anticipate patient will undergo heart catheterization today. Patient is agreeable. He has been nothing by mouth since midnight. He denies having any chest pain at this time. He has been afebrile, heart rate 75, blood pressure 130/60, pulse ox 97% on room air. Discharge plan remains to return to [facility]. REVIEW OF SYSTEMS: Constitutional: No documented fever, no chills, no night sweats. No weight change. Positive for weakness, positive for fatigue no lethargy. No daytime sleepiness. EENT: No headache. No blurred vision or double vision, no loss of vision. No loss of Hearing, no ringing in the ears, no dizziness. No nasal drainage or congestion. No epistaxis. No sore throat. Lungs: Positive for shortness of breath, no cough, no sputum production. No wheezing. Reports dyspnea with activity. Cardiovascular: Denies chest pain, no lower extremity edema. No palpitations. No paroxysmal nocturnal dyspnea. No orthopnea. No lightheadedness or dizziness. No syncopal episodes. Abdominal: Reports no abdominal pain. No nausea, vomiting. No diarrhea. No constipation. No bloody or tarry stools reports loss of appetite. Genitourinary: No dysuria, increased frequency, urgency. No urinary retention. Musculoskeletal: No myalgias. No muscle weakness, no gait dysfunction, no frequent falls. No back pain. No neck pain. Integumentary: No wounds, no lesions. positive itching. positive for bruising. No change in hair or nails. Neurologic: No aphasia. No facial droop. No change in mentation. No head injury. No headache. No paralysis. No paresthesia. Psychiatric: No depression. Positive for anxiety. No mood swings. Endocrine: No abnormal blood sugars. No weight change. PHYSICAL EXAMINATION: General: This is an 85-year-old male who is laying down in bed in no apparent distress HEENT: Head is atraumatic, normocephalic, pupils were equal round reactive to light and recommendation, extraocular muscle movement were intact, sclera nonicteric, conjunctivae were pale, mucous membranes of the mouth are somewhat dry. Neck: Supple, no JVP, normal carotid upstroke bilaterally, no lymphadenopathy. Chest: Decreased breath sounds at the bases, few rhonchi, no extremity wheezes, no chest wall tenderness, no intercostal retractions. Heart: First heart sound is normal, second heart sounds normal there is systolic ejection murmur 2/6 located in the left sternal border. Abdomen: Soft, nontender, nondistended, positive bowel sounds. Extremities: There is no edema no calf tenderness DP +2 bilaterally. Neurologic examination: Patient is awake alert and oriented X3 , cranial nerves II-12 appear grossly intact, muscle power were 5 out of 5 in upper extremities and 5 out of 5 in bilateral lower extremities, deep tendon reflexes normal bilaterally. ASSESSMENT AND PLAN: 1. Chest pain possibly CAD. Patient did have an echocardiogram a month ago that showed normal ejection fraction with moderate mitral and aortic regurgitation, he did have a stress test done back in May 2019 that was negative for stress-induced ischemia, patient will be seen in consultation by cardiology, cardiac enzymes so far are negative acute coronary syndrome has been ruled out, continue patient on aspirin 81 mg once every day, Plavix 75 mg once every day, Imdur as well as beta blockers, heparin drip, patient status post Cardiolite stress test and anticipate need for left heart catheterization hopefully today. 2. Hypertension and hypertensive cardiovascular disease. Continue patient on lisinopril 10 mg orally once every day, monitor the patient blood pressure very closely . 3. Diabetes mellitus type 2. Hold metformin 500 mg orally once every day, plan to continue Farxiga 5 mg orally once every day as well as Rybelsus 3 mg once every day. 4. Mixed hyperlipidemia. Patient is intolerant to statins in general, monitor the patien lipid panel, keep LDL cholesterol 55-70, he may need to go on PCSK 9- INH. 5. 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 Continue Cortef 20 mg in the morning to milligram afternoon. 6. Hypothyroidism. Continue Synthroid 150 MCG orally once every day. 7. Pruritus. Start the patient on hydroxyzine 10 mg orally twice every day as well as mometasone cream 0.1% to be applied once every day as needed. 8. Enlarged prostate. Continue Flomax 0.4 mg orally once every day and finasteride 5 minute gram orally once every day. 9. Anxiety. Continue patient on Xanax 0.25 mg orally twice every day as needed. 10. DVT prophylaxis. Continue heparin 5000 units subcutaneous every 8 hours. 11. GI prophylaxis. Continue patient on Protonix 40 mg orally once every day. 12. Patient is full code DISCHARGE PLAN: Return to [facility] Impression and plan of care have been directed as dictated by the signing physician. Amy Lemos nurse practitioner acting as scribe for signing physician. Objective - Vital Signs Vital signs: Vital Signs Temp 97.7 F 11/05/20 00:58 Pulse 64 11/05/20 00:58 Resp 16 11/05/20 02:00 BP 165/63 11/05/20 00:58 Pulse Ox 96 11/05/20 00:58 Intake & Output 0511/05/20 11/05/20 18:59 06:59 18:59 Intake Total 220.14 Balance 220.14 Weight 99.79 kg Intake: Intake, IV Titration 220.14 Amount Heparin Sod,Pork in 0.45% 220.14 NaCl 25,000 unit In 0.45 % NaCl 1 250ml.bag @ 10 UNITS/KG/HR 9.979 mls/hr IV .Q24H [facility] Rx#: [id number] Other: Voiding Method Diaper Diaper # Voids 3 2 # Bowel Movements 1 - Labs CBC & Chem 7: 11/03/20 05:29 11/05/20 04:41 Labs: Abnormal Lab Results - Last 24 Hours (Table) 11/04/20 11/04/20 11/04/20 Range/Units 11:46 17:14 21:31 Glucose (74-99) mg/dL POC Glucose (mg/dL) 148 H 133 H 160 H (75-99) mg/dL 11/05/20 Range/Units 04:41 Glucose 114 H (74-99) mg/dL POC Glucose (mg/dL) (75-99) mg/dL
[2020-11-05] MEDS ORDERED: SODIUM CHLORIDE 0.9% 1,000 ML in EMPTY BAG 1 BAG IV ONE (08:08)
[2020-11-05] MEDS: INSULIN ASPART (NovoLOG) 100 UNIT/ML VIAL SQ SCH ×4 (08:18→20:47)
[2020-11-05] MEDS: ASPIRIN 81 MG PO SCH (08:19)
[2020-11-05] MEDS: ISOSORBIDE MONONITRATE ER 15 MG TAB PO SCH (08:19)
[2020-11-05] MEDS: hydrOXYzine HCL 10 MG TAB PO SCH ×2 (08:19→21:31)
[2020-11-05] MEDS: CLOPIDOGREL 75 MG TAB PO SCH (08:19)
[2020-11-05] MEDS: METOPROLOL TARTRATE 25 MG TAB PO SCH ×2 (08:19→17:37)
[2020-11-05] MEDS: TRIAMCINOLONE 0.1% CREAM 80 GM TUBE TOPICAL SCH (08:20)
[2020-11-05] MEDS: LEVOTHYROXINE 75 MCG TAB PO SCH (08:20)
[2020-11-05] MEDS ORDERED: HEPARIN SODIUM 1,000 UN/ML (10ML VL) ONE (08:43)
[2020-11-05] MEDS ORDERED: fentaNYL (PF) 50 MCG/ML 2 ML AMP ONE (08:44)
[2020-11-05] MEDS ORDERED: LIDOCAINE 1% INJ 10MG/ML (20 ML MDV) ONE (08:44)
[2020-11-05] MEDS ORDERED: VERAPAMIL 2.5 MG/ML 2 ML AMP ONE (08:44)
[2020-11-05] MEDS ORDERED: MIDAZOLAM 2 MG/2 ML VIAL IV ONE (08:57)
[2020-11-05] MEDS ORDERED: fentaNYL (PF) 50 MCG/ML 2 ML AMP IV ONE (08:57)
[2020-11-05] MEDS ORDERED: LIDOCAINE 1% INJ 10MG/ML (20 ML MDV) SQ ONE (08:58)
[2020-11-05] MEDS ORDERED: HEPARIN SODIUM 1,000 UN/ML (10ML VL) IV ONE (09:00)
[2020-11-05] MEDS ORDERED: VERAPAMIL SYRINGE (5 MG/10 ML) INTRAARTER ONE (09:00)
[2020-11-05] MEDS ORDERED: IV FLUID CONTINUATION 500 ML IV ONE (09:06)
[2020-11-05] MEDS ORDERED: IOPAMIDOL-370 125ML BTL INJ ONE (09:23)
[2020-11-05] MEDS ORDERED: RX INFO: IV CONTRAST WAS GIVEN 1 EACH MISC MISCELLANE PRN (09:29)
--- NOTE | 2020-11-05 09:35 | P.CARDCATH ---
Date of Procedure: 11/05/20 Preoperative Diagnosis: Chest pain and positive stress test Postoperative Diagnosis: Multivessel but distal disease Procedure(s) Performed: Left heart catheterization without left ventriculography Description of Procedure: HISTORY: This is a 85-year-old gentleman with history of hypertension and diabetes was admitted to the hospital with complaints of recurrent chest pains. Patient had a Lexiscan stress test which showed ischemia involving the apex and also inferior wall. In view of that patient is advised to have a cardiac catheterization for definitive diagnosis CONSENT:I have discussed the risks, benefits and alternative therapies for the above-mentioned procedure and for both sedation/analgesia as well as necessary blood product administration, if indicated, as they pertain to this patient. The patient has indicated understanding and acceptance of the risks and procedures discussed. PROCEDURE: Patient was brought to the lab in a fasting state. Patient was given some IV sedation. The right wrist is infiltrated with lidocaine and right femoral artery was entered using Seldinger technique. A 6-Jordanian catheter was left in place and selective coronary arteriography was performed. Patient tolerated the procedure well. TR band was applied for hemostasis. No immediate complications were noted and patient was transferred to sixth floor in a stable condition Conscious Sedation: Versed 1mg Fentanyl 25 g Duration 18minutes HEMODYNAMICS: The aortic pressure is 130/70. The left ventricle end-diastolic pressure was about 15. There is a gradient of 20 mm across the aortic valve which is a peak gradient SELECTIVE CORONARY ARTERIOGRAPHY: LEFT MAIN: Calcified free of any significant occlusive disease THE LEFT ANTERIOR DESCENDING CORONARY ARTERY: . This is a fairly caliber vessel with calcification and the interval plaque in the proximal portion. No critical lesions were noted in the LAD distribution THE LEFT CIRCUMFLEX AND IS CORONARY ARTERY: Nondominant vessel. The distal circumflex has about 70% stenosis which is diffuse THE RIGHT CORONARY ARTERY: This is a dominant vessel giving rise good-sized PDA PDA has about a 90% stenosis in the pocket distal his chest close to the apex. There is calcification of the whole coronary system LEFT VENTRICULOGRAPHY: Performed FINAL IMPRESSION: #1. Calcified coronary system. Moderate to significant stenosis involving the distal circumflex and also distal PDA #2. Mild aortic stenosis PLAN: . Because of the nature and location of this obstructive disease, maximum medical therapy is advised. Films were reviewed by Dr. KYAW Wayne PROGNOSIS: Fair
[2020-11-05] MEDS: SODIUM CHLORIDE 0.9% 1,000 ML IV SCH ×2 (10:11→21:32)
[2020-11-05 11:46] LABS: Glucose,Whole Blood 86 mg/dL (75-99)
[2020-11-05 17:23] LABS: Glucose,Whole Blood 156 mg/dL (75-99)
[2020-11-05] MEDS: HYDROCORTISONE 10 MG TAB PO SCH (17:37)
[2020-11-05 20:22] LABS: Glucose,Whole Blood 162 mg/dL (75-99)
[2020-11-05 20:44] LABS: Glucose,Whole Blood 153 mg/dL (75-99)
[2020-11-05] MEDS: FINASTERIDE 5 MG TAB PO SCH (20:47)
[2020-11-05] MEDS: lisinopriL 10 MG TAB PO SCH (20:47)
[2020-11-05] MEDS: TAMSULOSIN 0.4 MG CAP.ER.24H PO SCH (20:47)
[2020-11-06 06:56] LABS: Glucose,Whole Blood 101 mg/dL (75-99)
[2020-11-06] MEDS ORDERED: HEPARIN SODIUM,PORCINE 10,000 UNIT in SODIUM CHLORIDE 0.9% 1,000 ML IRRIGATION PRN (07:00)
[2020-11-06] MEDS ORDERED: HEPARIN SODIUM,PORCINE 2,500 UNIT in SODIUM CHLORIDE 0.9% 250 ML IRRIGATION PRN (07:00)
[2020-11-06 07:22] VITALS: BP 168/71; PULSE 62; RESP 20; TEMP 97.7
[2020-11-06] MEDS: INSULIN ASPART (NovoLOG) 100 UNIT/ML VIAL SQ SCH (08:20)
[2020-11-06] MEDS: LEVOTHYROXINE 75 MCG TAB PO SCH (08:23)
[2020-11-06] MEDS: ISOSORBIDE MONONITRATE ER 15 MG TAB PO SCH (08:23)
[2020-11-06] MEDS: METOPROLOL TARTRATE 25 MG TAB PO SCH (08:23)
[2020-11-06] MEDS: CLOPIDOGREL 75 MG TAB PO SCH (08:23)
[2020-11-06] MEDS: hydrOXYzine HCL 10 MG TAB PO SCH (08:23)
[2020-11-06] MEDS: ASPIRIN 81 MG PO SCH (08:23)
[2020-11-06] MEDS: TRIAMCINOLONE 0.1% CREAM 80 GM TUBE TOPICAL SCH (08:24)
[2020-11-06 09:01] LABS: African American GFR (CKD) >90 (>60 ml/min/1.73 sqM); Anion Gap 8 mmol/L; Blood Urea Nitrogen 17 mg/dL (9-20); Calcium 9.1 mg/dL (8.4-10.2); Carbon Dioxide 28 mmol/L (22-30); Chloride 102 mmol/L (98-107); Glucose 106 mg/dL (74-99); Non-African American GFR(CKD) 79 (>60 ml/min/1.73 sqM); Potassium 4.1 mmol/L (3.5-5.1); Sodium 138 mmol/L (137-145)
[2020-11-06] MEDS: SODIUM CHLORIDE 0.9% 1,000 ML IV SCH (11:26)
== END 2020-11-06 11:48 | DRG 287 ==
LOC: EC 11:14 → 6NMEDSUR 12:36 → OBSVTOIN 11-05 13:27
PROVIDERS: ADMIT Internal Medicine; ATTEND Internal Medicine
PROC: B2151ZZ Fluoroscopy of Left Heart using Low Osmolar Contrast (ICD-10-PCS; 2020-11-05)
PROC: B2111ZZ Fluoroscopy of Multiple Coronary Arteries using Low Osmolar Contrast (ICD-10-PCS; 2020-11-05)
PROC: 4A023N7 Measurement of Cardiac Sampling and Pressure, Left Heart, Percutaneous Approach (ICD-10-PCS; principal; 2020-11-05 08:35)
DX: I25.110 Atherosclerotic heart disease of native coronary artery with unstable angina pectoris (principal); E27.40 Unspecified adrenocortical insufficiency; I11.9 Hypertensive heart disease without heart failure; E78.2 Mixed hyperlipidemia; E03.9 Hypothyroidism, unspecified; E11.9 Type 2 diabetes mellitus without complications; I45.10 Unspecified right bundle-branch block; M19.90 Unspecified osteoarthritis, unspecified site; F41.1 Generalized anxiety disorder; Z20.822 Contact with and (suspected) exposure to COVID-19; L29.9 Pruritus, unspecified; N40.0 Benign prostatic hyperplasia without lower urinary tract symptoms; Z79.890 Hormone replacement therapy; Z79.82 Long term (current) use of aspirin; Z79.02 Long term (current) use of antithrombotics/antiplatelets; Z79.899 Other long term (current) drug therapy; Z79.84 Long term (current) use of oral hypoglycemic drugs; Z82.49 Family history of ischemic heart disease and other diseases of the circulatory system; G47.00 Insomnia, unspecified; K21.9 Gastro-esophageal reflux disease without esophagitis
CPT/HCPCS: 36415; 71046; 78452; 80048; 80053; 80061; 83735; 84484; 85025; 85610; 85730; 87635; 93005; 93017; 93458; 94760; 99285

== ENCOUNTER 2021-05-11 12:44 | Observation (INO) | payer MEDICARE, OTHER ==
[2021-05-11] MEDS ORDERED: ASPIRIN 81 MG PO STA (12:59)
--- NOTE | 2021-05-11 13:02 | ED ---
General Adult HPI - General Chief complaint: Chest Pain Stated complaint: chest pain Time Seen by Provider: 05/11/21 12:48 Source: patient, EMS, RN notes reviewed Mode of arrival: EMS Limitations: no limitations - History of Present Illness Initial comments: Patient is a pleasant 86-year-old male presenting to the emergency Department with complaints of chest discomfort. Onset of symptoms was prior to arrival. Discomfort was approximately 8/10 and felt like pressure. No radiation. Symptoms resolved with nitroglycerin. Patient did have some mild associated dyspnea that also resolved. No nausea or diaphoresis. Patient believes she had similar symptoms over a month ago. Patient was possibly going to receive a stents however his aromatherapist's decided to medically treat him. - Related Data Home Medications Medication Instructions Recorded Confirmed Lisinopril [Prinivil] 10 mg PO HS 02/15/18 11/02/20 Ferrous Sulfate [Iron (65 MG 325 mg PO DAILY@0800 06/03/20 11/02/20 Elemental)] Finasteride [Proscar] 5 mg PO HS 06/03/20 11/02/20 Hydrocortisone [Cortef] 10 mg PO DAILY@1700 06/03/20 11/02/20 Levothyroxine Sodium 150 mcg PO DAILY@0800 06/03/20 11/02/20 Acetaminophen Tab [Tylenol] 650 mg PO Q4H PRN 10/22/20 11/02/20 Chlorhexidine Gluconate [Peridex] 15 ml PO BID@0800,1700 10/22/20 11/02/20 Midodrine [ProAmatine] 5 mg PO BID PRN 10/22/20 11/02/20 Mometasone Furoate [Elocon] 1 applic TOPICAL DAILY 10/22/20 11/02/20 Na Phos,M-B/Na Phos,Di-Ba [Fleet 133 ml RECTAL DAILY PRN 10/22/20 11/02/20 Adult] Tamsulosin [Flomax] 0.4 mg PO HS 10/22/20 11/02/20 Aspirin EC [Ecotrin Low Dose] 81 mg PO DAILY@0800 11/02/20 11/02/20 Clopidogrel [Plavix] 75 mg PO DAILY@0800 11/02/20 11/02/20 Isosorbide Mononitrate ER [Imdur] 15 mg PO DAILY@0800 11/02/20 11/02/20 Magnesium Hydroxide [Milk of 7,200 mg PO Q48H PRN 11/02/20 11/02/20 Magnesia Concentrate] Metoprolol Tartrate [Lopressor] 25 mg PO BID@0800,1700 11/02/20 11/02/20 Nitroglycerin Sl Tabs [Nitrostat] 0.4 mg SL Q5M PRN 11/02/20 11/02/20 bisacodyL 10 mg RECTAL DAILY PRN 11/02/20 11/02/20 Previous Rx's Medication Instructions Recorded ALPRAZolam [Xanax] 0.25 mg PO Q8H PRN #9 tab 11/04/20 HYDROcodone/APAP 5-325MG [[place] 1 tab PO Q4H PRN #18 tab 11/04/20 5-325] Dapagliflozin Propanediol [Farxiga] 5 mg PO DAILY #30 tablet 11/06/20 metFORMIN HCL [Glucophage] 500 mg PO DAILY@0800 #0 11/06/20 Allergies Allergy/AdvReac Type Severity Reaction Status Date / Time Edlptih-Dja-Wox Reductase Allergy Unknown Verified 05/11/21 14:13 Inhibitor Review of Systems ROS Statement: Those systems with pertinent positive or pertinent negative responses have been documented in the HPI. ROS Other: All systems not noted in ROS Statement are negative. Constitutional: Denies: fever Eyes: Denies: eye pain ENT: Denies: ear pain Respiratory: Reports: as per HPI. Denies: cough Cardiovascular: Reports: as per HPI, chest pain Endocrine: Denies: fatigue Gastrointestinal: Denies: abdominal pain Genitourinary: Denies: dysuria Musculoskeletal: Denies: back pain Skin: Denies: rash Neurological: Denies: weakness Past Medical History Past Medical History: GERD/Reflux, Hypertension, Osteoarthritis (OA), Thyroid Disorder Additional Past Medical History / Comment(s): glaucoma yelitza eyes, left rotator cuff torn, back pain History of Any Multi-Drug Resistant Organisms: None Reported Past Surgical History: Appendectomy, Cholecystectomy, Orthopedic Surgery, Tonsillectomy Additional Past Surgical History / Comment(s): yelitza shoulder arthroscopy, eye sx for glaucoma. pt stated 2 weeks ago had a benign pituitary tumor removed at [facility]. Past Anesthesia/Blood Transfusion Reactions: No Reported Reaction Past Psychological History: No Psychological Hx Reported Smoking Status: Never smoker Past Alcohol Use History: None Reported Past Drug Use History: None Reported - Past Family History Mother Family Medical History: Congestive Heart Failure (CHF) Additional Family Medical History / Comment(s): age 95 Father Family Medical History: No Reported History Additional Family Medical History / Comment(s): " from old age at age 90 General Exam Limitations: no limitations General appearance: alert, in no apparent distress Head exam: Present: normocephalic Eye exam: Present: normal appearance Neck exam: Present: normal inspection Respiratory exam: Present: normal lung sounds bilaterally. Absent: chest wall tenderness Cardiovascular Exam: Present: regular rate, normal rhythm, normal heart sounds Expanded Peripheral pulses: 2+: Radial (R), Radial (L), Dorsalis Pedis (R), Dorsalis Pedis (L) GI/Abdominal exam: Present: soft. Absent: tenderness Extremities exam: Present: normal inspection. Absent: pedal edema, calf tenderness Neurological exam: Present: alert Psychiatric exam: Present: normal affect, normal mood Skin exam: Present: normal color Course Vital Signs 05/11/21 05/11/21 05/11/21 12:49 13:30 14:00 Temperature 97.9 F Pulse Rate 56 L 55 L 56 L Respiratory 18 18 18 Rate Blood Pressure 86/50 93/50 81/50 O2 Sat by Pulse 93 L 93 L 92 L Oximetry EKG Findings - EKG Comments: EKG Findings:: Sinus bradycardia with first 3 AV block, WI 214. Rate 56. QRS 1:30. QTC 456. QTc 440. Normal axis. Right bundle branch block. No acute ST change. Medical Decision Making - Medical Decision Making Patient reevaluated and resting comfortably in bed. Patient updated on results and plan. Dr. Blanton has been paged for admission covering for Dr. Joya. - Lab Data Result diagrams: 05/11/21 13:11 05/11/21 13:32 Lab Results 05/11/21 05/11/21 05/11/21 Range/Units 13:11 13:32 13:32 WBC 6.4 (3.8-10.6) k/uL RBC 5.03 (4.30-5.90) m/uL Hgb 16.1 (13.0-17.5) gm/dL Hct 45.7 (39.0-53.0) % MCV 90.8 (80.0-100.0) fL MCH 32.0 (25.0-35.0) pg MCHC 35.2 (31.0-37.0) g/dL RDW 13.5 (11.5-15.5) % Plt Count 183 (150-450) k/uL MPV 8.9 Neutrophils % 47 % Lymphocytes % 34 % Monocytes % 9 % Eosinophils % 6 % Basophils % 1 % Neutrophils # 3.0 (1.3-7.7) k/uL Lymphocytes # 2.2 (1.0-4.8) k/uL Monocytes # 0.6 (0-1.0) k/uL Eosinophils # 0.4 (0-0.7) k/uL Basophils # 0.0 (0-0.2) k/uL Poikilocytosis Slight PT (9.0-12.0) sec INR (<1.2) APTT (22.0-30.0) sec Sodium 134 L (137-145) mmol/L Potassium 4.6 (3.5-5.1) mmol/L Chloride 104 (98-107) mmol/L Carbon Dioxide 20 L (22-30) mmol/L Anion Gap 10 mmol/L BUN 33 H (9-20) mg/dL Creatinine 1.76 H (0.66-1.25) mg/dL Est GFR (CKD-EPI)AfAm 40 (>60 ml/min/1.73 sqM) Est GFR (CKD-EPI)NonAf 35 (>60 ml/min/1.73 sqM) Glucose 125 H (74-99) mg/dL Calcium 9.5 (8.4-10.2) mg/dL Magnesium 1.9 (1.6-2.3) mg/dL Total Bilirubin 0.9 (0.2-1.3) mg/dL AST 40 (17-59) U/L ALT 35 (4-49) U/L Alkaline Phosphatase 73 (38-126) U/L Troponin I <0.012 (0.000-0.034) ng/mL Total Protein 6.9 (6.3-8.2) g/dL Albumin 3.6 (3.5-5.0) g/dL 05/11/21 Range/Units 13:32 WBC (3.8-10.6) k/uL RBC (4.30-5.90) m/uL Hgb (13.0-17.5) gm/dL Hct (39.0-53.0) % MCV (80.0-100.0) fL MCH (25.0-35.0) pg MCHC (31.0-37.0) g/dL RDW (11.5-15.5) % Plt Count (150-450) k/uL MPV Neutrophils % % Lymphocytes % % Monocytes % % Eosinophils % % Basophils % % Neutrophils # (1.3-7.7) k/uL Lymphocytes # (1.0-4.8) k/uL Monocytes # (0-1.0) k/uL Eosinophils # (0-0.7) k/uL Basophils # (0-0.2) k/uL Poikilocytosis PT 11.4 (9.0-12.0) sec INR 1.1 (<1.2) APTT 24.8 (22.0-30.0) sec Sodium (137-145) mmol/L Potassium (3.5-5.1) mmol/L Chloride (98-107) mmol/L Carbon Dioxide (22-30) mmol/L Anion Gap mmol/L BUN (9-20) mg/dL Creatinine (0.66-1.25) mg/dL Est GFR (CKD-EPI)AfAm (>60 ml/min/1.73 sqM) Est GFR (CKD-EPI)NonAf (>60 ml/min/1.73 sqM) Glucose (74-99) mg/dL Calcium (8.4-10.2) mg/dL Magnesium (1.6-2.3) mg/dL Total Bilirubin (0.2-1.3) mg/dL AST (17-59) U/L ALT (4-49) U/L Alkaline Phosphatase (38-126) U/L Troponin I (0.000-0.034) ng/mL Total Protein (6.3-8.2) g/dL Albumin (3.5-5.0) g/dL - Radiology Data Radiology results: image reviewed (Chest x-ray shows no acute process) Disposition Clinical Impression: Chest pain, Renal insufficiency Disposition: ADMITTED IP TO THIS [facility] Is patient prescribed a controlled substance at d/c from ED?: No Referrals: Maggie Joya MD [Primary Care Provider] - 1-2 days Decision Time: 14:27
[2021-05-11 13:17] LABS: Basophils % (A) 1 %; Eosinophils # (A) 0.4 k/uL (0-0.7); Eosinophils % (A) 6 %; HCT 45.7 % (39.0-53.0); HGB 16.1 gm/dL (13.0-17.5); Lymphocytes # (A) 2.2 k/uL (1.0-4.8); Lymphocytes % (A) 34 %; MCHC 35.2 g/dL (31.0-37.0); MCV 90.8 fL (80.0-100.0); Mean Platelet Volume 8.9; Monocytes # (A) 0.6 k/uL (0-1.0); Monocytes % (A) 9 %; Neutrophils % (A) 47 %; Platelet Count 183 k/uL (150-450); Poikilocytosis Slight; RBC 5.03 m/uL (4.30-5.90); RDW 13.5 % (11.5-15.5); WBC 6.4 k/uL (3.8-10.6)
[2021-05-11 13:54] LABS: Albumin 3.6 g/dL (3.5-5.0); Calcium 9.5 mg/dL (8.4-10.2); Magnesium 1.9 mg/dL (1.6-2.3); Potassium 4.6 mmol/L (3.5-5.1); Total Bilirubin 0.9 mg/dL (0.2-1.3); Total Protein 6.9 g/dL (6.3-8.2)
[2021-05-11 13:57] LABS: INR 1.1 (<1.2); Partial Thromboplastin Time 24.8 sec (22.0-30.0); Prothrombin Time 11.4 sec (9.0-12.0)
--- NOTE | 2021-05-11 13:57 | XR ---
EXAMINATION TYPE: XR chest 2V DATE OF EXAM: 05/11/2021 COMPARISON: Chest x-ray November 02, 2020. HISTORY: Chest pain and shortness of breath. TECHNIQUE: Frontal and lateral views of the chest are obtained. FINDINGS: There is mild chronic parenchymal change bilaterally without suspicious new focal air spac e opacity, pleural effusion, or pneumothorax seen. Slightly elevated left hemidiaphragm redemonstrate d. The cardiac silhouette size is upper limits of normal. Surgical change left shoulder partially vinh ged. IMPRESSION: Chronic changes without acute pulmonary process. No significant change from prior.
[2021-05-11] MEDS ORDERED: SODIUM CHLORIDE 0.9% 500 ML 500 ML IV STA (14:26)
[2021-05-11] MEDS ORDERED: HYDROcodone/APAP 5-325MG 1 EACH TAB PO PRN (15:29)
[2021-05-11] MEDS ORDERED: MENTHOL TOPICAL PRN (15:29)
[2021-05-11] MEDS ORDERED: ALPRAZolam 0.25 MG TAB PO PRN (15:29)
[2021-05-11] MEDS ORDERED: bisacodyL 10 MG SUPP RECTAL PRN (15:29)
[2021-05-11] MEDS ORDERED: MAGNESIUM HYDROXIDE 2,400 MG/10 ML CUP PO PRN (15:29)
[2021-05-11] MEDS ORDERED: TEMAZEPAM 15 MG CAP PO PRN (15:29)
[2021-05-11] MEDS ORDERED: MIDODRINE 5 MG TAB PO PRN (15:29)
[2021-05-11] MEDS ORDERED: hydrOXYzine pamoate 25 MG CAP PO PRN (15:29)
[2021-05-11] MEDS ORDERED: SODIUM CHLORIDE 0.9% 1,000 ML IV SCH (15:45)
--- NOTE | 2021-05-11 16:57 | HP ---
HISTORY AND PHYSICAL DATE OF SERVICE: 05/11/2021 CHIEF COMPLAINT: Chest pain. HISTORY OF PRESENT ILLNESS: This 86-year-old gentleman with a past medical history of multiple medical problems, including history of GERD, hypertension, DJD, hypothyroidism, had shoulder surgery, and subsequently patient is currently in [facility]. The patient had episodes of the elevated hypertension. Currently the patient complaining of chest discomfort which is mostly felt in the anterior part which is 8/10. The discomfort felt as a pressure, which was resolved with nitro and the patient also has minimal shortness of breath which is also improved at this time. Patient admitted to the hospital for further evaluation and treatment. Creatinine was found to be 1.76 and the baseline was normal indicating some acute renal failure. Other than that, the troponins are negative. EKG which I reviewed personally showed incomplete right bundle branch block and as well as indeterminate axis with ST-T changes and the chest x-ray again, which was reviewed personally by me showed rather chronic changes. No acute abnormality. There is no history of fever, rigors or chills at this time. PAST MEDICAL HISTORY: History of GERD, hypertension, DJD, hypothyroidism, glaucoma, appendectomy, cholecystectomy, hypertension. MEDICATIONS: Home medications are midodrine, metformin, Vistaril, Kenalog, Restoril, Flomax, Ranexa, Nitrostat, Lopressor, Biofreeze, Synthroid, Imdur. Dose and other medications reviewed. ALLERGIES: STATINS. FAMILY HISTORY: History of CHF in the family. SOCIAL HISTORY: No history of smoking. No history of alcohol. REVIEW OF SYSTEMS: ENT: Diminished vision. Diminished hearing. CARDIOVASCULAR system: As mentioned earlier. RESPIRATORY: As mentioned earlier. GI: No nausea or vomiting. : No dysuria. NERVOUS SYSTEM: No numbness or weakness. ALLERGY/IMMUNOLOGY: No asthma or hayfever. MUSCULOSKELETAL: As mentioned earlier. HEMATOLOGY/ONCOLOGY: No history of anemia. ENDOCRINE: No history of diabetes or hypothyroidism. CONSTITUTIONAL: As mentioned earlier. DERMATOLOGY: Negative. RHEUMATOLOGY: Negative. PSYCHIATRIC: As mentioned earlier. PHYSICAL EXAMINATION: Alert and oriented times three. Pulse 56. Blood pressure is 86/50, respiration 18, temperature 97.2, pulse ox 93% on room air. HEENT: Conjunctivae normal. Oral mucosa moist. NECK is no jugular venous distention. No carotid bruit. No lymph node enlargement. CARDIOVASCULAR systems: S1, S2 muffled. RESPIRATION: Breath sounds diminished in the bases. A few scattered rhonchi. ABDOMEN: Soft, obese, nontender. No mass palpable. LEGS: No edema. No swelling. NERVOUS SYSTEM: Higher functions as mentioned. Moves all 4 limbs. No focal motor or sensory deficits. LYMPHATICS: No lymph nodes palpable in the neck, axillae or groin. SKIN: No ulcers, rashes or bleeding. JOINTS: No active deforming arthropathy. LABS: CBC within normal limits. Sodium 134, creatinine is 1.0. Other labs are noted. Chest x- ray again which was reviewed personally by me showed some increased haziness. ASSESSMENT: 1. Chest pain possible unstable angina. 2. Shortness of breath, rule out congestive heart failure acute exacerbation. 3. Relative hypotension for evaluation. 4. Acute renal failure, acute tubular necrosis, prerenal factors. 5. Gastroesophageal reflux disease. 6. Hypertension. 7. History of degenerative joint disease. 8. Hypothyroidism. 9. History of glaucoma. 10.History of appendectomy. 11.History of cholecystectomy. 12.History of degenerative joint disease. 13.History of tonsillectomy. 14.History of bilateral shoulder arthroscopy. 15.Obesity with body mass of 33. RECOMMENDATIONS AND DISCUSSION: This 86-year-old gentleman who presented with multiple complex medical issues, we will monitor the patient closely. Continue the current medications, management and symptomatic treatment. We will administer cautious hydration. Hold off the blood pressure medications. Otherwise, monitor blood sugars closely. Cardiology consultation. Rule out acute myocardial infarction and follow acute protocol. Prognosis guarded. Further recommendations to follow. Medications will be reconciled once they are confirmed to the chart. Dr. Joya will follow the patient tomorrow. MMODL / IJN: [id number] / [facility]
[2021-05-11] MEDS: HYDROCORTISONE SUCCINATE 100 MG/2 ML VIAL IV SCH (17:52)
[2021-05-11] MEDS: RANOLAZINE 500 MG TAB.ER.12H PO SCH (17:52)
[2021-05-11 19:03] LABS: Appearance,Urine Clear (Clear); Bilirubin,Urine Negative (Negative); Blood,Urine Negative (Negative); Color,Urine Yellow; Glucose,Urine (UA) 4+ (Negative); Hyaline Casts,Urine 5 /lpf (0-2); Ketones,Urine Negative (Negative); Leukocyte Esterase,Urine Small (Negative); Mucus,Urine Rare /hpf; Nitrite,Urine Negative (Negative); PH, Urine 5.5 (5.0-8.0); Protein,Urine Trace (Negative); RBC,Urine 2 /hpf (0-5); Specific Gravity,Urine 1.021 (1.001-1.035); Squamous Epithelial Cell,Urine <1 /hpf (0-4); Urobilinogen,Urine <2.0 mg/dL (<2.0); WBC,Urine 4 /hpf (0-5)
[2021-05-11] MEDS: FAMOTIDINE 20 MG TAB PO SCH (20:29)
[2021-05-11] MEDS: TAMSULOSIN 0.4 MG CAP.ER.24H PO SCH (20:29)
[2021-05-11] MEDS: FINASTERIDE 5 MG TAB PO SCH (20:29)
[2021-05-12] MEDS: HYDROCORTISONE SUCCINATE 100 MG/2 ML VIAL IV SCH ×3 (00:19→16:29)
[2021-05-12] MEDS: ACETAMINOPHEN TAB 325 MG TAB PO PRN (00:59)
[2021-05-12] MEDS: PATIENT'S OWN (Dapagliflozin Propanediol [Farxiga] 10 MG Tablet) PO SCH (08:57)
[2021-05-12] MEDS ORDERED: ASPIRIN 325 MG TAB PO SCH (09:00)
[2021-05-12] MEDS: LEVOTHYROXINE 137 MCG TAB PO SCH (09:27)
[2021-05-12] MEDS: FERROUS SULFATE 325 MG TAB PO SCH (09:28)
[2021-05-12] MEDS: PATIENT'S OWN (Semaglutide [Rybelsus] 3 MG Tablet) PO SCH (09:28)
[2021-05-12] MEDS: ISOSORBIDE MONONITRATE ER 60 MG TAB.ER.24H PO SCH (09:28)
[2021-05-12] MEDS: METOPROLOL TARTRATE 25 MG TAB PO SCH ×3 (09:28→20:40)
[2021-05-12] MEDS: ASPIRIN 81 MG PO SCH (09:28)
[2021-05-12] MEDS: RANOLAZINE 500 MG TAB.ER.12H PO SCH ×2 (09:28→16:28)
[2021-05-12] MEDS: CLOPIDOGREL 75 MG TAB PO SCH (09:28)
[2021-05-12] MEDS: SODIUM CHLORIDE 0.9% 1,000 ML IV SCH ×2 (09:29→20:41)
--- NOTE | 2021-05-12 09:36 | US ---
EXAMINATION TYPE: US kidneys/renal and bladder DATE OF EXAM: 05/12/2021 COMPARISON: CLINICAL HISTORY: ERNESTO. no pain EXAM MEASUREMENTS: Right Kidney: 9.4 x 4.2 x 4.8 cm Left Kidney: 11.6 x 4.5 x 5.8 cm Right Kidney: No hydronephrosis or masses seen Left Kidney: No hydronephrosis or masses seen Bladder: moderately distended, anechoic Bilateral Jets not seen There is no evidence for hydronephrosis at this point in time. No nephrolithiasis is seen. No otto s are identified. The urinary bladder is anechoic. Bilateral ureteral jets are seen. IMPRESSION: No distinct abnormality appreciated.
[2021-05-12 10:20] LABS: HCT 48.6 % (39.6-50.0); HGB 16.3 g/dL (13.0-17.0); MCH 31.2 pg (27.0-32.0); MCHC 33.5 g/dL (32.0-37.0); MCV 92.9 fL (80.0-97.0); Platelet Count 192 X 10*3/uL (140-440); RBC 5.23 X 10*6/uL (4.40-5.60); RDW 12.9 % (11.5-14.5); WBC 6.89 X 10*3/uL (4.50-10.00)
--- NOTE | 2021-05-12 10:22 | P.CRDCN ---
History of Present Illness History of present illness: HISTORY OF PRESENTING ILLNESS This is a pleasant 86-year-old male past medical history significant for hypertension, dyslipidemia, coronary artery disease, type 2 diabetes. He follows in the office with Dr. Burger. We have been asked to see in consultation for chest pain. Patient is seen and examined at bedside, presents emergency department with chest tightness/pressure. He is currently at [facility]. He states it has been going on for over a month, it comes and goes. It is non-radiating, non-exertional. He had some associated mild shortness of breath. Denies palpitations, diaphoresis, nausea, lower extremity edema, fatigue, weakness, lightheadedness, syncope or near syncope symptoms, denies PND or orthopnea. Denies fever, cough, chills. No specific aggravating facotors. He be lieves the nitroglycerin did help his pain. He denies smoking or alcohol use. DIAGNOSTICS EKG reveals sinus bradycardia, heart rate 56, first-degree AV block, right bundle branch block. Prior EKG was similar findings. 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 Because the nature and location of this obstructive disease maximal medical therapy was advised. Echocardiogram in the office 10/10/2020 revealed EF of 60%, normal diastolic dysfunction. Moderate LVH. Mild to moderate mitral regurgitation and aortic valve sclerosis. Peak/mean gradient of 30 mmHg/17 mmHg. Mild mitral regurgitation, mild mitral stenosis, mild tricuspid regurgitation. Telemetry tracings indicate sinus mechanism, heart rate 80-100s. Chest xray no acute cardiopulmonary process. Laboratory reviewed, troponin negative 3, sodium 134, potassium 4.6, BUN 33, serum creatinine 1.7, magnesium 1.9, Covid 19 PCR negative. CBC unremarkable. Current home medications include midodrine 5 mg twice a day when necessary, metformin, Ranexa, metoprolol tartrate 25 mg twice a day, Imdur 60 mg daily, hydrocortisone, Proscar, ferrous sulfate, Plavix 70 mg daily, aspirin 80 mg daily REVIEW OF SYSTEMS At the time of my exam: CONSTITUTIONAL: Denies fever or chills. CARDIOVASCULAR: +chest pain,+ shortness of breath, Denies orthopnea, PND or palpitations. RESPIRATORY: Denies cough. GASTROINTESTINAL: Denies abdominal pain, diarrhea, constipation, nausea or v omiting. MUSCULOSKELETAL: Denies myalgias. NEUROLOGIC: Denies numbness, tingling, headache or weakness. ENDOCRINE: Denies fatigue, weight change, polydipsia or polyurina. GENITOURINARY: Denies burning, hematuria or urgency with micturation. HEMATOLOGIC: Denies history of anemia or bleeding. PHYSICAL EXAMINATION Blood pressure 172/89, heart 83, afebrile, oxygen saturation is greater than 92% on room air CONSTITUTIONAL: No apparent distress. HEENT: Head is normocephalic. Pupils are equal, round. Sclerae anicteric. Mucous membranes of the mouth are moist. No JVD. No carotid bruit. CHEST EXAMINATION: Lungs are clear to auscultation. No chest wall tenderness is noted on palpation or with deep breathing. HEART EXAMINATION: Regular rate and rhythm. S1, S2 heard. Systolic murmur at right sternal border. No gallops or rub. ABDOMEN: Soft, nontender. Positive bowel sounds. EXTREMITIES: 2+ peripheral pulses, no lower extremity edema and no calf tenderness. SKIN: warm, dry NEUROLOGIC EXAMINATION: Patient is awake, alert and oriented x3. ASSESSMENT Chest pain, atypical, acute coronary syndrome ruled out Acute Kidney Injury Coronary artery disease, cardiac catheterization 10/2020 Hypertension Dyslipidemia Type 2 Diabetes PLAN An acute coronary event has been ruled out with no EKG evidence of ischemia and negative cardiac enzymes. Increase metoprolol tartrate to 25mg TID Continue home cardiac medications From a cardiology perspective, patient is stable to be discharged home. Follow up with Dr. Burger Thank you kindly for this consultation. Nurse Practitioner note has been reviewed, I agree with a documented findings and plan of care. Patient was seen and examined. Past Medical History Past Medical History: GERD/Reflux, Hypertension, Osteoarthritis (OA), Thyroid Disorder Additional Past Medical History / Comment(s): glaucoma yelitza eyes, left rotator cuff torn, back pain History of Any Multi-Drug Resistant Organisms: None Reported Past Surgical History: Appendectomy, Cholecystectomy, Orthopedic Surgery, Tonsillectomy Additional Past Surgical History / Comment(s): yelitza shoulder arthroscopy, eye sx for glaucoma. pt stated 2 weeks ago had a benign pituitary tumor removed at [facility]. Past Anesthesia/Blood Transfusion Reactions: No Reported Reaction Past Psychological History: No Psychological Hx Reported Additional Psychological History / Comment(s): Pt states lives at [facility] with . Smoking Status: Never smoker Past Alcohol Use History: None Reported Past Drug Use History: None Reported - Past Family History Mother Family Medical History: Congestive Heart Failure (CHF) Additional Family Medical History / Comment(s): age 95 Father Family Medical History: No Reported History Additional Family Medical History / Comment(s): " from old age at age 90" Medications and Allergies Home Medications Medication Instructions Recorded Confirmed Type Lisinopril [Prinivil] 10 mg PO HS 02/15/18 05/11/21 History Ferrous Sulfate [Iron (65 MG 325 mg PO DAILY@0800 06/03/20 05/11/21 History Elemental)] Finasteride [Proscar] 5 mg PO HS 06/03/20 05/11/21 History Hydrocortisone [Cortef] 20 mg PO DAILY@0700 06/03/20 05/11/21 History Acetaminophen Tab [Tylenol] 650 mg PO Q4H PRN 10/22/20 05/11/21 History Midodrine [ProAmatine] 5 mg PO BID PRN 10/22/20 05/11/21 History Tamsulosin [Flomax] 0.4 mg PO HS 10/22/20 05/11/21 History Aspirin EC [Ecotrin Low Dose] 81 mg PO DAILY@0800 11/02/20 05/11/21 History Clopidogrel [Plavix] 75 mg PO DAILY@0800 11/02/20 05/11/21 History Isosorbide Mononitrate ER [Imdur] 60 mg PO DAILY@0800 11/02/20 05/11/21 History Magnesium Hydroxide [Milk of 7,200 mg PO Q48H PRN 11/02/20 05/11/21 History Magnesia Concentrate] Metoprolol Tartrate [Lopressor] 25 mg PO BID@0800,1700 11/02/20 05/11/21 History Nitroglycerin Sl Tabs [Nitrostat] 0.4 mg SL Q5M PRN 11/02/20 05/11/21 History bisacodyL 10 mg RECTAL DAILY PRN 11/02/20 05/11/21 History HYDROcodone/APAP 5-325MG [[place] 1 tab PO Q4H PRN #18 tab 11/04/20 05/11/21 Rx 5-325] ALPRAZolam [Xanax] 0.25 mg PO TID PRN 05/11/21 05/11/21 History Dapagliflozin Propanediol [Farxiga] 10 mg PO DAILY@0800 05/11/21 05/11/21 History Famotidine [Pepcid] 20 mg PO HS@2130 05/11/21 05/11/21 History Hydrocortisone [Cortef] 10 mg PO DAILY@1700 05/11/21 05/11/21 History Levothyroxine Sodium [Synthroid] 137 mcg PO DAILY@0800 05/11/21 05/11/21 History Menthol [Biofreeze] 1 applic TOPICAL Q12H PRN 05/11/21 05/11/21 History Ocusoft Lid Scrub Original Pad 1 applic BOTH EYES Q72H 05/11/21 05/11/21 History Ranolazine [Ranexa] 500 mg PO BID@0800,1700 05/11/21 05/11/21 History Semaglutide [Rybelsus] 3 mg PO DAILY@0800 05/11/21 05/11/21 History Temazepam [Restoril] 15 mg PO HS PRN 05/11/21 05/11/21 History Triamcinolone 0.1% Cream [Kenalog 1 applic TOPICAL BID@0800,1700 05/11/21 05/11/21 History 0.1% Cream] hydrOXYzine pamoate [Vistaril] 25 mg PO BID PRN 05/11/21 05/11/21 History metFORMIN HCL [Glucophage] 500 mg PO BID@0800,1700 05/11/21 05/11/21 History Allergies Allergy/AdvReac Type Severity Reaction Status Date / Time Dxmbvns-Tdb-Dso Reductase Allergy Unknown Verified 05/11/21 14:13 Inhibitor Physical Exam Vitals: Vital Signs Temp Pulse Pulse Resp BP BP Pulse Ox 05/12/21 08:00 63 17 05/12/21 07:00 97.4 F L 83 18 172/89 95 05/12/21 02:00 63 05/12/21 00:58 97.6 F 88 17 146/73 90 L 05/11/21 19:21 98.3 F 63 18 137/67 95 05/11/21 19:13 16 05/11/21 17:39 97.4 F L 16 133/72 95 05/11/21 16:00 98.0 F 61 18 101/56 92 L 05/11/21 14:00 56 L 18 81/50 92 L 05/11/21 13:30 55 L 18 93/50 93 L 05/11/21 12:49 97.9 F 56 L 18 86/50 93 L Intake and Output 05/11/21 05/12/21 05/12/21 22:59 06:59 14:59 Intake Total 620 500 Output Total 200 Balance 420 500 Intake: Oral 620 500 Output: Urine 200 Other: Voiding Method Urinal Urinal # Voids 1 3 Weight 113.398 kg Results 05/11/21 13:11 05/11/21 13:32 Cardiac Enzymes 05/11/21 05/11/21 05/11/21 Range/Units 13:32 13:32 17:36 AST 40 (17-59) U/L Troponin I <0.012 <0.012 (0.000-0.034) ng/mL 05/11/21 Range/Units 20:36 AST (17-59) U/L Troponin I <0.012 (0.000-0.034) ng/mL Coagulation 05/11/21 Range/Units 13:32 PT 11.4 (9.0-12.0) sec APTT 24.8 (22.0-30.0) sec CBC 05/11/21 Range/Units 13:11 WBC 6.4 (3.8-10.6) k/uL RBC 5.03 (4.30-5.90) m/uL Hgb 16.1 (13.0-17.5) gm/dL Hct 45.7 (39.0-53.0) % Plt Count 183 (150-450) k/uL Comprehensive Metabolic Panel 05/11/21 Range/Units 13:32 Sodium 134 L (137-145) mmol/L Potassium 4.6 (3.5-5.1) mmol/L Chloride 104 (98-107) mmol/L Carbon Dioxide 20 L (22-30) mmol/L BUN 33 H (9-20) mg/dL Creatinine 1.76 H (0.66-1.25) mg/dL Glucose 125 H (74-99) mg/dL Calcium 9.5 (8.4-10.2) mg/dL AST 40 (17-59) U/L ALT 35 (4-49) U/L Alkaline Phosphatase 73 (38-126) U/L Total Protein 6.9 (6.3-8.2) g/dL Albumin 3.6 (3.5-5.0) g/dL Current Medications Generic Name Dose Route Start Last Admin Trade Name Freq PRN Reason Stop Dose Admin Acetaminophen 650 mg 05/11/21 15:29 05/12/21 00:59 Acetaminophen Tab 325 Mg Tab PO 650 mg Q4H PRN Administration Fever and/ or Pain Hydrocodone Bitart/Acetaminophen 1 each 05/11/21 15:29 Hydrocodone/Apap 5-325mg 1 Each Tab PO Q4H PRN Pain Alprazolam 0.25 mg 05/11/21 15:29 Alprazolam 0.25 Mg Tab PO TID PRN Anxiety Aspirin 81 mg 05/12/21 08:00 Aspirin 81 Mg PO DAILY@0800 [facility] Bisacodyl 10 mg 05/11/21 15:29 Bisacodyl 10 Mg Supp RECTAL DAILY PRN Constipation Clopidogrel Bisulfate 75 mg 05/12/21 08:00 Clopidogrel 75 Mg Tab PO DAILY@0800 [facility] Famotidine 20 mg 05/11/21 21:30 05/11/21 20:29 Famotidine 20 Mg Tab PO 20 mg HS@2130 [facility] Administration Ferrous Sulfate 325 mg 05/12/21 08:00 Ferrous Sulfate 325 Mg Tab PO DAILY@0800 [facility] Finasteride 5 mg 05/11/21 21:00 05/11/21 20:29 Finasteride 5 Mg Tab PO 5 mg HS [facility] Administration Hydrocortisone Sodium Succinate 100 mg 05/11/21 16:00 05/12/21 00:19 Hydrocortisone Succinate 100 Mg/2 Ml Vial IV 100 mg Q8HR [facility] Administration Hydroxyzine Pamoate 25 mg 05/11/21 15:29 Hydroxyzine Pamoate 25 Mg Cap PO BID PRN Itching Sodium Chloride 1,000 mls @ 50 mls/hr 05/11/21 15:45 05/11/21 17:09 Saline 0.9% IV 50 mls/hr .Q20H [facility] Administration Isosorbide Mononitrate 60 mg 05/12/21 08:00 Isosorbide Mononitrate Er 60 Mg Tab.Er.24h PO DAILY@0800 [facility] Levothyroxine Sodium 137 mcg 05/12/21 08:00 Levothyroxine 137 Mcg Tab PO DAILY@0800 [facility] Magnesium Hydroxide 7,200 mg 05/11/21 15:29 Magnesium Hydroxide 2,400 Mg/10 Ml Cup PO Q48H PRN Constipation Metoprolol Tartrate 25 mg 05/12/21 09:00 Metoprolol Tartrate 25 Mg Tab PO TID NICOLE Midodrine 5 mg 05/11/21 15:29 Midodrine 5 Mg Tab PO BID PRN SBP LESS THAN 100 Patient's Own ( 10 mg 05/12/21 08:00 Dapagliflozin PO Propanediol [Farxiga DAILY@0800 [facility] ] 10 Mg Tablet) Patient's Own ( 3 mg 05/12/21 08:00 Semaglutide [ PO Rybelsus] 3 Mg DAILY@0800 [facility] Tablet) Ranolazine 500 mg 05/11/21 17:00 05/11/21 17:52 Ranolazine 500 Mg Tab.Er.12h PO 500 mg BID@0800,1700 [facility] Administration Sodium Chloride 10 ml 05/11/21 21:00 05/11/21 20:30 Sodium Chloride 0.9% Flush 10 Ml Syringe IV 10 ml BID NICOLE Administration Tamsulosin HCl 0.4 mg 05/11/21 21:00 05/11/21 20:29 Tamsulosin 0.4 Mg Cap.Er.24h PO 0.4 mg HS NICOLE Administration Temazepam 15 mg 05/11/21 15:29 Temazepam 15 Mg Cap PO HS PRN Insomnia Intake and Output 05/11/21 05/12/21 05/12/21 22:59 06:59 14:59 Intake Total 620 500 Output Total 200 Balance 420 500 Intake: Oral 620 500 Output: Urine 200 Other: Voiding Method Urinal Urinal # Voids 1 3 Weight 113.398 kg 05/11/21 13:11 05/11/21 13:32
[2021-05-12 10:58] LABS: African American GFR (CKD) 44.9 (60.0-200.0); BUN/Creat Ratio 19.56 Ratio (12.00-20.00); Blood Urea Nitrogen 31.3 mg/dL (9.0-27.0); Calcium 9.3 mg/dL (8.7-10.3); Carbon Dioxide 21.2 mmol/L (20.0-27.5); Chloride 100 mmol/L (96-109); Chol/HDL Ratio 4.86 Ratio; Glucose 175 mg/dL (70-110); LDL Cholesterol,Calculated 110.7 mg/dL (0.0-131.0); Non-African American GFR(CKD) 38.7 (60.0-200.0); Potassium 4.6 mmol/L (3.5-5.5); Sodium 134 mmol/L (135-145)
[2021-05-12 12:35] LABS: Basophils # (A) 0.03 X 10*3/uL (0.00-0.10); Basophils % (A) 0.4 %; Eosinophils # (A) 0.01 X 10*3/uL (0.04-0.35); Eosinophils % (A) 0.1 %; Lymphocytes # (A) 1.28 X 10*3/uL (0.90-5.00); Lymphocytes % (A) 18.6 %; Monocytes % (A) 2.9 %; Neutrophils # (A) 5.34 X 10*3/uL (1.80-7.70); Neutrophils % (A) 77.6 %
--- NOTE | 2021-05-12 15:30 | CONS ---
CONSULTATION REASON FOR CONSULT: Renal failure. HISTORY OF PRESENT ILLNESS: Patient is an 86-year-old male who was admitted to the hospital yesterday on 05/11/2021 with complaints of chest discomfort. The patient stated that his blood pressure has been running quite high lately. He denied any significant shortness of breath. He denied any significant history of kidney diseases. The patient stated that he had been taking NSAIDs previously but has not taken any NSAIDs recently. Serum creatinine was 1.7 on admission yesterday. Today it is at 1.6. Prior creatinine was been 0.9-1.1 on 05/05/2021. Blood pressure has been low with systolic in the 80s on initial admission. Currently improved. In fact, on the higher side now. Review of home medications does show patient taking lisinopril at home prior to admission. He was also on metformin. I do see midodrine as a p.r.n. medication. Patient has been voiding. His urine output is not accurately charted. PAST MEDICAL HISTORY: Gastroesophageal reflux disease, hypertension, hypothyroidism, glaucoma. PAST SURGICAL HISTORY: Appendectomy, cholecystectomy. MEDICATIONS: Medications prior to admission, midodrine, metformin, Vistaril, Restoril, Flomax, Ranexa, Lopressor, Synthroid, Imdur. ALLERGIES: INCLUDE STATINS. SOCIAL HISTORY: Negative for smoking, drug abuse or alcohol abuse. REVIEW OF SYSTEMS: As per HPI. Other systems negative. PHYSICAL EXAMINATION: On examination, blood pressure 172/89, heart rate 83 per minute. He is afebrile. Examination of the heart S1, S2. Examination of the lungs, bilateral breath sounds are heard. Abdomen is soft, nontender. Examination of lower extremities shows no significant edema. [employer]ING [employer] exam grossly intact. LAB: Show sodium 134, potassium 4.6, chloride 100, BUN 31, creatinine 1.6, hemoglobin 16.3, white cell count 6.89. UA shows 4+ glucose, protein trace. No WBCs noted. Ultrasound of the kidneys done this morning shows no evidence of hydronephrosis. ASSESSMENT: 1. Acute kidney injury ATN associated with hypotension/hypoperfusion in the setting of use of SERGEI inhibitors. Serum creatinine slightly better today. Continue with the IV fluids. 2. History of benign prostatic hypertrophy. Rule out urine retention. No evidence of hydronephrosis on ultrasound. Continue to monitor urine output. 3. History of uncontrolled hypertension. I am not sure if patient was getting the midodrine on a scheduled basis prior to admission. 4. Chest pain with troponins currently negative. 5. Type 2 diabetes maintained on SGLT2 inhibitors noted with 4+ glucose in the urine. PLAN: Continue with IV fluids. Monitor urine output. Repeat labs in a.m. Continue to avoid nephrotoxic agents. MMODL / IJN: [id number] /
[2021-05-12] MEDS ORDERED: METOPROLOL TARTRATE 25 MG TAB PO SCH (17:00)
[2021-05-12] MEDS: TAMSULOSIN 0.4 MG CAP.ER.24H PO SCH (20:40)
[2021-05-12] MEDS: FAMOTIDINE 20 MG TAB PO SCH (20:40)
[2021-05-12] MEDS: FINASTERIDE 5 MG TAB PO SCH (20:40)
[2021-05-13] MEDS: HYDROCORTISONE SUCCINATE 100 MG/2 ML VIAL IV SCH ×2 (00:20→07:54)
[2021-05-13] MEDS: ACETAMINOPHEN TAB 325 MG TAB PO PRN (02:05)
[2021-05-13 07:48] VITALS: RESP 20
[2021-05-13] MEDS: FERROUS SULFATE 325 MG TAB PO SCH (08:11)
[2021-05-13] MEDS: METOPROLOL TARTRATE 25 MG TAB PO SCH (08:12)
[2021-05-13] MEDS: LEVOTHYROXINE 137 MCG TAB PO SCH (08:14)
[2021-05-13] MEDS: ASPIRIN 81 MG PO SCH (08:14)
[2021-05-13] MEDS: RANOLAZINE 500 MG TAB.ER.12H PO SCH (08:14)
[2021-05-13] MEDS: CLOPIDOGREL 75 MG TAB PO SCH (08:14)
[2021-05-13] MEDS: ISOSORBIDE MONONITRATE ER 60 MG TAB.ER.24H PO SCH (08:14)
[2021-05-13] MEDS: PATIENT'S OWN (Dapagliflozin Propanediol [Farxiga] 10 MG Tablet) PO SCH (08:19)
[2021-05-13] MEDS: PATIENT'S OWN (Semaglutide [Rybelsus] 3 MG Tablet) PO SCH (08:19)
[2021-05-13 12:23] LABS: African American GFR (CKD) 66.9 (60.0-200.0); BUN/Creat Ratio 23.04 Ratio (12.00-20.00); Blood Urea Nitrogen 26.5 mg/dL (9.0-27.0); Calcium 8.7 mg/dL (8.7-10.3); Carbon Dioxide 19.2 mmol/L (20.0-27.5); Non-African American GFR(CKD) 57.7 (60.0-200.0); Potassium 4.6 mmol/L (3.5-5.5)
--- NOTE | 2021-05-13 13:10 | P.DS ---
Providers Date of admission: 05/11/21 14:27 Expected date of discharge: 05/13/21 Attending physician: Maggie Joya Consults: 05/11/21 14:27 Consult Physician Urgent Consulting Provider: Gilda Burger Consult Reason/Comments: cp Do you want consulting provider notified?: Yes 05/12/21 08:54 Consult Physician Routine Consulting Provider: Yan Patel Consult Reason/Comments: ERNESTO Do you want consulting provider notified?: Yes Primary care physician: Maggie Joya Hospital Course: HISTORY OF PRESENT ILLNESS: This is an 86-year-old male with a previous medical history significant for hypertension and hypertensive cardiovascular disease, hyperlipidemia, diabetes mellitus type 2, insomnia, 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 His initial lab work revealed creatinine 1.76 which is significantly abnormal from his baseline. EKG reveals sinus bradycardia, heart rate 56, first-degree AV block, right bundle branch block. Prior EKG was similar findings. 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 Because the nature and location of this obstructive disease maximal medical therapy was advised. Echocardiogram in the office 10/10/2020 revealed EF of 60%, normal diastolic dysfunction. Moderate LVH. Mild to moderate mitral regurgitation and aortic valve sclerosis. Peak/mean gradient of 30 mmHg/17 mmHg. Mild mitral regurgitation, mild mitral stenosis, mild tricuspid regurgitation. Chest xray no acute cardiopulmonary process. Laboratory reviewed, troponin negative 3, sodium 134, potassium 4.6, BUN 33, serum creatinine 1.7, magnesium 1.9, Covid 19 PCR negative. CBC unremarkable. Patient was seen by salesperson hearing aids with plan for medical management and increase metoprolol tartrate to 25 mg 3 times daily. Patient was cleared for discharge back to [facility] however initial creatinine was 1.7 far off his baseline and consult was added for nephrology, IV fluids and repeat lab work. 05/13: Patient denies having any chest pain at this time. He is very anxious to get back to [facility] to be with his . Creatinine today is at 1.2. He has be en afebrile, heart rate 60, blood pressure 161/72, pulse ox 94% on room air. We will plan to resume lisinopril, hold metformin. She will be discharged back to [facility] today in stable condition. DISCHARGE DIAGNOSES: 1. Chest pain possibly CAD. 2. Acute kidney injury most likely due to poor oral intake. 3. Hypertension and hypertensive cardiovascular disease. 4. Diabetes mellitus type 2. 5. Mixed hyperlipidemia. 6. 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 7. Hypothyroidism. 8. Pruritus, chronic. 9. Enlarged prostate. 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 DISCHARGE PLAN Return to [facility] Greater than 35 minutes was utilized and coordinating patient's discharge. Impression and plan of care have been directed as dictated by the signing physician. Amy Lemos nurse practitioner acting as scribe for signing physician. Patient Condition at Discharge: Good Plan - Discharge Summary New Discharge Prescriptions: Continue Lisinopril [Prinivil] 10 mg PO HS Ferrous Sulfate [Iron (65 MG Elemental)] 325 mg PO DAILY@0800 Finasteride [Proscar] 5 mg PO HS Hydrocortisone [Cortef] 20 mg PO DAILY@0700 Tamsulosin [Flomax] 0.4 mg PO HS bisacodyL 10 mg RECTAL DAILY PRN PRN Reason: Constipation Magnesium Hydroxide [Milk of Magnesia Concentrate] 7,200 mg PO Q48H PRN PRN Reason: Constipation Nitroglycerin Sl Tabs [Nitrostat] 0.4 mg SL Q5M PRN PRN Reason: Chest Pain Ocusoft Lid Scrub Original Pad 1 applic BOTH EYES Q72H Dapagliflozin Propanediol [Farxiga] 10 mg PO DAILY@0800 Hydrocortisone [Cortef] 10 mg PO DAILY@1700 hydrOXYzine pamoate [Vistaril] 25 mg PO BID PRN PRN Reason: Itching Levothyroxine Sodium [Synthroid] 137 mcg PO DAILY@0800 Ranolazine [Ranexa] 500 mg PO BID@0800,1700 Semaglutide [Rybelsus] 3 mg PO DAILY@0800 Triamcinolone 0.1% Cream [Kenalog 0.1% Cream] 1 applic TOPICAL BID@0800,1700 Acetaminophen Tab [Tylenol] 650 mg PO Q4H PRN PRN Reason: Fever And/ Or Pain Midodrine [ProAmatine] 5 mg PO BID PRN PRN Reason: SBP LESS THAN 100 Isosorbide Mononitrate ER [Imdur] 60 mg PO DAILY@0800 Aspirin EC [Ecotrin Low Dose] 81 mg PO DAILY@0800 Clopidogrel [Plavix] 75 mg PO DAILY@0800 Metoprolol Tartrate [Lopressor] 25 mg PO BID@0800,1700 Famotidine [Pepcid] 20 mg PO HS@2130 Menthol [Biofreeze] 1 applic TOPICAL Q12H PRN PRN Reason: BILATERAL KNEE PAIN HYDROcodone/APAP 5-325MG [[place] 5-325] 1 tab PO Q4H PRN #18 tab PRN Reason: Pain Temazepam [Restoril] 15 mg PO HS PRN #3 cap PRN Reason: Insomnia Changed ALPRAZolam [Xanax] 0.25 mg PO TID PRN #9 tab PRN Reason: Anxiety Discontinued metFORMIN HCL [Glucophage] 500 mg PO BID@0800,1700 Discharge Medication List Lisinopril [Prinivil] 10 mg PO HS 02/15/18 [History] Ferrous Sulfate [Iron (65 MG Elemental)] 325 mg PO DAILY@0800 06/03/20 [History] Finasteride [Proscar] 5 mg PO HS 06/03/20 [History] Hydrocortisone [Cortef] 20 mg PO DAILY@0700 06/03/20 [History] Acetaminophen Tab [Tylenol] 650 mg PO Q4H PRN 10/22/20 [History] Midodrine [ProAmatine] 5 mg PO BID PRN 10/22/20 [History] Tamsulosin [Flomax] 0.4 mg PO HS 10/22/20 [History] Aspirin EC [Ecotrin Low Dose] 81 mg PO DAILY@0800 11/02/20 [History] Clopidogrel [Plavix] 75 mg PO DAILY@0800 11/02/20 [History] Isosorbide Mononitrate ER [Imdur] 60 mg PO DAILY@0800 11/02/20 [History] Magnesium Hydroxide [Milk of Magnesia Concentrate] 7,200 mg PO Q48H PRN 11/02/20 [History] Metoprolol Tartrate [Lopressor] 25 mg PO BID@0800,1700 11/02/20 [History] Nitroglycerin Sl Tabs [Nitrostat] 0.4 mg SL Q5M PRN 11/02/20 [History] bisacodyL 10 mg RECTAL DAILY PRN 11/02/20 [History] Dapagliflozin Propanediol [Farxiga] 10 mg PO DAILY@0800 05/11/21 [History] Famotidine [Pepcid] 20 mg PO HS@2130 05/11/21 [History] Hydrocortisone [Cortef] 10 mg PO DAILY@1700 05/11/21 [History] Levothyroxine Sodium [Synthroid] 137 mcg PO DAILY@0800 05/11/21 [History] Menthol [Biofreeze] 1 applic TOPICAL Q12H PRN 05/11/21 [History] Ocusoft Lid Scrub Original Pad 1 applic BOTH EYES Q72H 05/11/21 [History] Ranolazine [Ranexa] 500 mg PO BID@0800,1700 05/11/21 [History] Semaglutide [Rybelsus] 3 mg PO DAILY@0800 05/11/21 [History] Triamcinolone 0.1% Cream [Kenalog 0.1% Cream] 1 applic TOPICAL BID@0800,1700 05/11/21 [History] hydrOXYzine pamoate [Vistaril] 25 mg PO BID PRN 05/11/21 [History] ALPRAZolam [Xanax] 0.25 mg PO TID PRN #9 tab 05/13/21 [Rx] HYDROcodone/APAP 5-325MG [[place] 5-325] 1 tab PO Q4H PRN #18 tab 05/13/21 [Rx] Temazepam [Restoril] 15 mg PO HS PRN #3 cap 05/13/21 [Rx] Follow up Appointment(s)/Referral(s): Gilda Burger MD [STAFF PHYSICIAN] - 2 Weeks Maggie Joya MD [Primary Care Provider] - 1 Week (at [facility])
--- NOTE | 2021-05-13 13:38 | P.PN ---
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 His initial lab work revealed creatinine 1.76 which is significantly abnormal from his baseline. EKG reveals sinus bradycardia, heart rate 56, first-degree AV block, right bundle branch block. Prior EKG was similar findings. 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 Because the nature and location of this obstructive disease maximal medical therapy was advised. Echocardiogram in the office 10/10/2020 revealed EF of 60%, normal diastolic dysfunction. Moderate LVH. Mild to moderate mitral regurgitation and aortic valve sclerosis. Peak/mean gradient of 30 mmHg/17 mmHg. Mild mitral regurgitation, mild mitral stenosis, mild tricuspid regurgitation. Chest xray no acute cardiopulmonary process. Laboratory reviewed, troponin negative 3, sodium 134, potassium 4.6, BUN 33, serum creatinine 1.7, magnesium 1.9, Covid 19 PCR negative. CBC unremarkable. Patient was seen by machine shop apprentice with plan for medical management and increase metoprolol tartrate to 25 mg 3 times daily. Patient was cleared for discharge back to [facility] however initial creatinine was 1.7 far off his baseline and consult was added for nephrology, IV fluids and repeat lab work. REVIEW OF SYSTEMS: Constitutional: No documented fever, no chills, no night sweats. No weight change. Positive for weakness, positive for fatigue no lethargy. No daytime sleepiness. EENT: No headache. No blurred vision or double vision, no loss of vision. No loss of Hearing, no ringing in the ears, no dizziness. No nasal drainage or congestion. No epistaxis. No sore throat. Lungs: Positive for shortness of breath, no cough, no sputum production. No wheezing. Reports dyspnea with activity. Cardiovascular: Positive for chest pain, no lower extremity edema. No pal pitations. No paroxysmal nocturnal dyspnea. No orthopnea. No lightheadedness or dizziness. No syncopal episodes. Abdominal: Reports no abdominal pain. No nausea, vomiting. No diarrhea. No constipation. No bloody or tarry stools reports loss of appetite. Genitourinary: No dysuria, increased frequency, urgency. No urinary retention. Musculoskeletal: No myalgias. No muscle weakness, no gait dysfunction, no frequent falls. No back pain. No neck pain. Integumentary: No wounds, no lesions. positive for Proteus. positive for bruising. No change in hair or nails. Neurologic: No aphasia. No facial droop. No change in mentation. No head injury. No headache. No paralysis. No paresthesia. Psychiatric: No depression. Positive for anxiety. No mood swings. Endocrine: No abnormal blood sugars. No weight change. PHYSICAL EXAMINATION: General: This is an 86-year-old male who is laying down in bed in no apparent distress HEENT: Head is atraumatic, normocephalic, pupils were equal round reactive to light and recommendation, extraocular muscle movement were intact, sclera nonicteric, conjunctivae were pale, mucous membranes of the mouth are somewhat dry. Neck: Supple, no JVP, normal carotid upstroke bilaterally, no lymphadenopathy. Chest: Decreased breath sounds at the bases, few rhonchi, no extremity wheezes, no chest wall tenderness, no intercostal retractions. Heart: First heart sound is normal, second heart sounds normal there is systolic ejection murmur 2/6 located in the left sternal border. Abdomen: Soft, nontender, nondistended, positive bowel sounds. Extremities: There is no edema no calf tenderness DP +2 bilaterally. Neurologic examination: Patient is awake alert and oriented X3 , cranial nerves II-12 appear grossly intact, muscle power were 5 out of 5 in upper extremities and 5 out of 5 in bilateral lower extremities, deep tendon reflexes normal bilaterally. ASSESSMENT AND PLAN: 1. Chest pain possibly CAD. Patient has been seen by cardiology with plan to increase metoprolol to 3 times daily. 2. Acute kidney injury most likely due to poor oral intake. Patient started on IV fluids 0.9 normal saline at 75 mL per hour, nephrology consult, renal ultrasound, recheck of electrolytes and renal function. 3. Hypertension and hypertensive cardiovascular disease. Lisinopril placed on hold due to acute kidney injury. 4. Diabetes mellitus type 2 continue patient on metformin 500 mg orally once every day, patient did agree restarted back on [facility] 5 mg orally once every day as well as Rybelsus 3 mg once every day. 5. Mixed hyperlipidemia. Patient is intolerant to statins in general, monitor the patien lipid panel, keep LDL cholesterol 55-70, he may need to go on [facility] 9- INH. 6. 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 Continue Cortef changed to site Cortef 100 mg IV every 8 hours while in the hospital. 7. Hypothyroidism. Continue Synthroid 150 MCG orally once every day. 8. Pruritus, chronic. Start the patient on hydroxyzine 10 mg orally twice every day as well as mometasone cream 0.1% to be applied once every day as needed. 9. Enlarged prostate. Continue Flomax 0.4 mg orally once every day and finasteride 5 minute gram orally once every day. 10. Anxiety. Continue patient on Xanax 0.25 mg orally twice every day as needed. 11. DVT prophylaxis. Continue heparin 5000 units subcutaneous every 8 hours. 12. GI prophylaxis. Continue patient on Protonix 40 mg orally once every day. 13. Observation. 14. Patient is full code DISCHARGE PLAN Return to [facility] Impression and plan of care have been directed as dictated by the signing physician. Amy Lemos nurse practitioner acting as scribe for signing physician. Objective - Vital Signs Vital signs: Vital Signs Temp 97.4 F L 05/12/21 07:00 Pulse 63 05/12/21 08:00 Resp 17 05/12/21 08:00 BP 172/89 05/12/21 07:00 Pulse Ox 95 05/12/21 07:00 Intake & Output 05/11/21 05/12/21 05/12/21 18:59 06:59 18:59 Intake Total 120 1000 Output Total 200 Balance -80 1000 Weight 113.398 kg Intake: Oral 120 1000 Output: Urine 200 Other: Voiding Method Urinal Urinal # Voids 3 - Labs CBC & Chem 7: 05/12/21 05:29 05/13/21 06:09 Labs: Abnormal Lab Results - Last 24 Hours (Table) 05/11/21 05/11/21 Range/Units 13:32 18:51 Sodium 134 L (137-145) mmol/L Carbon Dioxide 20 L (22-30) mmol/L BUN 33 H (9-20) mg/dL Creatinine 1.76 H (0.66-1.25) mg/dL Glucose 125 H (74-99) mg/dL Urine Protein Trace H (Negative) Urine Glucose (UA) 4+ H (Negative) Ur Leukocyte Esterase Small H (Negative) Hyaline Casts 5 H (0-2) /lpf Urine Mucus Rare H (None) /hpf
[2021-05-13] MEDS: SODIUM CHLORIDE 0.9% 1,000 ML IV SCH (14:03)
[2021-05-13 14:49] VITALS: BP 179/80; PULSE 61; TEMP 97.5
--- NOTE | 2021-05-13 15:02 | PN ---
PROGRESS NOTE Patient is seen for followup for acute kidney injury. He is maintained on IV fluids. Renal function has improved with creatinine down to 1.2 from 1.7 on initial admission. Patient wants to go home today. PHYSICAL EXAMINATION: Blood pressure 161/72, heart rate 60 per minute. He is afebrile. Examination of the heart S1, S2. Examination of the lungs, bilateral breath sounds are heard. Abdomen is soft, nontender. Examination of lower extremities shows no evidence of edema. FLAT [employer]ISHER exam grossly intact. LAB: Show sodium 135, potassium 4.6, chloride 102. CO2 is 19.2, BUN 26.5, serum creatinine 1.2. ASSESSMENT: 1. Acute kidney injury prerenal currently improved. 2. Volume depletion, improved post IV hydration. 3. History of benign prostatic hypertrophy. No evidence of hydronephrosis on ultrasound. 4. History of uncontrolled hypertension. Need to take midodrine only when blood pressure is low. 5. Type 2 diabetes maintained on SCLT2 inhibitors with 4+ glucose in the urine. PLAN: The patient is stable for discharge from nephrology standpoint. Repeat labs down the road in about a month's time. MMODL / IJN: [id number] /
== END 2021-05-13 14:53 ==
LOC: EC 12:44 → 6NMEDSUR 14:27
PROVIDERS: ADMIT Internal Medicine; ATTEND Internal Medicine
DX: R07.89 Other chest pain (principal); N17.0 Acute kidney failure with tubular necrosis; I11.9 Hypertensive heart disease without heart failure; E11.9 Type 2 diabetes mellitus without complications; E78.2 Mixed hyperlipidemia; Z20.822 Contact with and (suspected) exposure to COVID-19; E03.9 Hypothyroidism, unspecified; L29.9 Pruritus, unspecified; N40.0 Benign prostatic hyperplasia without lower urinary tract symptoms; I25.10 Atherosclerotic heart disease of native coronary artery without angina pectoris; I44.0 Atrioventricular block, first degree; I45.10 Unspecified right bundle-branch block; I08.0 Rheumatic disorders of both mitral and aortic valves; K21.9 Gastro-esophageal reflux disease without esophagitis; R00.1 Bradycardia, unspecified; M54.9 Dorsalgia, unspecified; M19.90 Unspecified osteoarthritis, unspecified site; E27.40 Unspecified adrenocortical insufficiency; G47.00 Insomnia, unspecified; E66.9 Obesity, unspecified; Z68.33 Body mass index [BMI] 33.0-33.9, adult; H40.9 Unspecified glaucoma; F41.9 Anxiety disorder, unspecified; E86.9 Volume depletion, unspecified; Z86.018 Personal history of other benign neoplasm; M75.100 Unspecified rotator cuff tear or rupture of unspecified shoulder, not specified as traumatic; Z88.8 Allergy status to other drugs, medicaments and biological substances; Z79.899 Other long term (current) drug therapy; Z79.890 Hormone replacement therapy; Z79.84 Long term (current) use of oral hypoglycemic drugs; Z79.82 Long term (current) use of aspirin; Z79.02 Long term (current) use of antithrombotics/antiplatelets; Z90.49 Acquired absence of other specified parts of digestive tract; Z82.49 Family history of ischemic heart disease and other diseases of the circulatory system
CPT/HCPCS: 99285; 96376 ×2; 96374; 36415; 93005; 97116; 97162; 97166; 80061; 80053; 80048 ×2; 83735; 84484; 85025 ×2; 85610; 85730; 81001; 87635; 71046; 76770; G0378 ×3; S0138 ×2; J1720 ×3

== ENCOUNTER 2021-06-10 15:34 | Observation (INO) | payer MEDICARE, OTHER ==
[2021-06-10 15:45] VITALS: RESP 18
[2021-06-10 16:40] LABS: Basophils % (A) 1 %; Eosinophils # (A) 0.2 k/uL (0-0.7); Eosinophils % (A) 3 %; HCT 27.5 % (39.0-53.0); Lymphocytes # (A) 1.7 k/uL (1.0-4.8); Lymphocytes % (A) 30 %; MCH 32.5 pg (25.0-35.0); MCHC 33.7 g/dL (31.0-37.0); Mean Platelet Volume 7.3; Monocytes # (A) 0.5 k/uL (0-1.0); Monocytes % (A) 9 %; Neutrophils # (A) 3.2 k/uL (1.3-7.7); Neutrophils % (A) 54 %; Platelet Count 244 k/uL (150-450); RBC 2.85 m/uL (4.30-5.90); WBC 5.8 k/uL (3.8-10.6)
[2021-06-10 16:55] LABS: Albumin 3.6 g/dL (3.5-5.0); Calcium 8.8 mg/dL (8.4-10.2); Magnesium 1.9 mg/dL (1.6-2.3); Potassium 4.7 mmol/L (3.5-5.1); Total Bilirubin 0.6 mg/dL (0.2-1.3); Total Protein 6.6 g/dL (6.3-8.2)
[2021-06-10 16:58] LABS: INR 1.1 (<1.2); Prothrombin Time 11.1 sec (9.0-12.0)
[2021-06-10 17:03] LABS: Partial Thromboplastin Time 19.3 sec (22.0-30.0)
[2021-06-10 17:06] LABS: HGB 9.3 gm/dL (13.0-17.5); MCV 96.4 fL (80.0-100.0)
--- NOTE | 2021-06-10 17:10 | XR ---
EXAMINATION TYPE: XR chest 2V DATE OF EXAM: 06/10/2021 4:41 PM COMPARISON: [id number] CLINICAL INDICATION:Male, 86 years old with history of syncope; TECHNIQUE: Frontal and lateral views of the chest. FINDINGS: Lungs/Pleura: There is no evidence of pleural effusion, focal consolidation, or pneumothorax. Pulmonary vascularity: Unremarkable. Heart/mediastinum: Cardiomediastinal silhouette is unremarkable. Musculoskeletal: Multiple level degenerative disc disease changes seen throughout the spine. Left rev erse shoulder arthroplasty. IMPRESSION: Chronic changes without acute pulmonary process. No significant change from prior.
[2021-06-10] MEDS ORDERED: MIDODRINE 5 MG TAB PO STA (17:12)
--- NOTE | 2021-06-10 17:55 | ED ---
Chest Pain HPI - General Chief Complaint: Chest Pain Stated Complaint: Chest Pain Time Seen by Provider: 06/10/21 15:40 Source: patient Mode of arrival: ambulatory Limitations: no limitations - History of Present Illness Initial Comments: 86-year-old male with past history of hypertension, pituitary tumor removal with subsequent adrenal insufficiency presents emergency room with reported chest pain. He was on his way to see his eye doctor when he reported to staff that he was having chest pain. The turned around and took him back to his [facility]. He s tates that the pain lasted approximately 30 minutes in total. Described it as a chest pressure/discomfort. It was nonradiating. He had associated diaphoresis, pallor an episode of vomiting. EMS arrived and found his blood pressure to be 85 systolic. They provided him with 4 chewable aspirins. Patient arrives to our facility and states that he is pain free. He had a cardiac catheterization in October of this year which demonstrated 70% stenosis of his distal circumflex and 90% stenosis of his distal PDA. Because the nature and location medical therapy was advised. He is on Plavix daily. Patient hospitalized one month ago for similar complaint. States that his symptoms were not as severe then. He denies fevers, chills or cough. No numbness, tingling or weakness in his extremities. No other alleviating, precipitating factors - Related Data Home Medications Medication Instructions Recorded Confirmed Ferrous Sulfate [Iron (65 MG 325 mg PO DAILY@0800 06/03/20 06/10/21 Elemental)] Finasteride [Proscar] 5 mg PO HS@2100 06/03/20 06/10/21 Acetaminophen Tab [Tylenol] 650 mg PO Q4H PRN 10/22/20 06/10/21 Midodrine [ProAmatine] 5 mg PO BID PRN 10/22/20 06/10/21 Tamsulosin [Flomax] 0.4 mg PO HS@2100 10/22/20 06/10/21 Aspirin EC [Ecotrin Low Dose] 81 mg PO DAILY@0800 11/02/20 06/10/21 Clopidogrel [Plavix] 75 mg PO DAILY@0800 11/02/20 06/10/21 Magnesium Hydroxide [Milk of 7,200 mg PO Q48H PRN 11/02/20 06/10/21 Magnesia Concentrate] Nitroglycerin Sl Tabs [Nitrostat] 0.4 mg SL Q5M PRN 11/02/20 06/10/21 bisacodyL 10 mg RECTAL DAILY PRN 11/02/20 06/10/21 Famotidine [Pepcid] 20 mg PO HS@2130 05/11/21 06/10/21 Hydrocortisone [Cortef] 10 mg PO DAILY@1700 05/11/21 06/10/21 Levothyroxine Sodium [Synthroid] 137 mcg PO DAILY@0800 05/11/21 06/10/21 Ocusoft Lid Scrub Original Pad 1 applic BOTH EYES Q72H 05/11/21 06/10/21 Ranolazine [Ranexa] 500 mg PO BID@0800,1700 05/11/21 06/10/21 Semaglutide [Rybelsus] 3 mg PO DAILY@0800 05/11/21 06/10/21 Triamcinolone 0.1% Cream [Kenalog 1 applic TOPICAL BID@0800,1700 05/11/21 06/10/21 0.1% Cream] hydrOXYzine pamoate [Vistaril] 25 mg PO BID PRN 05/11/21 06/10/21 Dapagliflozin Propanediol [Farxiga] 10 mg PO DAILY@0800 06/10/21 06/10/21 Hydrocortisone [Cortef] 20 mg PO DAILY@0700 06/10/21 06/10/21 Menthol [Biofreeze] 1 applic TOPICAL Q12H PRN 06/10/21 06/10/21 Na Phos,M-B/Na Phos,Di-Ba [Fleet 133 ml RECTAL DAILY PRN 06/10/21 06/10/21 Adult] lisinopriL [Zestril] 20 mg PO HS@2100 06/10/21 06/10/21 Previous Rx's Medication Instructions Recorded ALPRAZolam [Xanax] 0.25 mg PO TID PRN #9 tab 05/13/21 Temazepam [Restoril] 15 mg PO HS PRN #3 cap 05/13/21 Midodrine [ProAmatine] 5 mg PO ONCE #1 tablet 06/10/21 Isosorbide Mononitrate ER [Imdur] 60 mg PO DAILY@0800 tablet 06/11/21 Metoprolol Tartrate [Lopressor] 25 mg PO HS tab 06/11/21 Metoprolol Tartrate [Lopressor] 50 mg PO DAILY tab 06/11/21 Allergies Allergy/AdvReac Type Severity Reaction Status Date / Time Cixnpbh-GQH-FzT Reductase Allergy Unknown Verified 06/10/21 18:46 Inhibitor [Qelpwpt-Kvk-Qwx Reductase Inhibitor] Review of Systems ROS Statement: Those systems with pertinent positive or pertinent negative responses have been documented in the HPI. ROS Other: All systems not noted in ROS Statement are negative. EKG Findings - EKG Comments: EKG Findings:: ED demonstrates sinus rhythm with first-degree block. Rate of 60.. Unable to 22. QRS 130. QTC of 450. There is some J-point elevation in the inferior leads as well as V3 to V6. No reciprocal changes. right bundle branch block Past Medical History Past Medical History: GERD/Reflux, Hypertension, Osteoarthritis (OA), Thyroid Disorder Additional Past Medical History / Comment(s): glaucoma yelitza eyes, left rotator cuff torn, back pain History of Any Multi-Drug Resistant Organisms: None Reported Past Surgical History: Appendectomy, Cholecystectomy, Orthopedic Surgery, Tonsillectomy Additional Past Surgical History / Comment(s): yelitza shoulder arthroscopy, eye sx for glaucoma. pt stated 2 weeks ago had a benign pituitary tumor removed at [facility]. Past Anesthesia/Blood Transfusion Reactions: No Reported Reaction Past Psychological History: No Psychological Hx Reported Smoking Status: Never smoker Past Alcohol Use History: None Reported Past Drug Use History: None Reported - Past Family History Mother Family Medical History: Congestive Heart Failure (CHF) Additional Family Medical History / Comment(s): age 95 Father Family Medical History: No Reported History Additional Family Medical History / Comment(s): " from old age at age 90" General Exam Limitations: no limitations General appearance: alert, in no apparent distress Head exam: Present: atraumatic, normocephalic, normal inspection Eye exam: Present: normal appearance, PERRL, EOMI. Absent: scleral icterus, conjunctival injection, periorbital swelling ENT exam: Present: normal exam, mucous membranes moist Neck exam: Present: normal inspection. Absent: tenderness, meningismus, lymphadenopathy Respiratory exam: Present: normal lung sounds bilaterally. Absent: respiratory distress, wheezes, rales, rhonchi, stridor Cardiovascular Exam: Present: regular rate, normal rhythm, normal heart sounds. Absent: systolic murmur, diastolic murmur, rubs, gallop, clicks GI/Abdominal exam: Present: soft, normal bowel sounds. Absent: distended, tenderness, guarding, rebound, rigid Extremities exam: Present: normal inspection, full ROM, normal capillary refill. Absent: tenderness, pedal edema, joint swelling, calf tenderness Back exam: Present: normal inspection Neurological exam: Present: alert, oriented X3, CN II-XII intact Psychiatric exam: Present: normal affect, normal mood Skin exam: Present: warm, dry, intact, normal color. Absent: rash Course Vital Signs 06/10/21 06/10/21 06/10/21 15:38 16:07 17:09 Temperature 97.9 F Pulse Rate 60 60 Pulse Rate [ 70 [employer] ] Pulse Rate [ Pulse Oximetery ] Respiratory 18 18 Rate Blood Pressure 109/63 86/49 Blood Pressure [Right Arm] O2 Sat by Pulse 93 L 96 Oximetry 06/10/21 06/10/21 06/10/21 18:11 21:25 22:59 Temperature 97.8 F Pulse Rate 59 L 64 66 Pulse Rate [ [employer] ] Pulse Rate [ Pulse Oximetery ] Respiratory 18 18 18 Rate Blood Pressure 118/66 128/62 133/66 Blood Pressure [Right Arm] O2 Sat by Pulse 95 96 94 L Oximetry 06/11/21 06/11/21 06/11/21 04:00 05:00 06:00 Temperature 97.7 F Pulse Rate 63 65 68 Pulse Rate [ [employer] ] Pulse Rate [ Pulse Oximetery ] Respiratory 18 18 18 Rate Blood Pressure 110/50 Blood Pressure [Right Arm] O2 Sat by Pulse 94 L 95 97 Oximetry 06/11/21 06/11/21 06:52 07:00 Temperature 97.7 F 97.4 F L Pulse Rate 74 Pulse Rate [ [employer] ] Pulse Rate [ 67 Pulse Oximetery ] Respiratory 18 18 Rate Blood Pressure 129/87 Blood Pressure 169/68 [Right Arm] O2 Sat by Pulse 97 97 Oximetry Chest Pain MDM - MDM Upon the patient is placed into room 7. He is pain-free at this time. He is hooked to continuous pulse ox and cardiac monitoring. Laboratory studies are obtained. CBC is 9.3. As his hemoglobin was checked on the eighth and it was 15.6 I did repeat this. Repeat is 14.7 therefore first draw the lab error. Troponin is negative. Chest x-ray demonstrates chronic changes without acute cardiopulmonary process. Because the patient's previous cardiac history did recommend hospitalization in order to trend his troponins which the patient agreed to. Patient is currently awaiting a bed on the floor. Spoke with Dr. Joya who agreed to admit the patient Disposition Clinical Impression: Chest pain, Hypotension, Vomiting Disposition: ADMITTED IP TO THIS HOSP Condition: Stable Is patient prescribed a controlled substance at d/c from ED?: No Decision to Admit Reason: Admit from EC Decision Date: 06/10/21 Decision Time: 19:14
[2021-06-10 18:24] LABS: Basophils # (A) 0.1 k/uL (0-0.2); Basophils % (A) 1 %; Eosinophils # (A) 0.2 k/uL (0-0.7); Eosinophils % (A) 3 %; HCT 43.3 % (39.0-53.0); Lymphocytes # (A) 1.7 k/uL (1.0-4.8); Lymphocytes % (A) 26 %; MCH 32.4 pg (25.0-35.0); MCHC 33.8 g/dL (31.0-37.0); MCV 95.6 fL (80.0-100.0); Mean Platelet Volume 7.5; Monocytes # (A) 0.4 k/uL (0-1.0); Monocytes % (A) 7 %; Neutrophils % (A) 60 %; Platelet Count 170 k/uL (150-450); RBC 4.53 m/uL (4.30-5.90); RDW 13.7 % (11.5-15.5); WBC 6.6 k/uL (3.8-10.6)
[2021-06-10 18:29] LABS: HGB 14.7 gm/dL (13.0-17.5)
[2021-06-10] MEDS ORDERED: NALOXONE 0.4 MG/ML 1 ML VIAL IV PRN (19:14)
[2021-06-10] MEDS ORDERED: HYDROcodone/APAP 5-325MG 1 EACH TAB PO PRN (19:23)
[2021-06-10] MEDS ORDERED: hydrOXYzine pamoate 25 MG CAP PO PRN (19:23)
[2021-06-10] MEDS ORDERED: bisacodyL 10 MG SUPP RECTAL PRN (19:23)
[2021-06-10] MEDS ORDERED: NA PHOS,M-B/NA PHOS,DI-BA 133 ML ENEMA RECTAL PRN (19:23)
[2021-06-10] MEDS ORDERED: ACETAMINOPHEN TAB 325 MG TAB PO PRN (19:23)
[2021-06-10] MEDS ORDERED: ALPRAZolam 0.25 MG TAB PO PRN (19:23)
[2021-06-10] MEDS ORDERED: TEMAZEPAM 15 MG CAP PO PRN (19:23)
[2021-06-10] MEDS ORDERED: MIDODRINE 5 MG TAB PO PRN (19:23)
[2021-06-10] MEDS ORDERED: HYDROCORTISONE 10 MG TAB PO STA (19:25)
[2021-06-10] MEDS ORDERED: [UNRECOGNIZED DRUG - OTHER] BOTH EYES SCH (19:30)
[2021-06-10] MEDS ORDERED: TAMSULOSIN 0.4 MG CAP.ER.24H PO SCH (21:00)
[2021-06-10] MEDS ORDERED: lisinopriL 20 MG TAB PO SCH (21:00)
[2021-06-10] MEDS ORDERED: FINASTERIDE 5 MG TAB PO SCH (21:00)
[2021-06-10] MEDS: METOPROLOL TARTRATE 25 MG TAB PO SCH (21:25)
[2021-06-10] MEDS ORDERED: FAMOTIDINE 20 MG TAB PO SCH (21:30)
[2021-06-11 06:40] LABS: African American GFR (CKD) 62 (>60 ml/min/1.73 sqM); Anion Gap 7 mmol/L; Blood Urea Nitrogen 27 mg/dL (9-20); Carbon Dioxide 24 mmol/L (22-30); Chloride 102 mmol/L (98-107); Glucose 133 mg/dL (74-99); Non-African American GFR(CKD) 54 (>60 ml/min/1.73 sqM); Potassium 4.5 mmol/L (3.5-5.1); Sodium 133 mmol/L (137-145)
[2021-06-11] MEDS ORDERED: HYDROCORTISONE 20 MG TAB PO SCH (07:00)
[2021-06-11 07:34] LABS: Appearance,Urine Clear (Clear); Bilirubin,Urine Negative (Negative); Blood,Urine Negative (Negative); Color,Urine Yellow; Glucose,Urine (UA) 4+ (Negative); Ketones,Urine Negative (Negative); Leukocyte Esterase,Urine Negative (Negative); Nitrite,Urine Negative (Negative); Protein,Urine Negative (Negative); Specific Gravity,Urine 1.016 (1.001-1.035); Urobilinogen,Urine <2.0 mg/dL (<2.0)
[2021-06-11] MEDS ORDERED: CLOPIDOGREL 75 MG TAB PO SCH (08:00)
[2021-06-11] MEDS ORDERED: ISOSORBIDE MONONITRATE ER 60 MG TAB.ER.24H PO SCH (08:00)
[2021-06-11] MEDS ORDERED: ASPIRIN 81 MG PO SCH (08:00)
[2021-06-11] MEDS ORDERED: FERROUS SULFATE 325 MG TAB PO SCH (08:00)
[2021-06-11] MEDS ORDERED: LEVOTHYROXINE 137 MCG TAB PO SCH (08:00)
[2021-06-11] MEDS ORDERED: METOPROLOL TARTRATE 50 MG TAB PO SCH (09:00)
[2021-06-11] MEDS: RANOLAZINE 500 MG TAB.ER.12H PO SCH ×2 (09:29→17:57)
[2021-06-11 09:30] LABS: Basophils # (A) 0.05 X 10*3/uL (0.00-0.10); Basophils % (A) 0.8 %; Eosinophils # (A) 0.29 X 10*3/uL (0.04-0.35); Eosinophils % (A) 4.6 %; HCT 44.9 % (39.6-50.0); HGB 14.5 g/dL (13.0-17.0); Lymphocytes # (A) 1.99 X 10*3/uL (0.90-5.00); Lymphocytes % (A) 31.8 %; MCH 30.5 pg (27.0-32.0); MCHC 32.3 g/dL (32.0-37.0); MCV 94.3 fL (80.0-97.0); Mean Platelet Volume 10.4 fL (9.5-12.2); Monocytes # (A) 0.73 X 10*3/uL (0.20-1.00); Monocytes % (A) 11.7 %; Neutrophils # (A) 3.14 X 10*3/uL (1.80-7.70); Neutrophils % (A) 50.1 %; Platelet Count 164 X 10*3/uL (140-440); RBC 4.76 X 10*6/uL (4.40-5.60); RDW 13.6 % (11.5-14.5); WBC 6.26 X 10*3/uL (4.50-10.00)
--- NOTE | 2021-06-11 09:31 | P.CRDCN ---
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 He follows in the office with Dr. Burger. We have been asked to see in consultation for chest pain. Patient is seen and examined at bedside, presents emergency department with ch est pressure. He is currently at [facility]. Patient states he was on his eye doctor when he reported to staff that he was having chest pain. He states he was brought back to [facility]. His chest pressure is located midsternal area. Describes it as a chest pressure/discomfort. It was nonradiating and non- exertional. Pain lasted less than 30 minutes. Resolved by the time he was brought back to [facility]. He states he did have an episode of clear emesis, states it was sputum. Denies shortness of breath, palpitations, diaphoresis, lower extremity edema, fatigue, weakness, lightheadedness, syncope or near syncope symptoms, denies PND or orthopnea. Denies fever, cough, chills. No specific aggravating factors. He denies smoking or alcohol use. DIAGNOSTICS -EKG reveals sinus rhythm heart rate 60, first-degree AV block, right bundle branch block. Prior EKG was similar findings. -Recent Cardiac Catheterization 10/2020: Revealed distal circumflex 70% stenosis, distal PDA has 90% stenosis. Because the nature and location of this obstructive disease maximal medical therapy was advised. -Echocardiogram in the office 10/10/2020 revealed EF of 60%, normal diastolic dysfunction. Moderate LVH. Mild to moderate mitral regurgitation and aortic valve sclerosis. Peak/mean gradient of 30 mmHg/17 mmHg. Mild mitral regurgitation, mild mitral stenosis, mild tricuspid regurgitation. -Chest xray no acute cardiopulmonary process. -Laboratory reviewed, troponin negative 3, -Current home medications include midodrine 5 mg twice a day when necessary, metformin, Ranexa, metoprolol tartrate 25 mg TID, Imdur 60 mg daily, lisinopril 20 mg nightly, Synthroid, hydrocortisone, Proscar, ferrous sulfate, Plavix 75 mg daily, aspirin 81 mg daily REVIEW OF SYSTEMS CONSTITUTIONAL: Denies fever or chills. CARDIOVASCULAR: +chest pain,Denies shortness of breath, Denies orthopnea, PND or palpitations. RESPIRATORY: Denies cough. GASTROINTESTINAL: Denies abdominal pain, diarrhea, constipation, nausea or vomi ting. MUSCULOSKELETAL: Denies myalgias. NEUROLOGIC: Denies numbness, tingling, headache or weakness. ENDOCRINE: Denies fatigue, weight change, polydipsia or polyurina. GENITOURINARY: Denies burning, hematuria or urgency with micturation. HEMATOLOGIC: Denies history of anemia or bleeding. PHYSICAL EXAMINATION Blood pressure 169/68, heart rate 67, afebrile. Saturations 97% on 2 L nasal cannula CONSTITUTIONAL: No apparent distress. HEENT: Head is normocephalic. Pupils are equal, round. Sclerae anicteric. Mucous membranes of the mouth are moist. No JVD. No carotid bruit. CHEST EXAMINATION: Lungs are clear to auscultation. No chest wall tenderness is noted on palpation or with deep breathing. HEART EXAMINATION: Regular rate and rhythm. S1, S2 heard. Systolic murmur at right sternal border. No gallops or rub. ABDOMEN: Soft, nontender. Positive bowel sounds. EXTREMITIES: 2+ peripheral pulses, no lower extremity edema and no calf tenderness. SKIN: warm, dry NEUROLOGIC EXAMINATION: Patient is awake, alert and oriented x3. ASSESSMENT Chest pain, atypical, acute coronary syndrome ruled out Coronary artery disease, cardiac catheterization 10/2020 no intervention Hypertension Dyslipidemia Type 2 Diabetes PLAN An acute coronary event has been ruled out with no EKG evidence of ischemia and negative cardiac enzymes. Change beta franko to metoprolol tartrate 50mg in the morning and 25mg at night Continue all other cardiac medications From a cardiology perspective, patient is stable to be discharged home. Follow up with Dr. Burger Thank you kindly for this consultation. Nurse Practitioner note has been reviewed, I agree with a documented findings and plan of care. Patient was seen and examined. Past Medical History Past Medical History: GERD/Reflux, Hypertension, Osteoarthritis (OA), Thyroid Disorder Additional Past Medical History / Comment(s): glaucoma yelitza eyes, left rotator cuff torn, back pain History of Any Multi-Drug Resistant Organisms: None Reported Past Surgical History: Appendectomy, Cholecystectomy, Orthopedic Surgery, Tonsillectomy Additional Past Surgical History / Comment(s): yelitza shoulder arthroscopy, eye sx for glaucoma. pt stated 2 weeks ago had a benign pituitary tumor removed at [facility]. Past Anesthesia/Blood Transfusion Reactions: No Reported Reaction Past Psychological History: No Psychological Hx Reported Smoking Status: Never smoker Past Alcohol Use History: None Reported Past Drug Use History: None Reported - Past Family History Mother Family Medical History: Congestive Heart Failure (CHF) Additional Family Medical History / Comment(s): age 95 Father Family Medical History: No Reported History Additional Family Medical History / Comment(s): " from old age at age 90" Medications and Allergies Home Medications Medication Instructions Recorded Confirmed Type Ferrous Sulfate [Iron (65 MG 325 mg PO DAILY@0806/03/20 06/10/21 History Elemental)] Finasteride [Proscar] 5 mg PO HS@209906/03/20 06/10/21 History Acetaminophen Tab [Tylenol] 650 mg PO Q4H PRN 10/22/20 06/10/21 History Midodrine [ProAmatine] 5 mg PO BID PRN 10/22/20 06/10/21 History Tamsulosin [Flomax] 0.4 mg PO HS@209910/22/20 06/10/21 History Aspirin EC [Ecotrin Low Dose] 81 mg PO DAILY@0800 11/02/20 06/10/21 History Clopidogrel [Plavix] 75 mg PO DAILY@0811/02/20 06/10/21 History Isosorbide Mononitrate ER [Imdur] 60 mg PO DAILY@0811/02/20 06/10/21 History Magnesium Hydroxide [Milk of 7,200 mg PO Q48H PRN 11/02/20 06/10/21 History Magnesia Concentrate] Metoprolol Tartrate [Lopressor] 25 mg PO TID@0800,1700,209911/02/20 06/10/21 History Nitroglycerin Sl Tabs [Nitrostat] 0.4 mg SL Q5M PRN 11/02/20 06/10/21 History bisacodyL 10 mg RECTAL DAILY PRN 11/02/20 06/10/21 History Famotidine [Pepcid] 20 mg PO HS@212905/11/21 06/10/21 History Hydrocortisone [Cortef] 10 mg PO DAILY@1700 05/11/21 06/10/21 History Levothyroxine Sodium [Synthroid] 137 mcg PO DAILY@0800 05/11/21 06/10/21 History Ocusoft Lid Scrub Original Pad 1 applic BOTH EYES Q72H 05/11/21 06/10/21 History Ranolazine [Ranexa] 500 mg PO BID@0800,1700 05/11/21 06/10/21 History Semaglutide [Rybelsus] 3 mg PO DAILY@0800 05/11/21 06/10/21 History Triamcinolone 0.1% Cream [Kenalog 1 applic TOPICAL BID@0800,1700 05/11/21 06/10/21 History 0.1% Cream] hydrOXYzine pamoate [Vistaril] 25 mg PO BID PRN 05/11/21 06/10/21 History ALPRAZolam [Xanax] 0.25 mg PO TID PRN #9 tab 05/13/21 06/10/21 Rx HYDROcodone/APAP 5-325MG [Petroleum 1 tab PO Q4H PRN #18 tab 05/13/21 06/10/21 Rx 5-325] Temazepam [Restoril] 15 mg PO HS PRN #3 cap 05/13/21 06/10/21 Rx Dapagliflozin Propanediol [Farxiga] 10 mg PO DAILY@0800 06/10/21 06/10/21 History Hydrocortisone [Cortef] 20 mg PO DAILY@0700 06/10/21 06/10/21 History Menthol [Biofreeze] 1 applic TOPICAL Q12H PRN 06/10/21 06/10/21 History Midodrine [ProAmatine] 5 mg PO ONCE #1 tablet 06/10/21 Rx Na Phos,M-B/Na Phos,Di-Ba [Fleet 133 ml RECTAL DAILY PRN 06/10/21 06/10/21 History Adult] lisinopriL [Zestril] 20 mg PO HS@2100 06/10/21 06/10/21 History Allergies Allergy/AdvReac Type Severity Reaction Status Date / Time [id number] Reductase Allergy Unknown Verified 06/10/21 18:46 Inhibitor [Hhvkbnl-Apt-Qtp Reductase Inhibitor] Physical Exam Vitals: Vital Signs Temp Pulse Pulse Resp BP Pulse Ox 06/11/21 06:52 97.7 F 74 18 129/87 97 06/11/21 06:00 68 18 97 06/11/21 05:00 65 18 95 06/11/21 04:00 97.7 F 63 18 110/50 94 L 06/10/21 22:59 66 18 133/66 94 L 06/10/21 21:25 97.8 F 64 18 128/62 96 06/10/21 18:11 59 L 18 118/66 95 06/10/21 17:09 60 18 86/49 96 06/10/21 16:07 70 06/10/21 15:38 97.9 F 60 18 109/63 93 L Intake and Output 06/10/21 06/10/21 06/11/21 14:59 22:59 06:59 Other: Weight 113.398 kg Results 06/10/21 18:10 06/11/21 05:34 Cardiac Enzymes 06/10/21 06/10/21 06/10/21 Range/Units 16:29 16:29 22:00 AST 43 (17-59) U/L Troponin I <0.012 <0.012 (0.000-0.034) ng/mL 06/10/21 Range/Units 23:43 AST (17-59) U/L Troponin I <0.012 (0.000-0.034) ng/mL Coagulation 06/10/21 Range/Units 16:29 PT 11.1 (9.0-12.0) sec APTT 19.3 L (22.0-30.0) sec CBC 06/10/21 06/10/21 Range/Units 16:29 18:10 WBC 5.8 6.6 (3.8-10.6) k/uL RBC 2.85 L 4.53 (4.30-5.90) m/uL Hgb 9.3 L D 14.7 D (13.0-17.5) gm/dL Hct 27.5 L 43.3 (39.0-53.0) % Plt Count 244 170 (150-450) k/uL Comprehensive Metabolic Panel 06/10/21 06/11/21 Range/Units 16:29 05:34 Sodium 133 L 133 L (137-145) mmol/L Potassium 4.7 4.5 (3.5-5.1) mmol/L Chloride 101 102 (98-107) mmol/L Carbon Dioxide 21 L 24 (22-30) mmol/L BUN 28 H 27 H (9-20) mg/dL Creatinine 1.25 1.23 (0.66-1.25) mg/dL Glucose 198 H 133 H (74-99) mg/dL Calcium 8.8 9.0 (8.4-10.2) mg/dL AST 43 (17-59) U/L ALT 47 (4-49) U/L Alkaline Phosphatase 87 (38-126) U/L Total Protein 6.6 (6.3-8.2) g/dL Albumin 3.6 (3.5-5.0) g/dL Current Medications Generic Name Dose Route Start Last Admin Trade Name Freq PRN Reason Stop Dose Admin Acetaminophen 650 mg 06/10/21 19:23 Acetaminophen Tab 325 Mg Tab PO Q4H PRN Fever and/ or Pain Hydrocodone Bitart/Acetaminophen 1 each 06/10/21 19:23 Hydrocodone/Apap 5-325mg 1 Each Tab PO Q4H PRN Pain Alprazolam 0.25 mg 06/10/21 19:23 06/10/21 22:58 Alprazolam 0.25 Mg Tab PO 0.25 mg TID PRN Administration Anxiety Aspirin 81 mg 06/11/21 08:00 Aspirin 81 Mg PO DAILY@0800 [facility] Bisacodyl 10 mg 06/10/21 19:23 Bisacodyl 10 Mg Supp RECTAL DAILY PRN Constipation Clopidogrel Bisulfate 75 mg 06/11/21 08:00 Clopidogrel 75 Mg Tab PO DAILY@0800 [facility] Famotidine 20 mg 06/10/21 21:30 06/10/21 21:24 Famotidine 20 Mg Tab PO 20 mg HS@2130 [facility] Administration Ferrous Sulfate 325 mg 06/11/21 08:00 Ferrous Sulfate 325 Mg Tab PO DAILY@0800 [facility] Finasteride 5 mg 06/10/21 21:00 06/10/21 21:24 Finasteride 5 Mg Tab PO 5 mg HS@2100 [facility] Administration Hydrocortisone 20 mg 06/11/21 07:00 Hydrocortisone 20 Mg Tab PO DAILY@0700 [facility] Hydrocortisone 10 mg 06/11/21 17:00 Hydrocortisone 10 Mg Tab PO DAILY@1700 [facility] Hydroxyzine Pamoate 25 mg 06/10/21 19:23 Hydroxyzine Pamoate 25 Mg Cap PO BID PRN Itching Isosorbide Mononitrate 60 mg 06/11/21 08:00 Isosorbide Mononitrate Er 60 Mg Tab.Er.24h PO DAILY@0800 [facility] Levothyroxine Sodium 137 mcg 06/11/21 08:00 Levothyroxine 137 Mcg Tab PO DAILY@0800 [facility] Lisinopril 20 mg 06/10/21 21:00 06/10/21 21:24 Lisinopril 20 Mg Tab PO Not Given HS@2100 [facility] Metoprolol Tartrate 25 mg 06/10/21 21:00 06/10/21 21:25 Metoprolol Tartrate 25 Mg Tab PO Not Given TID@0800,1700,2100 [facility] Midodrine 5 mg 06/10/21 19:23 Midodrine 5 Mg Tab PO BID PRN SBP LESS THAN 100 Naloxone HCl 0.2 mg 06/10/21 19:14 Naloxone 0.4 Mg/Ml 1 Ml Vial IV Q2M PRN Opioid Reversal Ranolazine 500 mg 06/11/21 08:00 Ranolazine 500 Mg Tab.Er.12h PO BID@0800,1700 [facility] Sodium Biphosphate/Sodium Phosphate 133 ml 06/10/21 19:23 Na Phos,M-B/Na Phos,Di-Ba 133 Ml Enema RECTAL DAILY PRN Constipation Tamsulosin HCl 0.4 mg 06/10/21 21:00 06/10/21 21:24 Tamsulosin 0.4 Mg Cap.Er.24h PO 0.4 mg HS@2100 [facility] Administration Temazepam 15 mg 06/10/21 19:23 Temazepam 15 Mg Cap PO HS PRN Insomnia Intake and Output 06/10/21 06/10/21 06/11/21 14:59 22:59 06:59 Other: Weight 113.398 kg Patient Weight 06/11/21 06:59 Weight 113.398 kg 06/10/21 18:10 06/11/21 05:34
[2021-06-11] MEDS: METOPROLOL TARTRATE 25 MG TAB PO SCH (11:19)
--- NOTE | 2021-06-11 15:16 | P.HPIM ---
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, hypothyroidism, insomnia due to medical illnesses, osteoarthritis, patient developed to have left-sided chest pain, while he was in route to go to the ophthalmology office was described as a sharp pain in the left side associated with nausea but no vomiting, no radiation of the pain to the neck or the shoulder, by the time he got to the manager studio office [facility] I received a call from the nursing staff stating that the patient has had a chest pain and he was not doing well patient was sent to the emergency department at [facility] for evaluation he was seen by the emergency room physician his troponin came back negative, patient was hypotensive, he was given 1 dose of Midodrin, his blood pressure came back up again his EKG did not show any evidence of acute ST-T wave changes, but because of the presentation he was kept in the hospital for observation he would be seen in consultation by cardiology for further evaluation and recommendation. Patient was recently hospitalized at [facility] for exact same situation and he was discharged back to [facility] with a stable CAD, patient did have a left heart catheter physician in October 2020 that showed distal left circumflex disease of 70% and distal PDA of 90%, it was recommended to maximize medical therapy because of the nature and location of the coronary artery disease REVIEW OF SYSTEMS: Constitutional: No documented fever, no chills, no night sweats. No weight change. Positive for weakness, positive for fatigue no lethargy. No daytime sleepiness. EENT: No headache. No blurred vision or double vision, no loss of vision. No loss of Hearing, no ringing in the ears, no dizziness. No nasal drainage or congestion. No epistaxis. No sore throat. Lungs: Positive for shortness of breath, no cough, no sputum production. No wheezing. Reports dyspnea with activity. Cardiovascular: Positive for chest pain, no lower extremity edema. No palpitations. No paroxysmal nocturnal dyspnea. No orthopnea. No lightheadedness or dizziness. No syncopal episodes. Abdominal: Reports no abdominal pain. No nausea, vomiting. No diarrhea. No constipation. No bloody or tarry stools reports loss of appetite. Genitourinary: No dysuria, increased frequency, urgency. No urinary retention. Musculoskeletal: No myalgias. No muscle weakness, no gait dysfunction, no frequent falls. No back pain. No neck pain. Integumentary: No wounds, no lesions. positive for Proteus. positive for b ruising. No change in hair or nails. Neurologic: No aphasia. No facial droop. No change in mentation. No head injury. No headache. No paralysis. No paresthesia. Psychiatric: No depression. Positive for anxiety. No mood swings. Endocrine: No abnormal blood sugars. No weight change. PAST MEDICAL HISTORY: Hypertension and hypertensive cardiovascular disease. Hyperlipidemia. Diabetes mellitus type 2. Hypothyroidism. Osteoarthritis. Insomnia Pituitary macroadenoma Enlarged prostate. Adrenal insufficiency. CAD. PAST SURGICAL HISTORY: Appendectomy Cholecystectomy Transphenoidal pituitary tumor resection 2019. Bilateral shoulder arthroscopic surgery. Left shoulder rotator cuff tear repair Left total shoulder recerse arthroplasty. Glaucoma surgery. SOCIAL HISTORY: patient denies any history of smoking, no history of drinking, no history of drug use or abuse, currently resides at [facility] with his . FAMILY HISTORY: father at the age of 90 from old age, mother at age of 95 from congestive heart failure, patient has one brother who in a car accident and he has 2 sons no major medical problems. PHYSICAL EXAMINATION: General: This is an 85-year-old male who is laying down in bed in no apparent distress HEENT: Head is atraumatic, normocephalic, pupils were equal round reactive to light and recommendation, extraocular muscle movement were intact, sclera nonicteric, conjunctivae were pale, mucous membranes of the mouth are somewhat dry. Neck: Supple, no JVP, normal carotid upstroke bilaterally, no lymphadenopathy. Chest: Decreased breath sounds at the bases, few rhonchi, no extremity wheezes, no chest wall tenderness, no intercostal retractions. Heart: First heart sound is normal, second heart sounds normal there is systolic ejection murmur 2/6 located in the left sternal border. Abdomen: Soft, nontender, nondistended, positive bowel sounds. Extremities: There is no edema no calf tenderness DP +2 bilaterally. Neurologic examination: Patient is awake alert and oriented X3 , cranial nerves II-12 appear grossly intact, muscle power were 5 out of 5 in upper extremities and 5 out of 5 in bilateral lower extremities, deep tendon reflexes normal bilaterally. ASSESSMENT AND PLAN: 1. Chest pain likely stable coronary artery disease without evidence of acute coronary syndrome. Continue patient on aspirin, continue patient on metoprolol 50 mg the morning 25 mg daily, continue Ranexa, patient needs to be started on statin, patient was seen in consultation by cardiology was recommended to continue with maximum medical therapy. 2. Hypertension and hypertensive cardiovascular disease. Continue patient on lisinopril 10 mg orally once every day, monitor the patient blood pressure very closely continue metoprolol 50 bid gram in the morning and 25 minute gram daily per, 3. Diabetes mellitus type 2 continue patient on metformin 500 mg orally once every day, patient did agree restarted back on Farxiga 5 mg orally once every day as well as Rybelsus 3 mg once every day. 4. Mixed hyperlipidemia. Patient is intolerant to statins in general, monitor the patien lipid panel, keep LDL cholesterol 55-70, he may need to go on [facility] 9- INH. 5. 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 Continue Cortef 20 mg in the morning to milligram afternoon. 6. Hypothyroidism. Continue Synthroid 150 MCG orally once every day. 7. Pruritus. Start the patient on hydroxyzine 10 mg orally twice every day as well as mometasone cream 0.1% to be applied once every day as needed. 8. Enlarged prostate. Continue Flomax 0.4 mg orally once every day and finasteride 5 minute gram orally once every day. 9. Anxiety. Continue patient on Xanax 0.25 mg orally twice every day as needed. 10. DVT prophylaxis. Continue heparin 5000 units subcutaneous every 8 hours. 11. GI prophylaxis. Continue patient on Protonix 40 mg orally once every day. 12. Observation. 13. Patient is full code Past Medical History Past Medical History: GERD/Reflux, Hypertension, Osteoarthritis (OA), Thyroid Disorder Additional Past Medical History / Comment(s): glaucoma yelitza eyes, left rotator cuff torn, back pain History of Any Multi-Drug Resistant Organisms: None Reported Past Surgical History: Appendectomy, Cholecystectomy, Orthopedic Surgery, Tonsillectomy Additional Past Surgical History / Comment(s): yelitza shoulder arthroscopy, eye sx for glaucoma. pt stated 2 weeks ago had a benign pituitary tumor removed at [facility]. Past Anesthesia/Blood Transfusion Reactions: No Reported Reaction Past Psychological History: No Psychological Hx Reported Smoking Status: Never smoker Past Alcohol Use History: None Reported Past Drug Use History: None Reported - Past Family History Mother Family Medical History: Congestive Heart Failure (CHF) Additional Family Medical History / Comment(s): age 95 Father Family Medical History: No Reported History Additional Family Medical History / Comment(s): " from old age at age 90" Medications and Allergies Home Medications Medication Instructions Recorded Confirmed Type RX: Ferrous Sulfate [Iron (65 MG 325 mg PO DAILY@0800 06/03/20 06/10/21 History Elemental)] RX: Finasteride [Proscar] 5 mg PO HS@209906/03/20 06/10/21 History RX: Acetaminophen Tab [Tylenol] 650 mg PO Q4H PRN 10/22/20 06/10/21 History RX: Midodrine [ProAmatine] 5 mg PO BID PRN 10/22/20 06/10/21 History RX: Tamsulosin [Flomax] 0.4 mg PO HS@2100 10/22/20 06/10/21 History RX: Aspirin EC [Ecotrin Low Dose] 81 mg PO DAILY@0800 11/02/20 06/10/21 History RX: Clopidogrel [Plavix] 75 mg PO DAILY@0800 11/02/20 06/10/21 History RX: Isosorbide Mononitrate ER 60 mg PO DAILY@0800 11/02/20 06/10/21 History [Imdur] RX: Magnesium Hydroxide [Milk of 7,200 mg PO Q48H PRN 11/02/20 06/10/21 History Magnesia Concentrate] RX: Metoprolol Tartrate [Lopressor] 25 mg PO TID@0800,1700,2100 11/02/20 06/10/21 History RX: Nitroglycerin Sl Tabs 0.4 mg SL Q5M PRN 11/02/20 06/10/21 History [Nitrostat] RX: bisacodyL 10 mg RECTAL DAILY PRN 11/02/20 06/10/21 History Ocusoft Lid Scrub Original Pad 1 applic BOTH EYES Q72H 05/11/21 06/10/21 History RX: Famotidine [Pepcid] 20 mg PO HS@2130 05/11/21 06/10/21 History RX: Hydrocortisone [Cortef] 10 mg PO DAILY@1700 05/11/21 06/10/21 History RX: Levothyroxine Sodium 137 mcg PO DAILY@0800 05/11/21 06/10/21 History [Synthroid] RX: Ranolazine [Ranexa] 500 mg PO BID@0800,1700 05/11/21 06/10/21 History RX: Semaglutide [Rybelsus] 3 mg PO DAILY@0800 05/11/21 06/10/21 History RX: Triamcinolone 0.1% Cream 1 applic TOPICAL BID@0800,1700 05/11/21 06/10/21 History [Kenalog 0.1% Cream] RX: hydrOXYzine pamoate [Vistaril] 25 mg PO BID PRN 05/11/21 06/10/21 History RX: ALPRAZolam [Xanax] 0.25 mg PO TID PRN #9 tab 05/13/21 06/10/21 Rx RX: HYDROcodone/APAP 5-325MG 1 tab PO Q4H PRN #18 tab 05/13/21 06/10/21 Rx [[place] 5-325] RX: Temazepam [Restoril] 15 mg PO HS PRN #3 cap 05/13/21 06/10/21 Rx Dapagliflozin Propanediol [Farxiga] 10 mg PO DAILY@0800 06/10/21 06/10/21 History Hydrocortisone [Cortef] 20 mg PO DAILY@0700 06/10/21 06/10/21 History Menthol [Biofreeze] 1 applic TOPICAL Q12H PRN 06/10/21 06/10/21 History Na Phos,M-B/Na Phos,Di-Ba [Fleet 133 ml RECTAL DAILY PRN 06/10/21 06/10/21 History Adult] RX: Midodrine [ProAmatine] 5 mg PO ONCE #1 tablet 06/10/21 Rx lisinopriL [Zestril] 20 mg PO HS@2100 06/10/21 06/10/21 History Allergies Allergy/AdvReac Type Severity Reaction Status Date / Time Judflbv-[id number] Reductase Allergy Unknown Verified 06/10/21 18:46 Inhibitor [Krkwcsf-Lkg-Keb Reductase Inhibitor] Physical Exam Vitals: Vital Signs Temp Pulse Pulse Pulse Resp BP BP 06/11/21 07:00 97.4 F L 67 18 169/68 06/11/21 06:52 97.7 F 74 18 129/87 06/11/21 06:00 68 18 06/11/21 05:00 65 18 06/11/21 04:00 97.7 F 63 18 110/50 06/10/21 22:59 66 18 133/66 06/10/21 21:25 97.8 F 64 18 128/62 06/10/21 18:11 59 L 18 118/66 06/10/21 17:09 60 18 86/49 06/10/21 16:07 70 06/10/21 15:38 97.9 F 60 18 109/63 Pulse Ox 06/11/21 07:00 97 06/11/21 06:52 97 06/11/21 06:00 97 06/11/21 05:00 95 06/11/21 04:00 94 L 06/10/21 22:59 94 L 06/10/21 21:25 96 06/10/21 18:11 95 06/10/21 17:09 96 06/10/21 16:07 06/10/21 15:38 93 L Intake and Output 06/10/21 06/11/21 06/11/21 22:59 06:59 14:59 Other: Weight 113.398 kg 113.398 kg Results CBC & Chem 7: 06/11/21 05:34 06/11/21 05:34 Labs: Abnormal Lab Results - Last 24 Hours (Table) 06/10/21 06/10/21 06/10/21 Range/Units 16:29 16:29 16:29 RBC 2.85 L (4.30-5.90) m/uL Hgb 9.3 L D (13.0-17.5) gm/dL Hct 27.5 L (39.0-53.0) % Immature Gran # (0.00-0.04) X 10*3/uL APTT 19.3 L (22.0-30.0) sec Sodium 133 L (137-145) mmol/L Carbon Dioxide 21 L (22-30) mmol/L BUN 28 H (9-20) mg/dL Glucose 198 H (74-99) mg/dL Urine Glucose (UA) (Negative) 06/11/21 06/11/21 06/11/21 Range/Units 05:34 05:34 06:59 RBC (4.30-5.90) m/uL Hgb (13.0-17.5) gm/dL Hct (39.0-53.0) % Immature Gran # 0.06 H (0.00-0.04) X 10*3/uL APTT (22.0-30.0) sec Sodium 133 L (137-145) mmol/L Carbon Dioxide (22-30) mmol/L BUN 27 H (9-20) mg/dL Glucose 133 H (74-99) mg/dL Urine Glucose (UA) 4+ H (Negative) Thrombosis Risk Factor Assmnt - Choose All That Apply Any of the Below Risk Factors Present?: Yes Each Factor Represents 1 point: Obesity (BMI >25) Other Risk Factors: Yes Each Risk Factor Represents 3 Points: Age 75 years or older Other congenital or acquired thrombophilia - If yes, enter type in comment: No Thrombosis Risk Factor Assessment Total Risk Factor Score: 4 Thrombosis Risk Factor Assessment Level: Moderate Risk
--- NOTE | 2021-06-11 15:18 | P.DS ---
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, hypothyroidism, insomnia due to medical illnesses, osteoarthritis, patient developed to have left-sided chest pain, while he was in route to go to the ophthalmology office was described as a sharp pain in the left side associated with nausea but no vomiting, no radiation of the pain to the neck or the shoulder, by the time he got to the medical laboratory manager office they decided to take him back to the [facility] I received a call from the nursing staff stating that the patient has had a chest pain and he was not doing well patient was sent to the emergency department at [facility] for evaluation he was seen by the emergency room physician his troponin came back negative, patient was hypotensive, he was given 1 dose of Midodrin, his blood pressure came back up again his EKG did not show any evidence of acute ST-T wave changes, but because of the presentation he was kept in the hospital for observation he would be seen in consultation by cardiology for further evaluation and recommendation. Patient was recently hospitalized at [facility] for exact same situation and he was discharged back to [facility] with a stable CAD, patient did have a left heart catheter physician in October 2020 that showed distal left circumflex disease of 70% and distal PDA of 90%, it was recommended to maximize medical therapy because of the nature and location of the coronary artery disease Discharge diagnoses: 1. Chest pain likely stable coronary artery disease without evidence of acute coronary syndrome. 2. Hypertension and hypertensive cardiovascular disease. 3. Diabetes mellitus type 2 4. Mixed hyperlipidemia. 5. 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 6. Hypothyroidism. 7. Pruritus. 8. Enlarged prostate. 9. Anxiety. Patient Condition at Discharge: Stable Plan - Discharge Summary Discharge Rx Participant: No New Discharge Prescriptions: New RX: Midodrine [ProAmatine] 5 mg PO ONCE #1 tablet No Action RX: Ferrous Sulfate [Iron (65 MG Elemental)] 325 mg PO DAILY@0800 RX: Finasteride [Proscar] 5 mg PO HS@2100 RX: Tamsulosin [Flomax] 0.4 mg PO HS@2100 RX: bisacodyL 10 mg RECTAL DAILY PRN PRN Reason: Constipation RX: Magnesium Hydroxide [Milk of Magnesia Concentrate] 7,200 mg PO Q48H PRN PRN Reason: Constipation RX: Nitroglycerin Sl Tabs [Nitrostat] 0.4 mg SL Q5M PRN PRN Reason: Chest Pain Ocusoft Lid Scrub Original Pad 1 applic BOTH EYES Q72H RX: Hydrocortisone [Cortef] 10 mg PO DAILY@1700 RX: hydrOXYzine pamoate [Vistaril] 25 mg PO BID PRN PRN Reason: Itching RX: Levothyroxine Sodium [Synthroid] 137 mcg PO DAILY@0800 RX: Ranolazine [Ranexa] 500 mg PO BID@0800,1700 RX: Semaglutide [Rybelsus] 3 mg PO DAILY@0800 RX: Triamcinolone 0.1% Cream [Kenalog 0.1% Cream] 1 applic TOPICAL BID@0800,1700 Menthol [Biofreeze] 1 applic TOPICAL Q12H PRN PRN Reason: KNEE PAIN Hydrocortisone [Cortef] 20 mg PO DAILY@0700 RX: Acetaminophen Tab [Tylenol] 650 mg PO Q4H PRN PRN Reason: Fever And/ Or Pain RX: Midodrine [ProAmatine] 5 mg PO BID PRN PRN Reason: SBP LESS THAN 100 RX: Isosorbide Mononitrate ER [Imdur] 60 mg PO DAILY@0800 RX: Aspirin EC [Ecotrin Low Dose] 81 mg PO DAILY@0800 RX: Clopidogrel [Plavix] 75 mg PO DAILY@0800 RX: Metoprolol Tartrate [Lopressor] 25 mg PO TID@0800,1700,2100 RX: Famotidine [Pepcid] 20 mg PO HS@2130 RX: HYDROcodone/APAP 5-325MG [[place] 5-325] 1 tab PO Q4H PRN #18 tab PRN Reason: Pain RX: Temazepam [Restoril] 15 mg PO HS PRN #3 cap PRN Reason: Insomnia RX: ALPRAZolam [Xanax] 0.25 mg PO TID PRN #9 tab PRN Reason: Anxiety Na Phos,M-B/Na Phos,Di-Ba [Fleet Adult] 133 ml RECTAL DAILY PRN PRN Reason: Constipation lisinopriL [Zestril] 20 mg PO HS@2100 Dapagliflozin Propanediol [Farxiga] 10 mg PO DAILY@0800 Discharge Medication List RX: Ferrous Sulfate [Iron (65 MG Elemental)] 325 mg PO DAILY@0800 06/03/20 [History] RX: Finasteride [Proscar] 5 mg PO HS@209906/03/20 [History] RX: Acetaminophen Tab [Tylenol] 650 mg PO Q4H PRN 10/22/20 [History] RX: Midodrine [ProAmatine] 5 mg PO BID PRN 10/22/20 [History] RX: Tamsulosin [Flomax] 0.4 mg PO HS@209910/22/20 [History] RX: Aspirin EC [Ecotrin Low Dose] 81 mg PO DAILY@0800 11/02/20 [History] RX: Clopidogrel [Plavix] 75 mg PO DAILY@0811/02/20 [History] RX: Isosorbide Mononitrate ER [Imdur] 60 mg PO DAILY@0811/02/20 [History] RX: Magnesium Hydroxide [Milk of Magnesia Concentrate] 7,200 mg PO Q48H PRN 11/02/20 [History] RX: Metoprolol Tartrate [Lopressor] 25 mg PO TID@0800,1700,209911/02/20 [History] RX: Nitroglycerin Sl Tabs [Nitrostat] 0.4 mg SL Q5M PRN 11/02/20 [History] RX: bisacodyL 10 mg RECTAL DAILY PRN 11/02/20 [History] Ocusoft Lid Scrub Original Pad 1 applic BOTH EYES Q72H 05/11/21 [History] RX: Famotidine [Pepcid] 20 mg PO HS@212905/11/21 [History] RX: Hydrocortisone [Cortef] 10 mg PO DAILY@1700 05/11/21 [History] RX: Levothyroxine Sodium [Synthroid] 137 mcg PO DAILY@0800 05/11/21 [History] RX: Ranolazine [Ranexa] 500 mg PO BID@0800,1700 05/11/21 [History] RX: Semaglutide [Rybelsus] 3 mg PO DAILY@0800 05/11/21 [History] RX: Triamcinolone 0.1% Cream [Kenalog 0.1% Cream] 1 applic TOPICAL BID@0800,1700 05/11/21 [History] RX: hydrOXYzine pamoate [Vistaril] 25 mg PO BID PRN 05/11/21 [History] RX: ALPRAZolam [Xanax] 0.25 mg PO TID PRN #9 tab 05/13/21 [Rx] RX: HYDROcodone/APAP 5-325MG [[place] 5-325] 1 tab PO Q4H PRN #18 tab 05/13/21 [Rx] RX: Temazepam [Restoril] 15 mg PO HS PRN #3 cap 05/13/21 [Rx] Dapagliflozin Propanediol [Farxiga] 10 mg PO DAILY@0800 06/10/21 [History] Hydrocortisone [Cortef] 20 mg PO DAILY@0700 06/10/21 [History] Menthol [Biofreeze] 1 applic TOPICAL Q12H PRN 06/10/21 [History] Na Phos,M-B/Na Phos,Di-Ba [Fleet Adult] 133 ml RECTAL DAILY PRN 06/10/21 [History] RX: Midodrine [ProAmatine] 5 mg PO ONCE #1 tablet 06/10/21 [Rx] lisinopriL [Zestril] 20 mg PO HS@2100 06/10/21 [History] Follow up Appointment(s)/Referral(s): Maggie Joya MD [Primary Care Provider] - 1-2 days Gilda Burger MD [STAFF PHYSICIAN] - 1 Week
[2021-06-11 15:36] VITALS: BP 141/73; TEMP 97.5
[2021-06-11 15:37] VITALS: PULSE 70
[2021-06-11] MEDS ORDERED: HYDROCORTISONE 10 MG TAB PO SCH (17:00)
[2021-06-11] MEDS ORDERED: METOPROLOL TARTRATE 25 MG TAB PO SCH (21:00)
== END 2021-06-11 18:08 ==
LOC: EC 15:34 → 6NMEDSUR 19:14
PROVIDERS: ADMIT Internal Medicine; ATTEND Internal Medicine
DX: R07.89 Other chest pain (principal); I11.9 Hypertensive heart disease without heart failure; I95.9 Hypotension, unspecified; I25.10 Atherosclerotic heart disease of native coronary artery without angina pectoris; D35.2 Benign neoplasm of pituitary gland; E27.40 Unspecified adrenocortical insufficiency; E78.2 Mixed hyperlipidemia; I44.0 Atrioventricular block, first degree; I08.3 Combined rheumatic disorders of mitral, aortic and tricuspid valves; E11.9 Type 2 diabetes mellitus without complications; R11.10 Vomiting, unspecified; R23.1 Pallor; R61 Generalized hyperhidrosis; I45.10 Unspecified right bundle-branch block; K21.9 Gastro-esophageal reflux disease without esophagitis; M19.90 Unspecified osteoarthritis, unspecified site; H40.9 Unspecified glaucoma; E03.9 Hypothyroidism, unspecified; N40.0 Benign prostatic hyperplasia without lower urinary tract symptoms; L29.9 Pruritus, unspecified; F41.9 Anxiety disorder, unspecified; G47.01 Insomnia due to medical condition; E66.9 Obesity, unspecified; Z68.33 Body mass index [BMI] 33.0-33.9, adult; Z20.822 Contact with and (suspected) exposure to COVID-19; Z79.02 Long term (current) use of antithrombotics/antiplatelets; Z79.82 Long term (current) use of aspirin; Z79.899 Other long term (current) drug therapy; Z79.890 Hormone replacement therapy; Z79.84 Long term (current) use of oral hypoglycemic drugs; Z79.52 Long term (current) use of systemic steroids; Z88.8 Allergy status to other drugs, medicaments and biological substances; Z96.612 Presence of left artificial shoulder joint; Z90.49 Acquired absence of other specified parts of digestive tract; Z87.39 Personal history of other diseases of the musculoskeletal system and connective tissue; Z82.49 Family history of ischemic heart disease and other diseases of the circulatory system
CPT/HCPCS: 36415; 93005; 97161; 97165; 80053; 80048; 83735; 84484; 85025 ×2; 85610; 85730; 81003; 87635; 71046; G0378 ×2; S0138

== ENCOUNTER → 2022-03-13 | Outpatient (CLI) | payer MEDICARE, OTHER ==
--- NOTE | 2022-03-13 13:14 | MR ---
EXAMINATION TYPE: MR pituitary wo/w con DATE OF EXAM: 03/13/2022 COMPARISON: CT brain 12/12/2017, MR brain 03/06/2019, 07/11/2018 HISTORY: HISTORY OF BENIGN NEOPLASM OF THE BRAIN TECHNIQUE: Multiplanar, multisequence images of the sella turcica without and with IV contrast, utilizing 11 mL intravenous Gadavist . FINDINGS: Diffuse abnormality is again noted involving the base of the skull, destructive changes inv olving the clivus and base of skull again noted, correlate for postop change, with operative report, findings appear chronic, there is some associated enhancement. There is a partially empty sella prese nt. The pituitary stalk is slightly deviated towards the left. No significant abnormal enhancement wi thin the sella. No evident recurrent mass within the sella turcica. Cortical atrophy is present. Ventricles appear prominently due to prior exams. IMPRESSION: Findings are stable, likely postoperative, no evident recurrent pituitary mass.
== END | disposition home or self-care (01) ==
LOC: RADMRIMAIN 08:38
PROVIDERS: ATTEND Internal Medicine
DX: Z86.011 Personal history of benign neoplasm of the brain (principal)
CPT/HCPCS: 70553; A9585

== ENCOUNTER 2022-12-02 13:46 | Observation (INO) | payer MEDICARE, OTHER ==
[2022-12-02] MEDS ORDERED: SODIUM CHLORIDE 0.9% 500 ML 500 ML IV STA (14:18)
[2022-12-02] MEDS ORDERED: SODIUM CHLORIDE 0.9% 1,000 ML IV STA (14:18)
--- NOTE | 2022-12-02 14:20 | ED ---
Seizure HPI - General Chief Complaint: Seizure Stated Complaint: Seizure Time Seen by Provider: 12/02/22 14:17 Source: patient, RN notes reviewed, old records reviewed Mode of arrival: EMS - History of Present Illness Initial Comments: This is an 87-year-old male to the emergency department for evaluation of severe syncopal event unresponsive with possible seizure. Is more history is obtained patient feels like he did have syncopal event, notes to make it to make patient was syncopal and unresponsive as opposed to having seizure. MD Complaint: seizure, possible seizure, loss of consciousness -: minutes(s) Description of Episode: loss of consciousness -: minutes(s) Witnessed: yes - by bystander, yes - by EMS Seizure History: none Place: home Possible Precipitating Event: none Associated Symptoms: denies other symptoms - Related Data Home Medications Medication Instructions Recorded Confirmed Ferrous Sulfate [Iron (65 MG 325 mg PO DAILY@1700 06/03/20 12/02/22 Elemental)] Finasteride [Proscar] 5 mg PO HS 06/03/20 12/02/22 Acetaminophen Tab [Tylenol] 650 mg PO Q4H PRN 10/22/20 12/02/22 Tamsulosin [Flomax] 0.4 mg PO HS 10/22/20 12/02/22 Aspirin EC [Ecotrin Low Dose] 81 mg PO DAILY@0800 11/02/20 12/02/22 Magnesium Hydroxide [Milk of 7,200 mg PO Q48H PRN 11/02/20 12/02/22 Magnesia Concentrate] Nitroglycerin Sl Tabs [Nitrostat] 0.4 mg SL Q5M PRN 11/02/20 12/02/22 bisacodyL 10 mg RECTAL DAILY PRN 11/02/20 12/02/22 Famotidine [Pepcid] 20 mg PO HS 05/11/21 12/02/22 Hydrocortisone [Cortef] 10 mg PO DAILY@1700 05/11/21 12/02/22 Levothyroxine Sodium [Synthroid] 137 mcg PO SUMOTUWETHFR 05/11/21 12/02/22 Ocusoft Lid Scrub Original Pad 1 applic BOTH EYES MOTH 05/11/21 12/02/22 Ranolazine [Ranexa] 500 mg PO BID@0800,1700 05/11/21 12/02/22 Dapagliflozin Propanediol [Farxiga] 10 mg PO DAILY@0800 06/10/21 12/02/22 Hydrocortisone [Cortef] 20 mg PO DAILY@0800 06/10/21 12/02/22 Na Phos,M-B/Na Phos,Di-Ba [Fleet 133 ml RECTAL DAILY PRN 06/10/21 12/02/22 Adult] Acetaminophen Tab [Tylenol] 500 mg PO Q4H PRN 12/02/22 12/02/22 Cetirizine HCl [Zyrtec] 10 mg PO DAILY@0800 12/02/22 12/02/22 Dextran/Hypromellose/Glycerin 2 drop BOTH EYES QID PRN 12/02/22 12/02/22 [Artificial Tears 0.1-0.2-0.3%] Diclofenac Sodium Gel [Voltaren 2 gm TOPICAL BID PRN 12/02/22 12/02/22 Gel] Dulaglutide [Trulicity] 1.5 mg SQ FR@79912/02/22 12/02/22 Melatonin 3 mg PO HS 12/02/22 12/02/22 Metoprolol Succinate (ER) [Toprol 50 mg PO DAILY@0812/02/22 12/02/22 XL] Montelukast [Singulair] 10 mg PO HS 12/02/22 12/02/22 amLODIPine [Norvasc] 5 mg PO DAILY@0800 12/02/22 12/02/22 lisinopriL [Zestril] 10 mg PO HS 12/02/22 12/02/22 metFORMIN HCL ER [Glucophage XR] 500 mg PO DAILY@0800 12/02/22 12/02/22 Previous Rx's Medication Instructions Recorded Isosorbide Mononitrate ER [Imdur] 60 mg PO DAILY@0800 tablet 06/11/21 ALPRAZolam [Xanax] 0.25 mg PO HS #3 tab 12/04/22 levETIRAcetam [Keppra] 500 mg PO Q12HR #60 tab 12/04/22 Allergies Allergy/AdvReac Type Severity Reaction Status Date / Time Ombucbn-ADC-DbV Reductase Allergy Unknown Verified 12/02/22 15:13 Inhibitor [Kvmsmvn-Amt-Zsy Reductase Inhibitor] Review of Systems ROS Statement: Those systems with pertinent positive or pertinent negative responses have been documented in the HPI. ROS Other: All systems not noted in ROS Statement are negative. Past Medical History Past Medical History: GERD/Reflux, Hypertension, Osteoarthritis (OA), Thyroid Disorder Additional Past Medical History / Comment(s): glaucoma yelitza eyes, left rotator cuff torn, back pain History of Any Multi-Drug Resistant Organisms: None Reported Past Surgical History: Appendectomy, Cholecystectomy, Orthopedic Surgery, Tonsillectomy Additional Past Surgical History / Comment(s): yelitza shoulder arthroscopy, eye sx for glaucoma. pt stated 2 weeks ago had a benign pituitary tumor removed at [facility]. Past Anesthesia/Blood Transfusion Reactions: No Reported Reaction Past Psychological History: No Psychological Hx Reported Smoking Status: Never smoker Past Alcohol Use History: None Reported Past Drug Use History: None Reported - Past Family History Mother Family Medical History: Congestive Heart Failure (CHF) Additional Family Medical History / Comment(s): age 95 Father Family Medical History: No Reported History Additional Family Medical History / Comment(s): " from old age at age 90" General Exam General appearance: alert, in no apparent distress, anxious Head exam: Present: atraumatic, normocephalic, normal inspection Eye exam: Present: normal appearance, PERRL, EOMI. Absent: scleral icterus, conjunctival injection, periorbital swelling ENT exam: Present: normal exam, mucous membranes moist Neck exam: Present: normal inspection. Absent: tenderness, meningismus, lymphadenopathy Respiratory exam: Present: normal lung sounds bilaterally. Absent: respiratory distress, wheezes, rales, rhonchi, stridor Cardiovascular Exam: Present: normal rhythm, bradycardia, normal heart sounds. Absent: systolic murmur, diastolic murmur, rubs, gallop, clicks GI/Abdominal exam: Present: soft, normal bowel sounds. Absent: distended, tenderness, guarding, rebound, rigid Extremities exam: Present: normal inspection, full ROM, normal capillary refill. Absent: tenderness, pedal edema, joint swelling, calf tenderness Back exam: Present: normal inspection Neurological exam: Present: alert, oriented X3, CN II-XII intact Psychiatric exam: Present: normal affect, normal mood Skin exam: Present: warm, dry, intact, normal color. Absent: rash Course Vital Signs 12/02/22 12/02/22 12/02/22 13:58 17:00 21:57 Temperature 98.4 F 98.8 F Pulse Rate 52 L 66 Pulse Rate [ 63 Pulse Oximetery ] Respiratory 18 17 16 Rate Blood Pressure 63/40 122/66 Blood Pressure 127/70 [Right Arm] O2 Sat by Pulse 90 L 92 L 94 L Oximetry - Reevaluation(s) Reevaluation #1: 12/02/22 23:16 Medical records reviewed Reevaluation #2: 12/02/22 23:16 No recurrent syncopal event here in the ER feels well and hydration Reevaluation #3: 12/02/22 23:16 Patient informed results and questions answered Reevaluation #4: 12/02/22 23:17 Was pt. sent in by a medical professional or institution? @ -no Did you speak to anyone other than the patient for history? @ -no Did you review nursing and triage notes? @ -agree Were old charts reviewed? @ -no Differential Diagnosis? @ -prior EKG interpreted by me (3pts min.)? @ -yes X-rays interpreted by me (1pt min.)? @ -no CT interpreted by me (1pt min.)? @ -no U/S interpreted by me (1pt. min.)? @ -no What testing was considered but not performed? (CT, X-rays, U/S, labs)? Why? @ -no What meds were considered but not given? Why? @ -no Did you discuss the management of the patient with other professionals? @ -no Did you reconcile home meds? @ -no Was smoking cessation discussed for >3mins.? @ -no Was critical care preformed (if so, how long)? @ -no Were there social determinants of health that impacted care today? How? (Homelessness, low income, unemployed, alcoholism, drug addiction, transportation, low edu. Level, literacy, decrease access to med. care, long-term, rehab)? @ -no Was there de-escalation of care discussed even if they declined? (Discuss DNR or withdrawal of care, Hospice)? @ -no What co-morbidities impacted this encounter? (DM, HTN, Smoking, COPD, CAD, Cancer, CVA, Hep., AIDS, mental health diagnosis, sleep apnea, morbid obesity)? @ -none Was patient admitted / discharged? @ - Undiagnosed new problem with uncertain prognosis? @ -no Drug Therapy requiring intensive monitoring for toxicity (Heparin, Nitro, Insulin, Cardizem)? @ -no Were any procedures done? @ -no Diagnosis/symptom? @ - Acute, or Chronic, or Acute on Chronic? @ -no Uncomplicated (without systemic symptoms) or Complicated (systemic symptoms)? @ -uncomplicated Side effects of treatment? @ -no Exacerbation, Progression, or Severe Exacerbation] @ -no Poses a threat to life or bodily function? @ -no Reevaluation #5: 12/02/22 23:17 Differential Syncope: Valvular disease, hypertrophic cardiomyopathy, pulmonary embolism, tamponade, tachycardia, bradycardia, [place], hypovolemia, hemorrhage, dissection, anemia, intracranial hemorrhage, seizure, hypoglycemia, carbon monoxide poisoning, this is not meant to be an all-inclusive list. - Consultations Consultation #1: Spoke with admitting physician who agrees to admit this patient Dr. Joya Medical Decision Making - Medical Decision Making 87 male be admitted for syncopal event. Patient had prolonged syncopal event with. Unresponsiveness. Patient will be admitted for syncopal evaluation and management, monitoring and supportive care - Lab Data Result diagrams: 12/03/22 08:36 12/03/22 08:36 Lab Results 12/02/22 12/02/22 12/02/22 Range/Units 15:00 15:00 15:00 WBC 8.7 (3.8-10.6) k/uL RBC 4.76 (4.30-5.90) m/uL Hgb 15.2 (13.0-17.5) gm/dL Hct 45.4 (39.0-53.0) % MCV 95.3 (80.0-100.0) fL MCH 31.9 (25.0-35.0) pg MCHC 33.5 (31.0-37.0) g/dL RDW 13.3 (11.5-15.5) % Plt Count 169 (150-450) k/uL MPV 9.1 Neutrophils % 70 % Lymphocytes % 20 % Monocytes % 7 % Eosinophils % 2 % Basophils % 1 % Neutrophils # 6.1 (1.3-7.7) k/uL Lymphocytes # 1.7 (1.0-4.8) k/uL Monocytes # 0.6 (0-1.0) k/uL Eosinophils # 0.2 (0-0.7) k/uL Basophils # 0.1 (0-0.2) k/uL PT 11.3 (9.0-12.0) sec INR 1.1 (<1.2) APTT 19.2 L (22.0-30.0) sec Lactic Ac Sepsis Rflx Plasma Lactic Acid Yosef 2.4 H* (0.7-2.0) mmol/L Troponin I (0.000-0.034) ng/mL NT-Pro-B Natriuret Pep pg/mL Urine Color Urine Appearance (Clear) Urine pH (5.0-8.0) Ur Specific [place] (1.001-1.035) Urine Protein (Negative) Urine Glucose (UA) (Negative) Urine Ketones (Negative) Urine Blood (Negative) Urine Nitrite (Negative) Urine Bilirubin (Negative) Urine Urobilinogen (<2.0) mg/dL Ur Leukocyte Esterase (Negative) Urine RBC (0-5) /hpf Urine WBC (0-5) /hpf Urine WBC Clumps (None) /hpf Ur Renal Epithelial Cell (0) /hpf Urine Bacteria (None) /hpf 12/02/22 12/02/22 12/02/22 Range/Units 15:00 15:00 15:00 WBC (3.8-10.6) k/uL RBC (4.30-5.90) m/uL Hgb (13.0-17.5) gm/dL Hct (39.0-53.0) % MCV (80.0-100.0) fL MCH (25.0-35.0) pg MCHC (31.0-37.0) g/dL RDW (11.5-15.5) % Plt Count (150-450) k/uL MPV Neutrophils % % Lymphocytes % % Monocytes % % Eosinophils % % Basophils % % Neutrophils # (1.3-7.7) k/uL Lymphocytes # (1.0-4.8) k/uL Monocytes # (0-1.0) k/uL Eosinophils # (0-0.7) k/uL Basophils # (0-0.2) k/uL PT (9.0-12.0) sec INR (<1.2) APTT (22.0-30.0) sec Lactic Ac Sepsis Rflx Plasma Lactic Acid Yosef (0.7-2.0) mmol/L Troponin I 0.016 (0.000-0.034) ng/mL NT-Pro-B Natriuret Pep 385 pg/mL Urine Color Yellow Urine Appearance Cloudy (Clear) Urine pH 6.0 (5.0-8.0) Ur Specific [place] 1.013 (1.001-1.035) Urine Protein Negative (Negative) Urine Glucose (UA) 4+ H (Negative) Urine Ketones Negative (Negative) Urine Blood Negative (Negative) Urine Nitrite Negative (Negative) Urine Bilirubin Negative (Negative) Urine Urobilinogen <2.0 (<2.0) mg/dL Ur Leukocyte Esterase Moderate H (Negative) Urine RBC 1 (0-5) /hpf Urine WBC 27 H (0-5) /hpf Urine WBC Clumps Occasional H (None) /hpf Ur Renal Epithelial Cell 1 (0) /hpf Urine Bacteria Rare H (None) /hpf 12/02/22 Range/Units 15:45 WBC (3.8-10.6) k/uL RBC (4.30-5.90) m/uL Hgb (13.0-17.5) gm/dL Hct (39.0-53.0) % MCV (80.0-100.0) fL MCH (25.0-35.0) pg MCHC (31.0-37.0) g/dL RDW (11.5-15.5) % Plt Count (150-450) k/uL MPV Neutrophils % % Lymphocytes % % Monocytes % % Eosinophils % % Basophils % % Neutrophils # (1.3-7.7) k/uL Lymphocytes # (1.0-4.8) k/uL Monocytes # (0-1.0) k/uL Eosinophils # (0-0.7) k/uL Basophils # (0-0.2) k/uL PT (9.0-12.0) sec INR (<1.2) APTT (22.0-30.0) sec Lactic Ac Sepsis Rflx Y Plasma Lactic Acid Yosef (0.7-2.0) mmol/L Troponin I (0.000-0.034) ng/mL NT-Pro-B Natriuret Pep pg/mL Urine Color Urine Appearance (Clear) Urine pH (5.0-8.0) Ur Specific [place] (1.001-1.035) Urine Protein (Negative) Urine Glucose (UA) (Negative) Urine Ketones (Negative) Urine Blood (Negative) Urine Nitrite (Negative) Urine Bilirubin (Negative) Urine Urobilinogen (<2.0) mg/dL Ur Leukocyte Esterase (Negative) Urine RBC (0-5) /hpf Urine WBC (0-5) /hpf Urine WBC Clumps (None) /hpf Ur Renal Epithelial Cell (0) /hpf Urine Bacteria (None) /hpf - EKG Data -: EKG Interpreted by Me (EKG shows sinus bradycardia 58, MN 144 QRS to 2 QTC 404) - Radiology Data Radiology results: report reviewed (Chest x-ray and CT chest are negative for acute disease), image reviewed Critical Care Time Critical Care Time: Yes Total Critical Care Time: 31 Disposition Clinical Impression: Syncope, Weakness, Hypotension, Chest pain, Bradycardia Disposition: ADMITTED IP TO THIS [facility] Condition: Fair Is patient prescribed a controlled substance at d/c from ED?: No Time of Disposition: 17:35
[2022-12-02] MEDS ORDERED: HYDROCORTISONE SUCCINATE 100 MG/2 ML VIAL IV STA (14:30)
[2022-12-02 15:30] LABS: Basophils # (A) 0.1 k/uL (0-0.2); Basophils % (A) 1 %; Eosinophils # (A) 0.2 k/uL (0-0.7); Eosinophils % (A) 2 %; HCT 45.4 % (39.0-53.0); HGB 15.2 gm/dL (13.0-17.5); Lymphocytes # (A) 1.7 k/uL (1.0-4.8); Lymphocytes % (A) 20 %; MCH 31.9 pg (25.0-35.0); MCHC 33.5 g/dL (31.0-37.0); MCV 95.3 fL (80.0-100.0); Mean Platelet Volume 9.1; Monocytes # (A) 0.6 k/uL (0-1.0); Monocytes % (A) 7 %; Neutrophils # (A) 6.1 k/uL (1.3-7.7); Neutrophils % (A) 70 %; Platelet Count 169 k/uL (150-450); RBC 4.76 m/uL (4.30-5.90); RDW 13.3 % (11.5-15.5); WBC 8.7 k/uL (3.8-10.6)
[2022-12-02 15:50] LABS: INR 1.1 (<1.2); Prothrombin Time 11.3 sec (9.0-12.0)
[2022-12-02 16:07] LABS: Partial Thromboplastin Time 19.2 sec (22.0-30.0)
[2022-12-02] MEDS ORDERED: NALOXONE 0.4 MG/ML 1 ML VIAL IV PRN (17:27)
[2022-12-02] MEDS ORDERED: MORPHINE SULFATE 4 MG/ML SYRINGE IV PRN (17:27)
[2022-12-02] MEDS ORDERED: ONDANSETRON 4 MG/2 ML VIAL IVP PRN (17:27)
[2022-12-02 17:46] LABS: Appearance,Urine Cloudy (Clear); Bacteria,Urine Rare /hpf; Bilirubin,Urine Negative (Negative); Blood,Urine Negative (Negative); Color,Urine Yellow; Glucose,Urine (UA) 4+ (Negative); Ketones,Urine Negative (Negative); Leukocyte Esterase,Urine Moderate (Negative); Nitrite,Urine Negative (Negative); Protein,Urine Negative (Negative); RBC,Urine 1 /hpf (0-5); Renal Epithelial Cells,Urine 1 /hpf (0); Specific Gravity,Urine 1.013 (1.001-1.035); Urobilinogen,Urine <2.0 mg/dL (<2.0); WBC,Urine 27 /hpf (0-5)
--- NOTE | 2022-12-02 19:15 | XR ---
EXAMINATION TYPE: XR chest 1V portable DATE OF EXAM: 12/02/2022 6:31 PM COMPARISON: Chest radiographs from 06/08/2021 TECHNIQUE: XR chest 1V portable Frontal view of the chest. CLINICAL INDICATION:Male, 87 years old with history of ams; FINDINGS: Lungs/Pleura: Prominent interstitial lung markings are seen scattered throughout the lungs. No eviden ce of focal consolidation, pneumothorax or pleural effusion. Pulmonary vascularity: Unremarkable. Heart/mediastinum: Cardiomediastinal silhouette is unremarkable. Musculoskeletal: No acute osseous pathology. Left shoulder arthroplasty. IMPRESSION: Chronic changes without acute pulmonary process. No significant change from prior.
[2022-12-02 19:30] LABS: ALT 56 U/L (4-49); AST 49 U/L (17-59); Acetaminophen <10.0 ug/mL; African American GFR (CKD) 65 (>60 ml/min/1.73 sqM); Albumin 3.3 g/dL (3.5-5.0); Alcohol <10 mg/dL; Alkaline Phosphatase 97 U/L (38-126); Anion Gap 9 mmol/L; Blood Urea Nitrogen 23 mg/dL (9-20); Calcium 8.4 mg/dL (8.4-10.2); Carbon Dioxide 22 mmol/L (22-30); Chloride 101 mmol/L (98-107); Glucose 194 mg/dL (74-99); Magnesium 1.9 mg/dL (1.6-2.3); Non-African American GFR(CKD) 56 (>60 ml/min/1.73 sqM); Potassium 5.2 mmol/L (3.5-5.1); Salicylate <1.0 mg/dL; Sodium 132 mmol/L (137-145); Total Bilirubin 0.9 mg/dL (0.2-1.3); Total Protein 6.3 g/dL (6.3-8.2)
[2022-12-02] MEDS: SODIUM CHLORIDE 0.9% 1,000 ML IV SCH (21:13)
[2022-12-02 21:34] LABS: Glucose,Whole Blood 154 mg/dL (70-110)
[2022-12-02] MEDS ORDERED: ACETAMINOPHEN TAB 325 MG TAB PO PRN (22:49)
[2022-12-02] MEDS ORDERED: ACETAMINOPHEN TAB 500 MG TAB PO PRN (22:49)
[2022-12-02] MEDS ORDERED: ARTIFICIAL TEARS-HYPROMELLOSE DROPS 15 ML BTL BOTH EYES PRN (23:00)
[2022-12-02] MEDS: TAMSULOSIN 0.4 MG CAP.ER.24H PO SCH (23:15)
[2022-12-02] MEDS: ALPRAZolam 0.25 MG TAB PO SCH (23:16)
[2022-12-02] MEDS: FINASTERIDE 5 MG TAB PO SCH (23:16)
[2022-12-02] MEDS: FAMOTIDINE 20 MG TAB PO SCH (23:16)
[2022-12-02] MEDS: MONTELUKAST 10 MG TAB PO SCH (23:16)
[2022-12-02] MEDS: lisinopriL 10 MG TAB PO SCH (23:16)
[2022-12-02] MEDS: MELATONIN 3 MG TABLET PO SCH (23:16)
[2022-12-02] MEDS: DICLOFENAC SODIUM GEL 100 GM TUBE TOPICAL PRN (23:20)
--- NOTE | 2022-12-03 02:12 | CT ---
EXAM: CT Angiography Chest With Intravenous Contrast CLINICAL HISTORY: Rule out PE. TECHNIQUE: Axial computed tomographic angiography images of the chest with intravenous contrast. CTDI is 35.27 mGy and DLP is 837.2 mGy-cm. This CT exam was performed using one or more of the following dose reduction techniques: automated exposure control, adjustment of the mA and/or kV according to patient size, and/or use of iterative reconstruction technique. MIP reconstructed images were created and reviewed. COMPARISON: June 12, 2018 CTA. FINDINGS: Limitations: Limited by respiratory motion. Pulmonary arteries: Unremarkable. No pulmonary embolism. Aorta: No acute findings. No thoracic aortic aneurysm or dissection. Extensive atherosclerotic calcification. Lungs: Unremarkable. No mass. No consolidation. Pleural space: Unremarkable. No significant effusion. No pneumothorax. Heart: Heavy coronary arterial calcification. No significant pericardial effusion. No evidence of RV dysfunction. Bones/joints: No acute fracture. No dislocation. Soft tissues: Unremarkable. Lymph nodes: Unremarkable. No enlarged lymph nodes. IMPRESSION: No acute findings in the chest. No evidence of pulmonary emboli.
[2022-12-03 06:04] LABS: Glucose,Whole Blood 108 mg/dL (70-110)
[2022-12-03] MEDS: SODIUM CHLORIDE 0.9% 1,000 ML IV SCH ×3 (06:39→22:26)
[2022-12-03] MEDS: LEVOTHYROXINE 137 MCG TAB PO SCH (06:39)
[2022-12-03] MEDS: ISOSORBIDE MONONITRATE ER 60 MG TAB.ER.24H PO SCH (08:38)
[2022-12-03] MEDS: RANOLAZINE 500 MG TAB.ER.12H PO SCH ×2 (08:38→16:50)
[2022-12-03] MEDS: metFORMIN 500 MG TAB PO SCH ×2 (08:38→20:53)
[2022-12-03] MEDS: HYDROCORTISONE 20 MG TAB PO SCH (08:39)
[2022-12-03] MEDS: METOPROLOL SUCCINATE (ER) 50 MG TAB.ER.24H PO SCH (08:39)
[2022-12-03] MEDS: DAPAGLIFLOZIN PROPANEDIOL 10 MG TABLET PO SCH (08:39)
[2022-12-03] MEDS: ASPIRIN 81 MG PO SCH (08:39)
[2022-12-03] MEDS: amLODIPine 5 MG TAB PO SCH (08:40)
[2022-12-03] MEDS: LORATADINE 10 MG TAB PO SCH (08:40)
[2022-12-03] MEDS: DICLOFENAC SODIUM GEL 100 GM TUBE TOPICAL PRN ×2 (08:52→20:54)
[2022-12-03] MEDS ORDERED: MAGNESIUM HYDROXIDE 2,400 MG/30 ML CUP PO PRN (09:00)
[2022-12-03] MEDS ORDERED: PANTOPRAZOLE 40 MG/10 ML VIAL IV SCH (09:00)
[2022-12-03] MEDS ORDERED: NA PHOS,M-B/NA PHOS,DI-BA 133 ML ENEMA RECTAL PRN (09:00)
[2022-12-03] MEDS ORDERED: bisacodyL 10 MG SUPP RECTAL PRN (09:00)
[2022-12-03 09:25] LABS: Basophils % (A) 0 %; Eosinophils # (A) 0.1 k/uL (0-0.7); Eosinophils % (A) 1 %; HCT 45.6 % (39.0-53.0); HGB 15.1 gm/dL (13.0-17.5); Lymphocytes % (A) 23 %; MCH 31.2 pg (25.0-35.0); MCHC 33.1 g/dL (31.0-37.0); MCV 94.3 fL (80.0-100.0); Monocytes # (A) 0.9 k/uL (0-1.0); Monocytes % (A) 10 %; Neutrophils # (A) 5.7 k/uL (1.3-7.7); Neutrophils % (A) 64 %; Platelet Count 155 k/uL (150-450); RBC 4.84 m/uL (4.30-5.90); RDW 13.4 % (11.5-15.5)
[2022-12-03 09:40] LABS: ALT 53 U/L (4-49); AST 48 U/L (17-59); African American GFR (CKD) 79 (>60 ml/min/1.73 sqM); Albumin 3.3 g/dL (3.5-5.0); Alkaline Phosphatase 89 U/L (38-126); Anion Gap 7 mmol/L; Blood Urea Nitrogen 20 mg/dL (9-20); Calcium 8.2 mg/dL (8.4-10.2); Carbon Dioxide 23 mmol/L (22-30); Chloride 102 mmol/L (98-107); Glucose 149 mg/dL (74-99); Magnesium 1.9 mg/dL (1.6-2.3); Non-African American GFR(CKD) 68 (>60 ml/min/1.73 sqM); Phosphorus 3.6 mg/dL (2.5-4.5); Sodium 132 mmol/L (137-145); Total Protein 6.4 g/dL (6.3-8.2)
[2022-12-03 09:43] LABS: Potassium 4.6 mmol/L (3.5-5.1)
--- NOTE | 2022-12-03 11:50 | CT ---
EXAMINATION TYPE: CT brain wo con DATE OF EXAM: 12/03/2022 COMPARISON: 12/12/2017 HISTORY: ams, seizure CT DLP: 1047.[address] of the brain was performed. The ventricles, basal cisterns and sulci overlying the cerebral convexities demonstrate mild enlargem ent. There is no evidence for intracranial hemorrhage or sulcal effacement. Recently noted sellar/suprase llar mass appears to have been surgically removed. No recurrent tumor is seen at this time. There is decreased attenuation about the periventricular white matter and deep white matter of both c erebral hemispheres, compatible with chronic small vessel ischemia. Differential diagnosis does inclu de demyelination. No mass effects are seen.No midline shift. Osseous calvarium is intact. If symptoms persist consider MRI. IMPRESSION: 1. Age related atrophic and chronic small vessel ischemic change without acute intracranial process s een at this time.
--- NOTE | 2022-12-03 12:11 | P.CNNES ---
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 Patient stated that she was told that he had a seizure-like activity does not recall what transpired and he just found himself in the hospital. He stated that the he had an episode of throwing up and unresponsive. He he denies any prior episodes similar to this. Denies of any bowel incontinence, tongue bite. Denies any history of seizure in the past. He denies currently of the any headache, nausea vomiting, any focal weakness difficulty getting his words out swallowing. Patient does have history of pituitary macroadenoma status post resection and he stated that happened many years back. He is unsure if the entire adenoma was removed or not. Some of the workup during his hospital visit consisted of: CBC with differential is unremarkable Plasma lactic acid venous 2.1 repeated 2.0. Is the serum glucose is 194. [id number]. I reviewed the rest of the Chemstrip. TSH is 0.033 CT of the head is reported as age-related atrophy and chronic small vessel ischemic change without acute intracranial process seen at this time. I personally reviewed the CT and I agree with the report. EKG is reported as sinus bradycardia with first-degree AV block. Review of Systems Review of system: The 12 point system was reviewed and apparent positive and negative per HPI. Past Medical History Past Medical History: GERD/Reflux, Hypertension, Osteoarthritis (OA), Thyroid Disorder Additional Past Medical History / Comment(s): glaucoma yelitza eyes, left rotator cuff torn, back pain History of Any Multi-Drug Resistant Organisms: None Reported Past Surgical History: Appendectomy, Cholecystectomy, Orthopedic Surgery, Tonsillectomy Additional Past Surgical History / Comment(s): yelitza shoulder arthroscopy, eye sx for glaucoma. pt stated 2 weeks ago had a benign pituitary tumor removed at [facility]. Past Anesthesia/Blood Transfusion Reactions: No Reported Reaction Past Psychological History: No Psychological Hx Reported Smoking Status: Never smoker Past Alcohol Use History: None Reported Past Drug Use History: None Reported - Past Family History Mother Family Medical History: Congestive Heart Failure (CHF) Additional Family Medical History / Comment(s): age 95 Father Family Medical History: No Reported History Additional Family Medical History / Comment(s): " from old age at age 90" Medications and Allergies Home Medications Medication Instructions Recorded Confirmed Type Ferrous Sulfate [Iron (65 MG 325 mg PO DAILY@1700 06/03/20 12/02/22 History Elemental)] Finasteride [Proscar] 5 mg PO HS 06/03/20 12/02/22 History Acetaminophen Tab [Tylenol] 650 mg PO Q4H PRN 10/22/20 12/02/22 History Tamsulosin [Flomax] 0.4 mg PO HS 10/22/20 12/02/22 History Aspirin EC [Ecotrin Low Dose] 81 mg PO DAILY@0800 11/02/20 12/02/22 History Magnesium Hydroxide [Milk of 7,200 mg PO Q48H PRN 11/02/20 12/02/22 History Magnesia Concentrate] Nitroglycerin Sl Tabs [Nitrostat] 0.4 mg SL Q5M PRN 11/02/20 12/02/22 History bisacodyL 10 mg RECTAL DAILY PRN 11/02/20 12/02/22 History Famotidine [Pepcid] 20 mg PO HS 05/11/21 12/02/22 History Hydrocortisone [Cortef] 10 mg PO DAILY@1700 05/11/21 12/02/22 History Levothyroxine Sodium [Synthroid] 137 mcg PO SUMOTUWETHFR 05/11/21 12/02/22 History Ocusoft Lid Scrub Original Pad 1 applic BOTH EYES MOTH 05/11/21 12/02/22 History Ranolazine [Ranexa] 500 mg PO BID@0800,1700 05/11/21 12/02/22 History Dapagliflozin Propanediol [Farxiga] 10 mg PO DAILY@0800 06/10/21 12/02/22 History Hydrocortisone [Cortef] 20 mg PO DAILY@0800 06/10/21 12/02/22 History Na Phos,M-B/Na Phos,Di-Ba [Fleet 133 ml RECTAL DAILY PRN 06/10/21 12/02/22 History Adult] Isosorbide Mononitrate ER [Imdur] 60 mg PO DAILY@0800 tablet 06/11/21 12/02/22 Rx ALPRAZolam [Xanax] 0.25 mg PO HS 12/02/22 12/02/22 History Acetaminophen Tab [Tylenol Tab] 500 mg PO Q4H PRN 12/02/22 12/02/22 History Cetirizine HCl [Zyrtec] 10 mg PO DAILY@0800 12/02/22 12/02/22 History Dextran/Hypromellose/Glycerin 2 drop BOTH EYES QID PRN 12/02/22 12/02/22 History [Artificial Tears 0.1-0.2-0.3%] Diclofenac Sodium Gel [Voltaren 2 gm TOPICAL BID PRN 12/02/22 12/02/22 History Gel] Dulaglutide [Trulicity] 1.5 mg SQ FR@0800 12/02/22 12/02/22 History Melatonin 3 mg PO HS 12/02/22 12/02/22 History Metoprolol Succinate (ER) [Toprol 50 mg PO DAILY@0812/02/22 12/02/22 History Xl] Montelukast [Singulair] 10 mg PO HS 12/02/22 12/02/22 History amLODIPine [Norvasc] 5 mg PO DAILY@0800 12/02/22 12/02/22 History lisinopriL [Zestril] 10 mg PO HS 12/02/22 12/02/22 History metFORMIN HCL ER [Glucophage XR] 500 mg PO DAILY@0800 12/02/22 12/02/22 History Allergies Allergy/AdvReac Type Severity Reaction Status Date / Time [id number] Reductase Allergy Unknown Verified 12/02/22 15:13 Inhibitor [Wfzsedq-Sxo-Cui Reductase Inhibitor] Physical Examination - Vital Signs Vital Signs: Vital Signs Temp Pulse Pulse Resp BP BP Pulse Ox 12/03/22 08:55 93 L 12/03/22 08:30 97.9 F 86 16 144/80 96 12/03/22 04:00 97.6 F 65 16 117/65 93 L 12/02/22 23:25 98.0 F 65 16 105/62 93 L 12/02/22 21:57 63 16 127/70 94 L 12/02/22 17:00 98.8 F 66 17 122/66 92 L 12/02/22 13:58 98.4 F 52 L 18 63/40 90 L Intake and Output 12/02/22 12/03/22 12/03/22 22:59 06:59 14:59 Intake Total 220 658 Balance 220 658 Intake: Oral 220 658 Other: Voiding Method Diaper Diaper External Catheter External Catheter # Voids 2 1 Weight 108.862 kg GENERAL: The patient is lying in bed and is not in acute distress. NEUROLOGICAL: Higher mental function: The patient is awake, alert, oriented to self, place and time. Patient is following commands. No aphasia and no neglect. Cranial nerves: The pupils are round, equal and reactive to light and accommodation. Visual arriaga are full to confrontation throughout. Extraocular movement is intact no nystagmus is noted. Facial sensation is normal to touch throughout. The facial strength is normal throughout. Hearing is mildly de creased bilaterally to hand rub. Tongue is midline and moved [id number] without any difficulty. No dysarthria is noted. Shoulder shrug is normal bilaterally. Motor: The strength is 5 over 5 throughout. Normal tone and bulk. Cerebellum: Normal finger to nose heel to chin bilaterally. Sensation: Sensation is normal to touch throughout. Reflexes (right/left)1+ throughout. Plantars are mute bilaterally. Results - Laboratory Findings CBC and BMP: 12/03/22 08:36 12/03/22 08:36 Abnormal Lab Findings: Abnormal Labs 12/02/22 12/02/22 12/02/22 15:00 15:00 15:00 APTT 19.2 L D-Dimer Sodium Potassium BUN Glucose POC Glucose (mg/dL) Plasma Lactic Acid Yosef 2.4 H* Calcium ALT Albumin TSH Urine Glucose (UA) 4+ H Ur Leukocyte Esterase Moderate H Urine WBC 27 H Urine WBC Clumps Occasional H Urine Bacteria Rare H 12/02/22 12/02/22 12/02/22 18:40 18:40 18:48 APTT D-Dimer 1.38 H Sodium 132 L Potassium 5.2 H BUN 23 H Glucose 194 H POC Glucose (mg/dL) Plasma Lactic Acid Yosef 2.1 H* Calcium ALT 56 H Albumin 3.3 L TSH 0.033 L Urine Glucose (UA) Ur Leukocyte Esterase Urine WBC Urine WBC Clumps Urine Bacteria 12/02/22 12/02/22 12/03/22 21:32 21:37 08:36 APTT D-Dimer Sodium 132 L Potassium BUN Glucose 149 H POC Glucose (mg/dL) 154 H Plasma Lactic Acid Yosef 2.1 H* Calcium 8.2 L ALT 53 H Albumin 3.3 L TSH Urine Glucose (UA) Ur Leukocyte Esterase Urine WBC Urine WBC Clumps Urine Bacteria Assessment and Plan Assessment: This is an 87-year-old gentleman with history of pituitary macroadenoma status post resection who presented from his nursing facility because a syncopal episode and there was a concern for seizure-like activity. Patient denies of any prior seizures in the past. Sycope: Possible new onset seizure especially with hx of pituitary macroadenoma unsure if has any residual or mets. 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 I ordered a routine EEG. I will not start the patient on an antiepileptic drug since this is new onset but he does have any abnormality on the EEG or MRI then the will consider starting the patient on an antiepileptic drug Seizure precautions Seizure pads Cardiology is consulted We'll defer the rest of the medical management the primary team The plan is discussed with the patient. Thank you for the consultation. Time with Patient: Greater than 30
--- NOTE | 2022-12-03 12:26 | CA ---
Transthoracic Echo Report Name: Adonis Pepper Age: 87 Gender: M : 1935 Exam Date: 12/03/2022 10:47 Exam Location: [place] [facility] Ht (in): 73 Wt (lb): 240 Ordering Physician: Amy Lemos Attending/Referring Phys: [id number], [facility] Laura Pires RDCS Procedure CPT: Indications: LVF Cardiac Hx: Technical Quality: Very technically difficult study Contrast 1: Total Dose (mL): Contrast 2: Total Dose (mL): MEASUREMENTS (Male / Female) Normal Values 2D ECHO LV Diastolic Diameter PLAX 5.2 cm 4.2 - 5.9 / 3.9 - 5.3 cm LV Systolic Diameter PLAX 3.3 cm IVS Diastolic Thickness 1.1 cm 0.6 - 1.0 / 0.6 - 0.9 cm LVPW Diastolic Thickness 1.2 cm 0.6 - 1.0 / 0.6 - 0.9 cm LV Relative Wall Thickness 0.4 RV Internal Dim ED PLAX 3.8 cm LVOT Diameter 2.4 cm LV Diastolic Volume MOD BP 47.5 cm??? 67 - 155 / 56 - 104 cm??? LV Systolic Volume MOD BP 13.7 cm??? 22 - 58 / 19 - 49 cm??? LV Ejection Fraction MOD BP 71.2 % >= 55 % LV Cardiac Index MOD BP 846.3 cm???/min???m??? LV Diastolic Volume MOD 4C 49.9 cm??? LV Systolic Volume MOD 4C 8.4 cm??? LV Ejection Fraction MOD 4C 83.2 % LV Cardiac Index MOD 4C 1039.4 cm???/min???m??? LV Diastolic Length 4C 8.8 cm LV Systolic Length 4C 4.9 cm LV Diastolic Volume MOD 2C 41.7 cm??? LV Systolic Volume MOD 2C 17.9 cm??? LV Ejection Fraction MOD 2C 57.2 % LV Cardiac Index MOD 2C 596.6 cm???/min???m??? LV Diastolic Length 2C 8.1 cm LV Systolic Length 2C 6.8 cm LA Volume 70.3 cm??? 18 - 58 / 22 - 52 cm??? M-MODE Aortic Root Diameter MM 3.4 cm AV Cusp Separation MM 1.8 cm DOPPLER AV Peak Velocity 318.4 cm/s AV Peak Gradient 40.6 mmHg AV Mean Velocity 244.1 cm/s AV Mean Gradient 25.4 mmHg AV Velocity Time Integral 93.5 cm LVOT Peak Velocity 154.2 cm/s LVOT Peak Gradient 9.5 mmHg AV Area Cont Eq pk 2.2 cm??? MV Area PHT 2.4 cm??? Mitral E Point Velocity 118.6 cm/s Mitral A Point Velocity 141.9 cm/s Mitral E to A Ratio 0.8 MV Deceleration Time 310.5 ms TR Peak Velocity 246.4 cm/s TR Peak Gradient 24.3 mmHg Right Ventricular Systolic Press 39.1 mmHg FINDINGS Left Ventricle Left ventricular ejection fraction is estimated at more than 70 %. Left ventricular cavity size normal. Mildly increased septal wall thickness. Right Ventricle Moderate right ventricular dilatation. Mild pulmonary hypertension. Right Atrium Right atrium not well visualized. Left Atrium Moderately increased left atrial volume. Mildly increased left atrial area. Mitral Valve Mitral valve not well visualized. Aortic Valve Moderate aortic valve sclerosis. Moderate aortic stenosis with a peak gradient of 41 mmHg and a mean gradient of 25 mmHg. Tricuspid Valve Tricuspid valve not well visualized. Mild tricuspid regurgitation. Pulmonic Valve Pulmonic valve not well visualized. Pericardium Normal pericardium. No pericardial effusion. Aorta Normal size aortic root and proximal ascending aorta. CONCLUSIONS Left ventricular ejection fraction greater than 70% Mild increased left ventricular wall thickness RVSP 39 Mildly dilated left atrium Moderate aortic stenosis Previewed by: Dr. Maxi Negrete DO (Electronically Signed) Final Date: 03 December 2022 12:26
[2022-12-03 12:36] LABS: Glucose,Whole Blood 113 mg/dL (70-110)
--- NOTE | 2022-12-03 13:46 | P.HPIM ---
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 Patient is a long-term resident at [facility]. Yesterday afternoon, patient was found unresponsive at [facility]. They also noted that bilateral feet were purple and lips were cyanotic and he was diaphoretic with faint breath sounds and pretty pulse. A sternal rub was done and the patient started to respond. His blood pressure was 110/50, heart rate 58, pulse ox 90-96% after oxygen was applied at 15 L. Apparently he had a low pulse ox prior to that. CBG was 146. Patient was transferred I am asked to [facility]. Patient presented with blood pressure of 63/40, heart rate was in the 50s and 60s and pulse ox 90% on room air. Patient states that he was sitting in a wheelchair and does not remember what happened. He states he had 1 emesis yesterday and the next thing he knew he woke up at [facility]. Patient voices concern regarding a pituitary tumor which was excised in the past. CBC was unremarkable. Electrolytes normal with the Testim of 4.6. ALT 53 otherwise liver function tests were normal. EKG was a sinus bradycardia with no acute ST changes. Chest x-ray revealed chronic changes without acute findings. CT angiogram of the chest revealed no evidence of pulmonary embolism. CAT scan of the brain revealed age-related atrophy and chronic small vessel ischemic change without acute intracranial process. Echocardiogram reveals EF of 70%, mild increased left ventricular wall thickness. RVSP 39. Mildly dilated LA. Moderate aortic stenosis. Patient admitted to the cardiac stepdown unit and consults with cardiology and neurology. REVIEW OF SYSTEMS: Constitutional: No documented fever, no chills, no night sweats. No weight change. Positive for weakness, positive for fatigue no lethargy. No daytime sleepiness. EENT: No headache. No blurred vision or double vision, no loss of vision. No loss of Hearing, no ringing in the ears, no dizziness. No nasal drainage or congestion. No epistaxis. No sore throat. Lungs: Denies for shortness of breath, no cough, no sputum production. No wheezing. Reports dyspnea with activity. Cardiovascular: Denies for chest pain, no lower extremity edema. No palpitations. No paroxysmal nocturnal dyspnea. No orthopnea. No lightheadedness or dizziness. Reports 1 syncopal episode. Abdominal: Reports no abdominal pain. No nausea, vomiting 1 episode. No diarrhea. No constipation. No bloody or tarry stools reports loss of appetite. Genitourinary: No dysuria, increased frequency, urgency. No urinary retention. Positive for nocturia Musculoskeletal: No myalgias. No muscle weakness, no gait dysfunction, no frequent falls. No back pain. No neck pain. Integumentary: No wounds, no lesions. positive for Proteus. positive for b ruising. No change in hair or nails. Neurologic: No aphasia. No facial droop. Reported change in mentation. No head injury. No headache. No paralysis. No paresthesia. Psychiatric: No depression. Positive for anxiety. No mood swings. Endocrine: No abnormal blood sugars. No weight change. PAST MEDICAL HISTORY: Hypertension and hypertensive cardiovascular disease. Hyperlipidemia. Diabetes mellitus type 2. Hypothyroidism. Osteoarthritis. Insomnia Pituitary macroadenoma Enlarged prostate. Adrenal insufficiency. CAD. PAST SURGICAL HISTORY: Appendectomy Cholecystectomy Transphenoidal pituitary tumor resection 2019. Bilateral shoulder arthroscopic surgery. Left shoulder rotator cuff tear repair Left total shoulder recerse arthroplasty. Glaucoma surgery. SOCIAL HISTORY: patient denies any history of smoking, no history of drinking, no history of drug use or abuse, currently resides at [facility] with his . FAMILY HISTORY: father at the age of 90 from old age, mother at age of 95 from congestive heart failure, patient has one brother who in a car accident and he has 2 sons no major medical problems. PHYSICAL EXAMINATION: General: This is an 87-year-old male who is laying down in bed in no apparent distress HEENT: Head is atraumatic, normocephalic, pupils were equal round reactive to light and recommendation, extraocular muscle movement were intact, sclera nonicteric, conjunctivae were pale, mucous membranes of the mouth are somewhat dry. Neck: Supple, no JVP, normal carotid upstroke bilaterally, no lymphadenopathy. Chest: Decreased breath sounds at the bases, few rhonchi, no extremity wheezes, no chest wall tenderness, no intercostal retractions. Heart: First heart sound is normal, second heart sounds normal there is systolic ejection murmur 2/6 located in the left sternal border. Abdomen: Soft, nontender, nondistended, positive bowel sounds. Extremities: There is no edema no calf tenderness DP +2 bilaterally. Neurologic examination: Patient is awake alert and oriented X3 , cranial nerves II-12 appear grossly intact, muscle power were 5 out of 5 in upper extremities and 5 out of 5 in bilateral lower extremities, deep tendon reflexes normal bilaterally. ASSESSMENT AND PLAN: 1. Syncopal episode of unclear etiology, concern for seizure activity is reported by nursing staff the patient was thought to be post ictal. Patient does not have previous seizure history. Current salt with neurology appreciated. MRI of the brain and pituitary gland ordered. EEG has been obtained and report is pending. Consult with cardiology, continue telemetry monitoring. 2. Hypertension and hypertensive cardiovascular disease. Continue patient on amlodipine 5 mg daily, lisinopril 10 mg orally at bedtime, monitor the patient blood pressure very closely continue metoprolol XL 50 mg daily, 3. Diabetes mellitus type 2 continue patient on Farxiga and milligrams daily, metformin 250 mg orally once every day, Trulicity on 0.5 mg subcu on Fridays. 4. Mixed hyperlipidemia. Patient is intolerant to statins in general, monitor the patien lipid panel, keep LDL cholesterol 55-70, he may need to go on [facility] 9- INH. 5. 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 Continue Cortef 20 mg in the morning 10 milligram afternoon. 6. Hypothyroidism. Continue Synthroid 137 MCG orally once every day. 7. Pruritus, chronic. Continue patient on Singulair 10 mg at bedtime. 8. Enlarged prostate. Continue Flomax 0.4 mg orally once every day and finasteride 5 minute gram orally once every day. 9. Generalized anxiety disorder. Continue patient on Xanax 0.25 mg orally at bedtime as needed. 10. DVT prophylaxis. Continue heparin 5000 units subcutaneous every 8 hours. 11. GI prophylaxis. Continue patient on Protonix 40 mg orally once every day. 12. Patient admitted to the hospital for a minimum of 2 night stay. 13. Patient is full code Discharge planning: Return to [facility] Impression and plan of care have been directed as dictated by the signing physician. Amy Lemos nurse practitioner acting as scribe for signing physician. Past Medical History Past Medical History: GERD/Reflux, Hypertension, Osteoarthritis (OA), Thyroid Disorder Additional Past Medical History / Comment(s): glaucoma yelitza eyes, left rotator cuff torn, back pain History of Any Multi-Drug Resistant Organisms: None Reported Past Surgical History: Appendectomy, Cholecystectomy, Orthopedic Surgery, Tonsillectomy Additional Past Surgical History / Comment(s): yelitza shoulder arthroscopy, eye sx for glaucoma. pt stated 2 weeks ago had a benign pituitary tumor removed at [facility]. Past Anesthesia/Blood Transfusion Reactions: No Reported Reaction Past Psychological History: No Psychological Hx Reported Smoking Status: Never smoker Past Alcohol Use History: None Reported Past Drug Use History: None Reported - Past Family History Mother Family Medical History: Congestive Heart Failure (CHF) Additional Family Medical History / Comment(s): age 95 Father Family Medical History: No Reported History Additional Family Medical History / Comment(s): " from old age at age 90" Medications and Allergies Home Medications Medication Instructions Recorded Confirmed Type Ferrous Sulfate [Iron (65 MG 325 mg PO DAILY@1700 06/03/20 12/02/22 History Elemental)] Finasteride [Proscar] 5 mg PO HS 06/03/20 12/02/22 History Acetaminophen Tab [Tylenol] 650 mg PO Q4H PRN 10/22/20 12/02/22 History Tamsulosin [Flomax] 0.4 mg PO HS 10/22/20 12/02/22 History Aspirin EC [Ecotrin Low Dose] 81 mg PO DAILY@0800 11/02/20 12/02/22 History Magnesium Hydroxide [Milk of 7,200 mg PO Q48H PRN 11/02/20 12/02/22 History Magnesia Concentrate] Nitroglycerin Sl Tabs [Nitrostat] 0.4 mg SL Q5M PRN 11/02/20 12/02/22 History bisacodyL 10 mg RECTAL DAILY PRN 11/02/20 12/02/22 History Famotidine [Pepcid] 20 mg PO HS 05/11/21 12/02/22 History Hydrocortisone [Cortef] 10 mg PO DAILY@1700 05/11/21 12/02/22 History Levothyroxine Sodium [Synthroid] 137 mcg PO SUMOTUWETHFR 05/11/21 12/02/22 History Ocusoft Lid Scrub Original Pad 1 applic BOTH EYES MOTH 05/11/21 12/02/22 History Ranolazine [Ranexa] 500 mg PO BID@0800,1700 05/11/21 12/02/22 History Dapagliflozin Propanediol [Farxiga] 10 mg PO DAILY@0800 06/10/21 12/02/22 History Hydrocortisone [Cortef] 20 mg PO DAILY@0800 06/10/21 12/02/22 History Na Phos,M-B/Na Phos,Di-Ba [Fleet 133 ml RECTAL DAILY PRN 06/10/21 12/02/22 History Adult] Isosorbide Mononitrate ER [Imdur] 60 mg PO DAILY@0800 tablet 06/11/21 12/02/22 Rx ALPRAZolam [Xanax] 0.25 mg PO HS 12/02/22 12/02/22 History Acetaminophen Tab [Tylenol Tab] 500 mg PO Q4H PRN 12/02/22 12/02/22 History Cetirizine HCl [Zyrtec] 10 mg PO DAILY@0800 12/02/22 12/02/22 History Dextran/Hypromellose/Glycerin 2 drop BOTH EYES QID PRN 12/02/22 12/02/22 History [Artificial Tears 0.1-0.2-0.3%] Diclofenac Sodium Gel [Voltaren 2 gm TOPICAL BID PRN 12/02/22 12/02/22 History Gel] Dulaglutide [Trulicity] 1.5 mg SQ FR@0800 12/02/22 12/02/22 History Melatonin 3 mg PO HS 12/02/22 12/02/22 History Metoprolol Succinate (ER) [Toprol 50 mg PO DAILY@0800 12/02/22 12/02/22 History Xl] Montelukast [Singulair] 10 mg PO HS 12/02/22 12/02/22 History amLODIPine [Norvasc] 5 mg PO DAILY@0800 12/02/22 12/02/22 History lisinopriL [Zestril] 10 mg PO HS 12/02/22 12/02/22 History metFORMIN HCL ER [Glucophage XR] 500 mg PO DAILY@0800 12/02/22 12/02/22 History Allergies Allergy/AdvReac Type Severity Reaction Status Date / Time Hizgvox-VYH-BlH Reductase Allergy Unknown Verified 12/02/22 15:13 Inhibitor [Nnhvsqr-Grv-Sly Reductase Inhibitor] Physical Exam Vitals: Vital Signs Temp Pulse Pulse Resp BP BP Pulse Ox 12/03/22 08:55 93 L 12/03/22 04:00 97.6 F 65 16 117/65 93 L 12/02/22 23:25 98.0 F 65 16 105/62 93 L 12/02/22 21:57 63 16 127/70 94 L 12/02/22 17:00 98.8 F 66 17 122/66 92 L 12/02/22 13:58 98.4 F 52 L 18 63/40 90 L Intake and Output 12/02/22 12/03/22 12/03/22 22:59 06:59 14:59 Intake Total 220 658 Balance 220 658 Intake: Oral 220 658 Other: Voiding Method Diaper External Catheter # Voids 2 1 Weight 108.862 kg Results CBC & Chem 7: 12/03/22 08:36 12/03/22 08:36 Labs: Abnormal Lab Results - Last 24 Hours (Table) 12/02/22 12/02/22 12/02/22 Range/Units 15:00 15:00 15:00 APTT 19.2 L (22.0-30.0) sec D-Dimer (<0.60) mg/L FEU Sodium (137-145) mmol/L Potassium (3.5-5.1) mmol/L BUN (9-20) mg/dL Glucose (74-99) mg/dL POC Glucose (mg/dL) (70-110) mg/dL Plasma Lactic Acid Yosef 2.4 H* (0.7-2.0) mmol/L ALT (4-49) U/L Albumin (3.5-5.0) g/dL TSH (0.465-4.680) mIU/L Urine Glucose (UA) 4+ H (Negative) Ur Leukocyte Esterase Moderate H (Negative) Urine WBC 27 H (0-5) /hpf Urine WBC Clumps Occasional H (None) /hpf Urine Bacteria Rare H (None) /hpf 12/02/22 12/02/22 12/02/22 Range/Units 18:40 18:40 18:48 APTT (22.0-30.0) sec D-Dimer 1.38 H (<0.60) mg/L FEU Sodium 132 L (137-145) mmol/L Potassium 5.2 H (3.5-5.1) mmol/L BUN 23 H (9-20) mg/dL Glucose 194 H (74-99) mg/dL POC Glucose (mg/dL) (70-110) mg/dL Plasma Lactic Acid Yosef 2.1 H* (0.7-2.0) mmol/L ALT 56 H (4-49) U/L Albumin 3.3 L (3.5-5.0) g/dL TSH 0.033 L (0.465-4.680) mIU/L Urine Glucose (UA) (Negative) Ur Leukocyte Esterase (Negative) Urine WBC (0-5) /hpf Urine WBC Clumps (None) /hpf Urine Bacteria (None) /hpf 12/02/22 12/02/22 Range/Units 21:32 21:37 APTT (22.0-30.0) sec D-Dimer (<0.60) mg/L FEU Sodium (137-145) mmol/L Potassium (3.5-5.1) mmol/L BUN (9-20) mg/dL Glucose (74-99) mg/dL POC Glucose (mg/dL) 154 H (70-110) mg/dL Plasma Lactic Acid Yosfe 2.1 H* (0.7-2.0) mmol/L ALT (4-49) U/L Albumin (3.5-5.0) g/dL TSH (0.465-4.680) mIU/L Urine Glucose (UA) (Negative) Ur Leukocyte Esterase (Negative) Urine WBC (0-5) /hpf Urine WBC Clumps (None) /hpf Urine Bacteria (None) /hpf Thrombosis Risk Factor Assmnt - Choose All That Apply Any of the Below Risk Factors Present?: Yes Each Factor Represents 1 point: Obesity (BMI >25) Other Risk Factors: Yes Each Risk Factor Represents 3 Points: Age 75 years or older Thrombosis Risk Factor Assessment Total Risk Factor Score: 4 Thrombosis Risk Factor Assessment Level: Moderate Risk
--- NOTE | 2022-12-03 13:58 | P.CRDCN ---
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 He follows in the office with Dr. Negrete. We have been asked to evaluate the patient for syncope. Patient is a long-term resident at [facility]. Yesterday afternoon, patient was found unresponsive at [facility]. They also noted that bilateral feet were purple and lips were cyanotic and he was diaphoretic with faint breath sounds and pretty pulse. A sternal rub was done and the patient started to respond. His blood pressure was 110/50, heart rate 58, pulse ox 90-96% after oxygen was applied at 15 L. Apparently he had a low pulse ox prior to that. CBG was 146. Patient was transferred I am asked to [facility]. Patient presented with blood pressure of 63/40, heart rate was in the 50s and 60s and pulse ox 90% on room air. Patient states that he was sitting in a wheelchair and does not remember what happened. He states he had 1 emesis yesterday and the next thing he knew he woke up at [facility]. Patient voices concern regarding a pituitary tumor which was excised in the past. No tobacco use, no alcohol use. EKG sinus bradycardia at 51 bpm, right bundle branch block without acute findings. Chest x-ray revealed chronic changes without acute findings. CT angiogram of the chest revealed no evidence of pulmonary embolism. CAT scan of the brain revealed age-related atrophy and chronic small vessel ischemic change without acute intracranial process. Echocardiogram reveals EF of 70%, mild increased left ventricular wall thickness. RVSP 39. Mildly dilated LA. Moderate aortic stenosis. right bundle branch block. Prior EKG was similar findings. 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 Because the nature and location of this obstructive disease maximal medical therapy was advised. Current home medications: Norvasc 5 mg daily, Farxiga 10 mg daily, Trulicity 1.5 mg subcu Wednesday, Imdur 60 mg daily, levothyroxine 137 g 6 days a week, lisinopril 10 mg at bedtime, Toprol-XL 50 mg daily, Nitrostat as needed, Ranexa 500 mg twice daily REVIEW OF SYSTEMS CONSTITUTIONAL: Denies fever or chills. CARDIOVASCULAR: Denies chest pain,Denies shortness of breath, Denies orthopnea, PND or palpitations. Reports syncope with LOC. RESPIRATORY: Denies cough. GASTROINTESTINAL: Denies abdominal pain, diarrhea, constipation, nausea or vomiting. MUSCULOSKELETAL: Denies myalgias. NEUROLOGIC: Denies numbness, tingling, headache or weakness. ENDOCRINE: Denies fatigue, weight change, polydipsia or polyurina. GENITOURINARY: Denies burning, hematuria or urgency with micturation. HEMATOLOGIC: Denies history of anemia or bleeding. PHYSICAL EXAMINATION Blood pressure 144/80, heart rate86, afebrile. Saturations 93% on room air CONSTITUTIONAL: No apparent distress. HEENT: Head is normocephalic. Pupils are equal, round. Sclerae anicteric. Mucous membranes of the mouth are moist. No JVD. No carotid bruit. CHEST EXAMINATION: Lungs are clear to auscultation. No chest wall tenderness is noted on palpation or with deep breathing. HEART EXAMINATION: Regular rate and rhythm. S1, S2 heard. Systolic murmur at right sternal border. No gallops or rub. ABDOMEN: Soft, nontender. Positive bowel sounds. EXTREMITIES: 2+ peripheral pulses, no lower extremity edema and no calf tenderness. SKIN: warm, dry NEUROLOGIC EXAMINATION: Patient is awake, alert and oriented x3. ASSESSMENT Syncopal episode of unclear etiology Coronary artery disease, cardiac catheterization 10/2020 no intervention Hypertension Dyslipidemia Type 2 Diabetes PLAN Continue patient's home cardiac medications Continuetelemetry monitoring Further recommendations as patient progresses Thank you kindly for this consultation. Nurse Practitioner note has been reviewed, I agree with a documented findings and plan of care. Patient was seen and examined. Past Medical History Past Medical History: GERD/Reflux, Hypertension, Osteoarthritis (OA), Thyroid Disorder Additional Past Medical History / Comment(s): glaucoma yelitza eyes, left rotator cuff torn, back pain History of Any Multi-Drug Resistant Organisms: None Reported Past Surgical History: Appendectomy, Cholecystectomy, Orthopedic Surgery, Tonsillectomy Additional Past Surgical History / Comment(s): yelitza shoulder arthroscopy, eye sx for glaucoma. pt stated 2 weeks ago had a benign pituitary tumor removed at [facility]. Past Anesthesia/Blood Transfusion Reactions: No Reported Reaction Past Psychological History: No Psychological Hx Reported Smoking Status: Never smoker Past Alcohol Use History: None Reported Past Drug Use History: None Reported - Past Family History Mother Family Medical History: Congestive Heart Failure (CHF) Additional Family Medical History / Comment(s): age 95 Father Family Medical History: No Reported History Additional Family Medical History / Comment(s): " from old age at age 90" Medications and Allergies Home Medications Medication Instructions Recorded Confirmed Type Ferrous Sulfate [Iron (65 MG 325 mg PO DAILY@1700 06/03/20 12/02/22 History Elemental)] Finasteride [Proscar] 5 mg PO HS 06/03/20 12/02/22 History Acetaminophen Tab [Tylenol] 650 mg PO Q4H PRN 10/22/20 12/02/22 History Tamsulosin [Flomax] 0.4 mg PO HS 10/22/20 12/02/22 History Aspirin EC [Ecotrin Low Dose] 81 mg PO DAILY@0800 11/02/20 12/02/22 History Magnesium Hydroxide [Milk of 7,200 mg PO Q48H PRN 11/02/20 12/02/22 History Magnesia Concentrate] Nitroglycerin Sl Tabs [Nitrostat] 0.4 mg SL Q5M PRN 11/02/20 12/02/22 History bisacodyL 10 mg RECTAL DAILY PRN 11/02/20 12/02/22 History Famotidine [Pepcid] 20 mg PO HS 05/11/21 12/02/22 History Hydrocortisone [Cortef] 10 mg PO DAILY@1700 05/11/21 12/02/22 History Levothyroxine Sodium [Synthroid] 137 mcg PO SUMOTUWETHFR 05/11/21 12/02/22 History Ocusoft Lid Scrub Original Pad 1 applic BOTH EYES MOTH 05/11/21 12/02/22 History Ranolazine [Ranexa] 500 mg PO BID@0800,1700 05/11/21 12/02/22 History Dapagliflozin Propanediol [Farxiga] 10 mg PO DAILY@0800 06/10/21 12/02/22 History Hydrocortisone [Cortef] 20 mg PO DAILY@0800 06/10/21 12/02/22 History Na Phos,M-B/Na Phos,Di-Ba [Fleet 133 ml RECTAL DAILY PRN 06/10/21 12/02/22 History Adult] Isosorbide Mononitrate ER [Imdur] 60 mg PO DAILY@0800 tablet 06/11/21 12/02/22 Rx ALPRAZolam [Xanax] 0.25 mg PO HS 12/02/22 12/02/22 History Acetaminophen Tab [Tylenol Tab] 500 mg PO Q4H PRN 12/02/22 12/02/22 History Cetirizine HCl [Zyrtec] 10 mg PO DAILY@0800 12/02/22 12/02/22 History Dextran/Hypromellose/Glycerin 2 drop BOTH EYES QID PRN 12/02/22 12/02/22 History [Artificial Tears 0.1-0.2-0.3%] Diclofenac Sodium Gel [Voltaren 2 gm TOPICAL BID PRN 12/02/22 12/02/22 History Gel] Dulaglutide [Trulicity] 1.5 mg SQ FR@79912/02/22 12/02/22 History Melatonin 3 mg PO HS 12/02/22 12/02/22 History Metoprolol Succinate (ER) [Toprol 50 mg PO DAILY@0800 12/02/22 12/02/22 History Xl] Montelukast [Singulair] 10 mg PO HS 12/02/22 12/02/22 History amLODIPine [Norvasc] 5 mg PO DAILY@0800 12/02/22 12/02/22 History lisinopriL [Zestril] 10 mg PO HS 12/02/22 12/02/22 History metFORMIN HCL ER [Glucophage XR] 500 mg PO DAILY@0800 12/02/22 12/02/22 History Allergies Allergy/AdvReac Type Severity Reaction Status Date / Time Kdggibc-ODT-WqE Reductase Allergy Unknown Verified 12/02/22 15:13 Inhibitor [Qkdufbv-Vdz-Ymq Reductase Inhibitor] Physical Exam Vitals: Vital Signs Temp Pulse Pulse Resp BP BP Pulse Ox 12/03/22 08:55 93 L 12/03/22 04:00 97.6 F 65 16 117/65 93 L 12/02/22 23:25 98.0 F 65 16 105/62 93 L 12/02/22 21:57 63 16 127/70 94 L 12/02/22 17:00 98.8 F 66 17 122/66 92 L 12/02/22 13:58 98.4 F 52 L 18 63/40 90 L Intake and Output 12/02/22 12/03/22 12/03/22 22:59 06:59 14:59 Intake Total 220 658 Balance 220 658 Intake: Oral 220 658 Other: Voiding Method Diaper External Catheter # Voids 2 1 Weight 108.862 kg Results 12/03/22 08:36 12/03/22 08:36 Cardiac Enzymes 12/02/22 12/02/22 12/02/22 Range/Units 15:00 18:40 18:40 AST 49 (17-59) U/L Troponin I 0.016 <0.012 (0.000-0.034) ng/mL 12/02/22 Range/Units 21:33 AST (17-59) U/L Troponin I <0.012 (0.000-0.034) ng/mL Coagulation 12/02/22 Range/Units 15:00 PT 11.3 (9.0-12.0) sec APTT 19.2 L (22.0-30.0) sec CBC 12/02/22 Range/Units 15:00 WBC 8.7 (3.8-10.6) k/uL RBC 4.76 (4.30-5.90) m/uL Hgb 15.2 (13.0-17.5) gm/dL Hct 45.4 (39.0-53.0) % Plt Count 169 (150-450) k/uL Comprehensive Metabolic Panel 12/02/22 Range/Units 18:40 Sodium 132 L (137-145) mmol/L Potassium 5.2 H (3.5-5.1) mmol/L Chloride 101 (98-107) mmol/L Carbon Dioxide 22 (22-30) mmol/L BUN 23 H (9-20) mg/dL Creatinine 1.17 (0.66-1.25) mg/dL Glucose 194 H (74-99) mg/dL Calcium 8.4 (8.4-10.2) mg/dL AST 49 (17-59) U/L ALT 56 H (4-49) U/L Alkaline Phosphatase 97 (38-126) U/L Total Protein 6.3 (6.3-8.2) g/dL Albumin 3.3 L (3.5-5.0) g/dL Current Medications Generic Name Dose Route Start Last Admin Trade Name Freq PRN Reason Stop Dose Admin Acetaminophen 650 mg 12/02/22 22:49 Acetaminophen Tab 325 Mg Tab PO Q4H PRN Fever and/ or Pain Acetaminophen 500 mg 12/02/22 22:49 Acetaminophen Tab 500 Mg Tab PO Q4H PRN Dry Eye(s) Alprazolam 0.25 mg 12/02/22 23:00 12/02/22 23:16 Alprazolam 0.25 Mg Tab PO 0.25 mg HS NICOLE Administration Amlodipine Besylate 5 mg 12/03/22 08:00 12/03/22 08:40 Amlodipine 5 Mg Tab PO 5 mg DAILY@0800 [facility] Administration Artificial Tears 2 drops 12/02/22 23:00 Artificial Tears-Hypromellose Drops 15 Ml Btl BOTH EYES QID PRN Dry Eye(s) Aspirin 81 mg 12/03/22 08:00 12/03/22 08:39 Aspirin 81 Mg PO 81 mg DAILY@0800 [facility] Administration Bisacodyl 10 mg 12/03/22 09:00 Bisacodyl 10 Mg Supp RECTAL DAILY PRN Constipation Dapagliflozin 10 mg 12/03/22 08:00 12/03/22 08:39 Dapagliflozin Propanediol 10 Mg Tablet PO 10 mg DAILY@0800 [facility] Administration Diclofenac Sodium 2 gm 12/03/22 09:00 12/03/22 08:52 Diclofenac Sodium Gel 100 Gm Tube TOPICAL 2 gm BID PRN Administration bilateral knee pain Protocol Famotidine 20 mg 12/02/22 23:00 12/02/22 23:16 Famotidine 20 Mg Tab PO 20 mg HS NICOLE Administration Ferrous Sulfate 325 mg 12/03/22 17:00 Ferrous Sulfate 325 Mg Tab PO DAILY@1700 [facility] Finasteride 5 mg 12/02/22 23:00 12/02/22 23:16 Finasteride 5 Mg Tab PO 5 mg HS NICOLE Administration Hydrocortisone 10 mg 12/03/22 17:00 Hydrocortisone 10 Mg Tab PO DAILY@1700 NICOLE Hydrocortisone 20 mg 12/03/22 08:00 12/03/22 08:39 Hydrocortisone 20 Mg Tab PO 20 mg DAILY@0800 [facility] Administration Sodium Chloride 1,000 mls @ 130 mls/hr 12/02/22 17:30 12/03/22 06:39 Saline 0.9% IV 130 mls/hr .Q7H42M [facility] Administration Isosorbide Mononitrate 60 mg 12/03/22 08:00 12/03/22 08:38 Isosorbide Mononitrate Er 60 Mg Tab.Er.24h PO 60 mg DAILY@0800 [facility] Administration Levothyroxine Sodium 137 mcg 12/03/22 06:30 12/03/22 06:39 Levothyroxine 137 Mcg Tab PO 137 mcg [id number]@0630 [facility] Administration Lisinopril 10 mg 12/02/22 23:00 12/02/22 23:16 Lisinopril 10 Mg Tab PO Not Given [facility] Loratadine 10 mg 12/03/22 08:00 12/03/22 08:40 Loratadine 10 Mg Tab PO 10 mg DAILY@0800 [facility] Administration Magnesium Hydroxide 2,400 mg 12/03/22 09:00 Magnesium Hydroxide 2,400 Mg/30 Ml Cup PO Q48H PRN Constipation Melatonin 3 mg 12/02/22 23:00 12/02/22 23:16 Melatonin 3 Mg Tablet PO 3 mg HS [facility] Administration Metformin HCl 250 mg 12/03/22 08:00 12/03/22 08:38 Metformin 500 Mg Tab PO 250 mg BID@08,1999 [facility] Administration Metoprolol Succinate 50 mg 12/03/22 08:00 12/03/22 08:39 Metoprolol Succinate (Er) 50 Mg Tab.Er.24h PO 50 mg DAILY@0800 [facility] Administration Montelukast Sodium 10 mg 12/02/22 23:00 12/02/22 23:16 Montelukast 10 Mg Tab PO 10 mg HS [facility] Administration Morphine Sulfate 4 mg 12/02/22 17:27 Morphine Sulfate 4 Mg/Ml Syringe IV Q4HR PRN Severe Pain (Scale 7 to 10) Naloxone HCl 0.2 mg 12/02/22 17:27 Naloxone 0.4 Mg/Ml 1 Ml Vial IV Q2M PRN Opioid Reversal Non-Formulary Medication 1.5 mg 12/04/22 08:00 Dulaglutide [Trulicity] SQ FR@0800 [facility] Ondansetron HCl 4 mg 12/02/22 17:27 Ondansetron 4 Mg/2 Ml Vial IVP Q8HR PRN Nausea And Vomiting Pantoprazole Sodium 40 mg 12/03/22 09:00 12/03/22 08:40 Pantoprazole 40 Mg/10 Ml Vial IV 40 mg DAILY NICOLE Administration Ranolazine 500 mg 12/03/22 08:00 12/03/22 08:38 Ranolazine 500 Mg Tab.Er.12h PO 500 mg BID@0800,1700 NICOLE Administration Sodium Biphosphate/Sodium Phosphate 133 ml 12/03/22 09:00 Na Phos,M-B/Na Phos,Di-Ba 133 Ml Enema RECTAL DAILY PRN Constipation Tamsulosin HCl 0.4 mg 12/02/22 23:00 12/02/22 23:15 Tamsulosin 0.4 Mg Cap.Er.24h PO 0.4 mg HS NICOLE Administration Intake and Output 12/02/22 12/03/22 12/03/22 22:59 06:59 14:59 Intake Total 220 658 Balance 220 658 Intake: Oral 220 658 Other: Voiding Method Diaper External Catheter # Voids 2 1 Weight 108.862 kg 12/02/22 15:00 12/02/22 18:40
[2022-12-03] MEDS: HYDROCORTISONE 10 MG TAB PO SCH (16:50)
[2022-12-03] MEDS: HEPARIN SODIUM,PORCINE/PF 5,000 UNIT/0.5 ML SYRINGE SQ SCH ×2 (16:50→23:30)
[2022-12-03] MEDS: FERROUS SULFATE 325 MG TAB PO SCH (16:50)
[2022-12-03 17:01] LABS: Glucose,Whole Blood 183 mg/dL (70-110)
[2022-12-03 20:40] LABS: Glucose,Whole Blood 164 mg/dL (70-110)
[2022-12-03] MEDS: MONTELUKAST 10 MG TAB PO SCH (20:53)
[2022-12-03] MEDS: MELATONIN 3 MG TABLET PO SCH (20:53)
[2022-12-03] MEDS: FAMOTIDINE 20 MG TAB PO SCH (20:53)
[2022-12-03] MEDS: ALPRAZolam 0.25 MG TAB PO SCH (20:53)
[2022-12-03] MEDS: TAMSULOSIN 0.4 MG CAP.ER.24H PO SCH (20:53)
[2022-12-03] MEDS: FINASTERIDE 5 MG TAB PO SCH (20:53)
[2022-12-03] MEDS: lisinopriL 10 MG TAB PO SCH (20:53)
--- NOTE | 2022-12-03 22:13 | EEG ---
ELECTROENCEPHALOGRAM REPORT CLINICAL HISTORY: This is an 87-year-old gentleman, who presented from his nursing facility because of suspected seizure-like activity. The video EEG is obtained to evaluate for seizure epileptiform activity. RELEVANT MEDICATION: The patient is not on any antiseizure medication. EEG TYPE: A routine 21-channel EEG is performed with video using the 10/20 electrode placement system. DESCRIPTION: Wakefulness and drowsiness are obtained. During awake state, the posterior- dominant rhythm consists of [id number] voltage of 8 hertz activity that is well modulated, well sustained. There is no physiological stage 2 sleep architecture. There is no focal slowing. Interictal and ictal is none. ACTIVATION PROCEDURE: Photic stimulation did not evoke a posterior driving response. There is no abnormality during the photic stimulation. Hyperventilation is not performed. CLINICAL INTERPRETATION: This is a normal routine EEG. There is no focal slowing, epileptiform discharges, or seizure on the EEG. A normal routine EEG does not rule out underlying epilepsy. Clinical correlation is recommended. JOSI / STARLA: [id number] / [id number]
[2022-12-04 06:12] LABS: Glucose,Whole Blood 94 mg/dL (70-110)
[2022-12-04] MEDS: SODIUM CHLORIDE 0.9% 1,000 ML IV SCH (07:02)
[2022-12-04] MEDS ORDERED: PANTOPRAZOLE 40 MG TABLET PO SCH (07:30)
[2022-12-04] MEDS ORDERED: NON FORMULARY DRUG (Dulaglutide [Trulicity] 1.5 MG/0.5 ML Each) SQ SCH (08:00)
[2022-12-04] MEDS: amLODIPine 5 MG TAB PO SCH (09:02)
[2022-12-04] MEDS: ISOSORBIDE MONONITRATE ER 60 MG TAB.ER.24H PO SCH (09:02)
[2022-12-04] MEDS: metFORMIN 500 MG TAB PO SCH (09:02)
[2022-12-04] MEDS: METOPROLOL SUCCINATE (ER) 50 MG TAB.ER.24H PO SCH (09:02)
[2022-12-04] MEDS: LORATADINE 10 MG TAB PO SCH (09:02)
[2022-12-04] MEDS: ASPIRIN 81 MG PO SCH (09:02)
[2022-12-04] MEDS: RANOLAZINE 500 MG TAB.ER.12H PO SCH ×2 (09:02→16:16)
[2022-12-04] MEDS: LEVOTHYROXINE 137 MCG TAB PO SCH (09:03)
[2022-12-04] MEDS: HEPARIN SODIUM,PORCINE/PF 5,000 UNIT/0.5 ML SYRINGE SQ SCH ×2 (09:03→16:40)
[2022-12-04] MEDS: DAPAGLIFLOZIN PROPANEDIOL 10 MG TABLET PO SCH (09:03)
[2022-12-04] MEDS: HYDROCORTISONE 20 MG TAB PO SCH (09:03)
--- NOTE | 2022-12-04 11:34 | MR ---
EXAMINATION TYPE: MR brain wo/w con DATE OF EXAM: 12/04/2022 11:17 AM COMPARISON: 03/06/2019 HISTORY: New onset seizure, history of pituitary cancer. Prior imaging in PACS. Gadavist 11ml CONTRAST: Patient received 11 mL intravenous Gadavist gadolinium contrast. Multiplanar and multispin-echo imaging of the brain was performed . Pre and post contrast enhanced i mages are obtained. The ventricles, basal cisterns and sulci overlying the cerebral convexities are moderately enlarged. There is evidence of mild periventricular white matter ischemic demyelination. Remote deep white matter insults are also noted. No acute edema is seen on diffusion weighted imaging. Postoperative changes along the skull base and sella turcica. There is stable enhancement which is fe lt to reflect postoperative change. No definite recurrent mass is appreciated. Acute intracranial hemorrhage or extra-axial collection is not evident. No enhancing lesions are seen. The paranasal sinuses and mastoid air cells are well-aerated. IMPRESSION: 1. Age-related atrophic and chronic small vessel ischemic change. No acute intracranial process at this time. 2. Postoperative changes involving the sella turcica and base of the skull. Stable enhancement may b e postsurgical in nature.
--- NOTE | 2022-12-04 11:34 | P.PN ---
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 He follows in the office with Dr. Negrete. We have been asked to evaluate the patient for syncope. Patient is a long-term resident at [facility]. Yesterday afternoon, patient was found unresponsive at [facility]. They also noted that bilateral feet were purple and lips were cyanotic and he was diaphoretic with faint breath sounds and pretty pulse. A sternal rub was done and the patient started to respond. His blood pressure was 110/50, heart rate 58, pulse ox 90-96% after oxygen was applied at 15 L. Apparently he had a low pulse ox prior to that. CBG was 146. Patient was transferred I am asked to [facility]. Patient presented with blood pressure of 63/40, heart rate was in the 50s and 60s and pulse ox 90% on room air. Patient states that he was sitting in a wheelchair and does not remember what happened. He states he had 1 emesis yesterday and the next thing he knew he woke up at [facility]. Patient voices concern regarding a pituitary tumor which was excised in the past. No tobacco use, no alcohol use. EKG sinus bradycardia at 51 bpm, right bundle branch block without acute findings. Chest x-ray revealed chronic changes without acute findings. CT angiogram of the chest revealed no evidence of pulmonary embolism. CAT scan of the brain revealed age-related atrophy and chronic small vessel ischemic change without acute intracranial process. Echocardiogram reveals EF of 70%, mild increased left ventricular wall thickness. RVSP 39. Mildly dilated LA. Moderate aortic stenosis. right bundle branch block. Prior EKG was similar findings. 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 Because the nature and location of this obstruc tive disease maximal medical therapy was advised. Current home medications: Norvasc 5 mg daily, Farxiga 10 mg daily, Trulicity 1.5 mg subcu Wednesday, Imdur 60 mg daily, levothyroxine 137 g 6 days a week, lisinopril 10 mg at bedtime, Toprol-XL 50 mg daily, Nitrostat as needed, Ranexa 500 mg twice daily 12/04 Patient is seen today in follow-up. He is scheduled for MRI of the brain and pituitary gland today. Telemetry has not shown any episodes of atrial fibrillation. Blood pressure readings have been stable except for one reading this morning at 170/80. PHYSICAL EXAMINATION CONSTITUTIONAL: No apparent distress. HEENT: Head is normocephalic. Pupils are equal, round. Sclerae anicteric. Mucous membranes of the mouth are moist. No JVD. No carotid bruit. CHEST EXAMINATION: Lungs are clear to auscultation. No chest wall tenderness is noted on palpation or with deep breathing. HEART EXAMINATION: Regular rate and rhythm. S1, S2 heard. Systolic murmur at right sternal border. No gallops or rub. EXTREMITIES: 2+ peripheral pulses, no lower extremity edema and no calf tenderness. SKIN: warm, dry NEUROLOGIC EXAMINATION: Patient is awake, alert and oriented x3. ASSESSMENT Syncopal episode of unclear etiology, concern for seizure Coronary artery disease, cardiac catheterization 10/2020 no intervention Hypertension Dyslipidemia Type 2 Diabetes PLAN Continue patient's home cardiac medications Cardiology will sign off and follow on an as-needed basis. Following discharge, patient may follow-up with Dr. Negrete in 1 week. Nurse Practitioner note has been reviewed, I agree with a documented findings and plan of care. Patient was seen and examined. Objective - Vital Signs Vital signs: Vital Signs Temp 98.5 F 12/04/22 08:00 Pulse 65 12/04/22 08:00 Resp 18 12/04/22 08:00 BP 170/80 12/04/22 08:00 Pulse Ox 95 12/04/22 08:59 FiO2 Intake & Output 12/03/22 12/04/22 12/04/22 18:59 06:59 18:59 Intake Total 1256 340 Output Total 750 1800 Balance 506 -1800 340 Intake: Oral 1256 340 Output: Urine 750 1800 Other: Voiding Method Diaper Diaper External Catheter External Catheter - Labs CBC & Chem 7: 12/03/22 08:36 12/03/22 08:36 Labs: Abnormal Lab Results - Last 24 Hours (Table) 12/03/22 12/03/22 12/03/22 Range/Units 08:36 12:34 16:58 Sodium 132 L (137-145) mmol/L Glucose 149 H (74-99) mg/dL POC Glucose (mg/dL) 113 H 183 H (70-110) mg/dL Calcium 8.2 L (8.4-10.2) mg/dL ALT 53 H (4-49) U/L Albumin 3.3 L (3.5-5.0) g/dL 12/03/22 Range/Units 20:38 Sodium (137-145) mmol/L Glucose (74-99) mg/dL POC Glucose (mg/dL) 164 H (70-110) mg/dL Calcium (8.4-10.2) mg/dL ALT (4-49) U/L Albumin (3.5-5.0) g/dL
[2022-12-04 11:38] LABS: Glucose,Whole Blood 104 mg/dL (70-110)
--- NOTE | 2022-12-04 12:16 | MR ---
EXAMINATION TYPE: MR pituitary wo/w con DATE OF EXAM: 12/04/2022 COMPARISON: MRI brain 12/04/2022, CT scan brain 12/03/2022, MRI pituitary 03/13/2002 HISTORY: New onset seizure, history of pituitary cancer. TECHNIQUE: Multiplanar, multisequence images of the pituitary gland is performed without and with IV contrast, u tilizing 11 mL intravenous Gadavist . FINDINGS: Diffuse abnormality is again noted involving the base of the skull, destructive changes involving the clivus and base of skull again noted. Abnormal signal is seen along the lateral margins of the clivu s bilaterally. There is somewhat envelopes the carotid arteries bilaterally. This could represent sof t tissue mass. Scarring within the additional consideration. Measures 2.5 cm right 2.2 cm and the lef t surrounding the sella turcica. This is similar in appearance to the prior exam. Intracranially normal signal voids within the visualized carotid and intracranial vasculature is note d. There is generalized moderate degenerative change. 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 The pituitary stalk is slightly deviated towards the left. No significant abnormal enhancement within the sella. No evident recurrent mass within the sella turc ica. IMPRESSION: 1. There is postsurgical change involving the sella turcica with no sizable enhancing pituitary lesio n. However, there remains a large area of abnormal parasellar signal measuring 6 cm in width, 2.5 cm in height on the right and 2.2 cm on the left. This is associated with destructive changes of the cli vus and skull base. Differential diagnosis soft tissue mass versus aggressive surgical scarring. Over all findings are stable from prior MRI of 03/13/2022.
[2022-12-04 12:38] VITALS: BP 117/68; PULSE 51; RESP 16; TEMP 97.7
--- NOTE | 2022-12-04 12:54 | P.DS ---
Providers Date of admission: 12/02/22 17:36 Expected date of discharge: 12/04/22 Attending physician: Maggie Joya Consults: 12/02/22 17:27 Consult Physician Routine Consulting Provider: Darlin Coppola Consult Reason/Comments: syncope Do you want consulting provider notified?: Yes 12/03/22 07:39 Consult Physician Routine Consulting Provider: Joel Arredondo Consult Reason/Comments: reported seizure activity at [facility] Do you want consulting provider notified?: Yes Primary care physician: [facility] Course: HISTORY OF PRESENT ILLNESS: This is an 87-year-old male with a previous medical history significant for hypertension and hypertensive cardiovascular disease, hyperlipidemia, diabetes mellitus type 2, insomnia, 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 Patient is a long-term resident at [facility]. Yesterday afternoon, patient was found unresponsive at [facility]. They also noted that bilateral feet were purple and lips were cyanotic and he was diaphoretic with faint breath sounds and pretty pulse. A sternal rub was done and the patient started to respond. His blood pressure was 110/50, heart rate 58, pulse ox 90-96% after oxygen was applied at 15 L. Apparently he had a low pulse ox prior to that. CBG was 146. Patient was transferred I am asked to [facility]. Patient presented with blood pressure of 63/40, heart rate was in the 50s and 60s and pulse ox 90% on room air. Patient states that he was sitting in a wheelchair and does not remember what happened. He states he had 1 emesis yesterday and the next thing he knew he woke up at [facility]. Patient voices concern regarding a pituitary tumor which was excised in the past. CBC was unremarkable. Electrolytes normal with the Testim of 4.6. ALT 53 otherwise liver function tests were normal. EKG was a sinus bradycardia with no acute ST changes. Chest x-ray revealed chronic changes without acute findings. CT angiogram of the chest revealed no evidence of pulmonary embolism. CAT scan of the brain revealed age-related atrophy and chronic small vessel ischemic change without acute intracranial process. Echocardiogram reveals EF of 70%, mild increased left ventricular wall thickness. RVSP 39. Mildly dilated LA. Moderate aortic stenosis. Patient admitted to the cardiac stepdown unit and consults with cardiology and neurology. 12/04: Patient has been seen and followed by cardiology, no episodes of atrial fibrillation or cardiac cause for syncope was identified. Patient has been seen by neurology. EEG did not show any signs of epileptiform deformities. No plan to start patient on anti-epileptic medications. MRI of the brain revealed age- related atrophy and chronic small vessel ischemia. No acute process. Postop changes in the sella turcica, and base of the skull. MRI of the pituitary gland revealed postsurgical changes involving the sella turcica with no sizable enhancing pituitary lesion. There remains a large area of abnormal parasellar signal measuring 6 cm in width and 2.5 cm in height on the right and 2.2 cm on the left. There is associated destructive changes of the clivus and skull base. Differential diagnosis soft tissue mass versus aggressive surgical scarring. Overall findings are stable from prior MRI of 02/2022. Blood sugars have been stable running 94 264. Blood pressure 117/68, heart rate in the 50s and 60s. Pulse ox 96% on room air and patient has been afebrile. We will plan for patient have follow-up with his neurosurgeon. Patient will be discharged back to [facility] today in stable condition. DISCHARGE DIAGNOSES: 1. Syncopal episode of unclear etiology, concern for seizure activity. 2. Hypertension and hypertensive cardiovascular disease. 3. Diabetes mellitus type 2. 4. Mixed hyperlipidemia. 5. 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 6. Hypothyroidism. 7. Pruritus, chronic. 8. Enlarged prostate. 9. Generalized anxiety disorder. Discharge planning: Return to [facility] Greater than 35 minutes was utilized and coordinating patient's discharge. Impression and plan of care have been directed as dictated by the signing physician. Amy Lemos nurse practitioner acting as scribe for signing physician. Patient Condition at Discharge: Fair Plan - Discharge Summary Discharge Rx Participant: No New Discharge Prescriptions: New levETIRAcetam [Keppra] 500 mg PO Q12HR #60 tab Continue Ferrous Sulfate [Iron (65 MG Elemental)] 325 mg PO DAILY@1700 Finasteride [Proscar] 5 mg PO HS Tamsulosin [Flomax] 0.4 mg PO HS bisacodyL 10 mg RECTAL DAILY PRN PRN Reason: Constipation Magnesium Hydroxide [Milk of Magnesia Concentrate] 7,200 mg PO Q48H PRN PRN Reason: Constipation Nitroglycerin Sl Tabs [Nitrostat] 0.4 mg SL Q5M PRN PRN Reason: Chest Pain Ocusoft Lid Scrub Original Pad 1 applic BOTH EYES MOTH Hydrocortisone [Cortef] 10 mg PO DAILY@1700 Levothyroxine Sodium [Synthroid] 137 mcg PO SUMOTUWETHFR Ranolazine [Ranexa] 500 mg PO BID@0800,1700 Hydrocortisone [Cortef] 20 mg PO DAILY@0800 Isosorbide Mononitrate ER [Imdur] 60 mg PO DAILY@0800 tablet Dextran/Hypromellose/Glycerin [Artificial Tears 0.1-0.2-0.3%] 2 drop BOTH EYES QID PRN PRN Reason: Dry Eye(S) Cetirizine HCl [Zyrtec] 10 mg PO DAILY@0800 Metoprolol Succinate (ER) [Toprol XL] 50 mg PO DAILY@0800 lisinopriL [Zestril] 10 mg PO HS Diclofenac Sodium Gel [Voltaren Gel] 2 gm TOPICAL BID PRN PRN Reason: bilateral knee pain Acetaminophen Tab [Tylenol] 650 mg PO Q4H PRN PRN Reason: Fever And/ Or Pain Aspirin EC [Ecotrin Low Dose] 81 mg PO DAILY@0800 Famotidine [Pepcid] 20 mg PO HS Na Phos,M-B/Na Phos,Di-Ba [Fleet Adult] 133 ml RECTAL DAILY PRN PRN Reason: Constipation Dapagliflozin Propanediol [Farxiga] 10 mg PO DAILY@0800 Acetaminophen Tab [Tylenol] 500 mg PO Q4H PRN PRN Reason: Dry Eye(S) Dulaglutide [Trulicity] 1.5 mg SQ FR@0800 Montelukast [Singulair] 10 mg PO HS metFORMIN HCL ER [Glucophage XR] 500 mg PO DAILY@0800 Melatonin 3 mg PO HS amLODIPine [Norvasc] 5 mg PO DAILY@0800 Changed ALPRAZolam [Xanax] 0.25 mg PO HS #3 tab Discharge Medication List Ferrous Sulfate [Iron (65 MG Elemental)] 325 mg PO DAILY@1700 06/03/20 [History] Finasteride [Proscar] 5 mg PO HS 06/03/20 [History] Acetaminophen Tab [Tylenol] 650 mg PO Q4H PRN 10/22/20 [History] Tamsulosin [Flomax] 0.4 mg PO HS 10/22/20 [History] Aspirin EC [Ecotrin Low Dose] 81 mg PO DAILY@0800 11/02/20 [History] Magnesium Hydroxide [Milk of Magnesia Concentrate] 7,200 mg PO Q48H PRN 11/02/20 [History] Nitroglycerin Sl Tabs [Nitrostat] 0.4 mg SL Q5M PRN 11/02/20 [History] bisacodyL 10 mg RECTAL DAILY PRN 11/02/20 [History] Famotidine [Pepcid] 20 mg PO HS 05/11/21 [History] Hydrocortisone [Cortef] 10 mg PO DAILY@1700 05/11/21 [History] Levothyroxine Sodium [Synthroid] 137 mcg PO SUMOTUWETHFR 05/11/21 [History] Ocusoft Lid Scrub Original Pad 1 applic BOTH EYES MOTH 05/11/21 [History] Ranolazine [Ranexa] 500 mg PO BID@0800,1700 05/11/21 [History] Dapagliflozin Propanediol [Farxiga] 10 mg PO DAILY@0800 06/10/21 [History] Hydrocortisone [Cortef] 20 mg PO DAILY@0800 06/10/21 [History] Na Phos,M-B/Na Phos,Di-Ba [Fleet Adult] 133 ml RECTAL DAILY PRN 06/10/21 [History] Isosorbide Mononitrate ER [Imdur] 60 mg PO DAILY@0800 tablet 06/11/21 [Rx] Acetaminophen Tab [Tylenol] 500 mg PO Q4H PRN 12/02/22 [History] Cetirizine HCl [Zyrtec] 10 mg PO DAILY@0800 12/02/22 [History] Dextran/Hypromellose/Glycerin [Artificial Tears 0.1-0.2-0.3%] 2 drop BOTH EYES QID PRN 12/02/22 [History] Diclofenac Sodium Gel [Voltaren Gel] 2 gm TOPICAL BID PRN 12/02/22 [History] Dulaglutide [Trulicity] 1.5 mg SQ FR@79912/02/22 [History] Melatonin 3 mg PO HS 12/02/22 [History] Metoprolol Succinate (ER) [Toprol XL] 50 mg PO DAILY@79912/02/22 [History] Montelukast [Singulair] 10 mg PO HS 12/02/22 [History] amLODIPine [Norvasc] 5 mg PO DAILY@79912/02/22 [History] lisinopriL [Zestril] 10 mg PO HS 12/02/22 [History] metFORMIN HCL ER [Glucophage XR] 500 mg PO DAILY@79912/02/22 [History] ALPRAZolam [Xanax] 0.25 mg PO HS #3 tab 12/04/22 [Rx] levETIRAcetam [Keppra] 500 mg PO Q12HR #60 tab 12/04/22 [Rx] Follow up Appointment(s)/Referral(s): Maggie Joya MD [Primary Care Provider] - 1 Week (at [facility]) Maxi Negrete DO [STAFF PHYSICIAN] - 1 Week Patient Instructions/Handouts: Seizure/Epilepsy Discharge Instructions & Follow-Up Activity/Diet/Wound Care/Special Instructions: Dr Marinelli office to schedule appt neurosurgeon to review pituitary MRI results. office will call you about appt. Discharge Disposition: TRANSFER TO SNF/ECF
[2022-12-04] MEDS ORDERED: levETIRAcetam 500 MG TAB PO SCH (14:00)
--- NOTE | 2022-12-04 14:44 | P.PN ---
Subjective Progress Note Date: 12/04/22 The patient seen at the side and he feels is doing much better. Denies any further episode of loss of consciousness. He feels back to baseline. He states that in the past he is to have a small episode of heaviness in the head that would come and go and he does follow up with a neurosurgeon regarding his pituitary mass he thinks he is unsure where but he thinks it out of [place]. Objective - Vital Signs Vital signs: Vital Signs Temp 97.7 F 12/04/22 12:00 Pulse 51 L 12/04/22 12:00 Resp 16 12/04/22 12:00 BP 117/68 12/04/22 12:00 Pulse Ox 96 12/04/22 12:00 FiO2 Intake & Output 12/03/22 12/04/22 12/04/22 18:59 06:59 18:59 Intake Total 1256 700 Output Total 750 1800 650 Balance 506 -1800 50 Intake: Oral 1256 700 Output: Urine 750 1800 650 Other: Voiding Method Diaper Diaper Diaper External Catheter External Catheter External Catheter - Exam GENERAL: The patient is sitting in a recliner chair and is not in acute di stress. NEUROLOGICAL: Higher mental function: The patient is awake, alert, oriented to self, place and time. Patient is following commands. No aphasia and no neglect. Cranial nerves: The pupils are round, equal and reactive to light and accommodation. Visual arriaga are full to confrontation throughout. Extraocular movement is intact no nystagmus is noted. Facial sensation is normal to touch throughout. The facial strength is normal throughout. Hearing is mildly decreased bilaterally to hand rub. Tongue is midline and moved [id number] without any difficulty. No dysarthria is noted. Shoulder shrug is normal bilaterally. Motor: The strength is 5 over 5 throughout. Normal tone and bulk. Cerebellum: Normal finger to nose heel to chin bilaterally. Sensation: Sensation is normal to touch throughout. Reflexes (right/left)1+ throughout. Plantars are mute bilaterally. Some of the workup during his hospital visit consisted of: CBC with differential is unremarkable Plasma lactic acid venous 2.1 repeated 2.0. Is the serum glucose is 194. ifmg586. I reviewed the rest of the Chemstrip. TSH is 0.033 CT of the head is reported as age-related atrophy and chronic small vessel ischemic change without acute intracranial process seen at this time. I personally reviewed the CT and I agree with the report. EKG is reported as sinus bradycardia with first-degree AV block. Echo was reported as left ventricular ejection fraction greater than 70%. Mild increased left ventricular wall thickness. Mild dilated left atrium. Moderate aortic stenosis. Routine EEG is normal. There is no focal slowing, epileptiform discharges or seizure on the EEG. MRI of the brain w/o is reported as age-related atrophic and chronic small vessel ischemic changes. No acute intracranial process seen at this time. Postoperative changes involving the sella turcica and base of the skull. Stable enchancement maybe postsurgical in nature. I personally reviewed MRI and agree no acute or subacute change. Does have sellar changes. MRI of pituitary w/ and w/o: It is reported as there is postsurgical changes involving the sella turcica with no sizable enhancing pituitary lesion. However there remains a large area of abnormal parasellar signal measuring 6 cm in width, 2.5 cm in height on the right and 2.2 cm on the left. This is associated with destructive changes of the clivus and skull base. Differential diagnosis soft tissue mass versus aggressive surgical scarring. Overall finding are stable from prior MRI on 03/13/2022 - Labs CBC & Chem 7: 12/03/22 08:36 12/03/22 08:36 Labs: Abnormal Lab Results - Last 24 Hours (Table) 12/03/22 12/03/22 Range/Units 16:58 20:38 POC Glucose (mg/dL) 183 H 164 H (70-110) mg/dL Assessment and Plan Assessment: This is an 87-year-old gentleman with history of pituitary macroadenoma status post resection who presented from his nursing facility because a syncopal episode and there was a concern for seizure-like activity. Patient denies of any prior seizures in the past. Sycope: Possible new onset seizure especially with hx of pituitary macroadenoma and possible scarring is focus for seizure. Routine EEG is normal. MRI Pituitary abnormal parasellar signal measuring 6 cm in width, 2.5 cm in height on the right and 2.2 cm on the left. This is associated with destructive changes of the clivus and skull base. Differential diagnosis soft tissue mass versus aggressive surgical scarring. But reported stable from 02/2022 unsure if has any residual or mets. Rule out cardiac in etiology since has ?bradycardia on EKG History of pituitary macroadenoma status post trans-sphenoid resection with resu ltant adrenal insufficiency History of hypothryoidism and his current TSH is low Diabetes mellitus Hypertension Plan: MRI Brain does not show any focus other than pituitary changes. Routine EEG is normal but normal EEG does not rule out underlying epilepsy. I am concerned patient has a new onset seizure especially with his scarring tissue. I placed on Keppra 500mg bid and notified him of side-effect of behavior and mood changes. Recommend prolonged EEG as outpatient. MRI Pituitary abnormal parasellar signal measuring 6 cm in width, 2.5 cm in height on the right and 2.2 cm on the left. This is associated with destructive changes of the clivus and skull base. Differential diagnosis soft tissue mass versus aggressive surgical scarring. But reported stable from 02/2022. Recommend patient to follow-up with neuruosurgeon but unsure name and location. He states he does follow-up with someone. Seizure precautions Seizure pads Because of the seizure per [facility], patient to avoid driving for 6 month until seizure-free, avoid heights, avoids swimming unassisted or using heavy machinery. Cardiology is consulted We'll defer the rest of the medical management the primary team The plan is discussed with the patient and his nurse. Otherwise no additional neurological work-up. Time with Patient: Less than 30
[2022-12-04] MEDS: HYDROCORTISONE 10 MG TAB PO SCH (16:15)
[2022-12-04] MEDS: FERROUS SULFATE 325 MG TAB PO SCH (16:16)
[2022-12-04 16:38] LABS: Glucose,Whole Blood 170 mg/dL (70-110)
== END 2022-12-04 17:23 ==
LOC: EC 13:46 → INTOOBSV 17:36 → 3SCARD 17:36 → UNDODISIN 12-04 17:23
PROVIDERS: ADMIT Internal Medicine; ATTEND Internal Medicine
DX: R55 Syncope and collapse (principal); I11.9 Hypertensive heart disease without heart failure; I25.10 Atherosclerotic heart disease of native coronary artery without angina pectoris; E11.9 Type 2 diabetes mellitus without complications; R00.1 Bradycardia, unspecified; K21.9 Gastro-esophageal reflux disease without esophagitis; H40.9 Unspecified glaucoma; G47.00 Insomnia, unspecified; E03.9 Hypothyroidism, unspecified; E27.49 Other adrenocortical insufficiency; F41.1 Generalized anxiety disorder; L29.8 Other pruritus; E78.2 Mixed hyperlipidemia; N40.0 Benign prostatic hyperplasia without lower urinary tract symptoms; I45.10 Unspecified right bundle-branch block; I44.0 Atrioventricular block, first degree; I27.20 Pulmonary hypertension, unspecified; I35.0 Nonrheumatic aortic (valve) stenosis; I07.1 Rheumatic tricuspid insufficiency; I35.8 Other nonrheumatic aortic valve disorders; Z79.899 Other long term (current) drug therapy; Z79.82 Long term (current) use of aspirin; Z79.890 Hormone replacement therapy; Z90.49 Acquired absence of other specified parts of digestive tract; Z82.49 Family history of ischemic heart disease and other diseases of the circulatory system; Z63.4 Disappearance and death of family member; Z96.612 Presence of left artificial shoulder joint; Z88.8 Allergy status to other drugs, medicaments and biological substances; Z79.84 Long term (current) use of oral hypoglycemic drugs
CPT/HCPCS: 96372 ×2; 96375; 96374; 99291; 36415; 94760 ×2; 95816; 93005; 97530; 97162; 97535; 97166; 85379; 83880; 80053 ×2; 83605 ×2; 83735 ×2; 84100 ×2; 84443; 84484; 85025 ×2; 85610; 85730; 81001; 80143; 80179; 71045; 70450; 71275; 70553 ×2; G0378 ×3; C8929; G0480; S0138 ×2; J1720; C9113; Q9950; J1644 ×2; A9585; 80320; 93306; 96361

== ENCOUNTER 2023-04-08 15:06 | Inpatient (IN) | payer MEDICARE, OTHER ==
--- NOTE | 2023-04-08 15:40 | ED ---
SOB HPI - General Chief Complaint: Shortness of Breath Stated Complaint: ROXANNE/COVID+ Time Seen by Provider: 04/08/23 15:18 Source: EMS, RN notes reviewed, old records reviewed Mode of arrival: EMS Limitations: no limitations - History of Present Illness Initial Comments: This is an 88-year-old male to the emergency department for evaluation. Patient presents today for evaluation regards to severe illness. Patient with recent diagnosis of covert increasing shortness of breath weakness and debility. Patient sent to ER secondary to outpatient diagnosis of coronavirus for further evaluation management MD Complaint: shortness of breath, cough -: days(s) Radiation: back Severity: moderate Severity scale (1-10): 4 Quality: dull Consistency: constant Improves With: nothing Worsens With: nothing Context: recent URI, recent illness (Positive for coronavirus) Associated Symptoms: fever, cough, nausea/vomiting Treatments Prior to Arrival: oxygen - Related Data Home Medications Medication Instructions Recorded Confirmed Ferrous Sulfate [Iron (65 MG 325 mg PO DAILY@1700 06/03/20 04/08/23 Elemental)] Finasteride [Proscar] 5 mg PO HS 06/03/20 04/08/23 Acetaminophen Tab [Tylenol] 650 mg PO Q4H PRN 10/22/20 04/08/23 Tamsulosin [Flomax] 0.4 mg PO HS 10/22/20 04/08/23 Aspirin EC [Ecotrin Low Dose] 81 mg PO DAILY@0800 11/02/20 04/08/23 Magnesium Hydroxide [Milk of 7,200 mg PO Q48H PRN 11/02/20 04/08/23 Magnesia Concentrate] Nitroglycerin Sl Tabs [Nitrostat] 0.4 mg SL Q5M PRN 11/02/20 04/08/23 bisacodyL 10 mg RECTAL DAILY PRN 11/02/20 04/08/23 Famotidine [Pepcid] 20 mg PO HS 05/11/21 04/08/23 Levothyroxine Sodium [Synthroid] 137 mcg PO SUMOTUWETHFR@0800 05/11/21 04/08/23 Ranolazine [Ranexa] 500 mg PO BID@0800,1700 05/11/21 04/08/23 Dapagliflozin Propanediol [Farxiga] 10 mg PO DAILY@0800 06/10/21 04/08/23 Na Phos,M-B/Na Phos,Di-Ba [Fleet 133 ml RECTAL DAILY PRN 06/10/21 04/08/23 Adult] Cetirizine HCl [Zyrtec] 10 mg PO DAILY@0800 12/02/22 04/08/23 Dextran/Hypromellose/Glycerin 2 drops BOTH EYES QID PRN 12/02/22 04/08/23 [Artificial Tears 0.1-0.2-0.3%] Dulaglutide [Trulicity] 1.5 mg SQ FR@0800 12/02/22 04/08/23 Melatonin 3 mg PO HS 12/02/22 04/08/23 Metoprolol Succinate (ER) [Toprol 50 mg PO DAILY@0800 12/02/22 04/08/23 XL] Montelukast [Singulair] 10 mg PO HS 12/02/22 04/08/23 lisinopriL [Zestril] 10 mg PO BID@0800,1700 12/02/22 04/08/23 Ipratropium-Albuterol Nebulize 3 ml INHALATION RT-Q6H PRN 12/28/22 04/08/23 [Duoneb 0.5 mg-3 mg/3 ml Soln] guaiFENesin [guaiFENesin Oral 200 mg PO Q6H PRN 12/28/22 04/08/23 Solution] Ascorbic Acid [Vitamin C] 1,000 mg PO DAILY 04/08/23 04/08/23 Cholecalciferol [Vitamin D3 (25 50 mcg PO DAILY 04/08/23 04/08/23 Mcg = 1000 Iu)] INSULIN ASPART (NovoLOG) [NovoLOG See Protocol SQ ACHS 04/08/23 04/08/23 (formulary)] Metformin Er 500mg 1 tab PO DAILY 04/08/23 04/08/23 Rivaroxaban [Xarelto] 2.5 mg PO BID@0800,1700 04/08/23 04/08/23 Zinc Sulfate [Orazinc] 220 mg PO DAILY 04/08/23 04/08/23 Previous Rx's Medication Instructions Recorded Isosorbide Mononitrate ER [Imdur] 60 mg PO DAILY@0800 tablet 06/11/21 Hydrocortisone [Cortef] 10 mg PO DAILY@1700 tab 01/01/23 Hydrocortisone [Cortef] 30 mg PO DAILY@0800 tab 01/01/23 amLODIPine [Norvasc] 10 mg PO DAILY tab 04/14/23 Allergies Allergy/AdvReac Type Severity Reaction Status Date / Time Hyyfepq-ZEM-PsC Reductase Allergy Unknown Verified 04/08/23 16:38 Inhibitor [Ywoheim-Abx-Jwx Reductase Inhibitor] Review of Systems ROS Statement: Those systems with pertinent positive or pertinent negative responses have been documented in the HPI. ROS Other: All systems not noted in ROS Statement are negative. Past Medical History Past Medical History: GERD/Reflux, Hypertension, Osteoarthritis (OA), Thyroid Disorder Additional Past Medical History / Comment(s): glaucoma yelitza eyes, left rotator cuff torn, back pain History of Any Multi-Drug Resistant Organisms: None Reported Past Surgical History: Appendectomy, Cholecystectomy, Orthopedic Surgery, Tonsillectomy Additional Past Surgical History / Comment(s): yelitza shoulder arthroscopy, eye sx for glaucoma, a benign pituitary tumor removed at [facility]. Past Anesthesia/Blood Transfusion Reactions: No Reported Reaction Past Psychological History: No Psychological Hx Reported Smoking Status: Never smoker Past Alcohol Use History: None Reported Past Drug Use History: None Reported - Past Family History Mother Family Medical History: Congestive Heart Failure (CHF) Additional Family Medical History / Comment(s): age 95 Father Family Medical History: No Reported History Additional Family Medical History / Comment(s): " from old age at age 90" General Exam Limitations: altered mental status General appearance: alert, in no apparent distress, anxious, lethargic, in distress Head exam: Present: atraumatic, normocephalic, normal inspection Eye exam: Present: normal appearance, PERRL, EOMI. Absent: scleral icterus, conjunctival injection, periorbital swelling ENT exam: Present: normal exam, mucous membranes moist Neck exam: Present: normal inspection. Absent: tenderness, meningismus, lymphadenopathy Respiratory exam: Present: normal lung sounds bilaterally. Absent: respiratory distress, wheezes, rales, rhonchi, stridor Cardiovascular Exam: Present: regular rate, normal rhythm, normal heart sounds. Absent: systolic murmur, diastolic murmur, rubs, gallop, clicks GI/Abdominal exam: Present: soft, normal bowel sounds. Absent: distended, tenderness, guarding, rebound, rigid Extremities exam: Present: normal inspection, full ROM, normal capillary refill. Absent: tenderness, pedal edema, joint swelling, calf tenderness Back exam: Present: normal inspection Neurological exam: Present: alert, oriented X3, CN II-XII intact Psychiatric exam: Present: normal affect, normal mood Skin exam: Present: warm, dry, intact, normal color. Absent: rash Course Vital Signs 04/08/23 04/08/23 04/08/23 15:28 15:30 15:40 Temperature Pulse Rate 68 65 Pulse Rate [ Baby Formula Mixer ] Respiratory 30 H 32 H 27 H Rate Blood Pressure 72/39 80/43 Blood Pressure [Left Arm] O2 Sat by Pulse 94 L 95 Oximetry 04/08/23 04/08/23 04/08/23 16:00 16:30 17:00 Temperature Pulse Rate 64 65 67 Pulse Rate [ Baby Formula Mixer ] Respiratory 23 24 27 H Rate Blood Pressure 77/38 84/37 84/48 Blood Pressure [Left Arm] O2 Sat by Pulse 94 L 93 L 93 L Oximetry 04/08/23 04/08/23 04/08/23 17:30 18:00 18:30 Temperature Pulse Rate 67 63 62 Pulse Rate [ Baby Formula Mixer ] Respiratory 24 24 23 Rate Blood Pressure 97/55 91/43 102/66 Blood Pressure [Left Arm] O2 Sat by Pulse 94 L 95 96 Oximetry 04/08/23 04/08/23 04/08/23 18:40 18:50 19:00 Temperature Pulse Rate 63 63 66 Pulse Rate [ Baby Formula Mixer ] Respiratory 25 H 22 12 Rate Blood Pressure 89/49 90/46 90/46 Blood Pressure [Left Arm] O2 Sat by Pulse 96 96 96 Oximetry 04/08/23 04/08/23 04/08/23 19:10 19:20 20:00 Temperature 98.7 F Pulse Rate 61 64 Pulse Rate [ 62 Baby Formula Mixer ] Respiratory 24 22 17 Rate Blood Pressure 118/58 82/46 Blood Pressure 110/58 [Left Arm] O2 Sat by Pulse 97 96 93 L Oximetry 04/09/23 04/09/23 04/09/23 01:02 07:50 08:26 Temperature 98.1 F 97.3 F L Pulse Rate 80 Pulse Rate [ 68 Baby Formula Mixer ] Respiratory 23 16 Rate Blood Pressure 168/92 Blood Pressure 127/74 [Left Arm] O2 Sat by Pulse 93 L 98 98 Oximetry 04/09/23 04/09/23 14:15 18:13 Temperature 97.9 F Pulse Rate 87 88 Pulse Rate [ Baby Formula Mixer ] Respiratory 16 18 Rate Blood Pressure 142/90 142/84 Blood Pressure [Left Arm] O2 Sat by Pulse 95 95 Oximetry - Reevaluation(s) Reevaluation #1: 04/08/23 17:43 Medical records reviewed Reevaluation #2: 04/08/23 17:44 Patient symptoms are unchanged from blood pressure is improving with hydration 04/08/23 17:44 Resuscitation Reevaluation #3: 04/08/23 17:44 Patient informed results Reevaluation #4: 04/08/23 17:44 Was pt. sent in by a medical professional or institution ([facility] Luke, [place], urgent care, hospital, or [place] [facility] [place] facility...) When possible be specific @ -no Did you speak to anyone other than the patient for history (EMS, parent, family, police, friend...)? What history was obtained from this source @ -no Did you review nursing and triage notes (agree or disagree)? Why? @ -agree Are old charts reviewed (outside hosp., previous admission, EMS record, old EKG, old radiological studies, urgent care reports/EKG's, [place] health care facility records)? Report findings @ -yes Differential Diagnosis (chest pain, altered mental status, abdominal pain women, abdominal pain men, vaginal bleeding, weakness, fever, dyspnea, syncope, headache, dizziness, GI bleed, back pain, seizure, CVA, palpatations, mental health, musculoskeletal)? @ -prior EKG interpreted by me (3pts min.). @ -yes X-rays interpreted by me (1pt min.). @ -yes CT interpreted by me (1pt min.). @ -no U/S interpreted by me (1pt. min.). @ -no What testing was considered but not performed or refused? (CT, X-rays, U/S, labs)? Why? @ -none What meds were considered but not given or refused? Why? @ -none Did you discuss the management of the patient with other professionals (professionals i.e. [facility], [place], lab, RT, psych nurse, social worker school, fig washer, teacher, contract officer, case folder)? Give summary @ -no Was smoking cessation discussed for >3mins.? @ -no Was critical care preformed (if so, how long)? @ -no Were there social determinants of health that impacted care today? How? (Homelessness, low income, unemployed, alcoholism, drug addiction, transport ation, low edu. Level, literacy, decrease access to med. care, longterm, rehab)? @ -none Was there de-escalation of care discussed even if they declined (Discuss DNR or withdrawal of care, Hospice)? DNR status @ -no What co-morbidities impacted this encounter? (DM, HTN, Smoking, COPD, CAD, Cancer, CVA, ARF, Chemo, Hep., AIDS, mental health diagnosis, sleep apnea, morbid obesity)? @ -none Was patient admitted / discharged? Hospital course, mention meds given and route, prescriptions, significant lab abnormalities, going to OR and other pertinent info. @ - 88 male to the emergency department for evaluation patient with severe weakness shortness breath positive for coronavirus. Patient will be admitted for further evaluation management supportive care Admitted Undiagnosed new problem with uncertain prognosis? @ -no Drug Therapy requiring intensive monitoring for toxicity (Heparin, Nitro, Insulin, Cardizem)? @ -no Were any procedures done? @ -no Diagnosis/symptom? @ -Coronavirus, weakness, sepsis Acute, or Chronic, or Acute on Chronic? @ -Acute Uncomplicated (without systemic symptoms) or Complicated (systemic symptoms)? @ -Complicated Side effects of treatment? @ -no Exacerbation, Progression, or Severe Exacerbation? @ -exacerbation Poses a threat to life or bodily function? How? (Chest pain, [place], [place], pneumonia, PE, COPD, DKA, ARF, appy, cholecystitis, CVA, Diverticulitis, Homicidal, Suicidal, threat to staff... and all critical care pts) @ -yes with sepsis Reevaluation #5: 04/08/23 17:44 Differential Altered Mental Status: Hypoglycemia, DKA, hypercapnia, ETOH, overdose, CO poisoning, trauma, myxedema coma, HTN encephalopathy, infection, encephalitis, psychosis, intercranial hemorrhage, hepatic encephalopathy, meningitis, CVA, this is not meant to be an all-inclusive list Differential Fever: Pneumonia, viral URI, endocarditis, myocarditis, pericarditis, otitis, sinusitis, peritonsillar Abscess, retropharyngeal Abscess, epiglottitis, peritonitis, appendicitis, Juanis cystitis, diverticulitis, hepatitis, colitis, UTI, PID, TOA, pyelonephritis, prostatitis, epididymitis, meningitis, encephalitis, pulmonary embolism, CVA, thyroid storm, pancreatitis, adrenal crisis, cavernous sinus thrombosis, this is not meant to be an all-inclusive list. - Consultations Consultation #1: Spoke with Dr. Joya who agrees to admit this patient Procedures - Sepsis Sepsis Focused Exam #1 Time Sepsis Criteria Met: 17:45 Sepsis Focused Exam Date: 04/08/23 Sepsis Focused Exam Time: 22:00 Sepsis Focused Exam Complete: Yes Vital Signs & RN Notes Reviewed: Yes Capillary Refill: < 2 Seconds: Fingers, Toes Peripheral Pulses: Normal: Radial (R), Radial (L), Posterior Tibialis (R), Posterior Tibialis (L), Dorsalis Pedis (R), Dorsalis Pedis (L) Skin Color: Normal for Patient Respiratory Exam: normal lung sounds Cardiovascular Exam: regular rate Medical Decision Making - Medical Decision Making 88 male to the emergency department for evaluation patient with severe weakness shortness breath positive for coronavirus. Patient will be admitted for further evaluation management supportive care - Lab Data Result diagrams: 04/12/23 07:25 04/12/23 07:25 Lab Results 04/08/23 04/08/23 04/08/23 Range/Units 15:30 15:43 15:43 WBC 5.9 (3.8-10.6) k/uL RBC 4.56 (4.30-5.90) m/uL Hgb 14.8 (13.0-17.5) gm/dL Hct 43.8 (39.0-53.0) % MCV 96.0 (80.0-100.0) fL MCH 32.5 (25.0-35.0) pg MCHC 33.9 (31.0-37.0) g/dL RDW 13.7 (11.5-15.5) % Plt Count 139 L (150-450) k/uL MPV 8.7 Neutrophils % 52 % Lymphocytes % 32 % Monocytes % 10 % Eosinophils % 4 % Basophils % 1 % Neutrophils # 3.1 (1.3-7.7) k/uL Lymphocytes # 1.9 (1.0-4.8) k/uL Monocytes # 0.6 (0-1.0) k/uL Eosinophils # 0.2 (0-0.7) k/uL Basophils # 0.0 (0-0.2) k/uL PT 11.3 (10.0-12.5) sec INR 1.0 (<1.2) APTT 25.6 (22.0-30.0) sec D-Dimer 1.48 H (<0.60) mg/L FEU Sodium (137-145) mmol/L Potassium (3.5-5.1) mmol/L Chloride (98-107) mmol/L Carbon Dioxide (22-30) mmol/L Anion Gap mmol/L BUN (9-20) mg/dL Creatinine (0.66-1.25) mg/dL Est GFR (CKD-EPI)AfAm (>60 ml/min/1.73 sqM) Est GFR (CKD-EPI)NonAf (>60 ml/min/1.73 sqM) Glucose (74-99) mg/dL Plasma Lactic Acid Yosef (0.7-2.0) mmol/L Calcium (8.4-10.2) mg/dL Magnesium (1.6-2.3) mg/dL Total Bilirubin (0.2-1.3) mg/dL AST (17-59) U/L ALT (4-49) U/L Alkaline Phosphatase (38-126) U/L Lactate Dehydrogenase (120-246) U/L Troponin I (0.000-0.034) ng/mL C-Reactive Protein (<1.0) mg/dL NT-Pro-B Natriuret Pep pg/mL Total Protein (6.3-8.2) g/dL Albumin (3.5-5.0) g/dL Procalcitonin (0.02-0.09) ng/mL 04/08/23 04/08/23 04/08/23 Range/Units 15:43 15:43 15:43 WBC (3.8-10.6) k/uL RBC (4.30-5.90) m/uL Hgb (13.0-17.5) gm/dL Hct (39.0-53.0) % MCV (80.0-100.0) fL MCH (25.0-35.0) pg MCHC (31.0-37.0) g/dL RDW (11.5-15.5) % Plt Count (150-450) k/uL MPV Neutrophils % % Lymphocytes % % Monocytes % % Eosinophils % % Basophils % % Neutrophils # (1.3-7.7) k/uL Lymphocytes # (1.0-4.8) k/uL Monocytes # (0-1.0) k/uL Eosinophils # (0-0.7) k/uL Basophils # (0-0.2) k/uL PT (10.0-12.5) sec INR (<1.2) APTT (22.0-30.0) sec D-Dimer (<0.60) mg/L FEU Sodium 134 L (137-145) mmol/L Potassium 4.9 (3.5-5.1) mmol/L Chloride 102 (98-107) mmol/L Carbon Dioxide 21 L (22-30) mmol/L Anion Gap 11 mmol/L BUN 39 H (9-20) mg/dL Creatinine 2.28 H (0.66-1.25) mg/dL Est GFR (CKD-EPI)AfAm 29 (>60 ml/min/1.73 sqM) Est GFR (CKD-EPI)NonAf 25 (>60 ml/min/1.73 sqM) Glucose 159 H (74-99) mg/dL Plasma Lactic Acid Yosef 1.6 (0.7-2.0) mmol/L Calcium 8.3 L (8.4-10.2) mg/dL Magnesium 2.0 (1.6-2.3) mg/dL Total Bilirubin 1.5 H (0.2-1.3) mg/dL AST 51 (17-59) U/L ALT 41 (4-49) U/L Alkaline Phosphatase 61 (38-126) U/L Lactate Dehydrogenase 243 (120-246) U/L Troponin I <0.012 (0.000-0.034) ng/mL C-Reactive Protein 5.5 H (<1.0) mg/dL NT-Pro-B Natriuret Pep 394 pg/mL Total Protein 6.0 L (6.3-8.2) g/dL Albumin 3.1 L (3.5-5.0) g/dL Procalcitonin (0.02-0.09) ng/mL 04/08/23 Range/Units 15:43 WBC (3.8-10.6) k/uL RBC (4.30-5.90) m/uL Hgb (13.0-17.5) gm/dL Hct (39.0-53.0) % MCV (80.0-100.0) fL MCH (25.0-35.0) pg MCHC (31.0-37.0) g/dL RDW (11.5-15.5) % Plt Count (150-450) k/uL MPV Neutrophils % % Lymphocytes % % Monocytes % % Eosinophils % % Basophils % % Neutrophils # (1.3-7.7) k/uL Lymphocytes # (1.0-4.8) k/uL Monocytes # (0-1.0) k/uL Eosinophils # (0-0.7) k/uL Basophils # (0-0.2) k/uL PT (10.0-12.5) sec INR (<1.2) APTT (22.0-30.0) sec D-Dimer (<0.60) mg/L FEU Sodium (137-145) mmol/L Potassium (3.5-5.1) mmol/L Chloride (98-107) mmol/L Carbon Dioxide (22-30) mmol/L Anion Gap mmol/L BUN (9-20) mg/dL Creatinine (0.66-1.25) mg/dL Est GFR (CKD-EPI)AfAm (>60 ml/min/1.73 sqM) Est GFR (CKD-EPI)NonAf (>60 ml/min/1.73 sqM) Glucose (74-99) mg/dL Plasma Lactic Acid Yosef (0.7-2.0) mmol/L Calcium (8.4-10.2) mg/dL Magnesium (1.6-2.3) mg/dL Total Bilirubin (0.2-1.3) mg/dL AST (17-59) U/L ALT (4-49) U/L Alkaline Phosphatase (38-126) U/L Lactate Dehydrogenase (120-246) U/L Troponin I (0.000-0.034) ng/mL C-Reactive Protein (<1.0) mg/dL NT-Pro-B Natriuret Pep pg/mL Total Protein (6.3-8.2) g/dL Albumin (3.5-5.0) g/dL Procalcitonin 0.18 H (0.02-0.09) ng/mL - EKG Data -: EKG Interpreted by Me (EKG is sinus 66 MT 250 QRS 130 QTC 452) - Radiology Data Radiology results: report reviewed (Chest x-ray has no significant acute changes), image reviewed Critical Care Time Critical Care Time: Yes Total Critical Care Time: 31 Disposition Clinical Impression: Generalized weakness, Coronavirus infection, Sepsis, CKD (chronic kidney disease), Febrile illness, acute Disposition: ADMITTED IP TO THIS HOSP Condition: Serious Is patient prescribed a controlled substance at d/c from ED?: No Time of Disposition: 17:45
--- NOTE | 2023-04-08 16:21 | XR ---
EXAMINATION TYPE: XR chest 1V portable DATE OF EXAM: 04/08/2023 4:16 PM CLINICAL INDICATION:Male, 88 years old with history of cough; PHH COMPARISON: Chest radiographs from 12/27/2022 TECHNIQUE: XR chest 1V portable Frontal view of the chest. FINDINGS: Lungs/Pleura: There is no evidence of pleural effusion, focal consolidation, or pneumothorax. Pulmonary vascularity: Pulmonary vascular congestion. Heart/mediastinum: Cardiomediastinal silhouette is enlarged and stable. Musculoskeletal: No acute osseous pathology. Left shoulder arthroplasty with hardware intact. IMPRESSION: Suboptimal technique with poor visualization of the lung bases. Cardiomegaly with pulmonary vascular congestion suggested.
[2023-04-08 16:34] LABS: Basophils % (A) 1 %; Eosinophils # (A) 0.2 k/uL (0-0.7); Eosinophils % (A) 4 %; HCT 43.8 % (39.0-53.0); HGB 14.8 gm/dL (13.0-17.5); Lymphocytes # (A) 1.9 k/uL (1.0-4.8); Lymphocytes % (A) 32 %; MCH 32.5 pg (25.0-35.0); MCHC 33.9 g/dL (31.0-37.0); Mean Platelet Volume 8.7; Monocytes # (A) 0.6 k/uL (0-1.0); Monocytes % (A) 10 %; Neutrophils # (A) 3.1 k/uL (1.3-7.7); Neutrophils % (A) 52 %; Platelet Count 139 k/uL (150-450); RBC 4.56 m/uL (4.30-5.90); RDW 13.7 % (11.5-15.5); WBC 5.9 k/uL (3.8-10.6)
[2023-04-08 16:40] LABS: Partial Thromboplastin Time 25.6 sec (22.0-30.0); Prothrombin Time 11.3 sec (10.0-12.5)
[2023-04-08] MEDS ORDERED: SODIUM CHLORIDE 0.9% 1,000 ML IV STA (17:33)
[2023-04-08] MEDS ORDERED: SODIUM CHLORIDE 0.9% 500 ML 500 ML IV STA (17:33)
[2023-04-08] MEDS ORDERED: SODIUM CHLORIDE 0.9% 500 ML 500 ML IV ONE (17:33)
[2023-04-08] MEDS ORDERED: ACETAMINOPHEN TAB 325 MG TAB PO PRN (17:39)
[2023-04-08] MEDS ORDERED: NALOXONE 0.4 MG/ML 1 ML VIAL IV PRN (17:39)
[2023-04-08] MEDS ORDERED: MORPHINE SULFATE 4 MG/ML SYRINGE IV PRN (17:39)
[2023-04-08] MEDS ORDERED: ONDANSETRON 4 MG/2 ML VIAL IVP PRN (17:39)
[2023-04-08] MEDS ORDERED: DEXAMETHASONE SOD PHOSPHATE 10 MG/ML 1 ML VIAL IVP STA (17:43)
[2023-04-08] MEDS ORDERED: ACETAMINOPHEN IV (For NPO) 1,000 MG in EMPTY BAG 1 BAG IVPB STA (17:44)
[2023-04-08 17:48] LABS: ALT 41 U/L (4-49); African American GFR (CKD) 29 (>60 ml/min/1.73 sqM); Albumin 3.1 g/dL (3.5-5.0); Anion Gap 11 mmol/L; Blood Urea Nitrogen 39 mg/dL (9-20); C Reactive Protein 5.5 mg/dL (<1.0); Calcium 8.3 mg/dL (8.4-10.2); Carbon Dioxide 21 mmol/L (22-30); Chloride 102 mmol/L (98-107); Glucose 159 mg/dL (74-99); Non-African American GFR(CKD) 25 (>60 ml/min/1.73 sqM); Sodium 134 mmol/L (137-145); Total Bilirubin 1.5 mg/dL (0.2-1.3)
[2023-04-08 17:54] LABS: NT-Pro-B-Type Natriuretic Pept 394 pg/mL
[2023-04-08 18:03] LABS: AST 51 U/L (17-59); Alkaline Phosphatase 61 U/L (38-126); LDH 243 U/L (120-246); Potassium 4.9 mmol/L (3.5-5.1)
[2023-04-08] MEDS ORDERED: IBUPROFEN IV 800 MG in SODIUM CHLORIDE 0.9% 250 ML IV ONE (18:10)
[2023-04-08] MEDS ORDERED: HEPARIN SODIUM 1,000 UN/ML (10ML VL) IV ONE (18:21)
[2023-04-08] MEDS ORDERED: HEPARIN SODIUM 1,000 UN/ML (10ML VL) IV PRN (18:21)
[2023-04-08] MEDS: DEXAMETHASONE SOD PHOSPHATE 4 MG/ML 1 ML VIAL IVP SCH ×2 (18:35→23:56)
[2023-04-08] MEDS ORDERED: HEPARIN SOD,PORK IN 0.45% NACL 25,000 UNIT in 0.45% NACL 1 250ML.BAG IV SCH (19:00)
[2023-04-09] MEDS: DEXAMETHASONE SOD PHOSPHATE 4 MG/ML 1 ML VIAL IVP SCH ×2 (06:32→14:36)
--- NOTE | 2023-04-09 09:06 | NM ---
EXAMINATION TYPE: NM pul perfusion DATE OF EXAM: 04/09/2023 COMPARISON: Chest radiograph 04/08/2023, CTA chest 12/03/2022 CLINICAL INDICATION: Male, 88 years old with history of PE; Following administration of 5.5 mCi Tc 99m MAA. Images obtained post injection. FINDINGS: The initial flow demonstrates no evidence of any flow abnormalities. There is symmetrical and homogen ous flow to the lung arriaga bilaterally. IMPRESSION: PE absent by perfusion only modified PIOPED II criteria.
[2023-04-09 09:57] LABS: Basophils % (A) 0 %; Eosinophils % (A) 1 %; HCT 48.7 % (39.0-53.0); HGB 16.2 gm/dL (13.0-17.5); Lymphocytes # (A) 0.9 k/uL (1.0-4.8); Lymphocytes % (A) 19 %; MCH 32.1 pg (25.0-35.0); MCHC 33.2 g/dL (31.0-37.0); MCV 96.6 fL (80.0-100.0); Monocytes # (A) 0.1 k/uL (0-1.0); Monocytes % (A) 3 %; Neutrophils # (A) 3.7 k/uL (1.3-7.7); Neutrophils % (A) 77 %; Platelet Count 146 k/uL (150-450); RBC 5.05 m/uL (4.30-5.90); RDW 13.6 % (11.5-15.5); WBC 4.8 k/uL (3.8-10.6)
--- NOTE | 2023-04-09 10:17 | US ---
EXAMINATION TYPE: US venous doppler duplex LE BI DATE OF EXAM: 04/08/2023 6:23 PM COMPARISON: NONE CLINICAL INDICATION: Male, 88 years old with history of dvt; SIDE PERFORMED: Bilateral TECHNIQUE: The lower extremity deep venous system is examined utilizing real time linear array sonog bill with graded compression, doppler sonography and color-flow sonography. VESSELS IMAGED: Common Femoral Vein Deep Femoral Vein Greater Saphenous Vein * Femoral Vein Popliteal Vein Small Saphenous Vein * Proximal Calf Veins (* superficial vessels) Grayscale, color doppler, spectral doppler imaging performed of the deep veins of the lower extremiti es. There is normal flow, compressibility, vascular waveforms. Right Leg: Negative for DVT Left Leg: Negative for DVT IMPRESSION: No deep venous thrombosis of the bilateral lower extremities.
[2023-04-09 13:28] LABS: ALT 45 U/L (4-49); African American GFR (CKD) 49 (>60 ml/min/1.73 sqM); Albumin 3.6 g/dL (3.5-5.0); Anion Gap 14 mmol/L; Blood Urea Nitrogen 36 mg/dL (9-20); Calcium 8.5 mg/dL (8.4-10.2); Carbon Dioxide 16 mmol/L (22-30); Chloride 105 mmol/L (98-107); Glucose 192 mg/dL (74-99); Non-African American GFR(CKD) 43 (>60 ml/min/1.73 sqM); Phosphorus 3.4 mg/dL (2.5-4.5); Sodium 135 mmol/L (137-145); Total Bilirubin 1.1 mg/dL (0.2-1.3); Total Protein 6.9 g/dL (6.3-8.2)
[2023-04-09 13:42] LABS: AST 62 U/L (17-59); Alkaline Phosphatase 75 U/L (38-126); Potassium 4.7 mmol/L (3.5-5.1)
[2023-04-09] MEDS ORDERED: IPRATROPIUM-ALBUTEROL 3 ML NEB INHALATION PRN (14:44)
[2023-04-09] MEDS ORDERED: guaiFENesin SYRUP 100MG/5ML 200 MG/10 ML CUP PO PRN (14:44)
[2023-04-09] MEDS ORDERED: ACETAMINOPHEN TAB 325 MG TAB PO PRN (14:44)
[2023-04-09] MEDS ORDERED: ARTIFICIAL TEARS-HYPROMELLOSE DROPS 15 ML BTL BOTH EYES PRN (14:44)
[2023-04-09] MEDS ORDERED: ALBUTEROL HFA INHALER INHALATION PRN (16:12)
[2023-04-09] MEDS: HYDROCORTISONE 10 MG TAB PO SCH (17:55)
[2023-04-09] MEDS: RIVAROXABAN 2.5 MG TABLET PO SCH (17:55)
[2023-04-09] MEDS: ZINC SULFATE 220 MG CAP PO SCH (17:55)
[2023-04-09] MEDS: FERROUS SULFATE 325 MG TAB PO SCH (17:55)
[2023-04-09] MEDS: RANOLAZINE 500 MG TAB.ER.12H PO SCH (17:55)
[2023-04-09] MEDS: ASCORBIC ACID 500 MG TAB PO SCH (17:56)
[2023-04-09] MEDS: lisinopriL 10 MG TAB PO SCH (17:56)
[2023-04-09 20:16] LABS: Glucose,Whole Blood 207 mg/dL (70-110)
[2023-04-09] MEDS: FAMOTIDINE 20 MG TAB PO SCH (21:15)
[2023-04-09] MEDS: MELATONIN 3 MG TABLET PO SCH (21:15)
[2023-04-09] MEDS: MONTELUKAST 10 MG TAB PO SCH (21:15)
[2023-04-09] MEDS: FINASTERIDE 5 MG TAB PO SCH (21:15)
[2023-04-09] MEDS: TAMSULOSIN 0.4 MG CAP.ER.24H PO SCH (21:15)
--- NOTE | 2023-04-09 22:05 | P.CONS ---
History of Present Illness - Reason for Consult Consult date: 04/09/23 covid 19 Requesting physician: Diomedes Allred - Chief Complaint Weakness and shortness of breath x few days - History of Present Illness Patient is 88-year-old male with a past medical history significant for hypertension osteoarthritis hypothyroidism reflux patient presenting to the hospital for evaluation of increasing shortness of breath and weakness patient symptom has been going on for about 3 days and apparently patient tested positive for COVID in the outpatient setting patient denies any high-grade fever he did have some chills mild sore throat patient denies having any chest pain complaining of some shortness of breath did have a cough mild to moderate intensity but no significant sputum production no pleuritic chest pain no nausea vomiting no abdominal pain or diarrhea patient on presentation to the hospital was afebrile and no fever have recorded subsequently patient was mildly hypoxic and is currently on a 3 L nasal cannula oxygen patient did have a normal white count BUN/creatinine has been mildly elevated liver enzymes are normal procalcitonin mildly elevated 0.18 blood cultures obtained currently pending patient did have a chest x-ray cardiomegaly with pulmonary vascular congestion pulmonary pulm perfusion scan was negative for PE lower extremity Doppler was negative for DVT patient has been admitted to the hospital he was started on dexamethasone zinc Xarelto infectious disease was consulted for further management Review of Systems Positive point and negatives has been mentioned in the HPI, complete review of systems was performed and all other systems are negative Past Medical History Past Medical History: GERD/Reflux, Hypertension, Osteoarthritis (OA), Thyroid Disorder Additional Past Medical History / Comment(s): glaucoma yelitza eyes, left rotator cuff torn, back pain History of Any Multi-Drug Resistant Organisms: None Reported Past Surgical History: Appendectomy, Cholecystectomy, Orthopedic Surgery, Tonsillectomy Additional Past Surgical History / Comment(s): yelitza shoulder arthroscopy, eye sx for glaucoma, a benign pituitary tumor removed at [facility]. Past Anesthesia/Blood Transfusion Reactions: No Reported Reaction Past Psychological History: No Psychological Hx Reported Smoking Status: Never smoker Past Alcohol Use History: None Reported Past Drug Use History: None Reported - Past Family History Mother Family Medical History: Congestive Heart Failure (CHF) Additional Family Medical History / Comment(s): age 95 Father Family Medical History: No Reported History Additional Family Medical History / Comment(s): " from old age at age 90" Medications and Allergies Home Medications Medication Instructions Recorded Confirmed Type Ferrous Sulfate [Iron (65 MG 325 mg PO DAILY@1700 06/03/20 04/08/23 History Elemental)] Finasteride [Proscar] 5 mg PO HS 06/03/20 04/08/23 History Acetaminophen Tab [Tylenol] 650 mg PO Q4H PRN 10/22/20 04/08/23 History Tamsulosin [Flomax] 0.4 mg PO HS 10/22/20 04/08/23 History Aspirin EC [Ecotrin Low Dose] 81 mg PO DAILY@0800 11/02/20 04/08/23 History Magnesium Hydroxide [Milk of 7,200 mg PO Q48H PRN 11/02/20 04/08/23 History Magnesia Concentrate] Nitroglycerin Sl Tabs [Nitrostat] 0.4 mg SL Q5M PRN 11/02/20 04/08/23 History bisacodyL 10 mg RECTAL DAILY PRN 11/02/20 04/08/23 History Famotidine [Pepcid] 20 mg PO HS 05/11/21 04/08/23 History Levothyroxine Sodium [Synthroid] 137 mcg PO SUMOTUWETHFR@0800 05/11/21 04/08/23 History Ranolazine [Ranexa] 500 mg PO BID@0800,1700 05/11/21 04/08/23 History Dapagliflozin Propanediol [Farxiga] 10 mg PO DAILY@0800 06/10/21 04/08/23 History Na Phos,M-B/Na Phos,Di-Ba [Fleet 133 ml RECTAL DAILY PRN 06/10/21 04/08/23 History Adult] Isosorbide Mononitrate ER [Imdur] 60 mg PO DAILY@0800 tablet 06/11/21 04/08/23 Rx Cetirizine HCl [Zyrtec] 10 mg PO DAILY@0800 12/02/22 04/08/23 History Dextran/Hypromellose/Glycerin 2 drops BOTH EYES QID PRN 12/02/22 04/08/23 History [Artificial Tears 0.1-0.2-0.3%] Dulaglutide [Trulicity] 1.5 mg SQ FR@0800 12/02/22 04/08/23 History Melatonin 3 mg PO HS 12/02/22 04/08/23 History Metoprolol Succinate (ER) [Toprol 50 mg PO DAILY@0800 12/02/22 04/08/23 History XL] Montelukast [Singulair] 10 mg PO HS 12/02/22 04/08/23 History lisinopriL [Zestril] 10 mg PO BID@0800,1700 12/02/22 04/08/23 History Ipratropium-Albuterol Nebulize 3 ml INHALATION RT-Q6H PRN 12/28/22 04/08/23 History [Duoneb 0.5 mg-3 mg/3 ml Soln] guaiFENesin [guaiFENesin Oral 200 mg PO Q6H PRN 12/28/22 04/08/23 History Solution] Hydrocortisone [Cortef] 10 mg PO DAILY@1700 tab 01/01/23 04/08/23 Rx Hydrocortisone [Cortef] 30 mg PO DAILY@0800 tab 01/01/23 04/08/23 Rx Ascorbic Acid [Vitamin C] 1,000 mg PO DAILY 04/08/23 04/08/23 History Cholecalciferol [Vitamin D3 (25 50 mcg PO DAILY 04/08/23 04/08/23 History Mcg = 1000 Iu)] INSULIN ASPART (NovoLOG) [NovoLOG See Protocol SQ ACHS 04/08/23 04/08/23 History (formulary)] Metformin Er 500mg 1 tab PO DAILY 04/08/23 04/08/23 History Rivaroxaban [Xarelto] 2.5 mg PO BID@0800,1700 04/08/23 04/08/23 History Zinc Sulfate [Orazinc] 220 mg PO DAILY 04/08/23 04/08/23 History amLODIPine [Norvasc] 10 mg PO DAILY tab 04/14/23 Rx Allergies Allergy/AdvReac Type Severity Reaction Status Date / Time Dviuvmy-KCB-EoO Reductase Allergy Unknown Verified 04/08/23 16:38 Inhibitor [Vwvhble-Gmi-Dnv Reductase Inhibitor] Physical Exam Vitals: Vital Signs Temp Pulse Pulse Resp BP BP Pulse Ox 04/09/23 08:26 98 04/09/23 07:50 97.3 F L 80 16 168/92 98 04/09/23 01:02 98.1 F 68 23 127/74 93 L 04/08/23 20:00 98.7 F 62 17 110/58 93 L 04/08/23 19:20 64 22 82/46 96 04/08/23 19:10 61 24 118/58 97 04/08/23 19:00 66 12 90/46 96 04/08/23 18:50 63 22 90/46 96 04/08/23 18:40 63 25 H 89/49 96 04/08/23 18:30 62 23 102/66 96 04/08/23 18:00 63 24 91/43 95 04/08/23 17:30 67 24 97/55 94 L 04/08/23 17:00 67 27 H 84/48 93 L 04/08/23 16:30 65 24 84/37 93 L 04/08/23 16:00 64 23 77/38 94 L 04/08/23 15:40 65 27 H 80/43 95 04/08/23 15:30 32 H 04/08/23 15:28 68 30 H 72/39 94 L Intake and Output 04/08/23 04/09/23 04/09/23 22:59 06:59 14:59 Intake Total 79.333 Balance 79.333 Intake: Intake, IV Titration 79.333 Amount Heparin Sod,Pork in 0.45% 79.333 NaCl 25,000 unit In 0.45 % NaCl 1 250ml.bag @ 9. 585 UNITS/KG/HR 10 mls/hr IV .Q24H [facility] Rx#: [id number] Other: Voiding Method Diaper Incontinent # Voids 1 Weight 104.326 kg GENERAL DESCRIPTION: Elderly male lying in bed, no distress. No tachypnea or accessory muscle of respiration use. HEENT: Shows Pallor , no scleral icterus. Oral mucous membrane is dry. No pharyngeal erythema or thrush NECK: Trachea central, no thyromegaly. LUNGS: Unlabored breathing. Decreased intensity of breath sounds. HEART: S1, S2, regular rate and rhythm. No loud murmur ABDOMEN: Soft, no tenderness , EXTREMITIES: No edema of feet. SKIN: No rash, no masses palpable. NEUROLOGICAL: The patient is awake, alert, oriented x3, mood and affect normal. Results CBC & Chem 7: 04/12/23 07:25 04/12/23 07:25 Labs: Abnormal Lab Results - Last 24 Hours (Table) 04/08/23 04/08/23 04/08/23 Range/Units 15:30 15:43 15:43 Plt Count 139 L (150-450) k/uL Lymphocytes # (1.0-4.8) k/uL APTT (22.0-30.0) sec D-Dimer 1.48 H (<0.60) mg/L FEU Sodium 134 L (137-145) mmol/L Carbon Dioxide 21 L (22-30) mmol/L BUN 39 H (9-20) mg/dL Creatinine 2.28 H (0.66-1.25) mg/dL Glucose 159 H (74-99) mg/dL Calcium 8.3 L (8.4-10.2) mg/dL Total Bilirubin 1.5 H (0.2-1.3) mg/dL C-Reactive Protein 5.5 H (<1.0) mg/dL Total Protein 6.0 L (6.3-8.2) g/dL Albumin 3.1 L (3.5-5.0) g/dL Procalcitonin (0.02-0.09) ng/mL 04/08/23 04/09/23 04/09/23 Range/Units 15:43 00:47 09:26 Plt Count 146 L (150-450) k/uL Lymphocytes # 0.9 L (1.0-4.8) k/uL APTT 38.2 H (22.0-30.0) sec D-Dimer (<0.60) mg/L FEU Sodium (137-145) mmol/L Carbon Dioxide (22-30) mmol/L BUN (9-20) mg/dL Creatinine (0.66-1.25) mg/dL Glucose (74-99) mg/dL Calcium (8.4-10.2) mg/dL Total Bilirubin (0.2-1.3) mg/dL C-Reactive Protein (<1.0) mg/dL Total Protein (6.3-8.2) g/dL Albumin (3.5-5.0) g/dL Procalcitonin 0.18 H (0.02-0.09) ng/mL Assessment and Plan (1) COVID-19 Status: Acute Code(s): U07.1 - COVID-19 SNOMED Code(s): 772790606 Plan: 1patient present to hospital with increased shortness of breath and cough and this patient has been diagnosed with COVID-19 symptom has been going on for about 3 days patient did have mild hypoxemia on presentation the hospital chest x-ray with some pulmonary vascular congestion did not mention any groundglass opacity typical of COVID-19 pneumonia 2-patient to continue with the dexamethasone zinc ascorbic acid and Xarelto 3-droplet isolation We will follow on clinical condition and cultures to further adjust medication if needed Thank you for this consultation we will follow the patient along with you Dictation was produced using [employer] dictation software. please excuse any grammatical, word or spelling errors. Time with Patient: Greater than 30
[2023-04-10] MEDS ORDERED: ZINC OXIDE PASTE (Z-GUARD) 1 APPLIC APPLIC TOPICAL PRN (06:00)
[2023-04-10 06:12] LABS: Glucose,Whole Blood 212 mg/dL (70-110)
--- NOTE | 2023-04-10 08:47 | P.HPIM ---
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 Patient is a long-term resident at [facility]. patient was diagnosed with COVID-19 few days ago at the [facility] and e was started on Paxlovid along with zinc, vitamin D and vitamin C and today he became hypotensive and had a n episode of unresponsivness and was shipped to the ER at [facility] where he was started on IVF and he was found to have ERNESTO due to acute kidney injury and was admitted to the hospital for evaluation and treatment and ID consult was obtained. D-Dimer was elevated and he was started on Heparin drip till VQ scan is done REVIEW OF SYSTEMS: Constitutional: No documented fever, no chills, no night sweats. No weight change. Positive for weakness, positive for fatigue no lethargy. No daytime sleepiness. HEENT: positive for headache. No blurred vision or double vision, no loss of vision. No loss of Hearing, no ringing in the ears, no dizziness. No nasal drainage or congestion. No epistaxis. No sore throat. Lungs: Denies for shortness of breath, positive for cough, no sputum production. No wheezing. Reports dyspnea with activity. Cardiovascular: Denies for chest pain, no lower extremity edema. No palpitations. No paroxysmal nocturnal dyspnea. No orthopnea. No lightheadedness or dizziness. Reports 1 syncopal episode. Abdominal: Reports no abdominal pain. No nausea, vomiting 1 episode. No diarrhea. No constipation. No bloody or tarry stools reports loss of appetite. Genitourinary: No dysuria, increased frequency, urgency. No urinary retention. Positive for nocturia Musculoskeletal: No myalgias. No muscle weakness, no gait dysfunction, no frequent falls. No back pain. No neck pain. Integumentary: No wounds, no lesions. positive for Proteus. positive for bruising. No change in hair or nails. Neurologic: No aphasia. No facial droop. Reported change in mentation. No head injury. No headache. No paralysis. No paresthesia. Psychiatric: No depression. Positive for anxiety. No mood swings. Endocrine: No abnormal blood sugars. No weight change. PAST MEDICAL HISTORY: Hypertension and hypertensive cardiovascular disease. Hyperlipidemia. Diabetes mellitus type 2. Hypothyroidism. Osteoarthritis. Insomnia Pituitary macroadenoma Enlarged prostate. Adrenal insufficiency. CAD. PAST SURGICAL HISTORY: Appendectomy Cholecystectomy Transphenoidal pituitary tumor resection 2019. Bilateral shoulder arthroscopic surgery. Left shoulder rotator cuff tear repair Left total shoulder recerse arthroplasty. Glaucoma surgery. SOCIAL HISTORY: patient denies any history of smoking, no history of drinking, no history of drug use or abuse, currently resides at [facility] with his . FAMILY HISTORY: father at the age of 90 from old age, mother at age of 95 from congestive heart failure, patient has one brother who in a car accident and he has 2 sons no major medical problems. PHYSICAL EXAMINATION: General: This is an 87-year-old male who is laying down in bed in minimal distress HEENT: Head is atraumatic, normocephalic, pupils were equal round reactive to light and recommendation, extraocular muscle movement were intact, sclera nonicteric, conjunctivae were pale, mucous membranes of the mouth are somewhat dry. Neck: Supple, no JVP, normal carotid upstroke bilaterally, no lymphadenopathy. Chest: Decreased breath sounds at the bases, few rhonchi, no extremity wheezes, no chest wall tenderness, no intercostal retractions. Heart: First heart sound is normal, second heart sounds normal there is systolic ejection murmur 2/6 located in the left sternal border. Abdomen: Soft, nontender, nondistended, positive bowel sounds. Extremities: There is no edema no calf tenderness DP +2 bilaterally. Neurologic examination: Patient is awake alert and oriented X3 , cranial nerves II-12 appear grossly intact, muscle power were 5 out of 5 in upper extremities and 5 out of 5 in bilateral lower extremities, deep tendon reflexes normal bilaterally. ASSESSMENT AND PLAN: 1. COVID-19 with hypotension due to ERNESTO and SIRS. we will continue with IV fluid and we will start Decadron 6 mg IVP daily and we will continue with monitoring, ID consult, continue with droplet isolation 2. Acute kidney injury due to acute tubular necrosis. Continue IV fluid resuscitation in the form of normal saline, monitor the patient CMP the next 24 hours. 4 . Hypertension and hypertensive cardiovascular disease. Continue patient on amlodipine 5 mg daily, lisinopril 10 mg orally at bedtime, monitor the patient blood pressure very closely 5. Diabetes mellitus type 2 . Hold metformin, hold Farxiga and continue with SSI 6. Mixed hyperlipidemia. Patient is intolerant to statins in general, monitor the patien lipid panel, keep LDL cholesterol 55-70, he may need to go on PCSK 9-INH. 7. 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 Continue solu-cortef 50 mg IVP q 8 h. 8. Hypothyroidism. Continue Synthroid 137 MCG orally once every day. 9. Enlarged prostate. Continue Flomax 0.4 mg orally once every day and finasteride 5 mg orally once every day. 10. Generalized anxiety disorder. Continue patient on Xanax 0.25 mg orally at bedtime as needed. 11. DVT prophylaxis. we will continue with heparin drip and then will transition into Xarelto if VQ scan is negative 12. GI prophylaxis. Continue patient on Protonix 40 mg orally once every day. 13. Patient admitted to the hospital for a minimum of 2 night stay. 14. Patient is full code Past Medical History Past Medical History: GERD/Reflux, Hypertension, Osteoarthritis (OA), Thyroid Disorder Additional Past Medical History / Comment(s): glaucoma yelitza eyes, left rotator cuff torn, back pain History of Any Multi-Drug Resistant Organisms: None Reported Past Surgical History: Appendectomy, Cholecystectomy, Orthopedic Surgery, Tonsillectomy Additional Past Surgical History / Comment(s): yelitza shoulder arthroscopy, eye sx for glaucoma, a benign pituitary tumor removed at [facility]. Past Anesthesia/Blood Transfusion Reactions: No Reported Reaction Past Psychological History: No Psychological Hx Reported Smoking Status: Never smoker Past Alcohol Use History: None Reported Past Drug Use History: None Reported - Past Family History Mother Family Medical History: Congestive Heart Failure (CHF) Additional Family Medical History / Comment(s): age 95 Father Family Medical History: No Reported History Additional Family Medical History / Comment(s): " from old age at age 90" Medications and Allergies Home Medications Medication Instructions Recorded Confirmed Type Ferrous Sulfate [Iron (65 MG 325 mg PO DAILY@1700 06/03/20 04/08/23 History Elemental)] Finasteride [Proscar] 5 mg PO HS 06/03/20 04/08/23 History Acetaminophen Tab [Tylenol] 650 mg PO Q4H PRN 10/22/20 04/08/23 History Tamsulosin [Flomax] 0.4 mg PO HS 10/22/20 04/08/23 History Aspirin EC [Ecotrin Low Dose] 81 mg PO DAILY@0800 11/02/20 04/08/23 History Magnesium Hydroxide [Milk of 7,200 mg PO Q48H PRN 11/02/20 04/08/23 History Magnesia Concentrate] Nitroglycerin Sl Tabs [Nitrostat] 0.4 mg SL Q5M PRN 11/02/20 04/08/23 History bisacodyL 10 mg RECTAL DAILY PRN 11/02/20 04/08/23 History Famotidine [Pepcid] 20 mg PO HS 05/11/21 04/08/23 History Levothyroxine Sodium [Synthroid] 137 mcg PO SUMOTUWETHFR@0800 05/11/21 04/08/23 History Ranolazine [Ranexa] 500 mg PO BID@0800,1700 05/11/21 04/08/23 History Dapagliflozin Propanediol [Farxiga] 10 mg PO DAILY@0800 06/10/21 04/08/23 History Na Phos,M-B/Na Phos,Di-Ba [Fleet 133 ml RECTAL DAILY PRN 06/10/21 04/08/23 History Adult] Isosorbide Mononitrate ER [Imdur] 60 mg PO DAILY@0800 tablet 06/11/21 04/08/23 Rx Cetirizine HCl [Zyrtec] 10 mg PO DAILY@0800 12/02/22 04/08/23 History Dextran/Hypromellose/Glycerin 2 drops BOTH EYES QID PRN 12/02/22 04/08/23 History [Artificial Tears 0.1-0.2-0.3%] Dulaglutide [Trulicity] 1.5 mg SQ FR@0800 12/02/22 04/08/23 History Melatonin 3 mg PO HS 12/02/22 04/08/23 History Metoprolol Succinate (ER) [Toprol 50 mg PO DAILY@0800 12/02/22 04/08/23 History XL] Montelukast [Singulair] 10 mg PO HS 12/02/22 04/08/23 History lisinopriL [Zestril] 10 mg PO BID@0800,1700 12/02/22 04/08/23 History Ipratropium-Albuterol Nebulize 3 ml INHALATION RT-Q6H PRN 12/28/22 04/08/23 History [Duoneb 0.5 mg-3 mg/3 ml Soln] guaiFENesin [guaiFENesin Oral 200 mg PO Q6H PRN 12/28/22 04/08/23 History Solution] Hydrocortisone [Cortef] 10 mg PO DAILY@1700 tab 01/01/23 04/08/23 Rx Hydrocortisone [Cortef] 30 mg PO DAILY@0800 tab 01/01/23 04/08/23 Rx Ascorbic Acid [Vitamin C] 1,000 mg PO DAILY 04/08/23 04/08/23 History Cholecalciferol [Vitamin D3 (25 50 mcg PO DAILY 04/08/23 04/08/23 History Mcg = 1000 Iu)] INSULIN ASPART (NovoLOG) [NovoLOG See Protocol SQ ACHS 04/08/23 04/08/23 History (formulary)] Metformin Er 500mg 1 tab PO DAILY 04/08/23 04/08/23 History Rivaroxaban [Xarelto] 2.5 mg PO BID@0800,1700 04/08/23 04/08/23 History Zinc Sulfate [Orazinc] 220 mg PO DAILY 04/08/23 04/08/23 History Allergies Allergy/AdvReac Type Severity Reaction Status Date / Time Tagyvfo-NXS-HdX Reductase Allergy Unknown Verified 04/08/23 16:38 Inhibitor [Whtaoyh-Qzi-Oci Reductase Inhibitor] Physical Exam Vitals: Vital Signs Pulse Resp BP Pulse Ox 04/08/23 19:20 64 22 82/46 96 04/08/23 19:10 61 24 118/58 97 04/08/23 19:00 66 12 90/46 96 04/08/23 18:50 63 22 90/46 96 04/08/23 18:40 63 25 H 89/49 96 04/08/23 18:30 62 23 102/66 96 04/08/23 18:00 63 24 91/43 95 04/08/23 17:30 67 24 97/55 94 L 04/08/23 17:00 67 27 H 84/48 93 L 04/08/23 16:30 65 24 84/37 93 L 04/08/23 16:00 64 23 77/38 94 L 04/08/23 15:40 65 27 H 80/43 95 04/08/23 15:28 68 30 H 72/39 94 L Intake and Output 04/08/23 04/08/23 04/08/23 06:59 14:59 22:59 Other: Weight 104.326 kg Results CBC & Chem 7: 04/09/23 09:26 04/09/23 12:47 Labs: Abnormal Lab Results - Last 24 Hours (Table) 04/08/23 04/08/23 04/08/23 Range/Units 15:30 15:43 15:43 Plt Count 139 L (150-450) k/uL D-Dimer 1.48 H (<0.60) mg/L FEU Sodium 134 L (137-145) mmol/L Carbon Dioxide 21 L (22-30) mmol/L BUN 39 H (9-20) mg/dL Creatinine 2.28 H (0.66-1.25) mg/dL Glucose 159 H (74-99) mg/dL Calcium 8.3 L (8.4-10.2) mg/dL Total Bilirubin 1.5 H (0.2-1.3) mg/dL C-Reactive Protein 5.5 H (<1.0) mg/dL Total Protein 6.0 L (6.3-8.2) g/dL Albumin 3.1 L (3.5-5.0) g/dL
--- NOTE | 2023-04-10 08:50 | P.PN ---
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 Patient is a long-term resident at [facility]. patient was diagnosed with COVID-19 few days ago at the [facility] and e was started on Paxlovid along with zinc, vitamin D and vitamin C and today he became hypotensive and had a n episode of unresp onsivness and was shipped to the ER at [facility] where he was started on IVF and he was found to have ERNESTO due to acute kidney injury and was admitted to the hospital for evaluation and treatment and ID consult was obtained. His D- Dimer was elevated he was started on heparin drip till VD scan is back 04/09: Patient is more awake today and he is able to carry a conversation, less confused , has a urinary incontinence, no chest pain or shortness of breath, no new issues, multiple bruises on both arms, no chest pain , had VQ scan withlow probability for PE so Heparin drip was discontinued and he will be transitioned to Xarelto 2.5 mg po bid REVIEW OF SYSTEMS: Constitutional: No documented fever, no chills, no night sweats. No weight change. Positive for weakness, positive for fatigue no lethargy. No daytime sleepiness. HEENT: positive for headache. No blurred vision or double vision, no loss of vision. No loss of Hearing, no ringing in the ears, no dizziness. No nasal d rainage or congestion. No epistaxis. No sore throat. Lungs: Denies for shortness of breath, positive for cough, no sputum production. No wheezing. Reports dyspnea with activity. Cardiovascular: Denies for chest pain, no lower extremity edema. No palpitations. No paroxysmal nocturnal dyspnea. No orthopnea. No lightheadedness or dizziness. Reports 1 syncopal episode. Abdominal: Reports no abdominal pain. No nausea, vomiting 1 episode. No diarrhea. No constipation. No bloody or tarry stools reports loss of appetite. Genitourinary: No dysuria, increased frequency, urgency. No urinary retention. Positive for nocturia Musculoskeletal: No myalgias. No muscle weakness, no gait dysfunction, no frequent falls. No back pain. No neck pain. Integumentary: No wounds, no lesions. positive for Proteus. positive for bruising. No change in hair or nails. Neurologic: No aphasia. No facial droop. Reported change in mentation. No head injury. No headache. No paralysis. No paresthesia. Psychiatric: No depression. Positive for anxiety. No mood swings. Endocrine: No abnormal blood sugars. No weight change. PHYSICAL EXAMINATION: General: This is an 87-year-old male who is laying down in bed in minimal distress HEENT: Head is atraumatic, normocephalic, pupils were equal round reactive to light and recommendation, extraocular muscle movement were intact, sclera nonicteric, conjunctivae were pale, mucous membranes of the mouth are somewhat dry. Neck: Supple, no JVP, normal carotid upstroke bilaterally, no lymphadenopathy. Chest: Decreased breath sounds at the bases, few rhonchi, no extremity wheezes, no chest wall tenderness, no intercostal retractions. Heart: First heart sound is normal, second heart sounds normal there is systolic ejection murmur 2/6 located in the left sternal border. Abdomen: Soft, nontender, nondistended, positive bowel sounds. Extremities: There is no edema no calf tenderness DP +2 bilaterally. Neurologic examination: Patient is awake alert and oriented X3 , cranial nerves II-12 appear grossly intact, muscle power were 5 out of 5 in upper extremities and 5 out of 5 in bilateral lower extremities, deep tendon reflexes normal bilaterally. ASSESSMENT AND PLAN: 1. COVID-19 with hypotension due to ERNESTO and SIRS. we will continue with IV fluid and we will start Decadron 6 mg IVP daily and we will continue with monitoring, ID consult, continue with droplet isolation 2. Acute kidney injury due to acute tubular necrosis. Continue IV fluid resuscitation in the form of normal saline, monitor the patient CMP the next 24 hours. 4 . Hypertension and hypertensive cardiovascular disease. Continue patient on amlodipine 5 mg daily, lisinopril 10 mg orally at bedtime, monitor the patient blood pressure very closely 5. Diabetes mellitus type 2 . Hold metformin, hold Farxiga and continue with SSI 6. Mixed hyperlipidemia. Patient is intolerant to statins in general, monitor the patien lipid panel, keep LDL cholesterol 55-70, he may need to go on PCSK 9- INH. 7. 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 Continue solu-cortef. 8. Hypothyroidism. Continue Synthroid 137 MCG orally once every day. 9. Enlarged prostate. Continue Flomax 0.4 mg orally once every day and finasteride 5 mg orally once every day. 10. Generalized anxiety disorder. Continue patient on Xanax 0.25 mg orally at bedtime as needed. 11. DVT prophylaxis. we will continue with Xarelto 2.5 mg po bid 12. GI prophylaxis. Continue patient on Protonix 40 mg orally once every day. Objective - Vital Signs Vital signs: Vital Signs Temp 97.4 F L 04/09/23 20:00 Pulse 68 04/10/23 04:00 Resp 16 04/10/23 04:00 BP 166/84 04/10/23 04:00 Pulse Ox 93 L 04/10/23 04:00 FiO2 Intake & Output 04/09/23 04/10/23 04/10/23 18:59 06:59 18:59 Weight 104.326 kg Other: Voiding Method Diaper Incontinent # Voids 1 # Bowel Movements 1 - Labs CBC & Chem 7: 04/09/23 09:26 04/09/23 12:47 Labs: Abnormal Lab Results - Last 24 Hours (Table) 04/09/23 04/09/23 04/09/23 Range/Units 09:26 12:47 12:57 Plt Count 146 L (150-450) k/uL Lymphocytes # 0.9 L (1.0-4.8) k/uL APTT 45.6 H (22.0-30.0) sec Sodium 135 L (137-145) mmol/L Carbon Dioxide 16 L (22-30) mmol/L BUN 36 H (9-20) mg/dL Creatinine 1.46 H (0.66-1.25) mg/dL Glucose 192 H (74-99) mg/dL POC Glucose (mg/dL) (70-110) mg/dL AST 62 H (17-59) U/L 04/09/23 04/10/23 Range/Units 20:13 06:11 Plt Count (150-450) k/uL Lymphocytes # (1.0-4.8) k/uL APTT (22.0-30.0) sec Sodium (137-145) mmol/L Carbon Dioxide (22-30) mmol/L BUN (9-20) mg/dL Creatinine (0.66-1.25) mg/dL Glucose (74-99) mg/dL POC Glucose (mg/dL) 207 H 212 H (70-110) mg/dL AST (17-59) U/L Microbiology - Last 24 Hours (Table) 04/08/23 15:38 Blood Culture - Preliminary Blood
[2023-04-10] MEDS: CHOLECALCIFEROL 25 MCG (1000 IU) TABLET PO SCH (08:55)
[2023-04-10] MEDS: ZINC SULFATE 220 MG CAP PO SCH (08:55)
[2023-04-10] MEDS: ISOSORBIDE MONONITRATE ER 60 MG TAB.ER.24H PO SCH (08:55)
[2023-04-10] MEDS: ASCORBIC ACID 500 MG TAB PO SCH (08:55)
[2023-04-10] MEDS: RANOLAZINE 500 MG TAB.ER.12H PO SCH ×2 (08:55→16:46)
[2023-04-10] MEDS: METOPROLOL SUCCINATE (ER) 50 MG TAB.ER.24H PO SCH (08:55)
[2023-04-10] MEDS: lisinopriL 10 MG TAB PO SCH ×2 (08:55→16:46)
[2023-04-10] MEDS: RIVAROXABAN 2.5 MG TABLET PO SCH ×2 (08:56→16:46)
[2023-04-10] MEDS: HYDROCORTISONE 10 MG TAB PO SCH ×2 (08:56→16:47)
[2023-04-10] MEDS: DEXAMETHASONE SOD PHOSPHATE 10 MG/ML 1 ML VIAL IVP SCH (08:56)
--- NOTE | 2023-04-10 11:04 | P.PN ---
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 Patient is a long-term resident at [facility]. patient was diagnosed with COVID-19 few days ago at the [facility] and e was started on Paxlovid along with zinc, vitamin D and vitamin C and today he became hypotensive and had a n episode of unresponsivness and was shipped to the ER at [facility] where he was started on IVF and he was found to have ERNESTO due to acute kidney injury and was admitted to the hospital for evaluation and treatment and ID consult was obtained. His D-Dimer was elevated he was started on heparin drip till VD scan is back 04/09: Patient is more awake today and he is able to carry a conversation, less confused , has a urinary incontinence, no chest pain or shortness of breath, no new issues, multiple bruises on both arms, no chest pain , had VQ scan withlow probability for PE so Heparin drip was discontinued and he will be transitioned to Xarelto 2.5 mg po bid 04/10/2023 Patient lying in bed, mild tachypnea. He talks freely with no accessory respiratory muscles. He was admitted with bilateral pneumonia and confirmed and now is covered with dexamethasone 6 mg daily as well as vitamin C, vitamin D and zinc. Also he is on home dose of Xarelto. He's on home dose of Cortef and Flomax. He is currently on 3 L oxygen via nasal cannula, he was not on oxygen at home. VQ scan was negative for significant pulmonary embolism, does not because of mildly elevated d-dimer 1.48. Chest x-ray showing pulmonary vascular congestion. With cardiomegaly. Objective - Vital Signs Vital signs: Vital Signs Temp 97.4 F L 04/10/23 08:00 Pulse 69 04/10/23 08:00 Resp 18 04/10/23 08:00 BP 145/74 04/10/23 08:00 Pulse Ox 94 L 04/10/23 08:00 FiO2 Intake & Output 04/09/23 04/10/23 04/10/23 18:59 06:59 18:59 Weight 104.326 kg Other: Voiding Method Diaper Diaper Incontinent Incontinent # Voids 1 # Bowel Movements 1 - Exam -GENERAL: The patient is alert and oriented x3, not in any acute distress. Obese HEENT: Pupils are round and equally reacting to light. EOMI. No scleral icterus. No conjunctival pallor. Normocephalic, atraumatic. No pharyngeal erythema. No thyromegaly. CARDIOVASCULAR: S1 and S2 present. No murmurs, rubs, or gallops. PULMONARY: Chest is clear to auscultation, no wheezing , no crackles. ABDOMEN: Soft, nontender, nondistended, normoactive bowel sounds. No palpable organomegaly. MUSCULOSKELETAL: No joint swelling or deformity. EXTREMITIES: No cyanosis, clubbing, 1+ bilateral pitting leg edema NEUROLOGICAL: Gross neurological examination did not reveal any focal deficits. SKIN: No rashes. no petechiae. - Labs CBC & Chem 7: 04/09/23 09:26 04/09/23 12:47 Labs: Abnormal Lab Results - Last 24 Hours (Table) 04/09/23 04/09/23 04/09/23 Range/Units 12:47 12:57 20:13 APTT 45.6 H (22.0-30.0) sec Sodium 135 L (137-145) mmol/L Carbon Dioxide 16 L (22-30) mmol/L BUN 36 H (9-20) mg/dL Creatinine 1.46 H (0.66-1.25) mg/dL Glucose 192 H (74-99) mg/dL POC Glucose (mg/dL) 207 H (70-110) mg/dL AST 62 H (17-59) U/L 04/10/23 Range/Units 06:11 APTT (22.0-30.0) sec Sodium (137-145) mmol/L Carbon Dioxide (22-30) mmol/L BUN (9-20) mg/dL Creatinine (0.66-1.25) mg/dL Glucose (74-99) mg/dL POC Glucose (mg/dL) 212 H (70-110) mg/dL AST (17-59) U/L Microbiology - Last 24 Hours (Table) 04/08/23 15:38 Blood Culture - Preliminary Blood Assessment and Plan Assessment: Bilateral COVID-19 19 pneumonia infection acute hypoxic respiratory failure Hypotension, POA, improved Acute kidney injury, improving History of Gaines disease Hypothyroidism Coronary artery disease been managed medically Plan: Continue with vitamin C, vitamin D and zinc Continue with dexamethasone Patient on Zosyn already Pertinent Cortef and monitor blood pressure Infectious disease team of the case Labs and medication were reviewed.. Continue same treatment. Continue with symptomatic treatment. Resume home medication. Monitor labs and vitals. DVT and GI prophylaxis. Further recommendations as per clinical course of the patient DVT prophylaxis: Xarelto GI Prophylaxis: Pepcid Prognosis is guarded Dr. Abdalla will resume the care of the patient this coming Wednesday
[2023-04-10] MEDS ORDERED: DEXTROSE 50% SYRINGE 50 ML IVP PRN ×2 (11:51)
[2023-04-10 11:53] LABS: Glucose,Whole Blood 365 mg/dL (70-110)
[2023-04-10] MEDS: INSULIN ASPART (NovoLOG) 100 UNIT/ML VIAL SQ SCH ×3 (12:19→20:06)
--- NOTE | 2023-04-10 13:26 | P.PN ---
Subjective Progress Note Date: 04/10/23 Principal diagnosis: Covid 19 Patient is 88-year-old male with a past medical history significant for hypertension osteoarthritis hypothyroidism reflux patient presenting to the hospital for evaluation of increasing shortness of breath and weakness , patient did tested positive for covid 19, patient did have chest x-ray with cardiomegaly and pulmonary vascular congestion pulmonary perfusion scan was negative for PE. On today's evaluation that is04/10/2023, the patient remains to be afebrile, the patient is breathing comfortably on 3 L nasal cannula oxygen, the patient denies any chest pain or worsening cough and no sputum production, patient denies Abdominal pain and no nausea/vomiting or diarrhea No new labs today Objective - Vital Signs Vital signs: Vital Signs Temp 98.1 F 04/10/23 11:21 Pulse 64 04/10/23 11:21 Resp 18 04/10/23 11:21 BP 138/73 04/10/23 11:21 Pulse Ox 93 L 04/10/23 11:21 FiO2 Intake & Output 04/09/23 04/10/23 04/10/23 18:59 06:59 18:59 Weight 104.326 kg Other: Voiding Method Diaper Diaper Incontinent Incontinent # Voids 1 # Bowel Movements 1 - Exam GENERAL DESCRIPTION: An elderly male lying in bed in no distress RESPIRATORY SYSTEM: Unlabored breathing , clear to auscultation anteriorly HEART: S1 S2 regular rate and rhythm , ABDOMEN: Soft , no tenderness EXTREMITIES: No edema feet - Labs CBC & Chem 7: 04/09/23 09:26 04/09/23 12:47 Labs: Abnormal Lab Results - Last 24 Hours (Table) 04/09/23 04/09/23 04/09/23 Range/Units 12:47 12:57 20:13 APTT 45.6 H (22.0-30.0) sec Sodium 135 L (137-145) mmol/L Carbon Dioxide 16 L (22-30) mmol/L BUN 36 H (9-20) mg/dL Creatinine 1.46 H (0.66-1.25) mg/dL Glucose 192 H (74-99) mg/dL POC Glucose (mg/dL) 207 H (70-110) mg/dL AST 62 H (17-59) U/L 04/10/23 04/10/23 Range/Units 06:11 11:40 APTT (22.0-30.0) sec Sodium (137-145) mmol/L Carbon Dioxide (22-30) mmol/L BUN (9-20) mg/dL Creatinine (0.66-1.25) mg/dL Glucose (74-99) mg/dL POC Glucose (mg/dL) 212 H 365 H (70-110) mg/dL AST (17-59) U/L Microbiology - Last 24 Hours (Table) 04/08/23 15:38 Blood Culture - Preliminary Blood Assessment and Plan (1) COVID-19 Current Visit: Yes Status: Acute Code(s): U07.1 - COVID-19 SNOMED Code(s): 666918710 Plan: 1patient present to hospital with increased shortness of breath and cough and this patient has been diagnosed with COVID-19 symptom has been going on for about 3 days patient did have mild hypoxemia on presentation the hospital chest x-ray with some pulmonary vascular congestion did not mention any groundglass opacity typical of COVID-19 pneumonia 2-patient did have some clinical improvement and will continue with the dexamethasone zinc ascorbic acid and Xarelto 3-droplet isolation Dictation was produced using [email or web address] dictation software. please excuse any grammatical, word or spelling errors. Time with Patient: Less than 30
[2023-04-10 16:28] LABS: Glucose,Whole Blood 293 mg/dL (70-110)
[2023-04-10] MEDS: FERROUS SULFATE 325 MG TAB PO SCH (16:46)
[2023-04-10 19:29] LABS: Glucose,Whole Blood 393 mg/dL (70-110)
[2023-04-10] MEDS: TAMSULOSIN 0.4 MG CAP.ER.24H PO SCH (20:06)
[2023-04-10] MEDS: MONTELUKAST 10 MG TAB PO SCH (20:06)
[2023-04-10] MEDS: FINASTERIDE 5 MG TAB PO SCH (20:07)
[2023-04-10] MEDS: FAMOTIDINE 20 MG TAB PO SCH (20:07)
[2023-04-10] MEDS: MELATONIN 3 MG TABLET PO SCH (20:07)
[2023-04-11 05:51] LABS: Glucose,Whole Blood 204 mg/dL (70-110)
[2023-04-11] MEDS: INSULIN ASPART (NovoLOG) 100 UNIT/ML VIAL SQ SCH ×4 (06:32→20:50)
[2023-04-11] MEDS: ISOSORBIDE MONONITRATE ER 60 MG TAB.ER.24H PO SCH (09:01)
[2023-04-11] MEDS: LEVOTHYROXINE 137 MCG TAB PO SCH (09:01)
[2023-04-11] MEDS: RANOLAZINE 500 MG TAB.ER.12H PO SCH ×2 (09:01→16:59)
[2023-04-11] MEDS: HYDROCORTISONE 10 MG TAB PO SCH ×2 (09:01→16:59)
[2023-04-11] MEDS: lisinopriL 10 MG TAB PO SCH ×2 (09:01→16:59)
[2023-04-11] MEDS: CHOLECALCIFEROL 25 MCG (1000 IU) TABLET PO SCH (09:01)
[2023-04-11] MEDS: DEXAMETHASONE SOD PHOSPHATE 10 MG/ML 1 ML VIAL IVP SCH (09:02)
[2023-04-11] MEDS: METOPROLOL SUCCINATE (ER) 50 MG TAB.ER.24H PO SCH (09:02)
[2023-04-11] MEDS: ZINC SULFATE 220 MG CAP PO SCH (09:02)
[2023-04-11] MEDS: ASCORBIC ACID 500 MG TAB PO SCH (09:02)
[2023-04-11] MEDS: RIVAROXABAN 2.5 MG TABLET PO SCH ×2 (09:02→16:59)
--- NOTE | 2023-04-11 11:01 | P.PN ---
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 Patient is a long-term resident at [facility]. patient was diagnosed with COVID-19 few days ago at the [facility] and e was started on Paxlovid along with zinc, vitamin D and vitamin C and today he became hypotensive and had a n episode of unresponsivness and was shipped to the ER at [facility] where he was started on IVF and he was found to have ERNESTO due to acute kidney injury and was admitted to the hospital for evaluation and treatment and ID consult was obtained. His D-Dimer was elevated he was started on heparin drip till VD scan is back 04/09: Patient is more awake today and he is able to carry a conversation, less confused , has a urinary incontinence, no chest pain or shortness of breath, no new issues, multiple bruises on both arms, no chest pain , had VQ scan withlow probability for PE so Heparin drip was discontinued and he will be transitioned to Xarelto 2.5 mg po bid 04/10/2023 Patient lying in bed, mild tachypnea. He talks freely with no accessory respiratory muscles. He was admitted with bilateral pneumonia and confirmed and now is covered with dexamethasone 6 mg daily as well as vitamin C, vitamin D and zinc. Also he is on home dose of Xarelto. He's on home dose of Cortef and Flomax. He is currently on 3 L oxygen via nasal cannula, he was not on oxygen at home. VQ scan was negative for significant pulmonary embolism, does not because of mildly elevated d-dimer 1.48. Chest x-ray showing pulmonary vascular congestion. With cardiomegaly. 04/11/2023 Patient main complaint is fatigue and tiredness, no maternal dyspnea, no mitral diarrhea. His appetite in the middle. This sugar is slightly elevated, blood pressure also is elevated at 170/84, he is on dexamethasone which may contribute to his hypertension, we are going to put him on Norvasc 5 mg 7 days while he is on steroids. He is continued on home dose of lisinopril 10 mg twice daily and metoprolol 50 mg daily. Insulin vitamin C D and zinc. Also he is on home dose of Xarelto. We will resume his farxiga which might help with blood pressures and hyperglycemia. One hemodynamically stable. Check basic metabolic panel tomorrow Objective - Vital Signs Vital signs: Vital Signs Temp 97.7 F 04/11/23 08:59 Pulse 59 L 04/11/23 08:59 Resp 18 04/11/23 08:59 BP 170/84 04/11/23 08:59 Pulse Ox 96 04/11/23 08:59 FiO2 Intake & Output 04/10/23 04/11/23 04/11/23 18:59 06:59 18:59 Intake Total 1200 120 Output Total 650 550 Balance 550 -550 120 Intake: Oral 1200 120 Output: Urine 650 550 Other: Voiding Method Diaper Diaper Diaper Incontinent Incontinent Incontinent # Bowel Movements 2 - Exam -GENERAL: The patient is alert and oriented x3, not in any acute distress. Obese HEENT: Pupils are round and equally reacting to light. EOMI. No scleral icterus. No conjunctival pallor. Normocephalic, atraumatic. No pharyngeal erythema. No thyromegaly. CARDIOVASCULAR: S1 and S2 present. No murmurs, rubs, or gallops. PULMONARY: Chest is clear to auscultation, no wheezing , no crackles. ABDOMEN: Soft, nontender, nondistended, normoactive bowel sounds. No palpable organomegaly. MUSCULOSKELETAL: No joint swelling or deformity. EXTREMITIES: No cyanosis, clubbing, 1+ bilateral pitting leg edema NEUROLOGICAL: Gross neurological examination did not reveal any focal deficits. SKIN: No rashes. no petechiae. - Labs CBC & Chem 7: 04/09/23 09:26 04/09/23 12:47 Labs: Abnormal Lab Results - Last 24 Hours (Table) 04/10/23 04/10/23 04/10/23 Range/Units 11:40 16:21 19:28 POC Glucose (mg/dL) 365 H 293 H 393 H (70-110) mg/dL 04/11/23 Range/Units 05:48 POC Glucose (mg/dL) 204 H (70-110) mg/dL Microbiology - Last 24 Hours (Table) 04/08/23 15:38 Blood Culture - Preliminary Blood Assessment and Plan Assessment: Bilateral COVID-19 19 pneumonia infection acute hypoxic respiratory failure Hypotension, POA, improved Acute kidney injury, improving History of Jarvis disease Hypothyroidism Coronary artery disease been managed medically Plan: Continue with vitamin C, vitamin D and zinc Continue with dexamethasone Patient on Zosyn already Pertinent Cortef and monitor blood pressure Infectious disease team of the case Labs and medication were reviewed.. Continue same treatment. Continue with symptomatic treatment. Resume home medication. Monitor labs and vitals. DVT and GI prophylaxis. Further recommendations as per clinical course of the patient DVT prophylaxis: Xarelto GI Prophylaxis: Pepcid Prognosis is guarded
[2023-04-11 11:40] LABS: Glucose,Whole Blood 239 mg/dL (70-110)
[2023-04-11] MEDS: amLODIPine 5 MG TAB PO SCH (12:07)
[2023-04-11] MEDS: DAPAGLIFLOZIN PROPANEDIOL 10 MG TABLET PO SCH (12:07)
--- NOTE | 2023-04-11 15:42 | P.PN ---
Subjective Progress Note Date: 04/11/23 Principal diagnosis: Covid 19 Patient is 88-year-old male with a past medical history significant for hypertension osteoarthritis hypothyroidism reflux patient presenting to the hospital for evaluation of increasing shortness of breath and weakness , patient did tested positive for covid 19, patient did have chest x-ray with cardiomegaly and pulmonary vascular congestion pulmonary perfusion scan was negative for PE. On today's evaluation that is 04/11/2023, the patient denies any fever or chills, the patient is breathing comfortably on 3 L nasal cannula supplemental oxygen, the patient denies any chest pain or worsening cough and no sputum production, patient denies nausea/vomiting or diarrhea and no abdominal pain No new labs today, blood culture negative Objective - Vital Signs Vital signs: Vital Signs Temp 97.3 F L 04/11/23 12:05 Pulse 53 L 04/11/23 12:05 Resp 20 04/11/23 12:05 BP 184/93 04/11/23 12:05 Pulse Ox 95 04/11/23 12:05 FiO2 Intake & Output 04/10/23 04/11/23 04/11/23 18:59 06:59 18:59 Intake Total 1200 120 Output Total 650 550 Balance 550 -550 120 Intake: Oral 1200 120 Output: Urine 650 550 Other: Voiding Method Diaper Diaper Diaper Incontinent Incontinent Incontinent # Bowel Movements 2 - Exam GENERAL DESCRIPTION: An elderly male lying in bed in no distress RESPIRATORY SYSTEM: Unlabored breathing , clear to auscultation anteriorly HEART: S1 S2 regular rate and rhythm , ABDOMEN: Soft , no tenderness EXTREMITIES: No edema feet - Labs CBC & Chem 7: 04/09/23 09:26 04/09/23 12:47 Labs: Abnormal Lab Results - Last 24 Hours (Table) 04/10/23 04/10/23 04/11/23 Range/Units 16:21 19:28 05:48 POC Glucose (mg/dL) 293 H 393 H 204 H (70-110) mg/dL Hemoglobin A1c (<=6.0) % 04/11/23 04/11/23 Range/Units 06:55 11:38 POC Glucose (mg/dL) 239 H (70-110) mg/dL Hemoglobin A1c 6.8 H (<=6.0) % Microbiology - Last 24 Hours (Table) 04/08/23 15:38 Blood Culture - Preliminary Blood Assessment and Plan (1) COVID-19 Current Visit: Yes Status: Acute Code(s): U07.1 - COVID-19 SNOMED Code(s): 692021772 Plan: 1patient present to hospital with increased shortness of breath and cough and this patient has been diagnosed with COVID-19 symptom has been going on for about 3 days patient did have mild hypoxemia on presentation the hospital chest x-ray with some pulmonary vascular congestion did not mention any groundglass opacity typical of COVID-19 pneumonia 2-patient is slowly clinically improving and will continue with the dexamethasone zinc ascorbic acid and Xarelto and monitor clinical course closely Dictation was produced using [employer] dictation software. please excuse any grammatical, word or spelling errors. Time with Patient: Less than 30
[2023-04-11 16:49] LABS: Glucose,Whole Blood 204 mg/dL (70-110)
[2023-04-11] MEDS: FERROUS SULFATE 325 MG TAB PO SCH (16:59)
[2023-04-11 20:22] LABS: Glucose,Whole Blood 252 mg/dL (70-110)
[2023-04-11] MEDS: MELATONIN 3 MG TABLET PO SCH (20:49)
[2023-04-11] MEDS: FAMOTIDINE 20 MG TAB PO SCH (20:49)
[2023-04-11] MEDS: MONTELUKAST 10 MG TAB PO SCH (20:49)
[2023-04-11] MEDS: FINASTERIDE 5 MG TAB PO SCH (20:50)
[2023-04-11] MEDS: TAMSULOSIN 0.4 MG CAP.ER.24H PO SCH (20:50)
[2023-04-12 05:54] LABS: Glucose,Whole Blood 220 mg/dL (70-110)
[2023-04-12] MEDS: INSULIN ASPART (NovoLOG) 100 UNIT/ML VIAL SQ SCH ×4 (06:10→21:53)
--- NOTE | 2023-04-12 07:32 | CDI ---
Documentation Clarification Form Date: 04/12/2023 07:12:55 AM From: Tiffanie Driver RN CCDS Phone: [phone] Admit Date: 04/08/2023 05:39:00 PM Patient Name: Adonis Pepper Visit Number: [id number] Discharge Date: ATTENTION: The Clinical Documentation Specialists (CDI) and [facility] Coding Staff appreciate your assistance in clarifying documentation. Please respond to the clarification below the line at the bottom and electronically sign. The CDI & [facility] Coding staff will review the response and follow-up if needed. Please note: Queries are made part of the Legal Health Record. If you have any questions, please contact the author of this message via ITS. Dr. Maggie Joya Sepsis has been documented in the ED note, 04/08. Based on this information and the findings below, is there an additional diagnosis that is clinically appropriate for this patient? History/Risk Factors: 88-year-old male presents to the ED from [facility] after becoming hypotensive and an episode of unresponsiveness, recent diagnosis of COVID 19. Medical history: HTN, DM2, CAD and adrenal insufficiency. 04/08, H&P. Clinical Indicators: WBC, 04/08: 5.9 Lactate Dehydrogenase, 04/08: 243 CRP, 04/08: 5.5 CR, 04/08: 2.28 Blood cultures, 04/08: After 72 hours No growth Vitals signs, 04/08: B/P 72/39; HR 68; RR 30; SpO2 94% 3L nc ; Temp 97.3 F Oral ID consult: Increased shortness of breath and cough, COVID 19, Hypoxemia, COVID 19 pneumonia. Treatment: 04/08 Decadron IVP x 1; Acetaminophen IVPB x 1; Decadron IVP Q6HR d/c 04/09; Ibuprofen 800mg IVPB x 1; Vitmain C po daily; Zinc po daily; Feosol po daily; Cortef po daily; 04/10 Decadron IVP daily; Xarelto. Droplet isolation; ID Consult: see above IV Bolus: 04/08 0.9NS 1L IV bolus; 04/08 0.9NS 500cc IV bolus IVPB x 2 Is there an additional diagnosis that is clinically appropriate for this patient? [ ] Sepsis, present on admission [ ] Sepsis ruled out [ ] Severe Sepsis with organ failure [ ] Other, please specify [ ] Unable to determine SIRS Criteria: 2 or more of the following may indicate SIRS Temperature < 96.8F (36C) or > 101.0F (38.3C) Heart Rate > 90 bpm Respiratory Rate > 20 breaths/min or PaCO2 < 32 mmHg White Blood Cell Count > 12,000 or < 4,000 cells/mm3 or > 10% bands Documented 04/[address] Joya / Amy Lemos [employer] C : COVID 19 with hypotension due to ERNESTO and Sepsis. (Template Last Reviewed: June 2022) YOKASTA
[2023-04-12 08:06] LABS: Basophils % (A) 0 %; Eosinophils % (A) 0 %; HCT 44.5 % (39.0-53.0); HGB 14.8 gm/dL (13.0-17.5); Lymphocytes # (A) 0.9 k/uL (1.0-4.8); Lymphocytes % (A) 8 %; MCH 31.6 pg (25.0-35.0); MCHC 33.3 g/dL (31.0-37.0); MCV 94.7 fL (80.0-100.0); Mean Platelet Volume 8.8; Monocytes # (A) 0.7 k/uL (0-1.0); Monocytes % (A) 6 %; Neutrophils # (A) 9.3 k/uL (1.3-7.7); Neutrophils % (A) 85 %; Platelet Count 133 k/uL (150-450); RDW 13.5 % (11.5-15.5)
[2023-04-12 08:35] LABS: ALT 56 U/L (4-49); AST 60 U/L (17-59); African American GFR (CKD) >90 (>60 ml/min/1.73 sqM); Albumin 3.2 g/dL (3.5-5.0); Alkaline Phosphatase 62 U/L (38-126); Anion Gap 10 mmol/L; Blood Urea Nitrogen 35 mg/dL (9-20); Calcium 8.5 mg/dL (8.4-10.2); Carbon Dioxide 20 mmol/L (22-30); Chloride 102 mmol/L (98-107); Glucose 192 mg/dL (74-99); Non-African American GFR(CKD) 78 (>60 ml/min/1.73 sqM); Potassium 4.4 mmol/L (3.5-5.1); Sodium 132 mmol/L (137-145); Total Bilirubin 0.9 mg/dL (0.2-1.3); Total Protein 6.3 g/dL (6.3-8.2)
[2023-04-12] MEDS: RIVAROXABAN 2.5 MG TABLET PO SCH ×2 (10:27→17:47)
[2023-04-12] MEDS: LEVOTHYROXINE 137 MCG TAB PO SCH (10:27)
[2023-04-12] MEDS: amLODIPine 5 MG TAB PO SCH (10:27)
[2023-04-12] MEDS: HYDROCORTISONE 10 MG TAB PO SCH ×2 (10:27→17:47)
[2023-04-12] MEDS: ASCORBIC ACID 500 MG TAB PO SCH (10:27)
[2023-04-12] MEDS: DAPAGLIFLOZIN PROPANEDIOL 10 MG TABLET PO SCH (10:27)
[2023-04-12] MEDS: lisinopriL 10 MG TAB PO SCH ×2 (10:27→17:47)
[2023-04-12] MEDS: ZINC SULFATE 220 MG CAP PO SCH (10:28)
[2023-04-12] MEDS: CHOLECALCIFEROL 25 MCG (1000 IU) TABLET PO SCH (10:28)
[2023-04-12] MEDS: RANOLAZINE 500 MG TAB.ER.12H PO SCH ×2 (10:28→17:47)
[2023-04-12] MEDS: DEXAMETHASONE SOD PHOSPHATE 10 MG/ML 1 ML VIAL IVP SCH (10:28)
[2023-04-12] MEDS: METOPROLOL SUCCINATE (ER) 50 MG TAB.ER.24H PO SCH (10:28)
[2023-04-12] MEDS: ASPIRIN 81 MG PO SCH (10:28)
[2023-04-12] MEDS: ISOSORBIDE MONONITRATE ER 60 MG TAB.ER.24H PO SCH (10:28)
[2023-04-12 11:44] LABS: Glucose,Whole Blood 215 mg/dL (70-110)
[2023-04-12 17:08] LABS: Glucose,Whole Blood 224 mg/dL (70-110)
[2023-04-12] MEDS: FERROUS SULFATE 325 MG TAB PO SCH (17:47)
[2023-04-12 19:56] LABS: Glucose,Whole Blood 225 mg/dL (70-110)
[2023-04-12] MEDS: FINASTERIDE 5 MG TAB PO SCH (21:52)
[2023-04-12] MEDS: TAMSULOSIN 0.4 MG CAP.ER.24H PO SCH (21:53)
[2023-04-12] MEDS: FAMOTIDINE 20 MG TAB PO SCH (21:53)
[2023-04-12] MEDS: MONTELUKAST 10 MG TAB PO SCH (21:53)
[2023-04-12] MEDS: MELATONIN 3 MG TABLET PO SCH (21:53)
[2023-04-13 06:00] LABS: Glucose,Whole Blood 176 mg/dL (70-110)
[2023-04-13] MEDS: INSULIN ASPART (NovoLOG) 100 UNIT/ML VIAL SQ SCH ×4 (06:13→20:29)
[2023-04-13] MEDS: METOPROLOL SUCCINATE (ER) 50 MG TAB.ER.24H PO SCH (09:38)
[2023-04-13] MEDS: CHOLECALCIFEROL 25 MCG (1000 IU) TABLET PO SCH (09:39)
[2023-04-13] MEDS: ASCORBIC ACID 500 MG TAB PO SCH (09:39)
[2023-04-13] MEDS: ISOSORBIDE MONONITRATE ER 60 MG TAB.ER.24H PO SCH (09:39)
[2023-04-13] MEDS: lisinopriL 10 MG TAB PO SCH ×2 (09:39→16:55)
[2023-04-13] MEDS: RANOLAZINE 500 MG TAB.ER.12H PO SCH ×2 (09:39→16:55)
[2023-04-13] MEDS: ZINC SULFATE 220 MG CAP PO SCH (09:39)
[2023-04-13] MEDS: DEXAMETHASONE SOD PHOSPHATE 10 MG/ML 1 ML VIAL IVP SCH (09:39)
[2023-04-13] MEDS: ASPIRIN 81 MG PO SCH (09:39)
[2023-04-13] MEDS: LEVOTHYROXINE 137 MCG TAB PO SCH (09:39)
[2023-04-13] MEDS: DAPAGLIFLOZIN PROPANEDIOL 10 MG TABLET PO SCH (09:39)
[2023-04-13] MEDS: amLODIPine 5 MG TAB PO SCH (09:39)
[2023-04-13] MEDS: HYDROCORTISONE 10 MG TAB PO SCH ×2 (09:40→16:54)
[2023-04-13] MEDS: RIVAROXABAN 2.5 MG TABLET PO SCH ×2 (09:45→16:55)
[2023-04-13 11:59] LABS: Glucose,Whole Blood 184 mg/dL (70-110)
--- NOTE | 2023-04-13 13:18 | P.PN ---
Subjective Progress Note Date: 04/12/23 Principal diagnosis: Covid 19 Patient is 88-year-old male with a past medical history significant for hypertension osteoarthritis hypothyroidism reflux patient presenting to the hospital for evaluation of increasing shortness of breath and weakness , patient did tested positive for covid 19, patient did have chest x-ray with cardiomegaly and pulmonary vascular congestion pulmonary perfusion scan was negative for PE. On today's evaluation that is 04/12/2023, the patient continues to be afebrile , the patient is breathing comfortably on 3 L nasal cannula oxygen, the patient denies any chest pain or worsening cough, patient denies abdominal pain and no nausea/vomiting or diarrhea Patient did have a white count of 11.0, creatinine is 0.85 Objective - Vital Signs Vital signs: Vital Signs Temp 97.5 F L 04/12/23 08:00 Pulse 53 L 04/12/23 08:00 Resp 20 04/12/23 08:00 BP 200/79 04/12/23 08:00 Pulse Ox 95 04/12/23 08:00 FiO2 Intake & Output 04/11/23 04/12/23 04/12/23 18:59 06:59 18:59 Intake Total 438 Output Total 450 900 Balance -12 900 Intake: Oral 438 Output: Urine 450 900 Other: Voiding Method Diaper Diaper Incontinent Incontinent External Catheter # Voids 1 - Exam GENERAL DESCRIPTION: An elderly male lying in bed in no distress RESPIRATORY SYSTEM: Unlabored breathing , clear to auscultation anteriorly HEART: S1 S2 regular rate and rhythm , ABDOMEN: Soft , no tenderness EXTREMITIES: No edema feet - Labs CBC & Chem 7: 04/12/23 07:25 04/12/23 07:25 Labs: Abnormal Lab Results - Last 24 Hours (Table) 04/11/23 04/11/23 04/11/23 Range/Units 06:55 16:45 20:20 WBC (3.8-10.6) k/uL Plt Count (150-450) k/uL Neutrophils # (1.3-7.7) k/uL Lymphocytes # (1.0-4.8) k/uL Sodium (137-145) mmol/L Carbon Dioxide (22-30) mmol/L BUN (9-20) mg/dL Glucose (74-99) mg/dL POC Glucose (mg/dL) 204 H 252 H (70-110) mg/dL Hemoglobin A1c 6.8 H (<=6.0) % AST (17-59) U/L ALT (4-49) U/L Albumin (3.5-5.0) g/dL 04/12/23 04/12/23 04/12/23 Range/Units 05:52 07:25 07:25 WBC 11.0 H (3.8-10.6) k/uL Plt Count 133 L (150-450) k/uL Neutrophils # 9.3 H (1.3-7.7) k/uL Lymphocytes # 0.9 L (1.0-4.8) k/uL Sodium 132 L (137-145) mmol/L Carbon Dioxide 20 L (22-30) mmol/L BUN 35 H (9-20) mg/dL Glucose 192 H (74-99) mg/dL POC Glucose (mg/dL) 220 H (70-110) mg/dL Hemoglobin A1c (<=6.0) % AST 60 H (17-59) U/L ALT 56 H (4-49) U/L Albumin 3.2 L (3.5-5.0) g/dL 04/12/23 Range/Units 11:40 WBC (3.8-10.6) k/uL Plt Count (150-450) k/uL Neutrophils # (1.3-7.7) k/uL Lymphocytes # (1.0-4.8) k/uL Sodium (137-145) mmol/L Carbon Dioxide (22-30) mmol/L BUN (9-20) mg/dL Glucose (74-99) mg/dL POC Glucose (mg/dL) 215 H (70-110) mg/dL Hemoglobin A1c (<=6.0) % AST (17-59) U/L ALT (4-49) U/L Albumin (3.5-5.0) g/dL Microbiology - Last 24 Hours (Table) 04/08/23 15:38 Blood Culture - Preliminary Blood Assessment and Plan (1) COVID-19 Current Visit: Yes Status: Acute Code(s): U07.1 - COVID-19 SNOMED Code(s): 931870226 Plan: 1patient present to hospital with increased shortness of breath and cough and this patient has been diagnosed with COVID-19 symptom has been going on for about 3 days patient did have mild hypoxemia on presentation the hospital chest x-ray with some pulmonary vascular congestion did not mention any groundglass opacity typical of COVID-19 pneumonia 2-patient has shown clinical improvement and will continue with the dexamethason e zinc ascorbic acid and Xarelto and continue with supportive care Dictation was produced using [employer] dictation software. please excuse any grammatical, word or spelling errors. Time with Patient: Less than 30
--- NOTE | 2023-04-13 13:20 | P.PN ---
Subjective Progress Note Date: 04/13/23 Principal diagnosis: Covid 19 Patient is 88-year-old male with a past medical history significant for hypertension osteoarthritis hypothyroidism reflux patient presenting to the hospital for evaluation of increasing shortness of breath and weakness , patient did tested positive for covid 19, patient did have chest x-ray with cardiomegaly and pulmonary vascular congestion pulmonary perfusion scan was negative for PE. On today's evaluation that is 04/13/2023, the patient remains to be afebrile , the patient is breathing comfortably on 3 L nasal cannula supplemental oxygen, the patient denies any chest pain and no significant cough or sputum production, patient denies abdominal pain and no nausea/vomiting or diarrhea Patient did have a white count of 11.0, creatinine is 0.85 as of yesterday no lab draw today Objective - Vital Signs Vital signs: Vital Signs Temp 97.5 F L 04/13/23 09:38 Pulse 55 L 04/13/23 09:38 Resp 18 04/13/23 09:38 BP 178/85 04/13/23 09:38 Pulse Ox 99 04/13/23 09:38 FiO2 Intake & Output 04/12/23 04/13/23 04/13/23 18:59 06:59 18:59 Intake Total 120 180 118 Output Total 1275 550 Balance -1155 370 118 Intake: Oral 120 180 118 Output: Urine 1275 550 Other: Voiding Method Diaper Diaper Diaper Incontinent Incontinent Incontinent External Catheter External Catheter External Catheter # Voids 1 1 - Exam GENERAL DESCRIPTION: An elderly male lying in bed in no distress RESPIRATORY SYSTEM: Unlabored breathing , clear to auscultation anteriorly HEART: S1 S2 regular rate and rhythm , ABDOMEN: Soft , no tenderness EXTREMITIES: No edema feet - Labs CBC & Chem 7: 04/12/23 07:25 04/12/23 07:25 Labs: Abnormal Lab Results - Last 24 Hours (Table) 04/12/23 04/12/23 04/13/23 Range/Units 17:05 19:54 05:58 POC Glucose (mg/dL) 224 H 225 H 176 H (70-110) mg/dL 04/13/23 Range/Units 11:57 POC Glucose (mg/dL) 184 H (70-110) mg/dL Assessment and Plan (1) COVID-19 Current Visit: Yes Status: Acute Code(s): U07.1 - COVID-19 SNOMED Code(s): 393184654 Plan: 1patient present to hospital with increased shortness of breath and cough and this patient has been diagnosed with COVID-19 symptom has been going on for about 3 days patient did have mild hypoxemia on presentation the hospital chest x-ray with some pulmonary vascular congestion did not mention any groundglass opacity typical of COVID-19 pneumonia 2-patient is slowly clinically improving with the current therapy of dexamethasone zinc ascorbic acid and Xarelto which will be continued and monitor clinical course closely Dictation was produced using [employer] dictation software. please excuse any grammatical, word or spelling errors. Time with Patient: Less than 30
--- NOTE | 2023-04-13 15:02 | P.PN ---
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 Patient is a long-term resident at [facility]. patient was diagnosed with COVID-19 few days ago at the [facility] and e was started on Paxlovid along with zinc, vitamin D and vitamin C and today he became hypotensive and had a n episode of unres ponsivness and was shipped to the ER at [facility] where he was started on IVF and he was found to have ERNESTO due to acute kidney injury and was admitted to the hospital for evaluation and treatment and ID consult was obtained. His D- Dimer was elevated he was started on heparin drip till VD scan is back 04/09: Patient is more awake today and he is able to carry a conversation, less confused , has a urinary incontinence, no chest pain or shortness of breath, no new issues, multiple bruises on both arms, no chest pain , had VQ scan withlow probability for PE so Heparin drip was discontinued and he will be transitioned to Xarelto 2.5 mg po bid 04/12: Over the weekend, patient was continued on Covid cocktail with dexamethasone vitamins as well as Zosyn and maintained on Xarelto. He underwent a VQ scan which was negative for pulmonary embolism. Norvasc was added to his regime for hypertension as this was held for hypotension on presentation. Also his mental status has improved and is back to his baseline. Patient has been afebrile. Heart rate has been in the 50s, blood pressure elevated 173/91. Patient has been followed by infectious disease for Covid 19 pneumonia. REVIEW OF SYSTEMS: Constitutional: No documented fever, no chills, no night sweats. No weight change. Positive for weakness, positive for fatigue no lethargy. No daytime sleepiness. HEENT: positive for headache. No blurred vision or double vision, no loss of vision. No loss of Hearing, no ringing in the ears, no dizziness. No nasal drainage or congestion. No epistaxis. No sore throat. Lungs: Denies for shortness of breath, positive for cough, no sputum production. No wheezing. Reports dyspnea with activity. Cardiovascular: Denies for chest pain, no lower extremity edema. No palpitatio ns. No paroxysmal nocturnal dyspnea. No orthopnea. No lightheadedness or dizziness. Reports 1 syncopal episode. Abdominal: Reports no abdominal pain. No nausea, vomiting 1 episode. No diarrhea. No constipation. No bloody or tarry stools reports loss of appetite. Genitourinary: No dysuria, increased frequency, urgency. No urinary retention. Positive for nocturia Musculoskeletal: No myalgias. No muscle weakness, no gait dysfunction, no frequent falls. No back pain. No neck pain. Integumentary: No wounds, no lesions. positive for Proteus. positive for bruising. No change in hair or nails. Neurologic: No aphasia. No facial droop. Reported change in mentation-imroved. No head injury. No headache. No paralysis. No paresthesia. Psychiatric: No depression. Positive for anxiety. No mood swings. Endocrine: No abnormal blood sugars. No weight change. PHYSICAL EXAMINATION: General: This is an 87-year-old male who is laying down in bed in minimal distress HEENT: Head is atraumatic, normocephalic, pupils were equal round reactive to light and recommendation, extraocular muscle movement were intact, sclera nonicteric, conjunctivae were pale, mucous membranes of the mouth are somewhat dry. Neck: Supple, no JVP, normal carotid upstroke bilaterally, no lymphadenopathy. Chest: Decreased breath sounds at the bases, few rhonchi, no extremity wheezes, no chest wall tenderness, no intercostal retractions. Heart: First heart sound is normal, second heart sounds normal there is systolic ejection murmur 2/6 located in the left sternal border. Abdomen: Soft, nontender, nondistended, positive bowel sounds. Extremities: There is no edema no calf tenderness DP +2 bilaterally. Neurologic examination: Patient is awake alert and oriented X3 , cranial nerves II-12 appear grossly intact, muscle power were 5 out of 5 in upper extremities and 5 out of 5 in bilateral lower extremities, deep tendon reflexes normal bilaterally. ASSESSMENT AND PLAN: 1. COVID-19 with hypotension due to ERNESTO and Sepsis. Continue patient on Decadron 6 mg IVP daily and we will continue with monitoring, ID consult appreciated, continue with droplet isolation, vitamin cocktail. 2. Acute kidney injury due to acute tubular necrosis. Discontinue IV fluids, monitor the patient CMP the next 24 hours. 3. Hypertension and hypertensive cardiovascular disease. Continue patient on amlodipine 5 mg daily, lisinopril 10 mg orally at bedtime, monitor the patient blood pressure very closely 4. Diabetes mellitus type 2 . Hold metformin, hold Farxiga and continue with SSI 5. Mixed hyperlipidemia. Patient is intolerant to statins in general, monitor the patien lipid panel, keep LDL cholesterol 55-70, he may need to go on PCSK 9- INH. 6. 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 Continue Cortef 30 mg in the morning and 10 mg at 5 PM. 7. Hypothyroidism. Continue Synthroid 137 MCG orally once every day. 8. Enlarged prostate. Continue Flomax 0.4 mg orally once every day and finasteride 5 mg orally once every day. 9. Generalized anxiety disorder. Continue patient on Xanax 0.25 mg orally at bedtime as needed. 10. DVT prophylaxis. we will continue with Xarelto 2.5 mg po bid 11. GI prophylaxis. Continue patient on Protonix 40 mg orally once every day. CODE STATUS: Full code Impression and plan of care have been directed as dictated by the signing physician. Amy Lemos nurse practitioner acting as scribe for signing physician. Objective - Vital Signs Vital signs: Vital Signs Temp 97.5 F L 04/12/23 08:00 Pulse 58 L 04/12/23 13:26 Resp 20 04/12/23 12:00 BP 193/87 04/12/23 12:00 Pulse Ox 95 04/12/23 12:00 FiO2 Intake & Output 04/11/23 04/12/23 04/12/23 18:59 06:59 18:59 Intake Total 438 120 Output Total 450 900 500 Balance - -900 -380 Intake: Oral 438 120 Output: Urine 450 900 500 Other: Voiding Method Diaper Diaper Diaper Incontinent Incontinent Incontinent External Catheter External Catheter # Voids 1 - Labs CBC & Chem 7: 04/12/23 07:25 04/12/23 07:25 Labs: Abnormal Lab Results - Last 24 Hours (Table) 04/11/23 04/11/23 04/12/23 Range/Units 16:45 20:20 05:52 WBC (3.8-10.6) k/uL Plt Count (150-450) k/uL Neutrophils # (1.3-7.7) k/uL Lymphocytes # (1.0-4.8) k/uL Sodium (137-145) mmol/L Carbon Dioxide (22-30) mmol/L BUN (9-20) mg/dL Glucose (74-99) mg/dL POC Glucose (mg/dL) 204 H 252 H 220 H (70-110) mg/dL AST (17-59) U/L ALT (4-49) U/L Albumin (3.5-5.0) g/dL 04/12/23 04/12/23 04/12/23 Range/Units 07:25 07:25 11:40 WBC 11.0 H (3.8-10.6) k/uL Plt Count 133 L (150-450) k/uL Neutrophils # 9.3 H (1.3-7.7) k/uL Lymphocytes # 0.9 L (1.0-4.8) k/uL Sodium 132 L (137-145) mmol/L Carbon Dioxide 20 L (22-30) mmol/L BUN 35 H (9-20) mg/dL Glucose 192 H (74-99) mg/dL POC Glucose (mg/dL) 215 H (70-110) mg/dL AST 60 H (17-59) U/L ALT 56 H (4-49) U/L Albumin 3.2 L (3.5-5.0) g/dL Microbiology - Last 24 Hours (Table) 04/08/23 15:38 Blood Culture - Preliminary Blood
[2023-04-13] MEDS ORDERED: amLODIPine 5 MG TAB PO STA (15:03)
--- NOTE | 2023-04-13 15:08 | P.PN ---
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 Patient is a long-term resident at [facility]. patient was diagnosed with COVID-19 few days ago at the [facility], [facility] and e was started on Paxlovid along with zinc, vitamin D and vitamin C and today he became hypotensive and had a n episode of unres ponsivness and was shipped to the ER at [facility] where he was started on IVF and he was found to have ERNESTO due to acute kidney injury and was admitted to the hospital for evaluation and treatment and ID consult was obtained. His D- Dimer was elevated he was started on heparin drip till VD scan is back 04/09: Patient is more awake today and he is able to carry a conversation, less confused , has a urinary incontinence, no chest pain or shortness of breath, no new issues, multiple bruises on both arms, no chest pain , had VQ scan withlow probability for PE so Heparin drip was discontinued and he will be transitioned to Xarelto 2.5 mg po bid 04/12: Over the weekend, patient was continued on Covid cocktail with dexamethasone vitamins as well as Zosyn and maintained on Xarelto. He underwent a VQ scan which was negative for pulmonary embolism. Norvasc was added to his regime for hypertension as this was held for hypotension on presentation. Also his mental status has improved and is back to his baseline. Patient has been afebrile. Heart rate has been in the 50s, blood pressure elevated 173/91. Patient has been followed by infectious disease for Covid 19 pneumonia. 04/13: Patient complains of feeling weak but his appetite is better today. No abdominal pain. He remains afebrile, heart rate in the 50s, blood pressure 154/67, pulse ox 97% on 3 L. Amlodipine will be increased to 10 mg daily. We will plan to monitor overnight and plan for discharge back to [facility] tomorrow. Did discuss CODE STATUS in detail with the patient as he has had a conversation with his son. He is contemplating no cold status. For right now he remains full code. Capillary blood glucose running between 176 and 225. Patient will be resumed on metformin. REVIEW OF SYSTEMS: Constitutional: No documented fever, no chills, no night sweats. No weight change. Positive for weakness, positive for fatigue no lethargy. No daytime sleepiness. HEENT: positive for headache. No blurred vision or double vision, no loss of vision. No loss of Hearing, no ringing in the ears, no dizziness. No nasal drainage or congestion. No epistaxis. No sore throat. Lungs: Denies for shortness of breath, positive for cough, no sputum production. No wheezing. Reports dyspnea with activity. Cardiovascular: Denies for chest pain, no lower extremity edema. No palpitations. No paroxysmal nocturnal dyspnea. No orthopnea. No lightheadedness or dizziness. Reports 1 syncopal episode. Abdominal: Reports no abdominal pain. No nausea, vomiting 1 episode. No diarrhea. No constipation. No bloody or tarry stools reports loss of appetite. Genitourinary: No dysuria, increased frequency, urgency. No urinary retention. Positive for nocturia Musculoskeletal: No myalgias. No muscle weakness, no gait dysfunction, no frequent falls. No back pain. No neck pain. Integumentary: No wounds, no lesions. positive for Proteus. positive for bruising. No change in hair or nails. Neurologic: No aphasia. No facial droop. Reported change in mentation-improved. No head injury. No headache. No paralysis. No paresthesia. Psychiatric: No depression. Positive for anxiety. No mood swings. Endocrine: No abnormal blood sugars. No weight change. PHYSICAL EXAMINATION: General: This is an 87-year-old male who is laying down in bed in minimal distress HEENT: Head is atraumatic, normocephalic, pupils were equal round reactive to light and recommendation, extraocular muscle movement were intact, sclera nonicteric, conjunctivae were pale, mucous membranes of the mouth are somewhat dry. Neck: Supple, no JVP, normal carotid upstroke bilaterally, no lymphadenopathy. Chest: Decreased breath sounds at the bases, few rhonchi, no extremity wheezes, no chest wall tenderness, no intercostal retractions. Heart: First heart sound is normal, second heart sounds normal there is systolic ejection murmur 2/6 located in the left sternal border. Abdomen: Soft, nontender, nondistended, positive bowel sounds. Extremities: There is no edema no calf tenderness DP +2 bilaterally. Neurologic examination: Patient is awake alert and oriented X3 , cranial nerves II-12 appear grossly intact, muscle power were 5 out of 5 in upper extremities and 5 out of 5 in bilateral lower extremities, deep tendon reflexes normal bilaterally. ASSESSMENT AND PLAN: 1. COVID-19 with hypotension due to ERNESTO and Sepsis. Continue patient on Decadron 6 mg IVP daily and we will continue with monitoring, ID consult appreciated, continue with droplet isolation, vitamin cocktail. 2. Acute kidney injury due to acute tubular necrosis. Discontinue IV fluids, monitor the patient CMP the next 24 hours. 3. Hypertension and hypertensive cardiovascular disease. Continue patient on amlodipine 5 mg daily, lisinopril 10 mg orally at bedtime, monitor the patient blood pressure very closely 4. Diabetes mellitus type 2 . Continue Farxiga and continue with SSI. Resume metformin 500 mg ER daily. 5. Mixed hyperlipidemia. Patient is intolerant to statins in general, monitor the patien lipid panel, keep LDL cholesterol 55-70, he may need to go on PCSK 9- INH. 6. 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 Continue Cortef 30 mg in the morning and 10 mg at 5 PM. 7. Hypothyroidism. Continue Synthroid 137 MCG orally once every day. 8. Enlarged prostate. Continue Flomax 0.4 mg orally once every day and finasteride 5 mg orally once every day. 9. Generalized anxiety disorder. Continue patient on Xanax 0.25 mg orally at b edtime as needed. 10. DVT prophylaxis. we will continue with Xarelto 2.5 mg po bid 11. GI prophylaxis. Continue patient on Protonix 40 mg orally once every day. Discharge plan: Return to [facility] on Wednesday CODE STATUS: Full code Impression and plan of care have been directed as dictated by the signing physician. Amy Lemos nurse practitioner acting as scribe for signing physician. Objective - Vital Signs Vital signs: Vital Signs Temp 97.5 F L 04/13/23 09:38 Pulse 55 L 04/13/23 09:38 Resp 18 04/13/23 09:38 BP 178/85 04/13/23 09:38 Pulse Ox 99 04/13/23 09:38 FiO2 Intake & Output 04/12/23 04/13/23 04/13/23 18:59 06:59 18:59 Intake Total 120 180 118 Output Total 1275 550 Balance -1155 370 118 Intake: Oral 120 180 118 Output: Urine 1275 550 Other: Voiding Method Diaper Diaper Diaper Incontinent Incontinent Incontinent External Catheter External Catheter External Catheter # Voids 1 1 - Labs CBC & Chem 7: 04/12/23 07:25 04/12/23 07:25 Labs: Abnormal Lab Results - Last 24 Hours (Table) 04/12/23 04/12/23 04/13/23 Range/Units 17:05 19:54 05:58 POC Glucose (mg/dL) 224 H 225 H 176 H (70-110) mg/dL 04/13/23 Range/Units 11:57 POC Glucose (mg/dL) 184 H (70-110) mg/dL
[2023-04-13 16:30] LABS: Glucose,Whole Blood 255 mg/dL (70-110)
[2023-04-13] MEDS: FERROUS SULFATE 325 MG TAB PO SCH (16:55)
[2023-04-13] MEDS: metFORMIN 500 MG TAB PO SCH (16:55)
[2023-04-13 20:14] LABS: Glucose,Whole Blood 255 mg/dL (70-110)
[2023-04-13] MEDS: MELATONIN 3 MG TABLET PO SCH (20:29)
[2023-04-13] MEDS: TAMSULOSIN 0.4 MG CAP.ER.24H PO SCH (20:29)
[2023-04-13] MEDS: MONTELUKAST 10 MG TAB PO SCH (20:29)
[2023-04-13] MEDS: FAMOTIDINE 20 MG TAB PO SCH (20:29)
[2023-04-13] MEDS: FINASTERIDE 5 MG TAB PO SCH (20:29)
[2023-04-14 06:07] LABS: Glucose,Whole Blood 171 mg/dL (70-110)
[2023-04-14] MEDS: metFORMIN 500 MG TAB PO SCH (06:16)
[2023-04-14] MEDS: INSULIN ASPART (NovoLOG) 100 UNIT/ML VIAL SQ SCH ×2 (06:16→12:07)
[2023-04-14] MEDS: CHOLECALCIFEROL 25 MCG (1000 IU) TABLET PO SCH (08:50)
[2023-04-14] MEDS: ASCORBIC ACID 500 MG TAB PO SCH (08:50)
[2023-04-14] MEDS: ZINC SULFATE 220 MG CAP PO SCH (08:50)
[2023-04-14] MEDS: RANOLAZINE 500 MG TAB.ER.12H PO SCH (08:50)
[2023-04-14] MEDS: lisinopriL 10 MG TAB PO SCH (08:50)
[2023-04-14] MEDS: METOPROLOL SUCCINATE (ER) 50 MG TAB.ER.24H PO SCH (08:50)
[2023-04-14] MEDS: LEVOTHYROXINE 137 MCG TAB PO SCH (08:51)
[2023-04-14] MEDS: ASPIRIN 81 MG PO SCH (08:51)
[2023-04-14] MEDS: HYDROCORTISONE 10 MG TAB PO SCH (08:51)
[2023-04-14] MEDS: RIVAROXABAN 2.5 MG TABLET PO SCH (08:51)
[2023-04-14] MEDS: DEXAMETHASONE SOD PHOSPHATE 10 MG/ML 1 ML VIAL IVP SCH (08:51)
[2023-04-14] MEDS: DAPAGLIFLOZIN PROPANEDIOL 10 MG TABLET PO SCH (08:51)
[2023-04-14] MEDS: ISOSORBIDE MONONITRATE ER 60 MG TAB.ER.24H PO SCH (08:51)
[2023-04-14] MEDS ORDERED: amLODIPine 10 MG TAB PO SCH (09:00)
[2023-04-14 09:16] VITALS: RESP 16; TEMP 98.1
[2023-04-14 11:22] LABS: Glucose,Whole Blood 225 mg/dL (70-110)
[2023-04-14 12:31] VITALS: BP 132/68; PULSE 55
--- NOTE | 2023-04-14 13:47 | P.DS ---
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 Patient is a long-term resident at [facility]. patient was diagnosed with COVID-19 few days ago at the [facility] and e was started on Paxlovid along with zinc, vitamin D and vitamin C and today he became hypotensive and had a n episode of unresponsivness and was shipped to the ER at [facility] where he was started on IVF and he was found to have ERNESTO due to acute kidney injury and was admitted to the hospital for evaluation and treatment and ID consult was obtained. His D-Dimer was elevated he was started on heparin drip till VD scan is back 04/09: Patient is more awake today and he is able to carry a conversation, less confused , has a urinary incontinence, no chest pain or shortness of breath, no new issues, multiple bruises on both arms, no chest pain , had VQ scan withlow probability for PE so Heparin drip was discontinued and he will be transitioned to Xarelto 2.5 mg po bid 04/12: Over the weekend, patient was continued on Covid cocktail with dexamethasone vitamins as well as Zosyn and maintained on Xarelto. He underwent a VQ scan which was negative for pulmonary embolism. Norvasc was added to his regime for hypertension as this was held for hypotension on presentation. Also his mental status has improved and is back to his baseline. Patient has been afebrile. Heart rate has been in the 50s, blood pressure elevated 173/91. Patient has been followed by infectious disease for Covid 19 pneumonia. 04/13: Patient complains of feeling weak but his appetite is better today. No abdominal pain. He remains afebrile, heart rate in the 50s, blood pressure 154/67, pulse ox 97% on 3 L. Amlodipine will be increased to 10 mg daily. We will plan to monitor overnight and plan for discharge back to [facility] tomorrow. Did discuss CODE STATUS in detail with the patient as he has had a conversation with his son. He is contemplating no cold status. For right now he remains full code. Capillary blood glucose running between 176 and 225. Patient will be resumed on metformin. 04/14: Patient remains afebrile, heart rate in the 50s and 60s, blood pressure 132/60, pulse ox 94% on room air. And monitoring will be discontinued. Capillary blood glucose running between 171 and 255. Patient continues to have decreased appetite and not eating very much. Patient will be discharged back to [facility] today in stable condition. DISCHARGE DIAGNOSES: 1. COVID-19 with hypotension due to ERNESTO and Sepsis. 2. Acute kidney injury due to acute tubular necrosis. 3. Hypertension and hypertensive cardiovascular disease. 4. Diabetes mellitus type 2. 5. Mixed hyperlipidemia. 6. 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 7. Hypothyroidism. 8. Enlarged prostate. 9. Generalized anxiety disorder. Discharge plan: Return to [facility] on Wednesday Greater than 35 minutes was utilized and coordinating patient's discharge. Impression and plan of care have been directed as dictated by the signing physician. Amy Lemos nurse practitioner acting as scribe for signing phys ician. Patient Condition at Discharge: Stable Plan - Discharge Summary Discharge Rx Participant: No New Discharge Prescriptions: New amLODIPine [Norvasc] 10 mg PO DAILY tab Continue Ferrous Sulfate [Iron (65 MG Elemental)] 325 mg PO DAILY@1700 Finasteride [Proscar] 5 mg PO HS Tamsulosin [Flomax] 0.4 mg PO HS bisacodyL 10 mg RECTAL DAILY PRN PRN Reason: Constipation Magnesium Hydroxide [Milk of Magnesia Concentrate] 7,200 mg PO Q48H PRN PRN Reason: 2 days no BM Nitroglycerin Sl Tabs [Nitrostat] 0.4 mg SL Q5M PRN PRN Reason: Chest Pain Levothyroxine Sodium [Synthroid] 137 mcg PO SUMOTUWETHFR@0800 Ranolazine [Ranexa] 500 mg PO BID@0800,1700 Isosorbide Mononitrate ER [Imdur] 60 mg PO DAILY@0800 tablet Dextran/Hypromellose/Glycerin [Artificial Tears 0.1-0.2-0.3%] 2 drops BOTH EYES QID PRN PRN Reason: Dry Eye(S) Cetirizine HCl [Zyrtec] 10 mg PO DAILY@0800 Metoprolol Succinate (ER) [Toprol XL] 50 mg PO DAILY@0800 lisinopriL [Zestril] 10 mg PO BID@0800,1700 guaiFENesin [guaiFENesin Oral Solution] 200 mg PO Q6H PRN PRN Reason: Cough Hydrocortisone [Cortef] 30 mg PO DAILY@0800 tab Metformin Er 500mg 1 tab PO DAILY Cholecalciferol [Vitamin D3 (25 Mcg = 1000 Iu)] 50 mcg PO DAILY Rivaroxaban [Xarelto] 2.5 mg PO BID@0800,1700 Zinc Sulfate [Orazinc] 220 mg PO DAILY Acetaminophen Tab [Tylenol] 650 mg PO Q4H PRN PRN Reason: Fever And/ Or Pain Aspirin EC [Ecotrin Low Dose] 81 mg PO DAILY@0800 Famotidine [Pepcid] 20 mg PO HS Na Phos,M-B/Na Phos,Di-Ba [Fleet Adult] 133 ml RECTAL DAILY PRN PRN Reason: Constipation Dapagliflozin Propanediol [Farxiga] 10 mg PO DAILY@0800 Dulaglutide [Trulicity] 1.5 mg SQ FR@0800 Montelukast [Singulair] 10 mg PO HS Melatonin 3 mg PO HS Ipratropium-Albuterol Nebulize [Duoneb 0.5 mg-3 mg/3 ml Soln] 3 ml INHALATION RT-Q6H PRN PRN Reason: Shortness Of Breath/Cough Hydrocortisone [Cortef] 10 mg PO DAILY@1700 tab Ascorbic Acid [Vitamin C] 1,000 mg PO DAILY INSULIN ASPART (NovoLOG) [NovoLOG (formulary)] See Protocol SQ ACHS Discharge Medication List Ferrous Sulfate [Iron (65 MG Elemental)] 325 mg PO DAILY@1700 06/03/20 [History] Finasteride [Proscar] 5 mg PO HS 06/03/20 [History] Acetaminophen Tab [Tylenol] 650 mg PO Q4H PRN 10/22/20 [History] Tamsulosin [Flomax] 0.4 mg PO HS 10/22/20 [History] Aspirin EC [Ecotrin Low Dose] 81 mg PO DAILY@0800 11/02/20 [History] Magnesium Hydroxide [Milk of Magnesia Concentrate] 7,200 mg PO Q48H PRN 11/02/20 [History] Nitroglycerin Sl Tabs [Nitrostat] 0.4 mg SL Q5M PRN 11/02/20 [History] bisacodyL 10 mg RECTAL DAILY PRN 11/02/20 [History] Famotidine [Pepcid] 20 mg PO HS 05/11/21 [History] Levothyroxine Sodium [Synthroid] 137 mcg PO SUMOTUWETHFR@0800 05/11/21 [History] Ranolazine [Ranexa] 500 mg PO BID@0800,1700 05/11/21 [History] Dapagliflozin Propanediol [Farxiga] 10 mg PO DAILY@0800 06/10/21 [History] Na Phos,M-B/Na Phos,Di-Ba [Fleet Adult] 133 ml RECTAL DAILY PRN 06/10/21 [History] Isosorbide Mononitrate ER [Imdur] 60 mg PO DAILY@0800 tablet 06/11/21 [Rx] Cetirizine HCl [Zyrtec] 10 mg PO DAILY@0800 12/02/22 [History] Dextran/Hypromellose/Glycerin [Artificial Tears 0.1-0.2-0.3%] 2 drops BOTH EYES QID PRN 12/02/22 [History] Dulaglutide [Trulicity] 1.5 mg SQ FR@0800 12/02/22 [History] Melatonin 3 mg PO HS 12/02/22 [History] Metoprolol Succinate (ER) [Toprol XL] 50 mg PO DAILY@0800 12/02/22 [History] Montelukast [Singulair] 10 mg PO HS 12/02/22 [History] lisinopriL [Zestril] 10 mg PO BID@0800,1700 12/02/22 [History] Ipratropium-Albuterol Nebulize [Duoneb 0.5 mg-3 mg/3 ml Soln] 3 ml INHALATION RT-Q6H PRN 12/28/22 [History] guaiFENesin [guaiFENesin Oral Solution] 200 mg PO Q6H PRN 12/28/22 [History] Hydrocortisone [Cortef] 10 mg PO DAILY@1700 tab 01/01/23 [Rx] Hydrocortisone [Cortef] 30 mg PO DAILY@0800 tab 01/01/23 [Rx] Ascorbic Acid [Vitamin C] 1,000 mg PO DAILY 04/08/23 [History] Cholecalciferol [Vitamin D3 (25 Mcg = 1000 Iu)] 50 mcg PO DAILY 04/08/23 [History] INSULIN ASPART (NovoLOG) [NovoLOG (formulary)] See Protocol SQ ACHS 04/08/23 [History] Metformin Er 500mg 1 tab PO DAILY 04/08/23 [History] Rivaroxaban [Xarelto] 2.5 mg PO BID@0800,1700 04/08/23 [History] Zinc Sulfate [Orazinc] 220 mg PO DAILY 04/08/23 [History] amLODIPine [Norvasc] 10 mg PO DAILY tab 04/14/23 [Rx] Follow up Appointment(s)/Referral(s): Maggie Joya MD [Primary Care Provider] - 1 Week (AT [facility]) Discharge Disposition: TRANSFER TO SNF/ECF
--- NOTE | 2023-04-20 15:10 | P.PN ---
Subjective Progress Note Date: 04/14/23 Principal diagnosis: Covid 19 Patient is 88-year-old male with a past medical history significant for hypertension osteoarthritis hypothyroidism reflux patient presenting to the hospital for evaluation of increasing shortness of breath and weakness , patient did tested positive for covid 19, patient did have chest x-ray with cardiomegaly and pulmonary vascular congestion pulmonary perfusion scan was negative for PE. On today's evaluation that is 04/14/2023, the patient continues to be afebrile , the patient is breathing comfortably on room air and denies any shortness of breath, the patient denies any chest pain and no cough or sputum production, patient denies abdominal pain and no nausea/vomiting or diarrhea , feeling better no new symptoms Patient did have a white count of 11.0, creatinine is 0.85 as of 04/12/2023 no lab draw today Objective - Vital Signs Vital signs: Vital Signs Temp 98.1 F 04/14/23 08:49 Pulse 55 L 04/14/23 12:08 Resp 16 04/14/23 12:08 BP 132/68 04/14/23 12:08 Pulse Ox 94 L 04/14/23 12:08 FiO2 Intake & Output 04/13/23 04/14/23 04/14/23 18:59 06:59 18:59 Intake Total 236 110 Output Total 1100 400 Balance -864 -400 110 Intake: Oral 236 110 Output: Urine 1100 400 Other: Voiding Method Diaper Diaper Diaper Incontinent Incontinent Incontinent External Catheter External Catheter External Catheter - Exam GENERAL DESCRIPTION: An elderly male lying in bed in no distress RESPIRATORY SYSTEM: Unlabored breathing , clear to auscultation anteriorly HEART: S1 S2 regular rate and rhythm , ABDOMEN: Soft , no tenderness EXTREMITIES: No edema feet - Labs CBC & Chem 7: 04/12/23 07:25 04/12/23 07:25 Labs: Abnormal Lab Results - Last 24 Hours (Table) 04/13/23 04/13/23 04/14/23 Range/Units 16:29 20:12 05:59 POC Glucose (mg/dL) 255 H 255 H 171 H (70-110) mg/dL 04/14/23 Range/Units 11:21 POC Glucose (mg/dL) 225 H (70-110) mg/dL Microbiology - Last 24 Hours (Table) 04/08/23 15:38 Blood Culture - Final Blood Assessment and Plan (1) COVID-19 Status: Acute Code(s): U07.1 - COVID-19 SNOMED Code(s): 981220057 Plan: 1patient present to hospital with increased shortness of breath and cough and this patient has been diagnosed with COVID-19 symptom has been going on for about 3 days patient did have mild hypoxemia on presentation the hospital chest x-ray with some pulmonary vascular congestion did not mention any groundglass opacity typical of COVID-19 pneumonia 2-patient has shown clinical improvement with the current therapy of dexamethasone zinc ascorbic acid and Xarelto which will be continued and no need for any antibiotics on discharge Dictation was produced using [employer] dictation software. please excuse any grammatical, word or spelling errors. Time with Patient: Less than 30
== END 2023-04-14 15:35 | DRG 871 ==
LOC: EC 15:06 → 4SSUR 17:39 → 3SCARD 19:45
PROVIDERS: ADMIT Internal Medicine; ATTEND Internal Medicine
PROC: 8E0ZXY6 Isolation (ICD-10-PCS; principal; 2023-04-08)
DX: A41.89 Other specified sepsis (principal); J12.82 Pneumonia due to coronavirus disease 2019; N17.0 Acute kidney failure with tubular necrosis; U07.1 COVID-19; J96.01 Acute respiratory failure with hypoxia; E27.1 Primary adrenocortical insufficiency; I11.9 Hypertensive heart disease without heart failure; I95.9 Hypotension, unspecified; E11.65 Type 2 diabetes mellitus with hyperglycemia; R65.20 Severe sepsis without septic shock; E03.9 Hypothyroidism, unspecified; E78.2 Mixed hyperlipidemia; F41.1 Generalized anxiety disorder; I25.10 Atherosclerotic heart disease of native coronary artery without angina pectoris; N40.1 Benign prostatic hyperplasia with lower urinary tract symptoms; N39.498 Other specified urinary incontinence; G47.01 Insomnia due to medical condition; H40.9 Unspecified glaucoma; K21.9 Gastro-esophageal reflux disease without esophagitis; M19.90 Unspecified osteoarthritis, unspecified site; M54.9 Dorsalgia, unspecified; Z79.82 Long term (current) use of aspirin; Z79.84 Long term (current) use of oral hypoglycemic drugs; Z79.85 Long-term (current) use of injectable non-insulin antidiabetic drugs; Z79.52 Long term (current) use of systemic steroids; Z79.4 Long term (current) use of insulin; Z79.890 Hormone replacement therapy; Z79.01 Long term (current) use of anticoagulants; Z79.899 Other long term (current) drug therapy; Z96.612 Presence of left artificial shoulder joint; Z88.8 Allergy status to other drugs, medicaments and biological substances
CPT/HCPCS: 36415; 71045; 78580; 80053; 83036; 83605; 83615; 83735; 83880; 84100; 84145; 84484; 85025; 85379; 85610; 85730; 86140; 87040; 93005; 93970; 94760; 96361; 96365; 96366; 96367; 96368; 96375; 96376; 99285

== ENCOUNTER 2023-10-12 18:29 | Emergency (ER) | payer MEDICARE, OTHER ==
[2023-10-12 18:49] VITALS: TEMP 98.4
[2023-10-12 18:52] LABS: Basophils % (A) 1 %; Eosinophils # (A) 0.1 k/uL (0-0.7); Eosinophils % (A) 1 %; HGB 17.1 gm/dL (13.0-17.5); Lymphocytes # (A) 1.3 k/uL (1.0-4.8); Lymphocytes % (A) 15 %; MCH 31.7 pg (25.0-35.0); MCHC 32.9 g/dL (31.0-37.0); MCV 96.3 fL (80.0-100.0); Mean Platelet Volume 7.8; Monocytes # (A) 0.7 k/uL (0-1.0); Monocytes % (A) 8 %; Neutrophils # (A) 6.1 k/uL (1.3-7.7); Neutrophils % (A) 74 %; Platelet Count 180 k/uL (150-450); RDW 14.2 % (11.5-15.5); WBC 8.3 k/uL (3.8-10.6)
--- NOTE | 2023-10-12 18:59 | XR ---
EXAMINATION TYPE: XR chest 1V portable DATE OF EXAM: 10/12/2023 COMPARISON: 04/08/2023 INDICATION: Chest pain TECHNIQUE: Single frontal view of the chest is obtained. FINDINGS: The heart size is normal. The pulmonary vasculature is normal. The lungs are clear. IMPRESSION: 1. No acute pulmonary process.
--- NOTE | 2023-10-12 19:03 | ED ---
General Adult HPI - General Chief complaint: Chest Pain Stated complaint: chest pain Time Seen by Provider: 10/12/23 18:32 Source: patient, EMS, RN notes reviewed, old records reviewed Mode of arrival: EMS - History of Present Illness Initial comments: 88-year-old male presenting from the detention with an episode of chest discomfort. Patient has no pain at the time my evaluation. He denied associated diaphoresis or vomiting. No dyspnea. Patient bedbound at [facility]. No complaints at time my evaluation. No chest or abdominal pain. Patient given aspirin and nitroglycerin prior to arrival. Patient states nitroglycerin did not improve his pain - Related Data Home Medications Medication Instructions Recorded Confirmed Ferrous Sulfate [Iron (65 MG 325 mg PO DAILY@1700 06/03/20 04/08/23 Elemental)] Finasteride [Proscar] 5 mg PO HS 06/03/20 04/08/23 Acetaminophen Tab [Tylenol] 650 mg PO Q4H PRN 10/22/20 04/08/23 Tamsulosin [Flomax] 0.4 mg PO HS 10/22/20 04/08/23 Aspirin EC [Ecotrin Low Dose] 81 mg PO DAILY@0800 11/02/20 04/08/23 Magnesium Hydroxide [Milk of 7,200 mg PO Q48H PRN 11/02/20 04/08/23 Magnesia Concentrate] Nitroglycerin Sl Tabs [Nitrostat] 0.4 mg SL Q5M PRN 11/02/20 04/08/23 bisacodyL 10 mg RECTAL DAILY PRN 11/02/20 04/08/23 Famotidine [Pepcid] 20 mg PO HS 05/11/21 04/08/23 Levothyroxine Sodium [Synthroid] 137 mcg PO SUMOTUWETHFR@0800 05/11/21 04/08/23 Ranolazine [Ranexa] 500 mg PO BID@0800,1700 05/11/21 04/08/23 Dapagliflozin Propanediol [Farxiga] 10 mg PO DAILY@0800 06/10/21 04/08/23 Na Phos,M-B/Na Phos,Di-Ba [Fleet 133 ml RECTAL DAILY PRN 06/10/21 04/08/23 Adult] Cetirizine HCl [Zyrtec] 10 mg PO DAILY@0800 12/02/22 04/08/23 Dextran/Hypromellose/Glycerin 2 drops BOTH EYES QID PRN 12/02/22 04/08/23 [Artificial Tears 0.1-0.2-0.3%] Dulaglutide [Trulicity] 1.5 mg SQ FR@0800 12/02/22 04/08/23 Melatonin 3 mg PO HS 12/02/22 04/08/23 Metoprolol Succinate (ER) [Toprol 50 mg PO DAILY@0800 12/02/22 04/08/23 XL] Montelukast [Singulair] 10 mg PO HS 12/02/22 04/08/23 lisinopriL [Zestril] 10 mg PO BID@0800,1700 12/02/22 04/08/23 Ipratropium-Albuterol Nebulize 3 ml INHALATION RT-Q6H PRN 12/28/22 04/08/23 [Duoneb 0.5 mg-3 mg/3 ml Soln] guaiFENesin [guaiFENesin Oral 200 mg PO Q6H PRN 12/28/22 04/08/23 Solution] Ascorbic Acid [Vitamin C] 1,000 mg PO DAILY 04/08/23 04/08/23 Cholecalciferol [Vitamin D3 (25 50 mcg PO DAILY 04/08/23 04/08/23 Mcg = 1000 Iu)] INSULIN ASPART (NovoLOG) [NovoLOG See Protocol SQ ACHS 04/08/23 04/08/23 (formulary)] Metformin Er 500mg 1 tab PO DAILY 04/08/23 04/08/23 Rivaroxaban [Xarelto] 2.5 mg PO BID@0800,1700 04/08/23 04/08/23 Zinc Sulfate [Orazinc] 220 mg PO DAILY 04/08/23 04/08/23 Previous Rx's Medication Instructions Recorded Isosorbide Mononitrate ER [Imdur] 60 mg PO DAILY@0800 tablet 06/11/21 Hydrocortisone [Cortef] 10 mg PO DAILY@1700 tab 01/01/23 Hydrocortisone [Cortef] 30 mg PO DAILY@0800 tab 01/01/23 amLODIPine [Norvasc] 10 mg PO DAILY tab 04/14/23 Allergies Allergy/AdvReac Type Severity Reaction Status Date / Time Qzffksn-FDS-JtU Reductase Allergy Unknown Verified 10/12/23 18:37 Inhibitor [Jnwskzy-Ghn-Phr Reductase Inhibitor] Review of Systems ROS Statement: Those systems with pertinent positive or pertinent negative responses have been documented in the HPI. ROS Other: All systems not noted in ROS Statement are negative. Past Medical History Past Medical History: GERD/Reflux, Hypertension, Osteoarthritis (OA), Thyroid Disorder Additional Past Medical History / Comment(s): glaucoma yelitza eyes, left rotator cuff torn, back pain History of Any Multi-Drug Resistant Organisms: None Reported Past Surgical History: Appendectomy, Cholecystectomy, Orthopedic Surgery, Tonsillectomy Additional Past Surgical History / Comment(s): yelitza shoulder arthroscopy, eye sx for glaucoma, a benign pituitary tumor removed at [facility]. Past Anesthesia/Blood Transfusion Reactions: No Reported Reaction Past Psychological History: No Psychological Hx Reported Smoking Status: Never smoker Past Alcohol Use History: None Reported Past Drug Use History: None Reported - Past Family History Mother Family Medical History: Congestive Heart Failure (CHF) Additional Family Medical History / Comment(s): age 95 Father Family Medical History: No Reported History Additional Family Medical History / Comment(s): " from old age at age 90" General Exam General appearance: alert, in no apparent distress Head exam: Present: atraumatic, normocephalic Eye exam: Present: normal appearance, PERRL ENT exam: Present: normal exam Neck exam: Present: normal inspection. Absent: tenderness, meningismus Respiratory exam: Present: normal lung sounds bilaterally. Absent: respiratory distress, wheezes Cardiovascular Exam: Present: regular rate, normal rhythm GI/Abdominal exam: Present: soft. Absent: distended, tenderness, guarding Extremities exam: Present: pedal edema Neurological exam: Present: alert, oriented X3, CN II-XII intact. Absent: motor sensory deficit Psychiatric exam: Present: normal affect, normal mood Course Vital Signs 10/12/23 10/12/23 10/12/23 18:32 18:37 18:45 Temperature 98.4 F Pulse Rate 74 86 Pulse Rate [ 84 Accounting Manager Controller ] Respiratory 17 20 Rate Blood Pressure 153/81 135/74 O2 Sat by Pulse 95 95 Oximetry 10/12/23 19:31 Temperature Pulse Rate 85 Pulse Rate [ Accounting Manager Controller ] Respiratory 18 Rate Blood Pressure 114/70 O2 Sat by Pulse 95 Oximetry Medical Decision Making - Medical Decision Making Was pt. sent in by a medical professional or institution (, KENAN, DIESEL PILE HAMMER OPERATOR, urgent care, hospital, or detention...) When possible be specific @ -No Did you speak to anyone other than the patient for history (EMS, parent, family, police, friend...)? What history was obtained from this source @ -No Did you review nursing and triage notes (agree or disagree)? Why? @ -I reviewed and agree with nursing and triage notes Were old charts reviewed (outside hosp., previous admission, EMS record, old EKG, old radiological studies, urgent care reports/EKG's, detention records)? Report findings @ -No old charts were reviewed Differential Chest Pain: Stable Angina, Unstable Angina, STEMI, NSTEMI Aortic Dissection, Pneumothorax, Musculoskeletal, Esophageal Spasm GERD, Cholecystitis, Pancreatitis, Zoster, t his is not meant to be an all-inclusive list. EKG interpreted by me (3pts min.). @EKG: Sinus rhythm first-degree AV block right bundle branch block, rate of 84, MS interval 231, QRS duration 136, QTc [address] segment elevation. X-rays interpreted by me (1pt min.). @ -Chest x-ray stable from prior, cardiomegaly without acute process CT interpreted by me (1pt min.). @ -None done U/S interpreted by me (1pt. min.). @ -None done What testing was considered but not performed or refused? (CT, X-rays, U/S, labs)? Why? @ -None What meds were considered but not given or refused? Why? @ -None Did you discuss the management of the patient with other professionals (professionals i.e. , KENAN, DIESEL PILE HAMMER OPERATOR, lab, RT, psych nurse, 7th grade social studies teacher, home planning consultant salesperson, teacher, ground nuclear weapons assembly officer, vocational case manager)? Give summary @ -No Was smoking cessation discussed for >3mins.? @ -No Was critical care preformed (if so, how long)? @ -No Were there social determinants of health that impacted care today? How? (Homelessness, low income, unemployed, alcoholism, drug addiction, transportation, low edu. Level, literacy, decrease access to med. care, shelter, rehab)? @ -No Was there de-escalation of care discussed even if they declined (Discuss DNR or withdrawal of care, Hospice)? DNR status @ -No What co-morbidities impacted this encounter? (DM, HTN, Smoking, COPD, CAD, Cancer, CVA, ARF, Chemo, Hep., AIDS, mental health diagnosis, sleep apnea, morbid obesity)? @ -Bedbound, debility, hypertension Was patient admitted / discharged? Hospital course, mention meds given and route, prescriptions, significant lab abnormalities, going to OR and other pertinent info. @ -[88-year-old male presenting with an episode of substernal chest pain without typical features. Pain was resolved prior to arrival. Patient had taken aspirin prior to arrival. EKG showed no ST segment elevation. Chest x- ray was stable from prior without acute findings. Patient normal CBC, normal CMP, negative troponin. I did offer observation for further cardiac testing and patient declines. He states his is at more worried and he feels fine and prefers discharge at this time. Undiagnosed new problem with uncertain prognosis? @ -No Drug Therapy requiring intensive monitoring for toxicity (Heparin, Nitro, Insulin, Cardizem)? @ -No Were any procedures done? @ -No Diagnosis/symptom? @ -Chest pain Acute, or Chronic, or Acute on Chronic? @ -Acute Uncomplicated (without systemic symptoms) or Complicated (systemic symptoms)? @ -Default Side effects of treatment? @ -No Exacerbation, Progression, or Severe Exacerbation? @ -No Poses a threat to life or bodily function? How? (Chest pain, USA, DE, pneumonia, PE, COPD, DKA, ARF, appy, cholecystitis, CVA, Diverticulitis, Homicidal, Suicidal, threat to staff... and all critical care pts) @ -[Yes, ACS - Lab Data Result diagrams: 10/12/23 18:45 10/12/23 18:45 Lab Results 10/12/23 10/12/23 10/12/23 Range/Units 18:45 18:45 18:45 WBC 8.3 (3.8-10.6) k/uL RBC 5.40 (4.30-5.90) m/uL Hgb 17.1 (13.0-17.5) gm/dL Hct 52.0 (39.0-53.0) % MCV 96.3 (80.0-100.0) fL MCH 31.7 (25.0-35.0) pg MCHC 32.9 (31.0-37.0) g/dL RDW 14.2 (11.5-15.5) % Plt Count 180 (150-450) k/uL MPV 7.8 Neutrophils % 74 % Lymphocytes % 15 % Monocytes % 8 % Eosinophils % 1 % Basophils % 1 % Neutrophils # 6.1 (1.3-7.7) k/uL Lymphocytes # 1.3 (1.0-4.8) k/uL Monocytes # 0.7 (0-1.0) k/uL Eosinophils # 0.1 (0-0.7) k/uL Basophils # 0.0 (0-0.2) k/uL PT 11.4 (10.0-12.5) sec INR 1.1 (<1.2) APTT 22.4 (22.0-30.0) sec Sodium 134 L (137-145) mmol/L Potassium 4.3 (3.5-5.1) mmol/L Chloride 103 (98-107) mmol/L Carbon Dioxide 24 (22-30) mmol/L Anion Gap 7 mmol/L BUN 15 (9-20) mg/dL Creatinine 0.88 (0.66-1.25) mg/dL Est GFR (CKD-EPI)AfAm 90 (>60 ml/min/1.73 sqM) Est GFR (CKD-EPI)NonAf 77 (>60 ml/min/1.73 sqM) Glucose 253 H (74-99) mg/dL Calcium 8.5 (8.4-10.2) mg/dL Magnesium 2.1 (1.6-2.3) mg/dL Total Bilirubin 0.9 (0.2-1.3) mg/dL AST 34 (17-59) U/L ALT 38 (4-49) U/L Alkaline Phosphatase 126 (38-126) U/L Troponin I (0.000-0.034) ng/mL Total Protein 6.7 (6.3-8.2) g/dL Albumin 3.7 (3.5-5.0) g/dL 10/12/23 Range/Units 18:45 WBC (3.8-10.6) k/uL RBC (4.30-5.90) m/uL Hgb (13.0-17.5) gm/dL Hct (39.0-53.0) % MCV (80.0-100.0) fL MCH (25.0-35.0) pg MCHC (31.0-37.0) g/dL RDW (11.5-15.5) % Plt Count (150-450) k/uL MPV Neutrophils % % Lymphocytes % % Monocytes % % Eosinophils % % Basophils % % Neutrophils # (1.3-7.7) k/uL Lymphocytes # (1.0-4.8) k/uL Monocytes # (0-1.0) k/uL Eosinophils # (0-0.7) k/uL Basophils # (0-0.2) k/uL PT (10.0-12.5) sec INR (<1.2) APTT (22.0-30.0) sec Sodium (137-145) mmol/L Potassium (3.5-5.1) mmol/L Chloride (98-107) mmol/L Carbon Dioxide (22-30) mmol/L Anion Gap mmol/L BUN (9-20) mg/dL Creatinine (0.66-1.25) mg/dL Est GFR (CKD-EPI)AfAm (>60 ml/min/1.73 sqM) Est GFR (CKD-EPI)NonAf (>60 ml/min/1.73 sqM) Glucose (74-99) mg/dL Calcium (8.4-10.2) mg/dL Magnesium (1.6-2.3) mg/dL Total Bilirubin (0.2-1.3) mg/dL AST (17-59) U/L ALT (4-49) U/L Alkaline Phosphatase (38-126) U/L Troponin I <0.012 (0.000-0.034) ng/mL Total Protein (6.3-8.2) g/dL Albumin (3.5-5.0) g/dL Disposition Clinical Impression: Chest pain Disposition: HOME SELF-CARE Condition: Fair Instructions (If sedation given, give patient instructions): Chest Pain (ED) Additional Instructions: Please monitor for new or worsening symptoms. Is patient prescribed a controlled substance at d/c from ED?: No Referrals: Maggie Joya MD [Primary Care Provider] - 1-2 days Time of Disposition: 19:35
[2023-10-12 19:04] LABS: ALT 38 U/L (4-49); AST 34 U/L (17-59); African American GFR (CKD) 90 (>60 ml/min/1.73 sqM); Albumin 3.7 g/dL (3.5-5.0); Alkaline Phosphatase 126 U/L (38-126); Anion Gap 7 mmol/L; Blood Urea Nitrogen 15 mg/dL (9-20); Calcium 8.5 mg/dL (8.4-10.2); Carbon Dioxide 24 mmol/L (22-30); Chloride 103 mmol/L (98-107); Glucose 253 mg/dL (74-99); Magnesium 2.1 mg/dL (1.6-2.3); Non-African American GFR(CKD) 77 (>60 ml/min/1.73 sqM); Potassium 4.3 mmol/L (3.5-5.1); Sodium 134 mmol/L (137-145); Total Bilirubin 0.9 mg/dL (0.2-1.3); Total Protein 6.7 g/dL (6.3-8.2)
[2023-10-12 19:12] LABS: INR 1.1 (<1.2); Partial Thromboplastin Time 22.4 sec (22.0-30.0); Prothrombin Time 11.4 sec (10.0-12.5)
[2023-10-12 20:03] VITALS: RESP 18
[2023-10-12 20:41] VITALS: BP 114/83; PULSE 84
== END 2023-10-12 20:25 | disposition home or self-care (01) ==
LOC: EC 18:29
DX: I45.10 Unspecified right bundle-branch block (principal); I10 Essential (primary) hypertension; Z88.8 Allergy status to other drugs, medicaments and biological substances
CPT/HCPCS: 36415; 71045; 80053; 83735; 84484; 85025; 85610; 85730; 93005; 99285